=== PATIENT | female | born 1990 | race Caucasian/White ===

== ENCOUNTER 2023-03-13 15:25 | Outpatient (CLI) | payer OTHER, SELFPAY | END 2023-03-13 15:26 | disposition home or self-care (01) | LOC: NFLDREF 15:29 | PROVIDERS: Visit Provider Obstetrics & Gynecology | DX: Z34.90 Encounter for supervision of normal pregnancy, unspecified, unspecified trimester (principal) | CPT/HCPCS: 84702 ==

== ENCOUNTER 2023-03-15 13:12 | Outpatient (CLI) | payer OTHER, SELFPAY | END 2023-03-15 13:13 | disposition home or self-care (01) | LOC: NFLDREF 03-17 10:36 | PROVIDERS: Visit Provider Obstetrics & Gynecology | DX: Z34.90 Encounter for supervision of normal pregnancy, unspecified, unspecified trimester (principal) | CPT/HCPCS: 84702 ==

== ENCOUNTER 2023-03-20 10:03 | Emergency (ER) | payer OTHER, SELFPAY ==
[2023-03-20 10:09] VITALS: BP 147/85; PULSE 97; RESP 18; TEMP 36.8; O2SAT 100; BMI 42.8
--- NOTE | 2023-03-20 12:00 | ED.GENADULT ---
HPI - General Adult General Time Seen by Provider: 12:00 <Kimberley Lee - Last Filed: 03/20/23 13:31> Date Seen: 03/20/23 <Kimberley Lee - Last Filed: 03/20/23 13:31> Chief complaint: Chest Pain <Kimberley Lee - Last Filed: 03/20/23 13:31> Stated complaint: 5 weeks , chest pain <Kimberley Lee - Last Filed: 03/20/23 13:31> Time Seen by Provider: 03/20/23 12:00 <Kimberley Lee - Last Filed: 03/20/23 13:31> History of Present Illness HPI narrative: 33 yo female who is 5 weeks w/ a hx of preeclampsia presents with 1 week of constant chest tightness. She notes that the tightness worsens when she bends forward. She also notes intermittent palpitations. She reports she thought this chest tightness was due to her allergies initially. She denies shortness of breath or worsening. She denies congestion, cough, fever, chills, recent illness or recent sick contacts. Denies abdominal pain. She denies a hx of acid reflux or worsening of the pain after food intake. She took her albuterol inhaler this morning without relief. She also reports that she has had right sided, intermittent sharp back pain for the past for days, which she has had in the past before. Denies radiation of pain into the legs, denies weakness. She notes for the past three weeks she has had occasional altered sensation down her R arm with spasm of the R palm. She denies smoking. She reports no sudden cardiac deaths in the family, but her father did at age 56 from complications from heart failure, he was a smoker. <Kimberley Lee - Last Filed: 03/20/23 13:31> Related Data Home medications: Home Medications Medication Instructions Recorded Confirmed lamotrigine 200 mg tablet 200 mg PO BID 03/21/22 03/13/23 sertraline 100 mg tablet 150 mg PO 03/21/22 03/13/23 liraglutide (weight loss) 3 mg/0.5 mg subcut 11/29/22 03/13/23 mL (18 mg/3 mL) subcut pen injector (Saxenda) hydroxyzine HCl 25 mg tablet 25 mg PO BID 03/13/23 03/13/23 lamotrigine 100 mg tablet 100 mg PO BID 03/13/23 03/13/23 phentermine 37.5 mg capsule 37.5 mg PO QDAY 03/13/23 03/13/23 topiramate 25 mg tablet 25 mg PO DAILY 03/13/23 03/13/23 Previous Rx's Medication Instructions Recorded albuterol sulfate 90 mcg/actuation 2 puff inhalation Q4-6H PRN 03/21/22 aerosol inhaler shortness of breath or wheezing 30 days #8.5 grams <Kimberley Lee - Last Filed: 03/20/23 13:31> Allergies/adverse reactions: Allergies Allergy/AdvReac Type Severity Reaction Status Date / Time No Known Drug Allergies Allergy Verified 03/13/23 14:18 <Kimberley Lee - Last Filed: 03/20/23 13:31> Review of Systems Status of ROS: Reports: 10 or more systems reviewed and unremarkable except as noted in History and below <Kimberley Lee - Last Filed: 03/20/23 13:31> Narrative: Constitutional: No fevers, no weight gain or loss. Eyes: No discharge. No vision changes. HENT: No congestion, no sore throat, no ear pain. Cardiovascular: She reports some palpitations. Respiratory: No shortness of breath, no wheezes, no cough. Gastrointestinal: No abdominal pain, no vomiting, no diarrhea. Genitourinary: No dysuria, no hematuria. Musculoskeletal: Normal range of motion. Skin: No rashes, no pruritis. Neurological: No dizziness, weakness, sensory change, speech change. Endo/Heme/Allergies: No bruising or bleeding. No polydipsia. Pysch: no suicidality, no anxiety, no insomnia. All other systems reviewed and are negative. <Deni Laws MD - Last Filed: 03/20/23 13:42> [facility] Medical History: Medical History (Updated 03/20/23 @ 13:42 by Deni Laws MD) Pre-eclampsia affecting childbirth ?O14.94 - Unspecified pre-eclampsia, complicating childbirth (ICD-10) Polycystic ovary syndrome ?E28.2 - Polycystic ovarian syndrome (ICD-10) Panic attacks (06/16/11) ?F41.0 - Panic disorder [episodic paroxysmal anxiety] (ICD-10) Migraine (11/13/06) ?G43.909 - Migraine, unspecified, not intractable, without status migrainosus (ICD-10) Gestational hypertension ?O13.9 - Gestational [-induced] hypertension without significant proteinuria, unspecified trimester (ICD-10) <Kimberley Lee - Last Filed: 03/20/23 13:31> Surgical History: Surgical History (Updated 03/14/23 @ 11:15 by Janie Chung MD) History of cholecystectomy ?Z90.49 - Acquired absence of other specified parts of digestive tract (ICD-10) Status post repeat low transverse section ?Z98.891 - History of uterine scar from previous surgery (ICD-10) <Kimberley Lee - Last Filed: 03/20/23 13:31> Family History: Family History (Updated 03/14/23 @ 11:17 by Janie Chung MD) Maternal Grandfather Coronary artery disease Depression Father Coronary artery disease Stroke Mother Depression Paternal Grandfather Ulcerative colitis Other Alcohol dependence Diabetes High blood pressure High cholesterol <Kimberley Lee - Last Filed: 03/20/23 13:31> Social History: Social History (Updated 03/13/23 @ 14:24 by Brandee Mack ~ [employer]) Narrative: does not drink alcohol, does not exercise, nonsmoker quit in 2013, 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, 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, sales/customer service What is your current living situation?: I presently have a place to live Problems where you live: no known problems In the past 12 months, utilities in danger of being shut off: no In past 12 months, lack of transportation kept you from medical appts, meetings, work, or getting things needed for daily living: no In the past 12 mos, have been you worried that your food would run out before you had money to buy more?: never true In the past 12 mos, the food you bought just didn't last and you didn't have money to buy more?: never true Smoking Status: Never smoker Do you use any of these nicotine containing products: None How often do you have a drink containing alcohol: never AUDIT-C Alcohol total score: 0 Non-prescribed substance use: denies use How often does anyone, including family, friends and others, physically hurt you: never How often does anyone, including family, friends and others, insult or talk down to you: never How often does anyone, including family, friends and others, threaten you with harm: never How often does anyone, including family, friends and others, scream or curse at you: never <Kimberley Lee Last Filed: 03/20/23 13:31> Exam Narrative: Exam Narrative: General: Well appearing, no acute distress, seated upright in bed Cardiac: RRR no M/R/G Resp: CTAB MSK: R mid, lateral back pain reproducible on palpation No LE edema, warmth or erythema Neuro: Negative 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 Abdomen: Nontender throughout, no rebound or guarding Skin: No rashes or echymoses noted <Kimberley Lee Last Filed: 03/20/23 13:31> Const: Vital Signs, click to edit/add: Vital Signs - 24 hr 03/20/23 10:09 Temperature 98.2 F Pulse Rate [Right Pulse Oximeter] 97 Respiratory Rate 18 Blood Pressure [Ri ght Upper Arm] 147/85 H Pulse Oximetry 100 Oxygen Delivery Me thod Room Air <Kimberley Lee Last Filed: 03/20/23 13:31> Vital Signs, click to edit/add: Vital Signs - 24 hr 03/20/23 10:09 Temperature 98.2 F Pulse Rate [Right Pulse Oximeter] 97 Respiratory Rate 18 Blood Pressure [Ri ght Upper Arm] 147/85 H Pulse Oximetry 100 Oxygen Delivery Me thod Room Air <Deni Laws MD - Last Filed: 03/20/23 13:42> Course Course ED Course: DDx includes but not limited to SC, PE, pneumothorax, GERD, pericarditis, chostochondritis, pleuritis <Kimberley Lee Last Filed: 03/20/23 13:31> Vital Signs Vital signs: Initial Vital Signs Temperature 98.2 F 03/20/23 10:09 Temperature Source Temporal Artery Scan 03/20/23 10:09 Pulse Rate 97 03/20/23 10:09 Respiratory Rate 18 03/20/23 10:09 Blood Pressure 147/85 H 03/20/23 10:09 Blood Pressure Mean 105 03/20/23 10:09 Blood Pressure Position Sitting 03/20/23 10:09 Pulse Oximetry 100 03/20/23 10:09 Oxygen Delivery Method Room Air 03/20/23 10:09 Vital Signs Temperature 98.2 F 03/20/23 10:09 Pulse Rate 97 03/20/23 10:09 Respiratory Rate 18 03/20/23 10:09 Blood Pressure 147/85 H 03/20/23 10:09 Pulse Oximetry 100 03/20/23 10:09 Oxygen Delivery Method Room Air 03/20/23 10:09 Temperature 98.2 F 03/20/23 10:09 Pulse Rate 97 03/20/23 10:09 Respiratory Rate 18 03/20/23 10:09 Blood Pressure 147/85 H 03/20/23 10:09 Pulse Oximetry 100 03/20/23 10:09 Oxygen Delivery Method Room Air 03/20/23 10:09 <Kimberley Lee - Last Filed: 03/20/23 13:31> Initial Vital Signs Temperature 98.2 F 03/20/23 10:09 Temperature Source Temporal Artery Scan 03/20/23 10:09 Pulse Rate 97 03/20/23 10:09 Respiratory Rate 18 03/20/23 10:09 Blood Pressure 147/85 H 03/20/23 10:09 Blood Pressure Mean 105 03/20/23 10:09 Blood Pressure Position Sitting 03/20/23 10:09 Pulse Oximetry 100 03/20/23 10:09 Oxygen Delivery Method Room Air 03/20/23 10:09 Vital Signs Temperature 98.2 F 03/20/23 10:09 Pulse Rate 97 03/20/23 10:09 Respiratory Rate 18 03/20/23 10:09 Blood Pressure 147/85 H 03/20/23 10:09 Pulse Oximetry 100 03/20/23 10:09 Oxygen Delivery Method Room Air 03/20/23 10:09 Temperature 98.2 F 03/20/23 10:09 Pulse Rate 97 03/20/23 10:09 Respiratory Rate 18 03/20/23 10:09 Blood Pressure 147/85 H 03/20/23 10:09 Pulse Oximetry 100 03/20/23 10:09 Oxygen Delivery Method Room Air 03/20/23 10:09 <Deni Laws MD - Last Filed: 03/20/23 13:42> Medical Decision Making MDM Narrative Medical decision making narrative: This patient comes in with chest discomfort that is reproduced when leaning forward. She also reports some pain in the back of her neck radiating down to her right shoulder and sometimes into her right hand. She comes in with concern about a cardiac family history. EKG shows normal sinus rhythm and lab results returned with normal findings. This patient's symptoms are much more likely related to her chest wall or a cervical radiculopathy. Her symptoms are reproducible. I did discuss other lab and imaging options with the patient which were declined in a process of shared decision making. She is okay to be discharged home and encouraged use [id number] medicines as needed and directed. <Deni Laws MD - Last Filed: 03/20/23 13:42> Lab Data Labs: Lab Results 03/20/23 03/20/23 Range/Units 12:43 12:55 WBC 9.78 (4.50-11.00) K/uL RBC 4.24 (4.00-5.20) m/uL Hgb 12.2 (12.0-16.0) gm/dL Hct 38.6 (33.0-51.0) % MCV 91 (80-100) fL MCH 29 (26-34) pg MCHC 32 (32-36) gm/dL RDW Coeff of Kendall 13.4 (11.5-15.5) % Plt Count 357 (140-440) K/uL Neut % (Auto) 65.1 (42.0-72.0) % Lymph % (Auto) 21.6 (20-44) % [place] % (Auto) 6.7 (0.0-11.0) % Eos % (Auto) 6.1 (0.0-7.0) % Baso % (Auto) 0.3 (0.0-3.0) % Neut # (Auto) 6.36 (1.7-7.0) K/uL Lymph # (Auto) 2.11 (0.90-2.90) K/uL [place] # (Auto) 0.70 (0.00-0.90) K/UL Eos # (Auto) 0.60 H (0.00-0.50) K/uL Baso # (Auto) 0.03 (0.00-0.30) K/uL Abs Immat Gran (auto) 0.02 (0.00-0.30) K/uL Imm/Tot Granulo (auto) 0.2 % Sodium 140 (135-149) mmol/L Potassium 3.8 (3.6-5.1) mmol/L Chloride 108 (96-114) mmol/L Carbon Dioxide 23 (20-32) mmol/L Anion Gap 9 (7-15) mEq/L BUN 10 (5-24) mg/dL Creatinine 0.5 (0.5-1.5) mg/dL Estimated Creat Clear 147.01 Estimated GFR 125 ml/min Glucose 97 (60-115) mg/dL Calcium 8.4 (8.4-10.6) mg/dL POC Troponin I 0.00 L (0.01-0.04) ng/ml <Kimberley Jesus - Last Filed: 03/20/23 13:31> Lab Results 03/20/23 03/20/23 Range/Units 12:43 12:55 WBC 9.78 (4.50-11.00) K/uL RBC 4.24 (4.00-5.20) m/uL Hgb 12.2 (12.0-16.0) gm/dL Hct 38.6 (33.0-51.0) % MCV 91 (80-100) fL MCH 29 (26-34) pg MCHC 32 (32-36) gm/dL RDW Coeff of Kendall 13.4 (11.5-15.5) % Plt Count 357 (140-440) K/uL Neut % (Auto) 65.1 (42.0-72.0) % Lymph % (Auto) 21.6 (20-44) % [place] % (Auto) 6.7 (0.0-11.0) % Eos % (Auto) 6.1 (0.0-7.0) % Baso % (Auto) 0.3 (0.0-3.0) % Neut # (Auto) 6.36 (1.7-7.0) K/uL Lymph # (Auto) 2.11 (0.90-2.90) K/uL [place] # (Auto) 0.70 (0.00-0.90) K/UL Eos # (Auto) 0.60 H (0.00-0.50) K/uL Baso # (Auto) 0.03 (0.00-0.30) K/uL Abs Immat Gran (auto) 0.02 (0.00-0.30) K/uL Imm/Tot Granulo (auto) 0.2 % Sodium 140 (135-149) mmol/L Potassium 3.8 (3.6-5.1) mmol/L Chloride 108 (96-114) mmol/L Carbon Dioxide 23 (20-32) mmol/L Anion Gap 9 (7-15) mEq/L BUN 10 (5-24) mg/dL Creatinine 0.5 (0.5-1.5) mg/dL Estimated Creat Clear 147.01 Estimated GFR 125 ml/min Glucose 97 (60-115) mg/dL Calcium 8.4 (8.4-10.6) mg/dL POC Troponin I 0.00 L (0.01-0.04) ng/ml <Deni Laws MD - Last Filed: 03/20/23 13:42> ECG Data Attestation: I personally reviewed and interpreted this ECG as follows: <Deni Laws MD - Last Filed: 03/20/23 13:42> Interpretation: Normal sinus rhythm. Rate is 75 beats per minute. There are no ST or T-wave abnormalities. <Deni Laws MD - Last Filed: 03/20/23 13:42> Discharge Plan Discharge Clinical Impression: Acute chest wall pain <Kimberley Lee - Last Filed: 03/20/23 13:31> Patient Disposition: Home, Self-Care <Kimberley Lee - Last Filed: 03/20/23 13:31> Condition: Stable <Kimberley Perry Last Filed: 03/20/23 13:31> Additional Instructions: Use [id number] medicines as needed and directed. Increase activity as tolerated. Follow up with MD return if worsening. <Kimberley Perry Last Filed: 03/20/23 13:31> Prescriptions: No Action sertraline 100 mg tablet 150 mg PO lamotrigine 200 mg tablet 200 mg PO BID albuterol sulfate 90 mcg/actuation HFA aerosol inhaler 2 puff inhalation Q4-6H PRN (Reason: shortness of breath or wheezing) 30 Days Qty: 8.5 3RF Saxenda 3 mg/0.5 mL (18 mg/3 mL) pen injector subcut phentermine 37.5 mg capsule 37.5 mg PO QDAY Rx Instructions: must administer 30 minutes before or 1-2 hours after breakfast lamotrigine 100 mg tablet 100 mg PO BID hydroxyzine HCl 25 mg tablet 25 mg PO BID topiramate 25 mg tablet 25 mg PO DAILY <Kimberley Lee - Last Filed: 03/20/23 13:31> Follow Up/Referrals: Bette Pereyra MD [Primary Care Provider] - <Kimberley Lee - Last Filed: 03/20/23 13:31> Stand Alone Forms: My[facility] Info Instructions <Kimberley Lee - Last Filed: 03/20/23 13:31>
[2023-03-20 13:05] LABS: Basophils Absolute Auto 0.03 K/uL (0.00-0.30); Basophils Percent Auto 0.3 % (0.0-3.0); Eosinophils Percent Auto 6.1 % (0.0-7.0); Hematocrit 38.6 % (33.0-51.0); Hemoglobin* 12.2 gm/dL (12.0-16.0); Immature Granulocytes Abs Auto 0.02 K/uL (0.00-0.30); Immature Granulocytes Pct Auto 0.2 %; Lymphocytes Absolute Auto 2.11 K/uL (0.90-2.90); Lymphocytes Percent Auto 21.6 % (20-44); Mean Corpuscular HGB Conc 32 gm/dL (32-36); Mean Corpuscular Hemoglobin 29 pg (26-34); Mean Corpuscular Volume 91 fL (80-100); Monocytes Percent Auto 6.7 % (0.0-11.0); Neutrophils Absolute Auto 6.36 K/uL (1.7-7.0); Neutrophils Percent Auto 65.1 % (42.0-72.0); Platelet Count* 357 K/uL (140-440); RDW Coefficient of Variation % 13.4 % (11.5-15.5); Red Blood Count 4.24 m/uL (4.00-5.20); White Blood Count* 9.78 K/uL (4.50-11.00)
[2023-03-20 13:09] LABS: Slide Review Reflex No
[2023-03-20 13:17] LABS: Chloride* 108 mmol/L (96-114); Potassium* 3.8 mmol/L (3.6-5.1); Sodium* 140 mmol/L (135-149)
[2023-03-20 13:20] LABS: Anion Gap 9 mEq/L (7-15); Carbon Dioxide* 23 mmol/L (20-32); Creatinine* 0.5 mg/dL (0.5-1.5); Est. Creatinine Clearance* 147.01; Estimated Glomerular Filt Rate 125 ml/min
[2023-03-20 13:21] LABS: Blood Urea Nitrogen* 10 mg/dL (5-24); Calcium* 8.4 mg/dL (8.4-10.6); Glucose* 97 mg/dL (60-115)
[2023-03-20 13:39] VITALS: BP 143/99; PULSE 76; RESP 16; O2SAT 97
== END 2023-03-20 13:48 | disposition home or self-care (01) ==
PROVIDERS: Emergency Provider Emergency Medicine Emergency Medical Services
DX: R07.89 Other chest pain (principal); Z3A.01 Less than 8 weeks gestation of pregnancy
CPT/HCPCS: 36415; 80048; 84484; 85025; 93005; 99284

== ENCOUNTER 2023-03-30 10:24 | Outpatient (CLI) | payer OTHER, SELFPAY ==
[2023-03-30 13:49] LABS: Chlamydia DNA Amplified* NOT DETECTED (No Detected); GC DNA Amplified* NOT DETECTED (No Detected)
== END 2023-03-30 10:25 | disposition home or self-care (01) ==
PROVIDERS: Visit Provider Physician Assistant
DX: Z34.91 Encounter for supervision of normal pregnancy, unspecified, first trimester (principal)
CPT/HCPCS: 87491; 87591

== ENCOUNTER 2023-03-31 07:11 | Outpatient (CLI) | payer OTHER, SELFPAY ==
--- OUTSIDE RECORDS SUMMARY | 2023-03-31 07:14 | XMS_ITS | Continuity of Care Document ---
Author Name Unknown Organization [facility] Address [address] [address] [place] [address] Phone Care Team Providers Care Schedule Maker Name Role Phone Sharon VITALE, Carlos Unavailable Unavailable Allergies, Adverse Reactions, Alerts Substance Reaction Status Criticality No Known Allergies Active No Inform ation Medications Medication Instructions Dosage Effective Dates (start - stop) Status Comments Uceris 9 mg tablet, extended release take 1 tablet by oral route every day in the morning swallowing whole with water. Do not break, crush, dissolve and/or chew. 9 MG - Active fluoxetine 40 mg capsule take 1 Tablet by ORAL route every day in the morning 40 MG - Active gabapentin 600 mg tablet take 2 tablet by oral route 3 times every day 1200 MG - Active Norlyda 0.35 mg tablet take 1 tablet by oral route every day - Active Lamictal 200 mg tablet take 4 tablet by oral route 2 times every day 800 MG - Active Procedures Procedure Date Colonoscopy Flex; W/remov Les- 19 Colonoscopy Flex; W/bx /mx Level Iv-surg Path Gross/micro 19 Immunocytochemistry, Each Antibody Ugi Endo; W/bx 1/mx Level Iv-surg Path Gross/micro 19 Offic/outpt E&m [facility] Routine Serum Collection C-reactive Prot Hep B Core Antibody Hepatitis B Surface Antibody Ag-immunoassay; Hep B Surface 9 Hepatic Function Panel Vitamin D; [address]; Hg/pltlt Ct Auto/compl 19 Advance Directives Directive Yes / No Effective Date File Name No Information Encounters Encounter Description Practice Location Reason(s) For Visit Diagnoses Date Provider Providers Copied on Encounter [facility], [address] [address], [place], [place], [id number], [place] tel:[phone] [facility] No Information 1 Sharon Gonzalez. [address], [place], [place], [id number] , [place]. tel: [phone] [facility], [address] [address], [place], [place], [id number], [place] tel:[phone] [facility] No Information 9 Sharon Gonzalez. [address], [place], [place], [id number] , [place]. tel: [phone] [facility], [address] [address], [place], [place], [id number], [place] tel:[phone] [facility] No Information 9 David Heredia. [address], [place], [place], [id number] , [place]. tel: [phone] [facility], [address] [address], [place], [place], [id number], [place] tel:[phone] [facility] Ulcerative pancolitisColorecta l polyp detected on colonoscopyPolyp of colonInflammatory polyps of colon without complicationsUlcera tive (chronic) pancolitis without complications 9 David Heredia. [address], [place], [place], [id number] , [place]. tel: [phone] Referring Provider: Referral Self, USE FOR SELF REFERRALS. [facility], [address] [address], [place], [id number], [place] tel:[phone] [facility] Gastric erosion determined by endoscopyOther diseases of stomach and duodenumDuodenitis without bleedingGastric ulcer, unsp as acute or chronic, w/o hemor or perf Dec-0 9 David Heredia. [address], [facility] [address], [place], [place], [id number] , [place]. [phone] Referring Provider: Referral Self, USE FOR SELF REFERRALS. Offic/outpt E&m [place], [address] [address], [place], [id number], [place] tel:[phone] [facility] Symptoms or Concerns (chief complaint) Ulcerative colitis with rectal bleeding, unspecified locationNauseaVagin al discharge David Heredia. [address], [facility] [address], [place], [place], [id number] , [place]. [phone] Referring Provider: Kaylen Romero, [address], [place], [address]. tel:[phone] Family History Family Member Type Diagnosis Age At Onset Father Problem (finding) alcoholism Sister Problem (finding) Alive and well Mother Problem (finding) Anxiety Brother Problem (finding) Alive and well Daughter Problem (finding) Alive and well Mother Problem (finding) Emphasema Father Problem (finding) diverticulitis of colon Mother Problem (finding) IBS Immunizations Vaccine Date Status Comments measles, mumps and rubella v irus vaccine administered Note: [facility] bi-direct ional interface ; Source: Other Registry Fluzone Quad 6mo or older 8490-8417 administered Note: [facility] bi-direct ional interface ; Source: Other Registry influenza, high dose seasona l, preservative-free administered Note: [facility] bi-direct ional interface ; Source: Other Registry tetanus toxoid, reduced diphtheria toxoid, and acellular pertussis vaccine, adsorbed administered Note: [facility] b i-directional interface ; Source: Other Registry Influenza administered Note: [facility] bi-d irectional interface ; Source: Other Registry influenza virus vaccine, unspecified formulation administered Note: [facility] bi-di rectional interface ; Source: Other Registry Pneumovax 23 administered Note: [facility] bi-d irectional interface ; Source: Other Registry Influenza, seasonal, injectable administe red Note: [facility] bi- directional interface ; Source: Other Registry tetanus and diphtheria toxoi ds, adsorbed, preservative free, for adult use (2 Lf of tetanus toxoid and 2 Lf of diphtheria toxoid) administered Note: [facility] bi-direct ional interface ; Source: Other Registry human papilloma virus vaccin e, quadrivalent administered Note: [facility] bi-direct ional interface ; Source: Other Registry human papilloma virus vaccin e, quadrivalent administered Note: [facility] bi-direct ional interface ; Source: Other Registry human papilloma virus vaccin e, quadrivalent administered Note: [facility] bi-direct ional interface ; Source: Other Registry tetanus and diphtheria toxoi ds, adsorbed, preservative free, for adult use (2 Lf of tetanus toxoid and 2 Lf of diphtheria toxoid) administered Note: [facility] bi-direct ional interface ; Source: Other Registry Engerix-B administered Note: [facility] bi-d irectional interface ; Source: Other Registry Engerix-B administered Note: [facility] bi-d irectional interface ; Source: Other Registry measles, mumps and rubella v irus vaccine administered Note: [facility] bi-direct ional interface ; Source: Other Registry Engerix-B administered Note: [facility] bi-d irectional interface ; Source: Other Registry Payers Payer name Insurance type Covered republican ID Authoriza tion(s) No Information Social History Type Description Quantity Date Captured Comments Sex Female Smoking Status No Information Chief Complaint And Reason For Visit No Information Reason For Referral Reason For Referral No Information Plan Of Treatment Date Type Action Status Referral Ordered: EGD Appointment date/timeframe: 01/01/2019 ordered Referral Ordered: Colonoscopy Appointment date/timeframe: 01/02/2019 ordered Referral Ordered: MRI Pelvis WITH Contrast Appointment date/timeframe: 12/26/2018 ordered History Of Present Illness Encounter Date Complaint History Of Prese nt Illness GI Symptoms or Concerns This is a 28-year-old female who is referred here to establish new gastroenterology care for ulcerative colitis. Records from the [facility] where she had previously been seen are not yet available, but have been requested. The patient reports that she was diagnosed 5 to 6 years ago. Initially, she tried Asacol without any benefit. She required steroids and at one point was on a prolonged steroid course for up to 8 months. She ultimately tried Humira, but during , had a flare despite Humira. The Humira was titrated, which worked for a period of time, but then efficacy was lost. She was on Humira for 2 years before transitioning to Remicade. In similar fashion, she responded well to Remicade initially, but required multiple dose and interval adjustments to the point that she was on this every 4 weeks. Her last infusion was in June of this year. She does note that in recent weeks to months her symptoms have recurred consistent with prior flares. She is noting diar Functional Status Date Functional Assessmen t No Information Instructions Date Instruction Additional Infor salina A pelvic MRI is donna mmended to assess for possible fistula, to see if evidence for crohns's Related to Vaginal discharge 1. We will check blo od work, stool panel, and arrange colonoscopy2. We will provide information regarding Entyvio and pursue approval. Call if you have questions regarding entyvio after you have had a chance to read about it3. We will review [place] records Related to Ulcerative colitis with rectal bleeding, unspecified location We will arrange an upper endosco py Related to Nausea IBD Folder Related to Ulcer ative colitis with rectal bleeding, unspecified location IBD and Nutrition Related to Ulc erative colitis with rectal bleeding, unspecified location Entyvio (vedolizumab) Related to Ulcerative colitis with rectal bleeding, unspecified location Please retrieve [place] records (GI and Rheum) Related to Ulcerative colitis with rectal bleeding, unspecified location Assessments Type Assessment Date No Information Patient Care Teams Name Effective Dates (start - stop) Status Members No Information
--- NOTE | 2023-03-31 07:15 | CRLHL7_ITS ---
For Patients: As a result of the Cures Act, medical imaging exams and procedure reports are released immediately into your electronic medical record. You may view this report before your referring provider. If you have questions, please contact your health care provider. HISTORY: Dating and viability. COMPARISON: None available of this gestation. TECHNIQUE: Transvaginal ultrasound examination of the early was performed. FINDINGS: A single intrauterine gestational sac is seen with a pole. The crown-rump length measurement of 0.7 cm gives an estimated gestational age of 6 weeks 4 days with an estimated date of delivery of 11/20/2023.. This correlates well with the LMP of 02/10/2023 which gives a clinical age of 7 weeks 0 days. Regular cardiac activity is seen at 124 BPM. A Caesarean section scar is seen in the anterior lower uterine fundus. There is no sign of free fluid in the pelvis. A corpus luteum cyst of is seen in the right ovary. The ovaries are otherwise normal in appearance. IMPRESSION: Single intrauterine gestation with estimated age of 6 weeks 4 days. Regular cardiac activity is seen. Dictated by Lorenzo Sewell MD @ 04/03/2023 10:34:21 PM (Electronically Signed)
== END 2023-03-31 07:12 | disposition home or self-care (01) ==
PROVIDERS: Visit Provider Physician Assistant
DX: Z34.91 Encounter for supervision of normal pregnancy, unspecified, first trimester (principal); Z3A.01 Less than 8 weeks gestation of pregnancy
CPT/HCPCS: 76817; 80048; 82570; 84156; 84450; 84460; 86592; 86703; 86704; 86706; 86762; 86787; 86803; 86850; 86900; 86901; 87086; 87340

== ENCOUNTER 2023-04-04 14:28 | Outpatient (CLI) | payer OTHER, SELFPAY ==
--- OUTSIDE RECORDS SUMMARY | 2023-04-05 05:27 | XMS_ITS | Continuity of Care Document ---
Author Name Unknown Organization [facility] Address [address] [address] [place] [address] Phone Care Team Providers Care Vacuum Applicator Operator Name Role Phone Sharon VITALE, Carlos Unavailable [...] Level Iv-surg Path Gross/micro 19 Offic/outpt E&m [facility] Routine Serum Collection C-reactive Prot Hep B Core Antibody Hepatitis B Surface Antibody Ag-immunoassay; Hep B Surface 9 Hepatic Function Panel Vitamin D; [address]; Hg/pltlt Ct Auto/compl 19 Advance Directives Directive Yes / No Effective Date File Name No Information Encounters Encounter Description Practice Location Reason(s) For Visit Diagnoses Date Provider Providers Copied on Encounter [facility], [address] [address], [place], [place], [id number], [place] tel:[phone] [facility] No Information [address], [place], [place], [id number] , [place]. tel: [phone] [facility], [address] [address], [place], [place], [address], [place] tel:[phone] [facility] No Information [address], [place], [place], [id number] , [place]. tel: [phone] [facility], [address] [address], [place], [place], [address], [place] tel:[phone] [facility] No Information [address], [place], [place], [id number] , [place]. tel: [phone] [facility], [address] [address], [place], [place], [address], [place] tel:[phone] [facility] Ulcerative pancolitisColorecta l polyp detected on colonoscopyPolyp of colonInflammatory polyps of colon without complicationsUlcera tive (chronic) pancolitis without complications [address], [place], [place], [address] , [place]. tel: [phone] Referring Provider: Referral Self, USE FOR SELF REFERRALS. [facility], [address] [address], [place], [id number], [place] tel:[phone] [facility] Gastric erosion determined by endoscopyOther diseases of stomach and duodenumDuodenitis without bleedingGastric ulcer, unsp as acute or chronic, w/o hemor or perf Dec-0 [address], [facility] [address], [place], [place], [address] , [place]. [phone] Referring Provider: Referral Self, USE FOR SELF REFERRALS. Offic/outpt E&m [facility], [address] [address], [place], [address], [place] tel:[phone] [facility] Symptoms or Concerns (chief complaint) Ulcerative colitis with rectal bleeding, unspecified locationNauseaVagin al discharge David Heredia. [address], [facility] [address], [place], [place], [address] , [place]. [phone] Referring Provider: Kaylen Romero, [address], [place], [address]. tel:[phone] Family History Family Member Type Diagnosis Age [...] Other Registry Fluzone Quad 6mo or older [id number] administered Note: [facility] bi-direct ional interface ; Source: Other Registry influenza, high dose seasona l, preservative-free administered Note: [facility] bi-direct ional interface ; Source: Other Registry tetanus toxoid, reduced diphtheria toxoid, and acellular pertussis vaccine, adsorbed administered Note: [facility] b i-directional interface ; Source: Other Registry [...] care for ulcerative colitis. Records from the [facility] where she had previously been seen are [...] to read about it3. We will review [facility] records Related to Ulcerative colitis with rectal bleeding, unspecified location We will arrange an upper endosco py Related to Nausea IBD Folder Related to Ulcer ative colitis with rectal bleeding, unspecified location IBD and Nutrition Related to Ulc erative colitis with rectal bleeding, unspecified location Entyvio (vedolizumab) Related to Ulcerative colitis with rectal bleeding, unspecified location Please retrieve [facility] records (GI and Rheum) Related to Ulcerative colitis with rectal bleeding, unspecified location Assessments Type Assessment Date No Information Patient Care Teams Name Effective Dates (start - stop) Status Members No Information
== END 2023-04-04 14:29 | disposition home or self-care (01) ==
LOC: NFLDREF 04-05 05:24
PROVIDERS: Visit Provider Obstetrics & Gynecology
DX: O10.919 Unspecified pre-existing hypertension complicating pregnancy, unspecified trimester (principal)
CPT/HCPCS: 82570; 84156

== ENCOUNTER 2023-04-17 14:22 | Outpatient (CLI) | payer OTHER, SELFPAY ==
[2023-04-17 22:46] LABS: SARS PCR* Negative SARS-CoV-2 (Negative)
== END 2023-04-17 14:23 | disposition home or self-care (01) ==
LOC: KYNREF 14:22
PROVIDERS: Visit Provider Nurse Practitioner Family
DX: R05.9 Cough, unspecified (principal)
CPT/HCPCS: 87635

== ENCOUNTER 2023-05-26 13:38 | Outpatient (CLI) | payer BC, OTHER, SELFPAY ==
--- OUTSIDE RECORDS SUMMARY | 2023-05-26 13:43 | XMS_ITS | Clinical Summary ---
Author Name Unknown Organization [facility] Address [address] [place] [address] Care Team Providers Care Pattern Shop Supervisor Name Role Phone Bette Lakhani M.D. Primary Care Pro vider Source Comments Patient records contain information from all sites at [facility]. For routine questions regarding patient records, call [phone] during business hours, M-F 8:00 AM - 5:00 PM Central Time. Record requests for emergency care only can be directed to [phone] at any time.[facility] Allergies No known active allergies Medications Medication Sig Dispensed Refills Start Date End Date Status Aviane 0.1-20 mg-mcg per tablet 0 06/11/2022 Active albuterol 90 mcg/actuation inhaler Inhale 2 puffs every 4 (four) hours as needed. 0 03/21/2022 Active pen needle, diabetic (BD Ultra-Fine Short Pen Needle) 31 gauge x 5/16 needle 1 Injection daily. Use as needed for Saxenda injection. 100 each 3 07/07/2022 Active liraglutide, weight loss, (SAXENDA) 3 mg/0.5 mL (18 mg/3 mL) injection Inject 2.4 mg under the skin daily for 7 days, THEN 3 mg daily. 50 mL 11 09/27/2022 10/04/2023 Active ondansetron ODT (ZOFRAN-ODT) 4 mg disintegrating tabletIndications:Chuck sea And Vomiting Dissolve 1 tablet (4 mg total) in the mouth every 8 (eight) hours as needed for nausea or vomiting. 20 tablet 2 10/13/2022 Active sertraline (ZOLOFT) 100 mg tabletIndications:Bip olar II Disorder (HCC),Obsessive Compulsive Disorder Take 1.5 tablets (150 mg total) by mouth daily. 45 tablet 11 01/16/2023 01/16/2024 Active sulfaSALAzine (AZULFIDINE) 500 mg tabletIndications:Col itis Ulcerative Left Sided (HCC) Take 3 tablets (1,500 mg total) by mouth 2 (two) times a day. 60 tablet 11 03/28/2023 Active lamoTRIgine (LaMICtaL) 100 mg tablet Take 2.5 tablets (250 mg total) by mouth 2 (two) times a day for 7 days, THEN 2 tablets (200 mg total) 2 (two) times a day for 7 days, THEN 1.5 tablets (150 mg total) 2 (two) times a day for 7 days, THEN 1 tablet (100 mg total) 2 (two) times a day for 7 days, THEN 0.5 tablets (50 mg total) 2 (two) times a day for 7 days, THEN 0.5 tablets (50 mg total) daily for 7 days. Then D/C. 109 tablet 0 03/31/2023 Active NIFEdipine (ADALAT CC) 30 mg ER tablet Take 30 mg by mouth daily. 0 03/31/2023 Active Active Problems Problem Noted Date Diagnosed Date Obsessive Compulsive Disorder 12/28/2017 Bipolar II Disorder 10/10/2017 Body Mass Index 45.0 To 49.9 Adult 11/30/2016 Overview: Rule activated problem due to BMI 45-49 posted on 11/30 at 13:54 CDT. Family History Of Ischemic H eart Disease And Other Diseases Of The Circulatory System 09/26/2015 Morbid Obesity 09/25/2014 Overview: Overview: BMI = 47 Colitis Ulcerative Left Sided 01/27/2014 Rhinitis Allergic 09/30/2013 Anxiety 01/13/2011 Polycystic Ovary Syndrome 10/29/2010 Concussion No Loss Of Consciousness Subsequent Pain Neck Pain Low Back Unspecified Pain Shoulder Left Pain Shoulder Right Comments Yes Resolved Problems Problem Noted Date Diagnosed Date Resolved Date Cholecystitis Acute With Cys tic Duct Obstruction 08/27/2021 08/28/2021 Overview: Added automatically from request for surgery [id number] Cholecystitis Acute 08/27/2021 01/22/20 Examination Other N ormal Third Trimester 06/12/2020 01/21/2022 Thiopurine Methyltransferase Normal Activity Extensive Metabolizer 08/31/2017 01/21/2022 Encounters Date Type Department Care Team Description 04/22/2023 7:40 AM NETWORKING TECHNICIAN E-Visit [facility] Express Care at the [facility] on the 4th Floor [address] [place] [address] Niurka Haynes APRN, C.N.P., M.S.N. Express Care Online for Sinus Symptoms (sinusitis) 04/17/2023 8:27 PM NETWORKING TECHNICIAN - 04/17/2023 9:35 PM NETWORKING TECHNICIAN Emergency [facility] [address] [place] [id number] Neeru Tabor P.A.-C., P.A., M.S. Influenza (Primary Dx) Discharge Disposition: Home or Self Care 04/17/2023 Patient Self-Triage [facility] Symptom Director Workforce Management, Provider from Last 3 Months Immunizations Name Administration Dates Next Due 4vHPV (discontinued) 03/04/2011,11/03/2010,08/31 DTaP (Infanrix, [employer]edia) 08/24/1993 DTaP, Unspecified 09/12/1989, 9,1988,1988 HepA Adult 06/28/2022 HepB (discontinued) adolesce nt/high risk 12/18/2000,07/14/2000,05/26/2000 HepB Adult 12/18/2000,07/14/2000,05/26/2000 Influenza (IM) Preservative Free 03/15/2018 Influenza Split 02/29/2016 Influenza, Unspecified 02/26/2014,02/19/2013,01/2012 MMR 02/20/2018,05/26/2000,06/13/1989 PCV20 06/28/2022 PPSV23 12/02/2012 SARS-COV-2 (COVID-19) - PFIZ ER (12 years or older) 04/20/2021,03/30/2021 Td (Adult), adsorbed 10/04/2011,04/29/2002 Td Preservative Free (TENIVA C, DECAVAC) 04/29/2002 Tdap 11/05/2020,08/14/2015 influenza vaccine quad (FLUZONE/FLUARIX) (6 months and older)(PF) 06/28/2022,06/07/2021,05/28/2020 Family History Medical History Relation Name Comments Alcohol abuse Father Sebas Mitchell Jr. Colon polyps Father Sebas Mitchell Jr. Coronary artery disease Father Sebas Mitchell Jr. Drug abuse Father Sebas Mitchell Jr. Hypertension Father Sebas Mitchell Jr. Kidney disease Father Sebas Mitchell Jr. Liver disease Father Sebas Mitchell Jr. Migraines Father Sebas Mitchell Jr. Obesity Father Sebas Mitchell Jr. Stroke Father Sebas Mitchell Jr. Anxiety disorder Maternal Grandfather Henrry Nance Arthritis Maternal Grandfather Henrry Nance Coronary artery disease Maternal Grandfather Henrry Song brigida Depression Maternal Grandfather Henrry Nance Diabetes Maternal Grandfather Henrry Nance Hypertension Maternal Grandfather Henrry Nance Melanoma Maternal Grandfather Henrry Nance Migraines Maternal Grandfather Henrry Nance Anxiety disorder Maternal Grandmother Liannaalireza Nance Depression Maternal Grandmother Liannaalireza Nance Diabetes Maternal Grandmother Liannaalireza Nance Hypertension Maternal Grandmother Liannaalireza Nance Obesity Maternal Grandmother Liannaalireza Nance Stroke Maternal Grandmother Liannaalireza Nance Transient ischemic attack Maternal Grandmother Patemigdio boss Goyo Anxiety disorder Mother Jennifer Nance Arthritis Mother Jennifer Nance Depression Mother Jennifer Nance Hypertension Mother Jennifer Nance Obesity Mother Jennifer Nance Skin cancer Mother Jennifer Nance Lupus Other 3 maternal aunt s, fibromylagia, same aunts may also have RA Obesity Paternal Grandfather Sebas Mitchell Other cancer Paternal Grandfather Sebas Mitchell Ulcerative colitis Paternal Grandfather Sebas Mitchell Relation Name Status Comments Father Sebas Mitchell Jr. Maternal Grandfather Henrry Nance Maternal Grandmother Liannaalireza Nance Mother Jennifer Nance Other Paternal Grandfather Sebas Mitchell Social History Tobacco Use Types Packs/Day Years Used Date Smoking Tobacco: Former Cigarettes 0.3 7 0 10/08/2008 - 10/21/2017 Smokeless Tobacco: Never Tobacco Cessation:Counseling Given: Not Answered Comments:Occasional smokes. Alcohol Use Standard Drinks/Week Comments No 0 (1 standard drink = 0.6 oz pur e alcohol) Humiliation, Afraid, Rape, and Kick questionnair e Answer Date Recorded Within the last year, have y ou been afraid of your partner or ex-partner? No 01/21/2022 Within the last year, have y ou been humiliated or emotionally abused in other ways by your partner or ex-partner? No Within the last year, have y ou been kicked, hit, slapped, or otherwise physically hurt by your partner or ex-partner? No 01/21/2022 Within the last year, have y ou been raped or forced to have any kind of sexual activity by your partner or ex-partner? No 01/21/2022 Social Connection and Isolat ion Panel [NHANES] Answer Date Recorded In a typical week, how many times do you talk on the phone with family, friends, or neighbors? More than three times a week 01/21/2022 How often do you get togethe r with friends or relatives? Three times a week 01/21/2022 How often do you attend chur ch or jehovah's witness services? 1 to 4 times per year 01/21/2022 Do you belong to any clubs o r organizations such as christian groups, unions, fraternal or athletic groups, or school groups? No 01/21/2022 How often do you attend meet ings of the clubs or organizations you belong to? Never 01/21/2022 Are you , , di vorced, , never , or living with a partner? 01/21/2022 AUDIT-C Answer Date Recorded Q1: How often do you have a drink containing alc ohol? Never 01/21/2022 Average Number of Drinks Not on file 022 Frequency of Binge Drinking Not on file 12/31 Overall Financial Resource Strain (CARDIA) Answe r Date Recorded How hard is it for you to pa y for the very basics like food, housing, medical care, and heating? Somewhat hard 01/21/2022 PHQ-2 Answer Date Recorded PHQ-2 Score 6 07/18/2022 [facility] - Occupational Stress Questionnaire Answer Date Recorded Do you feel stress - tense, restless, nervous, or anxious, or unable to sleep at night because your mind is troubled all the time - these days? To some extent 01/21/2022 Exercise Vital Sign Answer Date Recorde d On average, how many days pe r week do you engage in moderate to strenuous exercise (like a brisk walk)? 0 days 01/21/2022 On average, how many minutes do you engage in exercise at this level? 0 min 01/21/2022 Hunger Vital Sign Answer Date Recorded Within the past 12 months, y ou worried that your food would run out before you got the money to buy more. Never true 01/22/20 22 Within the past 12 months, t he food you bought just didn't last and you didn't have money to get more. Never true 01/21/2022 PRAPARE - Transportation Answer Date Re corded In the past 12 months, has l ack of transportation kept you from medical appointments or from getting medications? No 12/31 In the past 12 months, has l ack of transportation kept you from meetings, work, or from getting things needed for daily living? No 01/21/2022 Housing Stability Vital Sign Answer Cruzito e Recorded In the last 12 months, was t here a time when you were not able to pay the mortgage or rent on time? No 01/21/2022 In the last 12 months, how many places have you lived? 1 01/21/2022 In the last 12 months, was t here a time when you did not have a steady place to sleep or slept in a long term (including now)? No 01/21/2022 Depression Answer Date Recor ded PHQ-9 Total Score (max 27) 22 07/18 Nutrition Answer Date Recorded Nutrition: EVOO Fat Source Yes 01/21 On average, how many serving s of fruits and vegetables do you eat per day (serving size is equal to 1 cup or approximately the size of a tennis ball)? 0-1 01/21/2022 Dental Answer Date Recorded Dental: Regular Dentist Yes 09/30/19 Employment Answer Date Recorded Employment status Employed and actively working without restrictions 01/21/2022 Education Answer Date Recorded What is the highest level of school you have completed or the highest degree you have received? GED or equivalent Comments Yes Sex and Gender Information Value Date Recorded Sex Assigned at Female 11/20/2017 9:40 AM CDT Gender Identity Female 11/20/2017 9:40 AM CDT Sexual Orientation Straight 11/20/2017 9: 40 AM CDT Last Filed Vital Signs Vital Sign Reading Time Taken Comments Blood Pressure 133/106 04/17/2023 9:00 PM NETWORKING TECHNICIAN Pulse 79 04/17/2023 9:15 PM NETWORKING TECHNICIAN Temperature 37 ??C (98.6 ??F) 04/17/2023 8:28 PM NETWORKING TECHNICIAN Respiratory Rate 17 04/17/2023 8:28 PM NETWORKING TECHNICIAN Oxygen Saturation 96% 04/17/2023 9:15 PM NETWORKING TECHNICIAN Inhaled Oxygen Concentration - - Weight 126 kg (278 lb 7.1 oz) 04/17/2023 8:30 PM NETWORKING TECHNICIAN Height 167.6 cm (5' 6) 06/28/2022 6:36 PM NETWORKING TECHNICIAN Body Mass Index 44.94 06/28/2022 6:36 PM NETWORKING TECHNICIAN Plan of Treatment Health Maintenance Due Date Last Done Comments HIV Screening 1988 Hepatitis C Screening 1988 Zoster Vaccines (1 of 2) 2007 COVID-19 Vaccine ( season) 2022 04/20/2021, 03/30/2021 Depression Screening (Annual PHQ-2) 05/01/2023 Cervical Cancer Screening 05/28/20252020 (Performed elsewhere), 09/12/2017, 05/05/2014 (Performed elsewhere), Additional history exists Lipid (Cholesterol) Screening 06/28/2027 06/28/2022 DTaP,Tdap,and Td Vaccines (8 - Td or Tdap) 11/05/2030 11/05/2020, 08/14/2015, 10/04/2011, Additional history exists RSV vaccine - (32-36 weeks) or 60+ years (1 - 1-dose 60+ series) 2048 Hepatitis B Vaccines Completed 12/18/2000, 12/18/2000, 07/14/2000, Additional history exists HPV Vaccines Completed 03/04/2011, 0709/2010, 08/31/2010 Colonoscopy Discontinued 01/12/2016 Colorectal Cancer Surveillance Discontinued Pneumococcal vaccine (0-64 years) Aged Out 06/28/2022, 12/02/2012 No longer eligibl e based on patient's age to complete this topic Influenza Vaccine Completed 03/31/2023, , 06/07/2021, Additional history exists CT Colonography Discontinued Cologuard Discontinued Medical Devices Implanted Type Area Putty Tinter Maker Device Identifier Shelf Expiration Date Model / Serial / Lot Clp Valeria Carlton Zamora - [id number] Implanted:Qty: 1 on 08/27/2021 by Gurvinder Goodrich M.D., Ph.D. at [facility] Hardware e.g. pins/screws /rods N/A: Abdomen Key Ring [id number] 02/01/2026 [id number] / / [id number] Conversions - Default Historical Implant Device Implanted:08/29 (Quantity not on file) Urologic Other Arm Description:Device Status Te xt - UrologOth. control implant in the left bicep. Procedures Procedure Name Priority Date/Time Associated Diagnosis Comments DX CHEST AP OR PA AND LATERAL 2 VIEWS RAD - Semiurgent (Fast; most ED patients; some inpatients) 04/17/2023 9:08 PM NETWORKING TECHNICIAN INFLUENZA A, B, RSV, PCR, POCT STAT 04/17/2023 8:45 PM NETWORKING TECHNICIAN from Last 3 Months Results * DX Chest AP or PA and Lateral 2 Views (04/17/2023 9:08 PM NETWORKING TECHNICIAN) Anatomical Region Laterality Modality Chest, Thoracic RST LOS, Tho racic ARZ LOS, Thoracic FLA LOS N/A Digital Radiography 04/17/2023 9:11 PM NETWORKING TECHNICIAN Impressions 04/17/2023 9:12 PM NETWORKING TECHNICIAN No focal pulmonary consolidation. No pleural effusion. No pneumothorax. Normal cardiomediastinal silhouette. Narrative 04/17/2023 9:12 PM NETWORKING TECHNICIAN EXAM: DX CHEST AP OR PA AND LATERAL 2 VIEWS Procedure Note Ubaldo Myers M.D. - 04/17/2023 EXAM: DX CHEST AP OR PA AND LATERAL 2 VIEWS IMPRESSION: No focal pulmonary consolidation. No pleural effusion. No pneumothorax.Normal cardiomediastinal silhouette. Neeru Tabor P.A.-C., P.A., M.S. IMG [facility] IMAGING PROCEDURES * (ABNORMAL) Influenza A/B and RSV, PCR, Point of Care (04/17/2023 8:45 PM NETWORKING TECHNICIAN) Influenza A, POCT Positive(A) Negative 04/17/2023 8:52 PM NETWORKING TECHNICIAN CNFL Influenza B, POCT Negative Negative 04/17/2023 8:52 PM NETWORKING TECHNICIAN CNFL Resp Syncytial Virus, POCT Negative Negative 04/17/2023 8:52 PM NETWORKING TECHNICIAN CNFL Swab (Nasopharynx) 04/17/2023 8:45 PM NETWORKING TECHNICIAN 04/17/2023 8:50 PM NETWORKING TECHNICIAN Neeru Tabor P.A.-C., P.A., M.S. LAB POC T ORDERABLES - DEVICE Performing Organization Address City/State/[facility] Co de Phone Number [facility] [address] [place] [address], [facility] in [address] [address] from Last 3 Months Care Teams Pattern Shop Supervisor Relationship Specialty Start Date End Date Bette Lakhani M.D. NPLacey: [phone] [id number] [place] [address] PCP - General 10/13/16
--- OUTSIDE RECORDS SUMMARY | 2023-05-26 13:44 | XMS_ITS ---
Author Name Unknown Organization [facility] Address [address] [place] [address] Care Team Providers Care Steelworker Name Role Phone Unavailable Unavailable Unavailable Surgery Details Not on file Complications Check Surgery Details section. Procedure Estimated Blood Loss Check Surgery Details section. Procedure Findings Check Surgery Details section. Procedure Specimens Taken Check Surgery Details section.
--- OUTSIDE RECORDS SUMMARY | 2023-05-26 13:44 | XMS_ITS | Encounter Summary ---
Author Name Unknown Organization [facility] Address [address] [place] [address] Care Team Providers Care Central Office Repairer Name Role Phone Bette Lakhani M.D. Primary Care Pro vider Reason for Referral * Outpatient (Routine) - Authorized Specialty Diagnoses / Procedures Referred By Anna olmos Referred To Contact Family Medicine Bette Lakhani M.D. [address] [place] [phone] [facility] Referral ID Status Reason Start Date Expiration Date V isits Requested Visits Authorized [id number] Authorized 09/27/2022 09/26/2025 1 1 Reason for Visit * Reason Comments Medication Visit Medication follow up and weight check * Outpatient (Routine) - Closed Specialty Diagnoses / Procedures Referred By Anna olmos Referred To Contact Family Medicine Bette Lakhani M.D. [address] [place] [phone] [facility] Referral ID Status Reason Start Date Expiration Date Visits Re quested Visits Authorized [id number] Closed 06/28/2022 06/27/2025 1 1 Encounter Details Date Type Department Care Team (Late st Contact Info) Description 09/27/2022 5:30 PM CDT Office Visit Department of Family Medicine, [facility], in [address] [phone] Bette Lakhani M.D. [address] [place] [phone] Morbid Obesity (HCC) (Primary Dx); Bipolar II Disorder (HCC) Discharge Disposition: Home or Self Care Social History Tobacco Use Types Packs/Day Years [...] often do you attend chur ch or anglican services? 1 to 4 times per year 01/21/2022 Do you belong to any clubs o r organizations such as hindu groups, unions, fraternal or athletic groups, or [...] Answer Date Recorded PHQ-2 Score 6 07/18/2022 [facility] [place] of Occupat ional Health - Occupational Stress [...] place to sleep or slept in a correction (including now)? No 01/21/2022 Depression Answer Date [...] Date Recorded Dental: Regular Dentist Yes 09/30/19 21 Employment Answer Date Recorded Employment status Employed and actively working without restrictions 01/21/2022 Education Answer Date Recorded What is the highest level of school you have completed or the highest degree you have received? GED or equivalent Sex and Gender Information Value Date Recorded Sex Assigned at Female 11/20/2017 9:40 AM CDT Gender Identity Female 11/20/2017 9:40 AM CDT Sexual Orientation Straight 11/20/2017 9: 40 AM CDT documented as of this encounter Last Filed Vital Signs Vital Sign Reading Time Taken Comments Blood Pressure 137/85 09/27/2022 5:13 PM CDT Pulse 74 09/27/2022 5:13 PM CDT Temperature 36.7 ??C (98.1 ??F) 09/27/2022 5:13 PM CD T Respiratory Rate - - Oxygen Saturation 98% 09/27/2022 5:13 PM CDT Inhaled Oxygen Concentration - - Weight 127 kg (279 lb 1.6 oz) 09/27/2022 5:13 PM CDT Height - - Body Mass Index 45.05 06/28/2022 6:36 PM TECHNICAL SALES SPECIALIST documented in this encounter Progress Notes * Bette Lakhani M.D. - 09/27/2022 5:30 PM CDT SUBJECTIVE I explained the use of Fluency Align and the patient agreed to proceed with its use. CHIEF COMPLAINT / REASON FOR VISIT Cora Olson is a 32 y.o. female who presents for evaluation of Medication Visit (Medicationfollow up and weight check ). HISTORY OF PRESENT ILLNESS Cora comes in today for followup of her weight loss. She says she has hit a plateau, which is discouraging. She states she is getting more steps in throughout the day. She is no longer drinking sodas and has quit smoking. She is trying to drink more water but is still not at goal. She has been meal- prepping, even more than she had strived for. She is finding it easier to stick with healthy choices through the meal-planning, which her is now doing as well. She has been eating breakfast daily. She is avoiding eating out and processed foods. She looks at the nutrient value of food rather than just the calories. She has lost 10 kg since last visit. She is taking 1.8 mg of Saxenda forabout 1 month. She has been at her current weight since August 20. She has not had any side effects since her first week on Saxenda. She states her mood is much better. REVIEW OF SYSTEMS A brief review of systems was negative except for that mentioned in the history of present illness. Current Outpatient Medications Medication Sig albuterol 90 mcg/actuation inhaler Inhale 2 puffs every 4 (four) hours as needed. Aviane 0.1-20 mg-mcg per tablet lamoTRIgine (LaMICtaL) 100 mg tablet Take 1 tablet (100 mg total) by mouth 2 (two) times a day. Take 1-200 mg tablet with 1-100 mg tablet to equal 300 mg by mouth 2 times a day. lamoTRIgine (LaMICtaL) 200 mg tablet Take 1 tablet (200 mg total) by mouth 2 (two) times a day. Take 1-200 mg tablet with 1-100 mg tablet to equal 300 mg by mouth 2 times a day. liraglutide, weight loss, (SAXENDA) 3 mg/0.5 mL (18 mg/3 mL) injection Inject 2.4 mg under the skindaily for 7 days, THEN 3 mg daily. pen needle, diabetic (BD Ultra-Fine Short Pen Needle) 31 gauge x 5/16 needle 1 Injection daily. Use as needed for Saxenda injection. sertraline (ZOLOFT) 100 mg tablet Take 1.5 tablets (150 mg total) by mouth daily. topiramate (TOPAMAX) 25 mg tablet Take 1 tablet (25 mg total) by mouth at bedtime. No Known Allergies OBJECTIVE PHYSICAL EXAMINATION BP 137/85 (BP Location: Left arm, Patient Position: Sitting, Cuff Size: Large) Pulse 74 Temp 36.7 ??C Wt 127 kg SpO2 98% BMI 45.05 kg/m?? Body mass index is 45.05 kg/m??. General: Alert and oriented. No acute distress. Neck: Supple. No lymphadenopathy. No carotid bruits. Cardiovascular Exam: Regular rate and rhythm. Normal S1 and S2. No murmurs, rubs, or gallops. Lungs: Clear to auscultation bilaterally. Extremities: No pedal edema. ASSESSMENT / PLAN #1 Morbid Obesity (HCC) Patient has had significant weight loss initially starting at 145 kg and now trending down to 127 kg. She has noticed a plateau. Therefore, we will further increase the Saxenda up to 2.4 mg daily andthen 3 mg daily. Follow up again in 3 months. Encouraged her to continue with healthy lifestyle behaviors. #2 Bipolar II Disorder (HCC) Patient's mood is doing much better. Continue current medications. Plan was discussed with patient and is in agreement with plan. All questions were answered, side effects of any/all new medications were discussed. Patient left in no acute distress. Bette Melendez MD Documentation Crystallizer Operator Yadira Tovar contributed to note content for Bette Melendez M.D.. documented in this encounter Plan of Treatment Scheduled Referrals Name Type Priority Associated Diagnoses Orde r Schedule Family Medicine office visit (clinic) Outpatient Referral Routine Expected: 12/28/2022 (Approximate), Expires: 12/29/2023 documented as of this encounter Visit Diagnoses Diagnosis Morbid Obesity (HCC)- Primary Bipolar II Disorder (HCC) documented in this encounter Additional Health Concerns Assessment Noted Time PHQ-9 Depression Total Score: 22 023 8:16 AM CDT documented as of this encounter Care Teams Central Office Repairer Relationship Specialty Start Date End Date Bette Lakhani M.D. [address] [phone] PCP - General 10/13/16 documented as of this encounter
--- OUTSIDE RECORDS SUMMARY | 2023-05-26 13:44 | XMS_ITS | Encounter Summary ---
Author Name Unknown Organization [facility] Address [address] [place] [address] Care Team Providers Care Gas Appliance Servicer Name Role Phone Bette Lakhani M.D. Primary Care Pro vider Reason for Visit * Reason Comments Flashes, Light Encounter Details Date Type Department Care Team (Latest Contact Info) Description 07/19/2022 10:30 AM CDT Comprehensive Visit Department of Ophthalmology in [place], [place] [address] [place] [phone] Nellie Luis M.D., M.S. [address] [place] [phone] Migraine With Aura Not Intractable Without Status Migrainosus (Primary Dx) Social History Tobacco Use Types Packs/Day Years Used Date Smoking Tobacco: Former Cigarettes 0.3 7 0 10/08/2008 - 10/21/2017 Smokeless Tobacco: Never Comments:Occasional smokes. Alcohol Use Standard Drinks/Week Comments [...] often do you attend chur ch or protestant services? 1 to 4 times per year 01/21/2022 Do you belong to any clubs o r organizations such as baptism groups, unions, fraternal or athletic groups, or [...] Answer Date Recorded PHQ-2 Score 6 07/18/2022 [facility] Occupat ional Health - Occupational [...] place to sleep or slept in a care home (including now)? No 01/21/2022 Depression Answer Date [...] AM CDT documented as of this encounter Progress Notes * Nellie Luis M.D., M.S. - 07/19/2022 10:30 AM CDT Cora Olson is a 32YF presenting with a single flash in the right eye that have been constant for the past 4 days and are routinely provoked with blinking. She also reports a right paracentral zig-zag appearance to her vision in the right eye only (consistent with prior migraine aura, but not temporal, enlarging, then dissipating or associated with a migraine headache). She has not had a migraine in the past 4 days. It came on suddenly while watching TV. No pain with eye movements, light sensitivity, eye pain. No ocular hx. Former contact lens wearer (stopped after she had an infection in the left eye). PMHx: ulcerative colitis on stelara, biopolar on topamax, lamictal, sertraline, obesity on phentermine, liraglutide, hyperlipidemia (high Tgs), migraine with visual aura Headache history: History of migraines since 14 years of age. Has had light sensitivity, nausea, and visual auras with her severe migraines. Has severe migraine about once very 5-6 months. Otherwise intermittent headaches. # migraine with visual aura Patient's description is consistent with a visual aura, but has some atypical features (persisting multiple days, not associated with a headache). She describes it as paracentral, and was able to trace it on an Amsler grid. We will get visual field testing to rule out a scotoma as she has a normal fundus exam. It could be an ocular migraine, but the time course would also be atypical for this. I am reassured by the fact that her visual function (visual acuity, color plates) and exam is normal. - 10-2 Hernandez visual field ; patient can cancel the visual field if it dissipates - no return visit unless new visual symptoms arise # ulcerative colitis On stelara (ustekinumab) # refractive error Myopia, astigmatism Wears glasses documented in this encounter Plan of Treatment Scheduled Orders Name Type Priority Associated Diagnoses Orde r Schedule Automated VF - Extended - OU - Both Eyes Ophthalmology Routine Migraine With Aura Not Intractable Without Status Migrainosus Expected: 07/19/2022 (Approximate), Expires: 10/20/2023 documented as of this encounter Visit Diagnoses Diagnosis Migraine With Aura Not Intractable Without Status Migrainosus- Primary documented in this encounter Additional Health Concerns Assessment Noted Time PHQ-9 Depression Total Score: 22 023 8:16 AM CDT documented as of this encounter Care Teams Gas Appliance Servicer Relationship Specialty Start Date End Date Bette Lakhani M.D. [address] [phone] PCP - General 10/13/16 documented as of this encounter
--- OUTSIDE RECORDS SUMMARY | 2023-05-26 13:44 | XMS_ITS | Encounter Summary ---
Author Name Unknown Organization [facility] Address [address] [place] [address] Care Team Providers Care Lan Manager Name Role Phone Bette Lakhani M.D. Primary Care Pro vider Reason for Referral * MRI/CAT/PET Scan (Routine) - Closed Specialty Diagnoses / Procedures Referred By Anna olmos Referred To Contact Radiology Diagnoses Other Visual Disturbances Procedures MR Brain without and with IV Contrast Bette Lakhani M.D. [phone] [place] [phone] [facility] Region Referral ID Status Reason Start Date Expiration Date Visits Re quested Visits Authorized [id number] Closed 07/19/2022 07/19/2023 1 1 Reason for Visit * MRI/CAT/PET Scan (Routine) - Closed Specialty Diagnoses / Procedures Referred By Anna olmos Referred To Contact Radiology Diagnoses Other Visual Disturbances Procedures MR Brain without and with IV Contrast Bette Lakhani M.D. [address] [place] [phone] [facility] Region Referral ID Status Reason Start Date Expiration Date Visits Re quested Visits Authorized [id number] Closed 07/19/2022 07/19/2023 1 1 Encounter Details Date Type Department Care Team (Latest Contact Info) Description 07/28/2022 3:28 PM CDT - 07/28/2022 11:59 PM CDT Hospital Encounter Department of Radiology in [address] [phone] Bette Lakhani M.D. [address] [place] [phone] Other Visual Disturbances Discharge Disposition: Home or Self Care Social [...] often do you attend chur ch or holiness services? 1 to 4 times per year 01/21/2022 Do you belong to any clubs o r organizations such as evangelical groups, unions, fraternal or athletic groups, or [...] Answer Date Recorded PHQ-2 Score 6 07/18/2022 [facility] Questionnaire Answer Date Recorded [...] place to sleep or slept in a senior care (including now)? No 01/21/2022 Depression Answer Date [...] AM CDT documented as of this encounter Medications at Time of Discharge Medication Sig Dispensed Refills Start Date End Date albuterol 90 mcg/actuation inhaler Inhale 2 puffs every 4 (four) hours as needed. 0 03/21/2022 Aviane 0.1-20 mg-mcg per tablet 0 06/11/2022 pen needle, diabetic (BD Ultra-Fine Short Pen Needle) 31 gauge x 5/16 needle 1 Injection daily. Use as needed for Saxenda injection. 100 each 3 07/07/2022 lamoTRIgine (LaMICtaL) 100 mg tablet Take 1 tablet (100 mg total) by mouth 2 (two) times a day. Take 1-200 mg tablet with 1-100 mg tablet to equal 300 mg by mouth 2 times a day. 180 tablet 11 05/03/2022 02/16/2023 lamoTRIgine (LaMICtaL) 200 mg tabletIndications:Bipo lar II Disorder (HCC) Take 1 tablet (200 mg total) by mouth 2 (two) times a day. Take 1-200 mg tablet with 1-100 mg tablet to equal 300 mg by mouth 2 times a day. 60 tablet 11 05/03/2022 02/16/2023 liraglutide, weight loss, (SAXENDA) 3 mg/0.5 mL (18 mg/3 mL) injection Inject 0.6 mg under the skin daily for 14 days, THEN 1.2 mg daily. 15 mL 11 07/06/2022 09/27/2022 phentermine (ADIPEX-P) 37.5 mg tablet Take 1 tablet (37.5 mg total) by mouth every morning before breakfast. 30 tablet 2 06/28/2022 09/27/2022 sertraline (ZOLOFT) 100 mg tabletIndications:Bipo lar II Disorder (HCC),Obsessive Compulsive Disorder Take 1.5 tablets (150 mg total) by mouth daily. 45 tablet 11 12/22/2021 01/16/2023 topiramate (TOPAMAX) 25 mg tabletIndications:Bipo lar II Disorder (HCC),Obsessive Compulsive Disorder Take 1 tablet (25 mg total) by mouth at bedtime. 30 tablet 11 07/18/2022 03/14/2023 ustekinumab (STELARA) 90 mg/mL injectionIndications:C olitis Ulcerative Left Sided (HCC) Inject 1 mL (90 mg total) under the skin every 8 (eight) weeks. Start 8 weeks after IV infusion. 1 mL 11 03/17/2022 09/27/2022 documented as of this encounter Plan of Treatment Not on file documented as of this encounter Procedures Procedure Name Priority Date/Time Associated Diagnosis Comments MR BRAIN WITHOUT AND WITH IV CONTRAST RAD - Routine (most inpatients and all outpatients) 07/28/2022 4:39 PM CDT Other Visual Disturbances documented in this encounter Results * MR Brain without and with IV Contrast (07/28/2022 4:39 PM CDT) Anatomical Region Laterality Modality Head, Brain, Neuroradiology RST LOS, Neuroradiology ARZ LOS, Neuroradiology FLA LOS N/A Magnetic Resonance 07/28/2022 4:53 PM CDT Impressions 07/29/2022 8:36 AM CDT Negative MRI brain. Narrative 07/29/2022 8:36 AM CDT EXAM: MR BRAIN WITHOUT AND WITH IV CONTRAST COMPARISON:None FINDINGS: Evaluation limited to the anterior brain and face due to signal dropout from the presence of the patient's braces. No acute infarct within the visualized brain. Negative for abnormal intracranial mass or fluid collection. Failed fluid suppression on FLAIR anteriorly due to metallic artifact. No abnormal brain signal and morphology seen among the artifact. No abnormal contrast enhancement. Ventricles and sulci are normal in size for patient's age. Very limited visualization of the orbits due to magnetic artifact related to the braces. Procedure Note Marcello Myers M.D. - 07/29/2022 EXAM: MR BRAIN WITHOUT AND WITH IV CONTRAST COMPARISON:None FINDINGS: Evaluation limited to the anterior brain and face due to signaldropout from the presence of the patient's braces. No acute infarct within the visualized brain.Negative for abnormal intracranial mass or fluid collection. Failed fluid suppression on FLAIRanteriorly due to metallic artifact. No abnormal brain signal and morphology seen among the artifact. No abnormal contrast enhancement. Ventricles and sulci are normal in size for patient's age. Very limited visualization of the orbits due to magnetic artifact relatedto the braces. IMPRESSION: Negative MRI brain. Bette Melendez M.D. IMG MRI P ROCEDURES documented in this encounter Visit Diagnoses Diagnosis Other Visual Disturbances documented in this encounter Administered Medications Inactive Administered Medications - up to 3 most recent administrations Medication Order MAR Action Action Date Dose Rate Site gadobutrol injection 13 mL (GADAVIST) 13 mL, intravenous, Once in imaging, contrast, Starting on Katharine 07/28/22 at 1531, For 1 dose, Intrathecal doses greater than 0.25 mL not recommended. Given 07/28/2022 4:31 PM CDT 13 mL documented in this encounter Additional Health Concerns Assessment Noted Time PHQ-9 Depression Total Score: 22 023 8:16 AM CDT documented as of this encounter Care Teams Lan Manager Relationship Specialty Start Date End Date Bette Lakhani M.D. [id number] [phone] PCP - General 10/13/16 documented as of this encounter
--- OUTSIDE RECORDS SUMMARY | 2023-05-26 13:44 | XMS_ITS | Referral Summary ---
Author Name Unknown Organization [facility] Address [address] [place] [address] Care Team Providers Care Commissary Agent Name Role Phone Bette Lakhani M.D. Primary Care Pro vider Source Comments Patient records contain information from all sites at [facility]. For routine questions regarding patient records, call [phone] during business hours, M-F 8:00 AM - 5:00 PM Central Time. Record requests for emergency care only can be directed to [phone] at any time.[facility] Encounters Date Type Department Care Team Description 04/22/2023 7:40 AM MEDICAL SALES SPECIALIST E-Visit [facility] Express [facility] at the [facility] on the 4th Floor [address] [place] [phone] Niurka Haynes APRN, C.N.P., M.S.N. Express Care Online for Sinus Symptoms (sinusitis) 04/17/2023 8:27 PM MEDICAL SALES SPECIALIST - 04/17/2023 9:35 PM MEDICAL SALES SPECIALIST Emergency [facility] [address] [place] [phone] Neeru Tabor P.A.-Mil., P.A., M.S. Influenza (Primary Dx) Discharge Disposition: Home or Self Care 04/17/2023 Patient Self-Triage [facility] Symptom Lead Software Engineer, Provider from Last 3 Months Allergies No known active allergies Medications Medication [...] Overview: Added automatically from request for surgery [id number] Cholecystitis Acute 08/27/2021 01/22/20 Examination Other N ormal Third Trimester 06/12/2020 01/21/2022 Thiopurine Methyltransferase Normal Activity Extensive Metabolizer 08/31/2017 01/21/2022 Immunizations Name Administration Dates Next Due 4vHPV [...] quad (FLUZONE/FLUARIX) (6 months and older)(PF) 06/28/2022,06/07/2021,05/28/2020 Social History Tobacco Use Types Packs/Day Years [...] often do you attend chur ch or buddhist services? 1 to 4 times per year 01/21/2022 Do you belong to any clubs o r organizations such as taoist groups, unions, fraternal or athletic groups, or [...] Answer Date Recorded PHQ-2 Score 6 07/18/2022 [facility] of Occupat ional Health - Occupational Stress [...] place to sleep or slept in a half-way (including now)? No 01/21/2022 Depression Answer Date [...] Comments Blood Pressure 133/106 04/17/2023 9:00 PM MEDICAL SALES SPECIALIST Pulse 79 04/17/2023 9:15 PM MEDICAL SALES SPECIALIST Temperature 37 ??C (98.6 ??F) 04/17/2023 8:28 PM MEDICAL SALES SPECIALIST Respiratory Rate 17 04/17/2023 8:28 PM MEDICAL SALES SPECIALIST Oxygen Saturation 96% 04/17/2023 9:15 PM MEDICAL SALES SPECIALIST Inhaled Oxygen Concentration - - Weight 126 kg (278 lb 7.1 oz) 04/17/2023 8:30 PM MEDICAL SALES SPECIALIST Height 167.6 cm (5' 6) 06/28/2022 6:36 PM MEDICAL SALES SPECIALIST Body Mass Index 44.94 06/28/2022 6:36 PM MEDICAL SALES SPECIALIST Plan of Treatment Not on file Medical Devices Implanted Type Area Doggy Daycare Activities Director Device Identifier Shelf Expiration Date Model / Serial / Lot Clp Hmol Carlton Zamora - [id number] Implanted:Qty: 1 on 08/27/2021 by Gurvinder Goodrich M.D., Ph.D. at [facility] Hardware e.g. pins/screws /rods N/A: Abdomen Hubskip [id number] 02/01/2026 [id number] / / [id number] Conversions - Default Historical Implant Device Implanted:08/29 (Quantity not on file) Urologic Other Arm Description:Device Status Te xt - UrologOth. control implant in the left bicep. Procedures Procedure Name Priority Date/Time Associated Diagnosis Comments DX CHEST AP OR PA AND LATERAL 2 VIEWS RAD - Semiurgent (Fast; most ED patients; some inpatients) 04/17/2023 9:08 PM MEDICAL SALES SPECIALIST INFLUENZA A, B, RSV, PCR, POCT STAT 04/17/2023 8:45 PM MEDICAL SALES SPECIALIST from Last 3 Months Results * DX Chest AP or PA and Lateral 2 Views (04/17/2023 9:08 PM MEDICAL SALES SPECIALIST) Anatomical Region Laterality Modality Chest, Thoracic RST LOS, Tho racic ARZ LOS, Thoracic FLA LOS N/A Digital Radiography 04/17/2023 9:11 PM MEDICAL SALES SPECIALIST Impressions 04/17/2023 9:12 PM MEDICAL SALES SPECIALIST No focal pulmonary consolidation. No pleural effusion. No pneumothorax. Normal cardiomediastinal silhouette. Narrative 04/17/2023 9:12 PM MEDICAL SALES SPECIALIST EXAM: DX CHEST AP OR PA AND LATERAL 2 VIEWS Procedure Note Ubaldo Myers M.D. - 04/17/2023 EXAM: DX CHEST AP OR PA AND LATERAL 2 VIEWS IMPRESSION: No focal pulmonary consolidation. No pleural effusion. No pneumothorax.Normal cardiomediastinal silhouette. Neeru Tabor P.A.-C., P.A., M.S. IMG [facility] PROCEDURES * (ABNORMAL) Influenza A/B and RSV, PCR, Point of Care (04/17/2023 8:45 PM MEDICAL SALES SPECIALIST) Influenza A, POCT Positive(A) Negative 04/17/2023 8:52 PM MEDICAL SALES SPECIALIST CNFL Influenza B, POCT Negative Negative 04/17/2023 8:52 PM MEDICAL SALES SPECIALIST CNFL Resp Syncytial Virus, POCT Negative Negative 04/17/2023 8:52 PM MEDICAL SALES SPECIALIST CNFL Swab (Nasopharynx) 04/17/2023 8:45 PM MEDICAL SALES SPECIALIST 04/17/2023 8:50 PM MEDICAL SALES SPECIALIST Neeru Tabor P.A.-C., P.A., M.S. LAB POC T ORDERABLES - DEVICE [facility] [address] [address], [facility] CNFL [facility] [place] [id number] [place] [phone] from Last 3 Months Care Teams Commissary Agent Relationship Specialty Start Date End Date Bette Lakhani M.D. [address] [phone] PCP - General 10/13/16
--- OUTSIDE RECORDS SUMMARY | 2023-05-26 13:44 | XMS_ITS | Encounter Summary ---
Author Name Unknown Organization [facility] Address [address] [place] [address] Care Team Providers Care Inbound Call Center Agent Name Role Phone Bette Lakhani M.D. Primary Care Pro vider Reason for Visit * Reason Onset Date Comments Rx Denial 01/12/2023 QSYMIA 3.75-30M CAPS Encounter Details Date Type Department Care Team (Latest Contact Info) Description 01/12/2023 Clinical Communication Department of Family Medicine, [facility], in [address] [phone] Bette Lakhani M.D. [address] [place] [phone] Rx Denial (QSYMIA 3.75-23M CAPS) Social History Tobacco Use Types Packs/Day Years [...] often do you attend chur ch or catholic services? 1 to 4 times per year 01/21/2022 Do you belong to any clubs o r organizations such as mormonism groups, unions, fraternal or athletic groups, or [...] Answer Date Recorded PHQ-2 Score 6 07/18/2022 [facility] - Occupational [...] place to sleep or slept in a residential (including now)? No 01/21/2022 Depression Answer Date [...] AM CDT documented as of this encounter Miscellaneous Notes * Telephone Encounter - Nii Can - 01/12/2023 11:14 AM CDT Images from the original note were not included. The patient's health insurer has denied prior authorization for [QSBroad InstituteIA 3.75-23M CAPS]. A screen shot of the denial reason is at the bottom of this communication message. To view the complete denial letter, scroll down to the green Guidance section below and click on the appropriate medication in the Current Prescription Prior Authorizations display. As the prescriber, your options are: Appeal the decision to the insurer directly (see denial letter for how to appeal). Write a new Rx for an alternative medication therapy. Release the Rx to the pharmacy so the patient has the option to pay out of pocket. To Release Rx: Open this encounter, go to Yugma, and click on the medication. If the blue ???Release Rx?? button appears as an option, click to release the prescription. If the blue Release Rx button is not visible, the Rx has already been released to the pharmacy. If you have questions, please reply to Ashley THOMAS. Thank you, The OPPA Team documented in this encounter Plan of Treatment Not on file documented as of this encounter Visit Diagnoses Not on filedocumented in this encounter Additional Health Concerns Assessment Noted Time PHQ-9 Depression Total Score: 22 023 8:16 AM CDT documented as of this encounter Care Teams Inbound Call Center Agent Relationship Specialty Start Date End Date eBtte Lakhani M.D. [id number] [phone] PCP - General 10/13/16 documented as of this encounter
--- OUTSIDE RECORDS SUMMARY | 2023-05-26 13:44 | XMS_ITS | Encounter Summary ---
Author Name Unknown Organization [facility] Address [address] [place] [address] Care Team Providers Care Tying In Machine Operator Name Role Phone Bette Lakhani M.D. Primary Care Pro vider Encounter Details Date Type Department Care Team ([facility] st Contact Info) Description 04/22/2023 7:40 AM DELI COOK E-Visit [facility] Express Care at the [facility] on the 4th Floor [address] [place] [phone] Niurka Haynes APRN, C.N.P., M.S.N. [address] [place] [phone] Express Care Online for Sinus Symptoms (sinusitis) Social History Tobacco Use Types Packs/Day Years [...] often do you attend chur ch or hindu services? 1 to 4 times per year 01/21/2022 Do you belong to any clubs o r organizations such as presybeterian groups, unions, fraternal or athletic groups, or [...] Answer Date Recorded PHQ-2 Score 6 07/18/2022 [facility] - Occupational Stress Questionnaire Answer Date [...] AM CDT documented as of this encounter Plan of Treatment Not on file documented as of this encounter Visit Diagnoses Diagnosis Sinusitis Acute- Primary documented in this encounter Additional Health Concerns Assessment Noted Time PHQ-9 Depression Total Score: 22 023 8:16 AM CDT documented as of this encounter Care Teams Tying In Machine Operator Relationship Specialty Start Date End Date Bette Lakhani M.D. [address] [phone] PCP - General 10/13/16 documented as of this encounter
--- OUTSIDE RECORDS SUMMARY | 2023-05-26 13:44 | XMS_ITS | Encounter Summary ---
Author Name Unknown Organization [facility] Address [address] [place] [address] Care Team Providers Care Expediter Service Order Name Role Phone Bette Lakhani M.D. Primary Care Pro vider Reason for Visit * Reason Comments Shortness of Breath Encounter Details Date Type Department Care Team ([facility] st Contact Info) Description 04/17/2023 8:27 PM BOOT LACE CUTTER MACHINE - 04/17/2023 9:35 PM BOOT LACE CUTTER MACHINE Emergency [facility] [address] [place] [phone] Neeru Tabor P.A.-C., P.A., M.S. [address] [place] [phone] Influenza (Primary Dx) Discharge Disposition: Home or Self Care Social [...] often do you attend chur ch or druze services? 1 to 4 times per year 01/21/2022 Do you belong to any clubs o r organizations such as yarsani groups, unions, fraternal or athletic groups, or [...] PHQ-2 Score 6 07/18/2022 [facility]at ional [facility] - Occupational Stress [...] place to sleep or slept in a fci (including now)? No 01/21/2022 Depression Answer Date [...] Comments Blood Pressure 133/106 04/17/2023 9:00 PM BOOT LACE CUTTER MACHINE Pulse 79 04/17/2023 9:15 PM BOOT LACE CUTTER MACHINE Temperature 37 ??C (98.6 ??F) 04/17/2023 8:28 PM BOOT LACE CUTTER MACHINE Respiratory Rate 17 04/17/2023 8:28 PM BOOT LACE CUTTER MACHINE Oxygen Saturation 96% 04/17/2023 9:15 PM BOOT LACE CUTTER MACHINE Inhaled Oxygen Concentration - - Weight 126 kg (278 lb 7.1 oz) 04/17/2023 8:30 PM BOOT LACE CUTTER MACHINE Height - - Body Mass Index 44.94 06/28/2022 6:36 PM BOOT LACE CUTTER MACHINE documented in this encounter Discharge Instructions * Discharge Instructions* Neeru Tabor P.A.-C., PNatan., M.S. - 04/17/2023 9:21 PM BOOT LACE CUTTER MACHINE Take Tylenol for pain and fever relief, as needed. You may alternate these medications if one alonedoes not provide enough relief in pain. You may use your albuterol inhaler, as needed. Stay well hydrated by drinking plenty of fluids. Follow up with your primary care provider for reassessment. Return to the ER if your symptoms worsen. The following are ofgo-grj-qovbfyl medications that are safe to use in for common problems: Allergy: Alavert, Claritin, Benadryl, Zyrtec Constipation: Citrucel, Ex-lax, Senokot, Colace, Fibercon, Metamucil, Milk of Magnesia, Miralax Cough: Robitussin cough syrup, Delsym, Coricidan Diarrhea: Imodium, avoid dairy and caffeine Fever: Tylenol Gas Pain/Bloating: Gas X chewable tablets, Maalox, Riopan, Mylanta Hemorrhoids: Anusol-HC, Tucks suppositories, Preparation H, Tucks pads Heartburn: Gaviscon, Maalox, Rolaids, TUMS, Mylanta, Pepcid AC, Zantac Nausea and Vomiting: Dramamine, Hilary tablets, Vitamin B6, Unisom Pain: Tylenol Rash: Caladryl lotion, Cortaid 1%, Gold Lafleur anti-itch cream Sinus Congestion: Clor-Trimetron, Coricidan HBP, Sudafed (safe after 12 weeks) Sore Throat: Cepacol lozenges, Sucrets lozenges, Chloraseptic lozenges or spray, [place] lozenges, Robitussin lozenges Vaginal Yeast Infections: Femstat, Gyne-lotrimin, Lotrimin ultra, Monostat LACE CUTTER MACHINE * Attachments The following attachments cannot be sent through Care Everywhere. * Influenza Adult Hpcu-nv-Fggx (Mongolian) documented in this encounter Medications at Time of Discharge Medication Sig Dispensed Refills Start Date End Date albuterol 90 mcg/actuation inhaler Inhale 2 puffs every 4 (four) hours as needed. 0 03/21/2022 Aviane 0.1-20 mg-mcg per tablet 0 06/11/2022 lamoTRIgine (LaMICtaL) 100 mg tablet Take 2.5 [...] days. Then D/C. 109 tablet 0 03/31/2023 liraglutide, weight loss, (SAXENDA) 3 mg/0.5 mL (18 mg/3 mL) injection Inject 2.4 mg under the skin daily for 7 days, THEN 3 mg daily. 50 mL 11 09/27/2022 10/04/2023 NIFEdipine (ADALAT CC) 30 mg ER tablet Take 30 mg by mouth daily. 0 03/31/2023 ondansetron ODT (ZOFRAN-ODT) 4 mg disintegrating tabletIndications:Nausea And Vomiting Dissolve 1 tablet (4 mg total) in the mouth every 8 (eight) hours as needed for nausea or vomiting. 20 tablet 2 10/13/2022 pen needle, diabetic (BD Ultra-Fine Short Pen Needle) 31 gauge x 5/16 needle 1 Injection daily. Use as needed for Saxenda injection. 100 each 3 07/07/2022 sertraline (ZOLOFT) 100 mg tabletIndications:Bipola r II Disorder (HCC),Obsessive Compulsive Disorder Take 1.5 tablets (150 mg total) by mouth daily. 45 tablet 11 01/16/2023 01/16/2024 sulfaSALAzine (AZULFIDINE) 500 mg tabletIndications:Coliti s Ulcerative Left Sided (HCC) Take 3 tablets (1,500 mg total) by mouth 2 (two) times a day. 60 tablet 11 03/28/2023 documented as of this encounter ED Notes * Nereu Tabor P.A.-C., Lyly, M.S. - 04/17/2023 8:27 PM CST CHIEF COMPLAINT/REASON FOR VISIT Shortness of Breath PHYSICAL EXAMINATION Nursing notes reviewed. Initial Vitals Temperature 04/17/232027 37 ??C Pulse Rate 04/17/232027 88 Heart Rate -- Resp Rate 04/17/232027 17 Blood Pressure 04/17/232027 152/90 SpO2 04/17/232027 99 % Pain Score 04/17/232029 3 Vitals: 04/17/23202704/17/23202904/17/23 2100 04/17/232114 BP: 152/90 (!) 133/106 BP Location: Left arm Patient Position: Sitting Pulse: 88 84 79 Resp: 17 Temp: 37 ??C SpO2: 99% 97% 96% Weight: 126 kg General: Awake, alert, oriented x3. Well-developed, hydrated and nourished. Nontoxic. No apparent distress. Head: Normocephalic, atraumatic. Eyes: Normal sclerae and conjunctivae, PERRLA, extraocular movements intact ENT: Oropharynx is clear. Tongue is midline and normal in appearance without lesions. No buccal lesions noted. No posterior pharyngeal erythema or exudate. No tonsillar enlargement. Nose is symmetric. Nares patent. Nasal septum is midline without hematoma. Moist mucus membranes. EACs clear. TMs arenormal in appearance with normal landmarks and cone of light. Hearing is grossly normal. Neck: Supple, full range of motion, no masses, trachea midline, no lymphadenopathy, no meningeal signs, no Cspine tenderness. Heart: Regular rate and rhythm. S1 and S2 normal. No murmurs, gallops, or rubs. Chest/Lungs: Normal respiratory effort. No labored breathing. No stridor, retractions, or respiratory distress. Lungs clear to auscultation bilaterally. No wheezing, rales, or rhonchi. Abd: Soft, symmetric, nontender, nondistended, normal bowel sounds. No masses or organomegaly. No rebound or guarding. Back: Normal to inspection. No deformity or external signs of trauma. Ext: Warm, well-perfused. No cyanosis, clubbing, or edema. No bruising, swelling or deformity. Motor function is normal with full strength bilaterally to upper and lower extremities. Normal range of motion without bony tenderness. Gait is smooth and steady. Skin: Warm, dry, normal color for ethnicity. No rashes or diaphoresis. Nailbeds pink with no cyanosis or clubbing. Neuro: Awake, alert, GCS 15, speech clear, cranial nerves II-XII grossly intact, normal bulk, tone and strength in all extremities, normal sensation x4 without focal deficits. Memory is normal and though process is intact. No gait abnormalities appreciated. Vascular: Peripheral pulses symmetric, normal cap refill. Psych: Pleasant and appropriate. ED Course as of 04/17/232121Apr 17, 20232034 Met with patient to perform history and physical exam, outline emergency department work up and initial treatment, as well as explain expected time frame. 2099 The patient is going to radiology. 2106 The patient has returned from radiology. 2118 Influenza A is positive. CXR is negative. 2120 The patient was reassessed and updated on results and plan. Will prepare for discharge. Final Diagnoses: as of 04/17/232121 Influenza MEDICAL DECISION MAKING: In summary, this is a pleasant 33 y.o. female with the following comorbidities affecting her care: morbid obesity, PCOS, OCD, bipolar disorder, anxiety. The patient is and states she is approximately 9 weeks gestation. She is here for evaluation of a dry cough since Monday (3 days). The patient states she has taken home COVID-19 tests that have been negative and was also evaluated in clinic this afternoon and had another negative COVID-19 test. The patient expresses frustration that they only tested her for COVID-19 as she is concerned she has pneumonia. She reports experiencing chills and sweats but has not had a measured fever (Tmax at home was 99). She has tried using an albuterol inhaler, which she states she has at home for seasonal allergies. No other treatments tried for symptom relief. She denies any headache, neck pain/stiffness, earache, runny nose, sore throat, chest pain, sputum, wheezing, abdominal pain, nausea, vomiting, diarrhea, urinary symptoms, change in taste/smell, rash or skin changes, change in bladder habits or other concerning symptoms. She has been ea ting and drinking normally. No recent illness, ill contacts, recent travel or known/suspected COVID-19 exposure. On ER arrival, the patient is well appearing, nontoxic with elevated blood pressure and otherwise normal vitals. Exam is unrevealing. Pulmonary exam is normal. Respiration rate and oxygen sats are normal. Lung sounds are clear. Differential diagnoses: Viral upper respiratory infection, post-viral cough, pneumonia, pulmonary edema, bronchitis, COPD, post-nasal drip, gastroesophageal reflux disease, Tuberculosis, asthma, sinusitis, among others. ED course/interventions: Met with patient upon ER arrival. Considered analgesics, however the patient denies pain. Considered neb treatment, however lung sounds are clear without wheezing. Nasal swabs and CXR were ordered per patient request. Nasal swabs are negative. CXR shows no pneumonia or other acute disease process. Impression/plan: Based on history, exam and diagnostics, symptoms are most consistent with viral URI. Admission/obs considered but not felt warranted at this time. Using shared decision making, the patient is felt appropriate for discharge home and she will be discharged home with OTC symptomatic relievers, use home albuterol inhaler as needed, maintain adequate hydration. The evaluation, plan and return precautions were reviewed with patient and she was understanding and in agreement with plan. Patient questions were answered. Close follow up with PCP advised. -- History was obtained from: the patient and EMR review. -- Nursing documentation and prior inpatient and outpatient records were reviewed in the electronicmedical record to facilitate decision making regarding patient care. -- I personally reviewed by visualization, independent interpretation, and discussed with the patient the results of labs and imaging studies as noted above. -- Consultation: None -- Prescription management: No new prescriptions or changes to existing home medications. Social Determinants of Health Transportation Needs: No Transportation Needs (01/21/2022) PRAPARE - Transportation Lack of Transportation (Medical): No Lack of Transportation (Non-Medical): No Housing Stability: Low Risk (01/21/2022) Housing Stability Vital Sign Unable to Pay for Housing in the Last Year: No Number of Places Lived in the Last Year: 1 Unstable Housing in the Last Year: No Food Insecurity: No Food Insecurity (01/21/2022) Hunger Vital Sign Worried About Running Out of Food in the Last Year: Never true Ran Out of Food in the Last Year: Never true Utilities: Not on file Intimate Partner Violence: Not At Risk (01/21/2022) Humiliation, Afraid, Rape, and Kick questionnaire Fear of Current or Ex-Partner: No Emotionally Abused: No Physically Abused: No Sexually Abused: No Depression: High Risk (07/18/2022) Depression Last PHQ-9 Score:: 22 Physical Activity: Inactive (01/21/2022) Exercise Vital Sign Days of Exercise per Week: 0 days Minutes of Exercise per Session: 0 min Dental: Low Risk (09/29/2020) Dental Dental: Regular Dentist: Yes Recent Concern: Dental - Medium Risk (07/03/2020) Dental Dental: Regular Dentist: No Nutrition: Unknown (01/21/2022) Nutrition Nutrition: EVOO Fat Source: Yes Nutrition: Servings of Fruits/Vegetables per Day: 0-1 Recent Concern: Nutrition - High Risk (01/21/2022) Nutrition Nutrition: EVOO Fat Source: Yes Nutrition: Servings of Fruits/Vegetables per Day: 0-1 Employment: Low Risk (01/21/2022) Employment Employment Status: Employed and actively working without restrictions PROBLEMS ADDRESSED THIS VISIT: 1. Influenza Neeru Tabor P.A.-C., P.A., M.S. 04/17/232122 LACE CUTTER MACHINE documented in this encounter Plan of Treatment Not on file documented as of this encounter Procedures Procedure Name Priority Date/Time Associated Diagnosis Comments DX CHEST AP OR PA AND LATERAL 2 VIEWS RAD - Semiurgent (Fast; most ED patients; some inpatients) 04/17/2023 9:08 PM BOOT LACE CUTTER MACHINE INFLUENZA A, B, RSV, PCR, POCT STAT 04/17/2023 8:45 PM BOOT LACE CUTTER MACHINE documented in this encounter Results * DX Chest AP or PA and Lateral 2 Views (04/17/2023 9:08 PM BOOT LACE CUTTER MACHINE) Anatomical Region Laterality Modality Chest, Thoracic RST LOS, Tho racic ARZ LOS, Thoracic FLA LOS N/A Digital Radiography 04/17/2023 9:11 PM BOOT LACE CUTTER MACHINE Impressions 04/17/2023 9:12 PM BOOT LACE CUTTER MACHINE No focal pulmonary consolidation. No pleural effusion. No pneumothorax. Normal cardiomediastinal silhouette. Narrative 04/17/2023 9:12 PM BOOT LACE CUTTER MACHINE EXAM: DX CHEST AP OR PA AND LATERAL 2 VIEWS Procedure Note Ubaldo Myesr M.D. - 04/17/2023 EXAM: DX CHEST AP OR PA AND LATERAL 2 VIEWS IMPRESSION: No focal pulmonary consolidation. No pleural effusion. No pneumothorax.Normal cardiomediastinal silhouette. Neeru Tabor P.A.-C., P.A., M.S. IMG [facility] GNOST[facility] IMAGING PROCEDURES * (ABNORMAL) Influenza A/B and RSV, PCR, Point of Care (04/17/2023 8:45 PM BOOT LACE CUTTER MACHINE) Influenza A, POCT Positive(A) Negative 04/17/2023 8:52 PM BOOT LACE CUTTER MACHINE CNFL Influenza B, POCT Negative Negative 04/17/2023 8:52 PM BOOT LACE CUTTER MACHINE CNFL Resp Syncytial Virus, POCT Negative Negative 04/17/2023 8:52 PM BOOT LACE CUTTER MACHINE CNFL Swab (Nasopharynx) 04/17/2023 8:45 PM BOOT LACE CUTTER MACHINE 04/17/2023 8:50 PM BOOT LACE CUTTER MACHINE Neeru Tabor P.A.-C., P.A., M.S. LAB POC T ORDERABLES - DEVICE [facility]- [address] [address], [facility] CNFL [facility] in [address] [place] [address] documented in this encounter Visit Diagnoses Diagnosis Influenza- Primary documented in this encounter Additional Health Concerns Infection Onset Date Last Indicated Resolved Time Influenza 04/17/2023 04/17/2023 04/17/2023 9:35 PM BOOT LACE CUTTER MACHINE Assessment Noted Time PHQ-9 Depression Total Score: 22 023 8:16 AM CDT documented as of this encounter Care Teams Expediter Service Order Relationship Specialty Start Date End Date Bette Lakhani M.D. NPLacey: [phone] [address] [phone] PCP - General 10/13/16 documented as of this encounter
--- OUTSIDE RECORDS SUMMARY | 2023-05-26 13:44 | XMS_ITS | Encounter Summary ---
Author Name Unknown Organization [facility] Address [address] [place] [address] Care Team Providers Care Senior Interior Designer Name Role Phone Bette Lakhani M.D. Primary Care Pro vider Reason for Visit * Reason Onset Date Comments Rx Denial 01/24/2023 PHENTERMINE HCL ORAL TABLET 37.5 MG Encounter Details Date Type Department Care Team (Latest Contact Info) Description 01/24/2023 Clinical Communication Department of Family Medicine, [facility], in [address] [phone] Bette Lakhani M.D. [address] [place] [phone] Rx Denial (PHENTERMINE HCL ORAL TABLET 37.5 MG) Social History Tobacco Use Types Packs/Day Years [...] often do you attend chur ch or quaker services? 1 to 4 times per year 01/21/2022 Do you belong to any clubs o r organizations such as scientology groups, unions, fraternal or athletic groups, or [...] Answer Date Recorded PHQ-2 Score 6 07/18/2022 [facility] Occupat ional Health - Occupational Stress [...] * Telephone Encounter - Nii Can - 01/24/2023 8:53 AM CDT Images from the original note were not included. The patient's health insurer has denied prior authorization for [PHENTERMINE HCL ORAL TABLET 37.5 MG]. A screen shot of the denial reason [...] Release Rx: Open this encounter, go to [employer] Touch[employer], and click on the medication. If the [...] documented as of this encounter Care Teams Senior Interior Designer Relationship Specialty Start Date End Date Bette Lakhani M.D. [phone] [phone] PCP - General 10/13/16 documented as of this encounter
--- OUTSIDE RECORDS SUMMARY | 2023-05-26 13:44 | XMS_ITS | Encounter Summary ---
Author Name Unknown Organization [facility] Address [address] [place] [address] Care Team Providers Care Network/Telecom Engineer Name Role Phone Bette Lakhani M.D. Primary Care Pro vider Reason for Visit * Reason Comments Dizziness Dizzy, anxious Encounter Details Date Type Department Care Team (Late st Contact Info) Description 12/22/2022 10:22 PM CDT - 12/22/2022 11:17 PM CDT Emergency [facility] [address] [place] [phone] Austin Corcoran, PKarlaA.-C., P.A. [address] [place] [phone] Headache Unspecified (Primary Dx); Anxiety Discharge Disposition: Home or Self Care Social [...] Answer Date Recorded PHQ-2 Score 6 07/18/2022 [facility] - Occupational [...] place to sleep or slept in a [facility] (including now)? No 01/21/2022 Depression Answer Date [...] Sign Reading Time Taken Comments Blood Pressure 163/124 12/22/2022 10:24 PM CDT Pulse - - Temperature 36.8 ??C (98.2 ??F) 12/22/2022 10:24 PM C DT Respiratory Rate 20 12/22/2022 10:24 PM CDT Oxygen Saturation 96% 12/22/2022 10:24 PM CDT Inhaled Oxygen Concentration - - Weight - - Height - - Body Mass Index - - documented in this encounter Discharge Instructions * Discharge Instructions* Austin Corcoran P.A.-C., P.A. - 12/22/2022 11:12 PM CDT Come back if needed. * Attachments The following attachments cannot be sent through Care Everywhere. * Managing Anxiety Adult (Belarusian) documented in this encounter Medications at Time of Discharge Medication Sig Dispensed Refills Start Date End Date albuterol 90 mcg/actuation inhaler Inhale 2 puffs every 4 (four) hours as needed. 0 03/21/2022 Aviane 0.1-20 mg-mcg per tablet 0 06/11/2022 liraglutide, weight loss, (SAXENDA) 3 mg/0.5 mL (18 mg/3 mL) injection Inject 2.4 mg under the skin daily for 7 days, THEN 3 mg daily. 50 mL 11 09/27/2022 10/04/2023 ondansetron ODT (ZOFRAN-ODT) 4 mg disintegrating tabletIndications:Nausea And Vomiting Dissolve 1 tablet (4 mg total) in the mouth every 8 (eight) hours as needed for nausea or vomiting. 20 tablet 2 10/13/2022 pen needle, diabetic (BD Ultra-Fine Short Pen Needle) 31 gauge x 5/16 needle 1 Injection daily. Use as needed for Saxenda injection. 100 each 3 07/07/2022 hydrOXYzine (ATARAX) 25 mg tabletIndications:Obsess naman Compulsive Disorder Take 1 tablet (25 mg total) by mouth 2 (two) times a day as needed for anxiety. 60 tablet 11 10/14/2022 03/14/2023 lamoTRIgine (LaMICtaL) 100 mg tablet Take 1 tablet (100 mg total) by mouth 2 (two) times a day. Take 1-200 mg tablet with 1-100 mg tablet to equal 300 mg by mouth 2 times a day. 180 tablet 11 05/03/2022 02/16/2023 lamoTRIgine (LaMICtaL) 200 mg tabletIndications:Bipola r II Disorder (HCC) Take 1 tablet (200 mg total) by mouth 2 (two) times a day. Take 1-200 mg tablet with 1-100 mg tablet to equal 300 mg by mouth 2 times a day. 60 tablet 11 05/03/2022 02/16/2023 sertraline (ZOLOFT) 100 mg tabletIndications:Bipola r II Disorder (HCC),Obsessive Compulsive Disorder Take 1.5 tablets (150 mg total) by mouth daily. 45 tablet 11 12/22/2021 01/16/2023 topiramate (TOPAMAX) 25 mg tabletIndications:Bipola r II Disorder (HCC),Obsessive Compulsive Disorder Take 1 tablet (25 mg total) by mouth at bedtime. 30 tablet 11 07/18/2022 03/14/2023 documented as of this encounter ED Notes * Austin Corcoran P.A.-C., P.A. - 12/22/2022 10:32 PM CDT SUBJECTIVE CHIEF COMPLAINT/REASON FOR VISIT Dizziness (Dizzy, anxious) HISTORY OF PRESENT ILLNESS Cora Olson is a 32-year-old female that presents with anxiety and headache. She states that she developed a headache this evening in his started feeling anxious and has noticed double vision, numbness and tingling and has been crying. She does have a history of anxiety and migraines. She would a similar episode a few days ago. She denies any other complaints. History provided by: Patient japanese interpreter needed/used: no REVIEW OF SYSTEMS Constitutional: Negative for activity change, appetite change, chills, diaphoresis, fatigue and fever. HENT: Negative for congestion, ear pain, rhinorrhea and sore throat. Eyes: Positive for visual disturbance. Negative for photophobia. Respiratory: Negative for cough, chest tightness, shortness of breath and wheezing. Cardiovascular: Negative for chest pain and palpitations. Gastrointestinal: Positive for nausea. Negative for abdominal pain, diarrhea and vomiting. Musculoskeletal: Negative for back pain and neck pain. Skin: Negative for rash. Neurological: Positive for dizziness, numbness and headaches. Negative for syncope, facial asymmetry, speech difficulty, weakness and light-headedness. Psychiatric/Behavioral: The patient is nervous/anxious. OBJECTIVE Initial Vitals Temperature 12/22/222223 36.8 ??C Pulse -- Heart Rate 12/22/222223 98 Resp Rate 12/22/222223 20 Blood Pressure 12/22/222223 (!) 163/124 SpO2 12/22/222223 96 % Pain Score 12/22/222224 0 - No pain PHYSICAL EXAMINATION Constitutional: Nursing note and vitals reviewed. Vital signs are normal. She is active. She does not appear ill. No distress. HENT: Head: Normocephalic and atraumatic. Eyes: Conjunctivae and lids are normal. Neck: Phonation normal. Cardiovascular: Normal rate. Pulmonary/Chest: Effort normal. No tachypnea. No respiratory distress. Musculoskeletal: Cervical back: No pain with movement. Neurological: Alert and oriented to person, place, and time. Normal speech. Skin: Skin is warm, dry and normal color. No rash noted. Psychiatric: Her mood appears anxious. Tearful. ASSESSMENT/PLAN Assessment and Plan Cora Olson is a 32-year-old female that presents with anxiety and headache. She developed a headache and then started feeling very anxious with double vision and numbness/tingling throughouther body. On my exam she is crying and hyperventilating. She does not have any neurologic deficits.She is hypertensive but otherwise vital signs are fairly normal. We gave her a dose of Toradol and droperidol for the headache and anxiety. After about 30 minutes she felt improved. She does not havethe symptoms that she had before. I feel comfortable with her returning home at this point. She will come back if needed.. DIFFERENTIAL DIAGNOSES Panic attack, migraine, subarachnoid hemorrhage, head injury, medication adverse effect. PROBLEMS ADDRESSED THIS VISIT Headache and anxiety. I reviewed the following external records: primary care records. Final Diagnoses: as of 12/22/222311 Headache Unspecified Anxiety The following tests were considered but ultimately not performed: Head CT was considered for the headache but she does not have any neurologic deficits and does have a history of migraines and anxiety.. Escalation of care, including admission/observation, considered: None. Austin Corcoran P.A.-C., P.A. 12/22/22 2312 documented in this encounter Plan of Treatment Not on file documented as of this encounter Visit Diagnoses Diagnosis Headache Unspecified- Primary Anxiety documented in this encounter Administered Medications Inactive Administered Medications - up to 3 most recent administrations Medication Order MAR Action Action Date Dose Rate Site droPERidoL injection 1.25 mg (INAPSINE) 1.25 mg, intravenous, Once, On Katharine 12/22/22 at 2233, For 1 dose Given 12/22/2022 10:40 PM CDT 1.25 mg ketorolac injection 15 mg (TORADOL) 15 mg, intravenous, Once, On Katharine 12/22/22 at 2233, For 1 dose, Adult IV push rate: Over 15 seconds. Peds IV push rate: Over 1 minute. Doses > 15 mg IV/IM are discouraged due to lack of additional analgesic benefit. Given 12/22/2022 10:41 PM CDT 15 mg sodium chloride 0.9 % injection 10 mL 10 mL, intravenous, As needed, line care, Starting on Katharine 12/22/22 at 2231, Peripheral Intravenous Catheter and Rapid Infusion Catheter, prior to blood sampling, post blood transfusion or post blood sampling sodium chloride 0.9 % injection 3 mL 3 mL, intravenous, As needed, line care, Starting on Katharine 12/22/22 at 2231, Prior to and following infusion and between multiple consecutive infusions: sodium chloride 0.9 % injection sodium chloride 0.9 % injection 3 mL 3 mL, intravenous, Every 12 hours scheduled, First dose on Mon12/23/22 at 0900, Peripheral Intravenous Catheter and Rapid Infusion Catheter, when no infusion to maintain patency documented in this encounter Active and Recently Administered Medications Times are shown in CDT. Scheduled Medication Order 12/20/2022 12/21/2022 12/22/2022 droPERidoL injection 1.25 mg (INAPSINE) (COMPLETED) 1.25 mg, intravenous, Once, On Aktharine 12/22/22 at 2233, For 1 dose 2240 (Given - Provid er: Pramod Beth R.N.) ketorolac injection 15 mg (TORADOL) (COMPLETED) 15 mg, intravenous, Once, On Katharine 12/22/22 at 2233, For 1 dose, Adult IV push rate: Over 15 seconds. Peds IV push rate: Over 1 minute. Doses > 15 mg IV/IM are discouraged due to lack of additional analgesic benefit. 2241 (Given - Provid er: Pramod Beth R.N.) sodium chloride 0.9 % injection 3 mL 3 mL, intravenous, Every 12 hours scheduled, First dose on Mon12/23/22 at 0900, Peripheral Intravenous Catheter and Rapid Infusion Catheter, when no infusion to maintain patency PRN Medication Order 12/20/2022 12/21/2022 12/22/2022 sodium chloride 0.9 % injection 10 mL 10 mL, intravenous, As needed, line care, Starting on Katharine 12/22/22 at 2231, Peripheral Intravenous Catheter and Rapid Infusion Catheter, prior to blood sampling, post blood transfusion or post blood sampling sodium chloride 0.9 % injection 3 mL 3 mL, intravenous, As needed, line care, Starting on Katharine 12/22/22 at 2231, Prior to and following infusion and between multiple consecutive infusions: sodium chloride 0.9 % injection documented in this encounter Additional Health Concerns Assessment Noted Time PHQ-9 Depression Total Score: 22 023 8:16 AM CDT documented as of this encounter Care Teams Network/Telecom Engineer Relationship Specialty Start Date End Date Bette Lakhani M.D. NPLacey: [phone] [id number] [phone] PCP - General 10/13/16 documented as of this encounter
--- OUTSIDE RECORDS SUMMARY | 2023-05-26 13:44 | XMS_ITS | Encounter Summary ---
Author Name Unknown Organization [facility] Address [address] [place] [address] Care Team Providers Care Bar Welder Name Role Phone Bette Lakhani M.D. Primary Care Pro vider Encounter Details Date Type Department Care Team ([facility] st Contact Info) Description 04/17/2023 Patient Self-Triage [facility] Symptom Special Education Superintendent, Provider Social History Tobacco Use Types Packs/Day Years [...] often do you attend chur ch or worship services? 1 to 4 times per year 01/21/2022 Do you belong to any clubs o r organizations such as tenriism groups, unions, fraternal or athletic groups, or [...] place to sleep or slept in a retirement (including now)? No 01/21/2022 Depression Answer Date [...] documented as of this encounter Care Teams Bar Welder Relationship Specialty Start Date End Date Bette Lakhani M.D. [address] [phone] PCP - General 10/13/16 documented as of this encounter
--- OUTSIDE RECORDS SUMMARY | 2023-05-26 13:44 | XMS_ITS | Encounter Summary ---
Author Name Unknown Organization [facility] Address [address] [place] [address] Care Team Providers Care Screwdown Operator Name Role Phone Bette Lakhani M.D. Primary Care Pro vider Encounter Details Date Type Department Care Team ([facility] st Contact Info) Description 01/19/2023 Clinical Communication Pharmacy Prior [facility] [phone] Vel Ray Social History Tobacco Use Types Packs/Day Years [...] often do you attend chur ch or jewish services? 1 to 4 times per year 01/21/2022 Do you belong to any clubs o r organizations such as islam groups, unions, fraternal or athletic groups, or [...] Answer Date Recorded PHQ-2 Score 6 07/18/2022 [facility] - [...] Recor ded PHQ-9 Total Score (max 27) 07/18 Nutrition Answer Date Recorded Nutrition: EVOO [...] documented as of this encounter Care Teams Screwdown Operator Relationship Specialty Start Date End Date Bette Lakhani M.D. [address] [phone] PCP - General 10/13/16 documented as of this encounter
--- OUTSIDE RECORDS SUMMARY | 2023-05-26 13:44 | XMS_ITS | Encounter Summary ---
Author Name Unknown Organization [facility] Address [address] [place] [address] Care Team Providers Care Maintenance Specialist Name Role Phone Bette Lakhani M.D. Primary Care Pro vider Reason for Referral * MRI/CAT/PET Scan (Routine) - Closed Specialty Diagnoses / Procedures Referred By Anna olmos Referred To Contact Radiology Diagnoses Other Visual Disturbances Procedures MR Brain without and with IV Contrast Bette Lakhani M.D. [address] [place] [phone] [facility] Region Referral ID Status Reason Start Date Expiration Date Visits Re quested Visits Authorized [id number] Closed 07/19/2022 07/19/2023 1 1 Reason for Visit * Reason Comments Follow-up Discuss occular appt and symptoms * Outpatient (Routine) - Closed Specialty Diagnoses / Procedures Referred By Anna olmos Referred To Contact Family Medicine Bette Lakhani M.D. [address] [place] [phone] [facility] Region Referral ID Status Reason Start Date Expiration Date Visits Re quested Visits Authorized [id number] Closed 07/19/2022 07/18/2025 1 1 Encounter Details Date Type Department Care Team (Late st Contact Info) Description 07/19/2022 4:00 PM CDT Office Visit Department of Family Medicine, [facility], in [address] [phone] Bette Lakhani M.D. [address] [place] [phone] Other Visual Disturbances (Primary Dx); Paresthesia Discharge Disposition: Home or Self Care Social [...] often do you attend chur ch or mosque services? 1 to 4 times per year 01/21/2022 Do you belong to any clubs o r organizations such as anglican groups, unions, fraternal or athletic groups, or [...] Answer Date Recorded PHQ-2 Score 6 07/18/2022 [facility] - Occupational Stress Questionnaire Answer Date [...] place to sleep or slept in a [facility] (including now)? No 01/21/2022 Depression Answer Date [...] Sign Reading Time Taken Comments Blood Pressure 134/90 07/19/2022 3:47 PM CDT Pulse 90 07/19/2022 3:47 PM CDT Temperature - - Respiratory Rate - - Oxygen Saturation 98% 07/19/2022 3:47 PM CDT Inhaled Oxygen Concentration - - Weight 137 kg (302 lb 0.5 oz) 07/19/2022 3:47 PM CDT Height - - Body Mass Index 48.75 06/28/2022 6:36 PM STUNTMAN documented in this encounter Progress Notes * Bette Lakhani M.D. - 07/19/2022 4:00 PM CDT SUBJECTIVE CHIEF COMPLAINT / REASON FOR VISIT Cora Olson is a 32 y.o. female who presents for evaluation of Follow-up (Discuss occular appt and symptoms). HISTORY OF PRESENT ILLNESS Cora states that 3 days ago she noticed a weird flashing light in the right eye every time she blinked. She then developed a constant blurry/squiggly line disturbance in the same spot in her rightvisual field as the flashing light. This has progressed to being a constant flashing light. Yesterday she also had 2 episodes of right facial numbness lasting less than 1 hour. She also has had an occasional dull headache and some nausea. She is had hot flashes but no dizziness, vertigo, hearing change, or tinnitus. She has had visual auras with bad migraines in the past but she always got a bad headache with them. She was seen in Ophthalmology earlier today and they could not find any abnormalities with the eye itself. The symptoms started a couple weeks after initiating phentermine and patient is worried the 2 are connected. She has lost 18 lb already. REVIEW OF SYSTEMS A brief review of [...] mL) injection Inject 0.6 mg under the skindaily for 14 days, THEN 1.2 mg daily. pen needle, diabetic (BD Ultra-Fine Short Pen Needle) 31 gauge x 5/16 needle 1 Injection daily. Use as needed for Saxenda injection. phentermine (ADIPEX-P) 37.5 mg tablet Take 1 tablet (37.5 mg total) by mouth every morning before breakfast. sertraline (ZOLOFT) 100 mg tablet Take 1.5 tablets (150 mg total) by mouth daily. topiramate (TOPAMAX) 25 mg tablet Take 1 tablet (25 mg total) by mouth at bedtime. ustekinumab (STELARA) 90 mg/mL injection Inject 1 mL (90 mg total) under the skin every 8 (eight) weeks. Start 8 weeks after IV infusion. No Known Allergies OBJECTIVE PHYSICAL EXAMINATION BP 134/90 (BP Location: Left arm, Patient Position: Sitting, Cuff Size: Large) Pulse 90 Wt (!) 137 kg LMP 06/19/2022 (Exact Date) SpO2 98% BMI 48.75 kg/m?? Body mass index is 48.75 kg/m??. General: Alert and oriented. No acute distress. HEENT: Pupils are equal round and reactive to light extraocular movements are intact TMs are clear bilaterally with good light reflex. Oral mucosa is moist without oropharyngeal erythema. Neck: Supple. No lymphadenopathy. No carotid bruits. Cardiovascular Exam: Regular rate and rhythm. Normal S1 and S2. No murmurs, rubs, or gallops. Lungs: Clear to auscultation bilaterally. Extremities: No pedal edema. Neurologic: Cranial nerves 2-12 intact. She has symmetric and coordinated finger tapping and upper and lower extremity strength. Negative Romberg and pronator drift tests. ASSESSMENT / PLAN #1 Other Visual Disturbances #2 Paresthesia Patient has already seen Ophthalmology and had a primary eye disorder ruled out. Discussed that this still could be related to a migraine but due to the duration of symptoms, we will move forward with an MRI of her brain to rule out anything more sinister. Advised patient to keep us updated on any worsening symptoms. She will hold off on restarting phentermine for now. Plan was discussed with patient and is in agreement with plan. All questions were answered, side effects of any/all new medications were discussed. Patient left in no acute distress. Bette Melendez M.D. documented in this encounter Plan of Treatment Not on file documented as of this encounter Results * MR Brain without [...] this encounter Visit Diagnoses Diagnosis Other Visual Disturbances- Primary Paresthesia Other Visual Disturbances documented in this encounter Additional Health Concerns Assessment Noted Time PHQ-9 Depression Total Score: 22 20/2 023 8:16 AM CDT documented as of this encounter Care Teams Maintenance Specialist Relationship Specialty Start Date End Date Bette Lakhani M.D. [phone] [phone] PCP - General 10/13/16 documented as of this encounter
--- OUTSIDE RECORDS SUMMARY | 2023-05-26 13:44 | XMS_ITS | Encounter Summary ---
Author Name Unknown Organization [facility] Address [address] [place] [id number] Care Team Providers Care Crop Nutrition Scientist Name Role Phone Bette Lakhani M.D. Primary Care Pro vider Reason for Visit * Reason Onset Date Comments Rx Denial 01/12/2023 QSYMIA 7.5-46MG Encounter Details Date Type Department Care Team (Latest Contact Info) Description 01/12/2023 Clinical Communication Department of Family Medicine, [facility], in [address] [phone] Bette Lakhani M.D. [address] [place] [phone] Rx Denial ( QSYMIA 7.5-46MG) Social History Tobacco Use Types Packs/Day Years [...] often do you attend chur ch or alevism services? 1 to 4 times per year 01/21/2022 Do you belong to any clubs o r organizations such as mu-ism groups, unions, fraternal or athletic groups, or [...] Answer Date Recorded PHQ-2 Score 6 07/18/2022 [facility] ional [facility] - Occupational [...] place to sleep or slept in a nursing home (including now)? No 01/21/2022 Depression Answer [...] Telephone Encounter - Nii Can - 01/12/2023 11:06 AM CDT Images from the original note were not included. The patient's health insurer has denied prior authorization for QSYMIA 7.5-46MG CAPS A screen shot of the denial reason [...] Release Rx: Open this encounter, go to [facility] [employer], and click on the medication. If the [...] documented as of this encounter Care Teams Crop Nutrition Scientist Relationship Specialty Start Date End Date Bette Lakhani M.D. [address] [phone] PCP - General 10/13/16 documented as of this encounter
--- OUTSIDE RECORDS SUMMARY | 2023-05-26 13:45 | XMS_ITS | Encounter Summary ---
Author Name Unknown Organization [facility] Address [address] [place] [address] Care Team Providers Care Shingle Bolt Cutter Name Role Phone Bette Lakhani M.D. Primary Care Pro vider Encounter Details Date Type Department Care Team (Late st Contact Info) Description 07/01/2022 Orders Only Pharmacy Prior Auth [facility] [phone] Pernell Byrne Social History Tobacco Use Types Packs/Day Years Used Date Smoking Tobacco: Some Days Cigarettes 0.3 7 Started: 10/08/2008; Last attempted to quit: 10/21/2017 Smokeless Tobacco: Never Comments:Occasional smokes. Alcohol [...] often do you attend chur ch or church services? 1 to 4 times per year 01/21/2022 Do you belong to any clubs o r organizations such as confucianism groups, unions, fraternal or athletic groups, or [...] PHQ-2 Answer Date Recorded PHQ-2 Score 6 06/28/2022 [facility]at ional Health - Occupational [...] Recor ded PHQ-9 Total Score (max 27) 06/28 Nutrition Answer Date Recorded Nutrition: EVOO Fat [...] Assessment Noted Time PHQ-9 Depression Total Score: 023 3:08 PM WELT TREATER documented as of this encounter Care Teams Shingle Bolt Cutter Relationship Specialty Start Date End Date Bette Lakhani M.D. [address] [phone] PCP - General 10/13/16 documented as of this encounter
--- OUTSIDE RECORDS SUMMARY | 2023-05-26 13:45 | XMS_ITS | Encounter Summary ---
Author Name Unknown Organization [facility] Address [address] [place] [address] Care Team Providers Care Cullet Trucker Name Role Phone Bette Lakhani M.D. Primary Care Pro vider Reason for Visit * Reason Onset Date Comments Rx Denial 07/05/2022 PHENTERMINE 37.5 MG TAB RX PA APPROVAL 07/05/2022 SAXENDA SUBCUTAN EOUS SOLUTION PEN-INJECTOR 18MG/3ML Encounter Details Date Type Department Care Team (Latest Contact Info) Description 07/05/2022 Clinical Communication Pharmacy Prior Auth RUBIN [phone] Nii Can Rx Denial (PHENTERMINE 37.5MG TAB); RX PA APPROVAL (SAXENDA SUBCUTANEOUS SOLUTION PEN-INJECTOR 18MG/3ML) Social History Tobacco Use Types Packs/Day Years [...] often do you attend chur ch or baptist services? 1 to 4 times per year 01/21/2022 Do you belong to any clubs o r organizations such as rastafari groups, unions, fraternal or athletic groups, or [...] Answer Date Recorded PHQ-2 Score 6 07/18/2022 [facility] - Occupational Stress Questionnaire Answer Date [...] encounter Miscellaneous Notes * Telephone Encounter - Jeffrey Vega L - 07/21/2022 3:10 PM CDT Pharmaceutical prior authorization has been approved for SAXENDA SUBCUTANEOUS SOLUTION PEN-TUNIMIBD03SP/3ML. A copy of the initial PA submission and of the approval letter can be found in Chart Review under the Media tab. If you have any follow-up questions regarding this communication, please contact us via [employer] communication at [facility]. Best regards, The OPPA TeamPharmaceutical prior authorization has been approved for SAXENDA SUBCUTANEOUS SOLUTIONPEN-INJECTOR 18MG/3ML. A copy of the initial PA submission and of the approval letter can be found in Chart Review under the Media tab. If you have any follow-up questions regarding this communication, please contact us via [employer] communication at [facility]. Best regards, The OPPA Team * Telephone Encounter - Nii Can - 07/05/2022 2:19 PM CST Images from the original note were not included. The patient's health insurer has denied prior authorization for PHENTERMINE 37.5MG TAB. A quick view of the denial reason is in this communication message. To view the denial letter: 1. Go to Snapshot 2. Go to the purple Medications box 3. Click on the blue Prior Authorizations link 4. Under Denied, click on the blue medication link to open and view the attachment. As the prescriber, your options are: Appeal the decision to the insurer directly (see denial letter for how to appeal). Write a new Rx for an alternative medication therapy. Release the Rx to the pharmacy so the patient can pay out of pocket if they desire. To Release Rx: Open this encounter, go to Meds & Orders, click on the medication, and click theblue ???Release Rx?? button. PLEASE NOTE: If the ???Release Rx?? button is not visible, the Rx has already been released to thepharmacy. If you have questions, please reply via QuickNote to P [facility] [employer]. Thank you, The OPPA Team TY PHYSICIAN documented in this encounter Plan of Treatment Not on file documented as of this encounter Visit Diagnoses Not on filedocumented in this encounter Additional Health Concerns Assessment Noted Time PHQ-9 Depression Total Score: 21 06/28/ 023 3:08 PM SAFETY PHYSICIAN documented as of this encounter Care Teams Cullet Trucker Relationship Specialty Start Date End Date Lozoya Bette Melendez M.D. [address] [phone] PCP - General 10/13/16 documented as of this encounter
--- OUTSIDE RECORDS SUMMARY | 2023-05-26 13:45 | XMS_ITS | Encounter Summary ---
Author Name Unknown Organization [facility] Address [address] [place] [address] Care Team Providers Care Mirror Polisher Name Role Phone Bette Lakhani M.D. Primary Care Pro vider Encounter Details Date Type Department Care Team (Latest Contact Info) Description 07/18/2022 Clinical Communication Department of Ophthalmology in [place], [place] [address] [place] [phone] Provider, Unknown Social History Tobacco Use Types Packs/Day Years [...] often do you attend chur ch or zoroastrianism services? 1 to 4 times per year 01/21/2022 Do you belong to any clubs o r organizations such as baptist groups, unions, fraternal or athletic groups, or [...] Answer Date Recorded PHQ-2 Score 6 07/18/2022 [facility] - [...] documented as of this encounter Care Teams Mirror Polisher Relationship Specialty Start Date End Date Bette Lakhani M.D. [address] [phone] PCP - General 10/13/16 documented as of this encounter
--- OUTSIDE RECORDS SUMMARY | 2023-05-26 13:45 | XMS_ITS | Encounter Summary ---
Author Name Unknown Organization [facility] Address [address] [place] [address] Care Team Providers Care Theatrical Dresser Name Role Phone Bette Lakhani M.D. Primary Care Pro vider Encounter Details Date Type Department Care Team ([facility] st Contact Info) Description 07/18/2022 Orders Only [facility] [place] [address] [facility], [address] [phone] Mohini Herron Social History Tobacco Use Types Packs/Day Years [...] often do you attend chur ch or spiritism services? 1 to 4 times per year 01/21/2022 Do you belong to any clubs o r organizations such as buddhism groups, unions, fraternal or athletic groups, or [...] to sleep or slept in a senior living (including now)? No 01/21/2022 Depression Answer Date [...] Noted Time PHQ-9 Depression Total Score: 023 8:16 AM CDT documented as of this encounter Care Teams Theatrical Dresser Relationship Specialty Start Date End Date Bette Lakhani M.D. [address] [phone] PCP - General 10/13/16 documented as of this encounter
--- OUTSIDE RECORDS SUMMARY | 2023-05-26 13:45 | XMS_ITS | Encounter Summary ---
Author Name Unknown Organization [facility] Address [address] [place] [address] Care Team Providers Care Airplane Pilot Name Role Phone Bette Lakhani M.D. Primary Care Pro vider Encounter Details Date Type Department Care Team (Late st Contact Info) Description 07/12/2022 Clinical Communication Pharmacy Prior Auth [phone] Tiffani Taylor Social History Tobacco Use Types Packs/Day Years [...] often do you attend chur ch or rastafarian services? 1 to 4 times per year 01/21/2022 Do you belong to any clubs o r organizations such as samaritan groups, unions, fraternal or athletic groups, or [...] Answer Date Recorded PHQ-2 Score 6 07/18/2022 [facility]ational Stress Questionnaire Answer Date [...] Noted Time PHQ-9 Depression Total Score: 21 023 3:08 PM STEAMSHIP AGENT documented as of this encounter Care Teams Airplane Pilot Relationship Specialty Start Date End Date Bette Lakhani M.D. [address] [phone] PCP - General 10/13/16 documented as of this encounter
--- OUTSIDE RECORDS SUMMARY | 2023-05-26 13:45 | XMS_ITS | Encounter Summary ---
Author Name Unknown Organization [facility] Address [address] [place] [address] Care Team Providers Care Material Lister Name Role Phone Bette Lakhani M.D. Primary Care Pro vider Reason for Referral * Outpatient (Routine) - Closed Specialty Diagnoses / Procedures Referred By Anna olmos Referred To Contact Family Medicine Bette Lakhani M.D. [address] [place] [phone] [facility] Region Referral ID Status Reason Start Date Expiration Date Visits Re quested Visits Authorized [id number] Closed 06/28/2022 06/27/2025 1 1 [address] BRAKEMAN Reason for Visit * Reason Comments Obesity Before she starts we ight loss journey, she would like a clean bill of health, including labs. Encounter Details Date Type Department Care Team (Latest Contact Info) Description 06/28/2022 6:30 PM TRAIN BRAKEMAN Comprehensive Visit Department of Family Medicine, [facility], in [address] [phone] Bette Lakhani M.D. [address] [place] [phone] Morbid Severe Obesity Due To Excess Calories (HCC) (Primary Dx); Family History Cardiovascular Disease; Colitis Ulcerative Left Sided (HCC); Bipolar II Disorder (HCC); Screening Examination Diabetes Mellitus; Screening Lipid; Need Vaccine Immunization Hepatitis A Discharge Disposition: Home or Self Care Social History Tobacco Use Types Packs/Day Years Used Date Smoking Tobacco: Some Days Cigarettes 0.3 7 Started: 10/08/2008; Last attempted to quit: 10/21/2017 Smokeless Tobacco: Never Tobacco Cessation:Ready to Q uit: Not Asked; Counseling Given: Not Answered Comments:Occasional smokes. Alcohol Use [...] 01/21/2022 How often do you attend chur or rastafarian services? 1 to 4 times per year 01/21/2022 Do you belong to any clubs o r organizations such as episcopalian groups, unions, fraternal or athletic groups, or [...] Answer Date Recorded PHQ-2 Score 6 06/28/2022 [facility] - Occupational Stress Questionnaire Answer Date [...] Recor ded PHQ-9 Total Score (max 27) 21 06/28 Nutrition Answer Date Recorded Nutrition: EVOO [...] Sign Reading Time Taken Comments Blood Pressure 158/99 06/28/2022 6:36 PM TRAIN BRAKEMAN Pulse 76 06/28/2022 6:36 PM TRAIN BRAKEMAN Temperature 36 ??C (96.8 ??F) 06/28/2022 6:36 PM TRAIN BRAKEMAN Respiratory Rate 12 06/28/2022 6:36 PM TRAIN BRAKEMAN Oxygen Saturation 97% 06/28/2022 6:36 PM TRAIN BRAKEMAN Inhaled Oxygen Concentration - - Weight 145 kg (319 lb 10.7 oz) 06/28/2022 6:36 P M TRAIN BRAKEMAN Height 167.6 cm (5' 6) 06/28/2022 6:36 PM TRAIN BRAKEMAN Body Mass Index 51.6 06/28/2022 6:36 PM TRAIN BRAKEMAN documented in this encounter Progress Notes * Bette Lakhani M.D. - 06/28/2022 6:30 PM CST SUBJECTIVE CHIEF COMPLAINT / REASON FOR VISIT Cora Olson is a 32 y.o. female who presents for evaluation of Obesity (Before she starts weight loss journey, she would like a clean bill of health, including labs.). HISTORY OF PRESENT ILLNESS Cora presents today stating that she would like to initiate lifestyle changes and discuss weightmanagement options. She reports a significant family history of heart disease and stroke and would like to try prevent these disorders. She would also like to be able to play with her children. She reports barriers of feeling overwhelmed when thinking about lifestyle changes and not knowing exactlyhow to start, what exercises to do, and what are healthy foods to eat. She reports that there is a lot of room for improvement in her diet and she does not currently have a consistent exercise routine. She smokes occasionally. She would be open to medications but is not yet ready to consider weightloss surgery. REVIEW OF SYSTEMS A brief review of [...] mg by mouth 2 times a day. sertraline (ZOLOFT) 100 mg tablet Take 1.5 tablets (150 mg total) by mouth daily. ustekinumab (STELARA) 90 mg/mL injection Inject 1 mL (90 mg total) under the skin every 8 (eight) weeks. Start 8 weeks after IV infusion. phentermine (ADIPEX-P) 37.5 mg tablet Take 1 tablet (37.5 mg total) by mouth every morning before breakfast. No Known Allergies OBJECTIVE PHYSICAL EXAMINATION BP (!) 158/99 Pulse 76 Temp 36 ??C Resp 12 Ht 167.6 cm Wt (!) 145 kg LMP 06/19/2022 (Exact Date) SpO2 97% BMI 51.60 kg/m?? Body mass index is 51.6 kg/m??. General: Alert and oriented. No acute distress. No further exam completed. DIAGNOSTICS Results for orders placed or performed in visit on 06/28/22 Comprehensive Metabolic Panel Result Value Ref Range Potassium, P 4.0 3.6 - 5.2 mmol/L Sodium, P 139 135 - 145 mmol/L Chloride, P 102 98 - 107 mmol/L Bicarbonate, P 27 22 - 29 mmol/L Anion Gap, P 10 7 - 15 BUN (Blood Urea Nitrogen), P 22 (H) 6 - 21 mg/dL Creatinine 0.79 0.59 - 1.04 mg/dL Estimated GFR (eGFR) >90 >=60 mL/min/BSA Calcium, Total, P 9.1 8.6 - 10.0 mg/dL Glucose, P 101 70 - 140 mg/dL Protein, Total, P 7.9 6.3 - 7.9 g/dL Albumin, P 4.0 3.5 - 5.0 g/dL Aspartate Aminotransferase (AST), P 18 8 - 43 U/L Alkaline Phosphatase, P 119 (H) 35 - 104 U/L Alanine Aminotransferase (ALT), P 18 7 - 45 U/L Bilirubin, Total, P <0.2 <=1.2 mg/dL Lipid Panel Result Value Ref Range Triglycerides 310 (H) mg/dL Cholesterol, Total 183 mg/dL Cholesterol, LDL, Calculated 87 mg/dL Cholesterol, HDL 45 (L) >=50 mg/dL Cholesterol, Non-HDL, Calculated 138 mg/dL Fasting (8 HR or more) Yes Hemoglobin A1c Result Value Ref Range Hemoglobin A1c, B 5.4 4.2 - 5.6 % CRP (C-Reactive Protein) Result Value Ref Range C-Reactive Protein (CRP), P 15.9 (H) <=8.0 mg/L CBC without Differential Result Value Ref Range Hemoglobin 13.4 11.6 - 15.0 g/dL Hematocrit 41.8 35.5 - 44.9 % Erythrocytes 4.76 3.92 - 5.13 x10(12)/L MCV 87.8 78.2 - 97.9 fL RBC Distrib Width 13.1 12.2 - 16.1 % Platelet Count 332 157 - 371 x10(9)/L Leukocytes 11.1 (H) 3.4 - 9.6 x10(9)/L Bilirubin, Direct Result Value Ref Range Bilirubin, Direct, P <0.2 0.0 - 0.3 mg/dL ASSESSMENT / PLAN #1 Morbid Severe Obesity Due To Excess Calories (HCC) #2 Family History Cardiovascular Disease Commended patient on identifying areas of improvement to help prevent vascular disease in the future. We reviewed healthy diet and she was given handouts on the plate method and the Mediterranean diet. She was given information on how to start an exercise routine. We discussed barriers and questions were answered. We offered referral to dietitian if she was interested. We also discussed weight loss medications including phentermine, Qsymia, and GLP 1 inhibitors. As it does not appear insurance will cover any of these medicines, a prescription for phentermine was given. We discussed potential side effects. We outlined achievable goals until our next visit including planning lunch 2 days per week, exercising for 20 minutes 3 days per week, and eliminating tobacco and soda. We will see her back in 3 months. Baseline labs obtained to compare to in future. #3 Colitis Ulcerative Left Sided (HCC) Currently in remission. Upcoming visit with GI. Labs obtained. #4 Bipolar II Disorder (HCC) Upcoming visit with psychiatry. Stable. #5 Screening Examination Diabetes Mellitus Blood sugar and A1c are normal. #6 Screening Lipid Mild abnormalities which will likely improve with lifestyle changes. Plan was discussed with patient and is in agreement with plan. All questions were answered, side effects of any/all new medications were discussed. Patient left in no acute distress. Bette Melendez MD N BRAKEMAN documented in this encounter Plan of Treatment Scheduled Referrals Name Type Priority Associated Diagnoses Orde r Schedule Family Medicine office visit (clinic) Outpatient Referral Routine Expected: 09/25/2022 (Approximate), Expires: 09/26/2023 documented as of this encounter Procedures Procedure Name Priority Date/Time Associated Diagnosis Comments LIPID PANEL, S Routine 06/28/2022 8:09 PM TRAIN BRAKEMAN Screening Lipid C-REACTIVE PROTEIN (CRP), S/P Routine 06/28/2022 8:09 PM TRAIN BRAKEMAN Colitis Ulcerative Left Sided (HCC) BILIRUBIN DIRECT, S/P Routine 06/28/2022 8:09 PM TRAIN BRAKEMAN COMPREHENSIVE METABOLIC PANEL, S/P Routine 06/28/2022 8:09 PM TRAIN BRAKEMAN Colitis Ulcerative Left Sided (HCC) Morbid Severe Obesity Due To Excess Calories (HCC) CBC WITHOUT DIFFERENTIAL, B Routine 06/28/2022 8:08 PM TRAIN BRAKEMAN Colitis Ulcerative Left Sided (HCC) HEMOGLOBIN A1C, B Routine 06/28/2022 8:0 8 PM TRAIN BRAKEMAN Screening Examination Diabetes Mellitus documented in this encounter Results * Bilirubin, Direct (06/28/2022 8:09 PM TRAIN BRAKEMAN) Bilirubin, Direct, P <0.2 0.0 - 0.3 mg/dL 06/28/2022 8:39 PM TRAIN BRAKEMAN CNFL Blood 06/28/2022 8:09 PM TRAIN BRAKEMAN 06/28/2022 8:10 PM TRAIN BRAKEMAN Bette Melendez M.D. LAB BLOOD ADD-ON Performing Organization Address City/[facility]/ZIP Co de Phone Number [facility] [address] [place] [address], [facility] [place] [address] * (ABNORMAL) CRP (C-Reactive Protein) (06/28/2022 8:09 PM TRAIN BRAKEMAN) [facility] C-Reactive Protein (CRP), P 15.9(H) <=8.0 mg/L 06/28/2022 8:39 PM TRAIN BRAKEMAN CN[facility] Blood (Blood, Venous) 06/28/2022 8:09 PM TRAIN BRAKEMAN 06/28/2022 8:10 PM TRAIN BRAKEMAN Julio César Song M.D. LAB BLOOD ADD-ON [facility] [address] [place] [phone], [facility] [address] * (ABNORMAL) Comprehensive Metabolic Panel (06/28/2022 8:09 PM TRAIN BRAKEMAN) Pathologist [facility] Potassium, P 4.0 3.6 - 5.2 mmol/L 06/28/2022 8:39 PM TRAIN BRAKEMAN CNFL Sodium, P 139 135 - 145 mmol/L 06/28/2022 8:39 PM TRAIN BRAKEMAN CN[facility] Chloride, P 102 98 - 107 mmol/L 06/28/2022 8:39 PM TRAIN BRAKEMAN CNFL Bicarbonate, P 27 22 - 29 mmol/L 06/28/2022 8:39 PM TRAIN BRAKEMAN CNFL Anion Gap, P 10 7 - 15 06/28/2022 8:39 PM TRAIN BRAKEMAN CNFL BUN (Blood Urea Nitrogen), P 22(H) 6 - 21 mg/dL 06/28/2022 8:39 PM TRAIN BRAKEMAN CNFL Creatinine 0.79 0.59 - 1.04 mg/dL 06/28/2022 8:39 PM TRAIN BRAKEMAN CNFL Estimated GFR (eGFR) >90 >=60 mL/min/BS A 06/28/2022 8:39 PM TRAIN BRAKEMAN CNFL Comment: Estimated GFR calculated using the 2020 CKD_EPI creatinine equation. Calcium, Total, P 9.1 8.6 - 10.0 mg/dL 06/28/2022 8:39 PM TRAIN BRAKEMAN CNFL Glucose, P 101 70 - 140 mg/dL 06/28/2022 8:39 PM TRAIN BRAKEMAN CNFL Protein, Total, P 7.9 6.3 - 7.9 g/dL 06/28/2022 8:39 PM TRAIN BRAKEMAN CNFL Albumin, P 4.0 3.5 - 5.0 g/dL 06/28/2022 8:39 PM TRAIN BRAKEMAN CNFL Aspartate Aminotransferase (AST), P 18 8 - 43 U/L 06/28/2022 8:39 PM TRAIN BRAKEMAN CNFL Alkaline Phosphatase, P 119(H) 35 - 104 U/L 06/28/2022 8:39 PM TRAIN BRAKEMAN CNFL Alanine Aminotransferase (ALT), P 18 7 - 45 U/L 06/28/2022 8:39 PM TRAIN BRAKEMAN CNFL Bilirubin, Total, P <0.2 <=1.2 mg/dL 06/28/2022 8:39 PM TRAIN BRAKEMAN CNFL Blood (Blood, Venous) 06/28/2022 8:09 PM TRAIN BRAKEMAN 06/28/2022 8:10 PM TRAIN BRAKEMAN Bette Melendez M.D. LAB BLOOD ADD-ON Performing Organization Address City/State/[facility] Co de Phone Number [facility]- [address] [address], [facility] CNFL [facility] in [address] [place] [address] * (ABNORMAL) Lipid Panel (06/28/2022 8:09 PM TRAIN BRAKEMAN) Triglycerides 310(H) mg/dL 06/28/2022 8:39 PM TRAIN BRAKEMAN CNFL Comment: ----REFERENCE VALUE---- Normal: <150 mg/dL Borderline High: 150-199 mg/dL High: 200-499 mg/dL Very High: > or =500 mg/dL Cholesterol, Total 183 mg/dL 2022 8:39 PM TRAIN BRAKEMAN CNFL Comment: ----REFERENCE VALUE---- Desirable: < 200 mg/dL Borderline High: 200 - 239 mg/dL High: > or = 240 mg/dL Cholesterol, LDL, Calculated 87 mg/dL 06/28/2022 8:39 PM TRAIN BRAKEMAN CNFL Comment: ----REFERENCE VALUE---- Desirable: <100 mg/dL Above Desirable: 100-129 mg/dL Borderline High: 130-159 mg/dL High: 160-189 mg/dL Very High: >=190 mg/dL ----ADDITIONAL INFORMATION---- LDL cholesterol calculated using the Iqbal/NIH equation. Cholesterol, HDL 45(L) >=50 mg/dL 06/28/19 8:39 PM TRAIN BRAKEMAN CNFL Cholesterol, Non-HDL, Calculated 138 mg/dL 06/28/2022 8:39 PM TRAIN BRAKEMAN CNFL Comment: ----REFERENCE VALUE---- Desirable: <130 mg/dL Above Desirable: 130-159 mg/dL Borderline High: 160-189 mg/dL High: 190-219 mg/dL Very High: > or =220 mg/dL Fasting (8 HR or more) Yes 06/28/2022 8:10 PM TRAIN BRAKEMAN CNFL Blood (Blood, Venous) 06/28/2022 8:09 PM TRAIN BRAKEMAN 06/28/2022 8:10 PM TRAIN BRAKEMAN Bette Melendez M.D. LAB BLOOD ADD-ON [facility] [address] [place] [phone], [facility] CNFL [facility] in [address] [address] * (ABNORMAL) CBC without Differential (06/28/2022 8:08 PM TRAIN BRAKEMAN) Hemoglobin 13.4 11.6 - 15.0 g/dL 06/28/2022 8:28 PM TRAIN BRAKEMAN CNFL Hematocrit 41.8 35.5 - 44.9 % 06/28/2022 8:28 PM TRAIN BRAKEMAN CNFL Erythrocytes 4.76 3.92 - 5.13 x10(12)/L 06/28/2022 8:28 PM TRAIN BRAKEMAN CNFL MCV 87.8 78.2 - 97.9 fL 06/28/2022 8:28 PM TRAIN BRAKEMAN CNFL RBC Distrib Width 13.1 12.2 - 16.1 % 06/28/2022 8:28 PM TRAIN BRAKEMAN CNFL Platelet Count 332 157 - 371 x10(9)/L 06/28/2022 8:28 PM TRAIN BRAKEMAN CNFL Leukocytes 11.1(H) 3.4 - 9.6 x10(9)/L 06/28/2022 8:28 PM TRAIN BRAKEMAN CNFL Blood (Blood, Venous) 06/28/2022 8:08 PM TRAIN BRAKEMAN 06/28/2022 8:10 PM TRAIN BRAKEMAN Julio César Song M.D. LAB BLOOD ADD-ON [facility] [address] [place] [phone], [facility] in [address] [address] * Hemoglobin A1c (06/28/2022 8:08 PM TRAIN BRAKEMAN) Hemoglobin A1c, B 5.4 4.2 - 5.6 % 06/28/2022 8:29 PM TRAIN BRAKEMAN CNFL Blood (Blood, Venous) 06/28/2022 8:08 PM TRAIN BRAKEMAN 06/28/2022 8:10 PM TRAIN BRAKEMAN Bette Melendez M.D. LAB BLOOD ADD-ON [facility] [address] [place] [phone], [facility] CNFL [facility] in [address] [address] documented in this encounter Visit Diagnoses Diagnosis Morbid Severe Obesity Due To Excess Calories (HCC)- Primary Family History Cardiovascular Disease Colitis Ulcerative Left Sided (HCC) Bipolar II Disorder (HCC) Screening Examination Diabetes Mellitus Screening Lipid Need Vaccine Immunization Hepatitis A documented in this encounter Additional Health Concerns Assessment Noted Time PHQ-9 Depression Total Score: 21 023 3:08 PM TRAIN BRAKEMAN documented as of this encounter Care Teams Material Lister Relationship Specialty Start Date End Date Bette Lakhani M.D. [id number] [place] [phone] PCP - General 10/13/16 documented as of this encounter
[2023-05-26 18:04] LABS: Bacterial Vaginosis* NEGATIVE (No Detected); Candida glab/krus NOT DETECTED (No Detected); Candida species NOT DETECTED (No Detected); Trichomonas vaginalis NOT DETECTED (No Detected)
== END 2023-05-26 13:39 | disposition home or self-care (01) ==
PROVIDERS: Visit Provider Obstetrics & Gynecology
DX: N89.8 Other specified noninflammatory disorders of vagina (principal)
CPT/HCPCS: 81513; 87086; 87481; 87661

== ENCOUNTER 2023-07-12 16:36 | Outpatient (CLI) | payer BC, OTHER, SELFPAY ==
[2023-07-12 16:50] VITALS: PULSE 75; O2SAT 97
[2023-07-12 16:55] VITALS: PULSE 73; RESP 16; TEMP 36.6; O2SAT 98
[2023-07-12 17:00] VITALS: BP 145/68; PULSE 77
[2023-07-12 17:13] VITALS: BP 131/77; PULSE 69
[2023-07-12 17:39] LABS: Appearance Urine Clear (Clear); Bilirubin Urine Negative (Negative); Blood Urine 1+ (Negative); Color Urine Yellow (Yellow); Glucose Urine Negative (Negative); Ketones Urine Negative (Negative); Leukocyte Esterase Urine Negative (Negative); Nitrite Urine Negative (Negative); Protein Urine 1+ (Negative); Urobilinogen Urine 0.2 (0.2-1.0); pH Urine 5.5 (5.0-8.5)
[2023-07-12 17:49] LABS: RBC Urine 0-2 (0-2); Squamous Epithelial Cell Urine Few (None-Few); WBC Urine 0-2 (0-5)
[2023-07-12 18:10] LABS: Clue Cells No Clue Cells Seen (None Seen); Trichomonas No Trichomonas Seen (None Seen); Yeast No Yeast Seen (None Seen)
[2023-07-12 18:50] LABS: Amnisure Rom* Negative
[2023-07-12 18:55] VITALS: BP 139/88; PULSE 65
--- NOTE | 2023-07-12 19:01 | P.OBLDTN_ITS ---
OB - Triage/Final Diagnosis Visit Information Narrative: The patient is a 33 year old 3 para 2 at 24.5 weeks gestation by LMP, who presents with pink discharge starting pricing consultant around 0200 and continuing though the day. Discharge is light pink and mucus like, not watery she notes when wiping in the bathroom. She has a history of lichen planus and had completed a round of hydrocortisone suppositories for treatment recently. Denies feeling her usual symptoms when she has a flair up. She denies leaking of fluid, but does report having more pelvic pressure today. Has not had intercourse recently. On exam vagina appears normal, slightly dry with normal looking discharge noted on speculum exam. No obvious signs of flair up of Lichen planus seen. no lesions, redness or fissures seen. Amnisure was collected and SVE for closed thick and high cervix. Wet prep collected previously negative, UA appears clear of infection. Reason for evaluation: other Evaluation Cervical dilation (cm): 0 Cervical effacement (%): 0 Laboratory results: Laboratory Tests 07/12/23 07/12/23 07/12/23 Range/Units 18:19 17:32 17:26 Urine Color Yellow (Yellow) Urine Appearance Clear (Clear) Urine pH 5.5 (5.0-8.5) Ur Specific Aurora 1.020 (1.000-1.030) Urine Protein 1+ A (Negative) Urine Glucose (UA) Negative (Negative) Urine Ketones Negative (Negative) Urine Blood 1+ A (Negative) Urine Nitrite Negative (Negative) Urine Bilirubin Negative (Negative) Urine Urobilinogen 0.2 (0.2-1.0) Ur Leukocyte Esterase Negative (Negative) Urine RBC 0-2 (0-2) Urine WBC 0-2 (0-5) Ur Squamous Epith Cells Few (None-Few) Urine Bacteria None (None) Membrane Rupture Negative Vaginal Trichomonas No Trichomonas Seen (None Seen) Vaginal Yeast No Yeast Seen (None Seen) Vaginal Clue Cells No Clue Cells Seen (None Seen) Vital signs: Vital Signs - 24 hr 07/12/23 16:50 07/12/23 16:55 07/12/23 17:00 Pulse Rate 77 Blood Pressure 145/68 H Pulse Oximetry 97 98 07/12/23 17:13 07/12/23 18:55 Pulse Rate 69 65 Blood Pressure 131/77 139/88 Pulse Oximetry Fetus (Single) Heart Rate Baseline: 155 Final Diagnosis (1) Vaginal bleeding during , antepartum: Status: Acute Problem details: Unclear source of bleeding. (2) Lichen planus: Status: Acute Problem details: Recommend using topical medication for lichen planus. Follow up in clinic at next visit.
[2023-07-12 19:35] LABS: Chlamydia DNA Amplified* NOT DETECTED (No Detected); GC DNA Amplified* NOT DETECTED (No Detected)
== END 2023-07-12 19:15 | disposition home or self-care (01) ==
LOC: OB OUT 16:36 → OB 16:37
PROVIDERS: Advanced Practice Midwife; Visit Provider Obstetrics & Gynecology
DX: O46.90 Antepartum hemorrhage, unspecified, unspecified trimester (principal); L43.9 Lichen planus, unspecified; Z3A.24 24 weeks gestation of pregnancy
CPT/HCPCS: 81001; 81003; 84112; 87210; 87491; 87591; G0463

== ENCOUNTER 2023-08-17 20:04 | Outpatient (CLI) | payer BC, OTHER, SELFPAY ==
[2023-08-17] VITALS (11 sets, daily range): BP systolic 126; BP diastolic 70; PULSE 69–88; RESP 16; TEMP 36.8; O2SAT 99–100
--- OUTSIDE RECORDS SUMMARY | 2023-08-17 20:09 | XMS_ITS | Encounter Summary ---
Author Name Unknown Organization [facility] Address [address] [place] [id number] Care Team Providers Care Supervisor Pumping Station Name Role Phone No Ref-Primary, Physician Primary Care Provider Encounter Details Date Type Department Care Team (Latest Contact Info) Description 07/11/2023 Travel Social History Tobacco Use Types Packs/Day Years Used Date Smoking Tobacco: Never Smokeless Tobacco: Never Alcohol Use Standard Drinks/Week Comments No 0 (1 standard drink = 0.6 oz pur e alcohol) Adolescent Education Answer Date Record ed Getting School Help Needed Not on file 05/29 Estimated Date of Delivery Comme nts Yes 11/20/2023 Based on Ultraso und Sex and Gender Information Value Date Recorded Sex Assigned at Female 06/03/2023 6:47 PM SOLUTIONS OPERATOR Gender Identity Female 06/03/2023 6:47 PM SOLUTIONS OPERATOR Sexual Orientation Straight 06/03/2023 6: 47 PM SOLUTIONS OPERATOR documented as of this encounter Plan of Treatment Not on file documented as of this encounter Visit Diagnoses Not on filedocumented in this encounter Care Teams Supervisor Pumping Station Relationship Specialty Start Date End Date No Ref-Primary, Physician PCP - General 06/07/23 documented as of this encounter
--- OUTSIDE RECORDS SUMMARY | 2023-08-17 20:09 | XMS_ITS | Encounter Summary ---
Author Name Unknown Organization [facility] Address [address] [place] [id number] Care Team Providers Care Esthetician Permanent Makeup Artist Name Role Phone No Ref-Primary, Physician Primary Care Provider Reason for Referral * Diagnostic Imaging Ultrasound (Routine) - Pending Review Specialty Diagnoses / Procedures Referred By Contac t Referred To Contact Radiology. Diagnoses related condition, antepartum Procedures [facility] US Comprehensive Single Chanel Tate MD [facility] [address] [place] [address] Referral ID Status Reason Start Date Expiration Date V isits Requested Visits Authorized [id number] Pending Review 05/29/2023 05/28/2024 1 1 RT HOUSEKEEPER Reason for Visit * Diagnostic Imaging Ultrasound (Routine) - Pending Review Specialty Diagnoses / Procedures Referred By Contac t Referred To Contact Radiology. Diagnoses related condition, antepartum Procedures [facility] US Comprehensive Single Chanel Tate MD [facility] [address] [place] [address] Referral ID Status Reason Start Date Expiration Date V isits Requested Visits Authorized [id number] Pending Review 05/29/2023 05/28/2024 1 1 Encounter Details Date Type Department Care Team (Latest Contact Info) Description 06/19/2023 11:00 AM RESORT HOUSEKEEPER - 06/19/2023 11:59 PM RESORT HOUSEKEEPER Hospital Encounter [facility] [place] [address] [place] [phone] Ingrid Washington MD [address] [place], [place] [id number] related condition, antepartum Discharge Disposition: Home or Self Care Social [...] Sex Assigned at Female 06/03/2023 6:47 PM RESORT HOUSEKEEPER Gender Identity Female 06/03/2023 6:47 PM RESORT HOUSEKEEPER Sexual Orientation Straight 06/03/2023 6: 47 PM RESORT HOUSEKEEPER documented as of this encounter Medications at Time of Discharge Medication Sig Dispensed Refills Start Date End Date adalimumab (HUMIRA) 40 MG/0.8ML syr kit Inject 40 mg Subcutaneous every 14 days amoxicillin (AMOXIL) 500 MG capsuleIndications:Im pacted teeth with abnormal position Take 1 capsule (500 mg) by mouth 3 times daily 30 capsule 0 10/21/2014 Fexofenadine HCl (RAMON PO) Take 180 mg by mouth daily FLUoxetine HCl (PROZAC PO) Take 40 mg by mouth daily methylPREDNISolone (MEDROL DOSEPAK) 4 MG tabletIndications:Imp acted teeth with abnormal position Follow package instructions 21 tablet 0 10/21/2014 norethindrone-ethinyl estradiol (MICROGESTIN 05/20) 1-20 MG-MCG per tablet Take 1 tablet by mouth daily oxyCODONE-acetaminoph en (PERCOCET) 5-325 MG per tabletIndications:Imp acted teeth with abnormal position Take 1-2 tablets by mouth every 4 hours as needed for moderate to severe pain 30 tablet 0 10/21/2014 documented as of this encounter Plan of Treatment Not on file documented as of this encounter Procedures Procedure Name Priority Date/Time Associated Diagnosis Comments [facility] S[facility] Routine 06/19/2023 11:57 AM RESORT HOUSEKEEPER related condition, antepartum documented in this encounter Results * [facility] Single (06/19/2023 11:57 AM RESORT HOUSEKEEPER) Anatomical Region Laterality Modality Ultrasound 06/19/2023 11:0 3 AM RESORT HOUSEKEEPER Impressions 06/19/2023 1:54 PM RESORT HOUSEKEEPER IMPRESSION ----- 1. Lanza intrauterine at 18w 3d gestational age here for evaluation of anatomy. 2. No anomalies commonly detected by ultrasound or soft markers of aneuploidy were identified in the detailed anatomic survey within the limits of ultrasound, however some views were suboptimal, as described above. 3. Growth parameters and estimated weight were consistent with established dates. 4. The amniotic fluid volume appeared normal. 5. On transabdominal imaging the cervix appears long and closed. Narrative 06/19/2023 1:54 PM RESORT HOUSEKEEPER ?Comprehensive ----- Pat. Name: CORA STEINER ? Study Date: ??06/19/2023 11:03am Pat. NO: ??[id number] ?Referring ??: CHANEL TATE Site: ??[facility] ? Solution Design And Analysis Manager: Essence Gallegos RDMS : ??[id number] ?Age: ?? 33 ----- INDICATION ----- Chronic hypertension - on medication. Advanced maternal age. Ulcerative colitis. History of gestational hypertension & preeclampsia. BMI 45.9. Low risk NIPT. METHOD ----- Transabdominal ultrasound examination. View: Suboptimal view: limited by maternal body habitus. Suboptimal view: limited by position. ----- Lanza . Number of fetuses: 1 DATING ----- ? Date ?Details ?Gest. age ?ARTUR LMP ?02/10/2023 ? 18 w + 3 d ? 11/17/2023 Prior assessment ? 03/31/2023 ? GA: 6 w + 4 d ?18 w + 0 d ? 11/20/2023 U/S ? 06/19/2023 ? based upon AC, BPD, Femur, HC ?17 w + 6 d ? 11/21/2023 Assigned dating ?Dating performed on 06/19/2023, based on the LMP ?18 w + 3 d ? 11/17/2023 GENERAL EVALUATION ----- Cardiac activity present. FHR 150 bpm. movements present. Presentation Variable. Placenta Posterior, No Previa, > 2 cm from internal os. Umbilical cord 3 vessel cord. Amniotic fluid Amount of AF: normal. MVP 4.3 cm. BIOMETRY ----- Main Biometry: BPD ?37.6 ?mm ? 17w 3d ?Hadlock OFD ?53.2 ?mm ? 17w 6d ?Nicolaides HC ?146.1 ?mm ?17w 5d ?Hadlock Cerebellum tr ?16.9 ? mm ?16w 6d ?Nicolaides AC ?121.4 ?mm ?17w 6d ?27% ?Hadlock Femur ?27.7 ? mm ?18w 3d ?Hadlock Humerus ?27.2 ?mm ? 18w 5d ?Sneha Weight Calculation: EFW ? 223 ? g ? 25% ?Hadlock EFW (lb,oz) ? 0 lb 8 ?oz EFW by ?Hadlock ([id number]) Head / Face / Neck Biometry: Show Operations Supervisor ? 7.2 ? mm CM ?4.4 ? mm Nuchal fold ? 4.3 ? mm ANATOMY ----- The following structures appear normal: Head / Neck ? Cranium. Head size. Head shape. Lateral ventricles. Choroid plexus. Midline falx. Cerebellum. Cisterna magna. Parenchyma. Thalami. ? Vermis. ? Neck. Nuchal fold. Face ? Lips. Nose. Orbits. Lens. Heart / Thorax ?Situs. Aortic arch view. Bicaval view. Superior vena cava. Inferior vena cava. Cardiac position. Cardiac size. Cardiac rhythm. ? Right lung. Left lung. Diaphragm. Abdomen ? Abdominal wall. Cord insertion. Stomach. Kidneys. Bladder. Liver. Bowel. Genitals. Spine ?Cervical spine. Thoracic spine. Lumbar spine. Extremities / Skeleton ?Right arm. Right hand. Left arm. Left hand. Right leg. Right foot. Left leg. Left foot. The following structures could not be adequately visualized: Head / Neck ? Cavum septi pellucidi. Heart / Thorax ?4-chamber view. RVOT view. LVOT view. 3-vessel view. 2-eyuhzo-dnzyjuy view. Spine ?Sacral spine. The following structures could not be visualized: Face ? Profile. Maxilla. Mandible. Heart / Thorax ?Ductal arch view. Gender: male. MATERNAL STRUCTURES ----- Cervix ?Visualized ? Appearance: Appears Closed ? Approach - Transabdominal: Cervical length 35.2 mm Right Ovary ?Not visualized Left Ovary ?Not visualized RECOMMENDATION ----- Thank-you for referring your patient for ultrasound assessment. I discussed the findings on today's ultrasound with the patient. I reviewed the limitations of ultrasound both in detecting aneuploidy and structural abnormalities. Ultrasound, when views completed, can routinely detect 80-90% of structural abnormalities. She had low risk cell free DNA for genetic screening this . Follow-up is scheduled here in three weeks to reassess anatomy that was suboptimally seen today. Following this recommend monthly growth ultrasounds starting at 28 weeks and weekly testing starting at 32 weeks related to chronic hypertension on medications. Delivery timing will depend on blood pressure control closer to delivery. Return to primary provider for continued care. If you have questions regarding today's evaluation or if we can be of further service, please contact the [facility]. anomalies may be present but not detected For the complete details of today's MFM consultation, please see separate documentation in epic. Procedure Note Ingrid Washington MD - 06/19/2023 Comprehensive ----- Pat. Name: CORA STEINER Study Date: 06/19/2023 11:03am Pat. NO: [id number] Referring MD: CHANEL TATE Site: [facility] Solution Design And Analysis Manager: Essence Gallegos RDMS : 1990 Age: 33 ----- INDICATION ----- Chronic hypertension - on medication. Advanced maternal age. Ulcerative colitis. History of gestational hypertension & preeclampsia. BMI 45.9. Low risk NIPT. METHOD ----- Transabdominal ultrasound examination. View: Suboptimal view: limited bymaternal body habitus. Suboptimal view: limited by position. ----- Lanza . Number of fetuses: 1 DATING ----- DateDetailsGest. age ARTUR LMP w + 3 d 11/17/2023 Prior assessment 03/31/2023 GA: 6 w +4 d18 w + 0 d 11/20/2023 U/S 06/19/2023ased upon AC, BPD, Femur, HC17 w + 6 d 11/21/2023 Assigned dating Dating performed on 06/19/2023, based onthe LMP 18 w +3 d 11/17/2023 GENERAL EVALUATION ----- Cardiac activity present. FHR 150 bpm. movements present. Presentation Variable. Placenta Posterior, No Previa, > 2 cm from internal os. Umbilical cord 3 vessel cord. Amniotic fluid Amount of AF: normal. MVP 4.3 cm. BIOMETRY ----- Main Biometry: BPD 37.6 mm17w 3d Hadlock OFD 53.2 mm17w 6d Nicolaides HC 146.1 mm17w 5d Hadlock Cerebellum tr 16.9 mm16w 6d Nicolaides AC 121.4 mm17w 6d 27% Hadlock Femur 27.7 mm18w 3d Hadlock Humerus 27.2 mm18w 5d Sneha Weight Calculation: EFW 223 g25% Hadlock EFW (lb,oz) 0 lb 8 oz EFW by Hadlock ([id number]) Head / Face / Neck Biometry: Show Operations Supervisor 7.2 mm CM 4.4 mm Nuchal fold 4.3 mm ANATOMY ----- The following structures appear normal: Head / Neck Cranium. Head size. Head shape.Lateral ventricles. Choroid plexus. Midline falx. Cerebellum. Cisternamagna. Parenchyma. Thalami. Vermis. Neck. Nuchal fold. Face Lips. Nose. Orbits. Lens. Heart / Thorax Situs. Aortic arch view. Bicaval view.Superior vena cava. Inferior vena cava. Cardiac position. Cardiac size.Cardiac rhythm. Right lung. Left lung.Diaphragm. Abdomen Abdominal wall. Cord insertion.Stomach. Kidneys. Bladder. Liver. Bowel. Genitals. Spine Cervical spine. Thoracic spine.Lumbar spine. Extremities / Skeleton Right arm. Right hand. Left arm. Lefthand. Right leg. Right foot. Left leg. Left foot. The following structures could not be adequately visualized: Head / Neck Cavum septi pellucidi. Heart / Thorax 4-chamber view. RVOT view. LVOT view.3-vessel view. 4-ylfpuy-gcwyiip view. Spine Sacral spine. The following structures could not be visualized: Face Profile. Maxilla. Mandible. Heart / Thorax Ductal arch view. Gender: male. MATERNAL STRUCTURES ----- Cervix Visualized Appearance: Appears Closed Approach - Transabdominal:Cervical length 35.2 mm Right Ovary Not visualized Left Ovary Not visualized RECOMMENDATION ----- Thank-you for referring your patient for ultrasound assessment. I discussed the findings on today's ultrasound with the patient. Ireviewed the limitations of ultrasound both in detecting aneuploidy andstructural abnormalities. Ultrasound, when views completed, can routinely detect 80-90% of structuralabnormalities. She had low risk cell free DNA for genetic screeningthis . Follow-up is scheduled here in three weeks to reassess anatomy that wassuboptimally seen today. Following this recommend monthly growthultrasounds starting at 28 weeks and weekly testing starting at 32 weeks related to chronichypertension on medications. Delivery timing will depend on blood pressurecontrol closer to delivery. Return to primary provider for continued care. If you have questions regarding today's evaluation or if we can be offurther service, please contact the [facility]. anomalies may be present but not detected For the complete details of today's MFM consultation, please see separatedocumentation in epic. IMPRESSION ----- 1. Lanza intrauterine at 18w 3d gestational age here forevaluation of anatomy. 2. No anomalies commonly detected by ultrasound or soft markers ofaneuploidy were identified in the detailed anatomic survey withinthe limits of ultrasound, however some views were suboptimal, as described above. 3. Growth parameters and estimated weight were consistent withestablished dates. 4. The amniotic fluid volume appeared normal. 5. On transabdominal imaging the cervix appears long and closed. Chanel Tate MD [facility] US ORDERAB LES documented in this encounter Visit Diagnoses Diagnosis related condition, antepartum documented in this encounter Care Teams Esthetician Permanent Makeup Artist Relationship Specialty Start Date End Date No Ref-Primary, Physician PCP - General 06/07/23 documented as of this encounter
--- OUTSIDE RECORDS SUMMARY | 2023-08-17 20:09 | XMS_ITS | Encounter Summary ---
Author Name Unknown Organization [place] Address [address] [place] [id number] Care Team Providers Care Tube Coremaker Name Role Phone No Ref-Primary, Physician Primary Care Provider Reason for Referral * Diagnostic Imaging Ultrasound (Routine) - Pending Review Specialty Diagnoses / Procedures Referred By Contac t Referred To Contact Radiology. Diagnoses Encounter for follow-up ultrasound of anatomy Procedures [facility] US Comprehensive Single F/U Ingrid Washington MD [address] [place] [id number] Referral ID Status Reason Start Date Expiration Date V isits Requested Visits Authorized [id number] Pending Review 06/19/2023 06/18/2024 1 1 AL KEEPER Reason for Visit * Reason Comments Ultrasound L2-CHTN, AMA, Ulcera tive Colitis, BMI >40 Consult [facility] consult-CHTN, AM A, Ulcerative Colitis, BMI >40 * Consultation (Routine: Next available opening) - Pending Review Specialty Diagnoses / Procedures Referred By Contac t Referred To Contact Diagnoses related condition, antepartum Chanel Tate MD [facility] [address] [place] [address] Referral ID Status Reason Start Date Expiration Date V isits Requested Visits Authorized [id number] Pending Review 06/07/2023 06/06/2024 1 1 Encounter Details Date Type Department Care Team (Late st Contact Info) Description 06/19/2023 11:45 AM ANIMAL KEEPER Office Visit [facility] [place] [address] [place] [address] Ingrid Washington MD [address] [place] [address] [address] [place] [address] Encounter for follow-up ultrasound of anatomy (Primary Dx); related condition, antepartum; Chronic hypertension affecting ; Ulcerative colitis with complication, unspecified location (H) Social History Tobacco Use Types Packs/Day Years [...] Sex Assigned at Female 06/03/2023 6:47 PM ANIMAL KEEPER Gender Identity Female 06/03/2023 6:47 PM ANIMAL KEEPER Sexual Orientation Straight 06/03/2023 6: 47 PM ANIMAL KEEPER documented as of this encounter Last Filed Vital Signs Vital Sign Reading Time Taken Comments Blood Pressure 139/83 06/19/2023 12:21 PM ANIMAL KEEPER Pulse 85 06/19/2023 12:21 PM ANIMAL KEEPER Temperature - - Respiratory Rate - - Oxygen Saturation 98% 06/19/2023 12:21 PM ANIMAL KEEPER Inhaled Oxygen Concentration - - Weight - - Height - - Body Mass Index - - documented in this encounter Progress Notes * Ingrid Washington MD - 06/19/2023 11:45 AM CST Please see Imaging tab under Chart Review for details of today's visit. Ingrid Washington AL KEEPER * Ingrid Washington MD - 06/19/2023 11:45 AM CST Images from the original note were not included. Maternal- Medicine Consultation Cora Steiner : 1990 REFERRAL: Cora Steiner is a [address] by Dr[address] Tate for MFM consultation. HPI: Cora Steiner is a 33 year old at 18w3d by LMP consistent with 6w4d US here for MFM consultation regarding chronic hypertension and ulcerative colitis. Regarding her chronic hypertension (cHTN), she was formally diagnosed in this . Her prior pregnancies were complicated by preeclampsia diagnosis but she reports blood pressures always resolved following delivery. She was noted to have elevated blood pressures in this and was started on nifedipine 30mg QD on 03/31 and increased to nifedipine 30mg BID on 04/28. Her blood pressureshave been at goal on this dose. She has a blood pressure cuff at home. She has not yet started aspirin. She had baseline labs done in this which showed (Hct 43.2, Plt 345, Cr 0.6, ALT 16, AST 21, 24 hour urine protein 275mg). Regarding her ulcerative colitis, she reports that she has had some flare in this with increased urgency and some bleeding. She was started on sulfasalazine in this (same as prior). She follows closely with her public policy coordinator Dr. Julio César Song. She plans to deliver via repeat delivery. Obstetrics History: OB History Para Term AB Living 3 2 2 0 0 2 SAB IAB Ectopic Multiple Live Births 0 0 0 0 2 # Outcome Date GA Lbr Akbar/2nd Weight Sex Delivery Anes PTL Lv 3 Current 2 Term 01/07/21 37w0d 2.892 kg (6 lb 6 oz) M CS-LVertical GUERLINE Complications: Preeclampsia/Hypertension 1 Term 09/25/15 39w0d 3.629 kg (8 lb) F CS-LVertical GUERLINE Complications: Preeclampsia/Hypertension Gynecologic History: - Denies prior cervical surgery or procedures Past Medical History: Past Medical History: Diagnosis Date Anxiety Ulcerative colitis (H) Past Surgical History: Past Surgical History: Procedure Laterality Date EXTRACTION(S) DENTAL N/A 10/21/2014 Procedure: EXTRACTION(S) DENTAL; Surgeon: Lianna Dimas DDS; Location: OR Current Medications: Prior to Admission medications Medication Sig Last Dose Taking? Auth Provider Blow Molding Machine Tender End Date adalimumab (HUMIRA) 40 MG/0.8ML syr kit Inject 40 mg Subcutaneous every 14 days Reported, Patient Yes amoxicillin (AMOXIL) 500 MG capsule Take 1 capsule (500 mg) by mouth 3 times daily [place], Lianna A, DDS Fexofenadine HCl (RAMON PO) Take 180 mg by mouth daily Reported, Patient FLUoxetine HCl (PROZAC PO) Take 40 mg by mouth daily Reported, Patient Yes methylPREDNISolone (MEDROL DOSEPAK) 4 MG tablet Follow package instructions Lianna Dimas DDS norethindrone-ethinyl estradiol (MICROGESTIN 05/20) 1-20 MG-MCG per tablet Take 1 tablet by mouth daily Reported, Patient Yes oxyCODONE-acetaminophen (PERCOCET) 5-325 MG per tablet Take 1-2 tablets by mouth every 4 hours as needed for moderate to severe pain Lianna Dimas DDS Allergies: Patient has no known allergies. Social History: Denies use of alcohol, drugs or smoking. Family History: Denies history of genetic disorders, structural differences PHYSICAL EXAM: Deferred ASSESSMENT/PLAN: Cora Steiner is a 33 year old at 18w3d by LMP consistent with 6w4d US here for MFM consultation regarding chronic hypertension and ulcerative colitis. #Chronic Hypertension The concern with chronic hypertension is that such patients are more likely to develop preeclampsiaduring the , with a risk of 20-50%. Women with chronic hypertension are at increased risk for early-onset preeclampsia. Low dose aspirin has been used to lower this risk. Without baseline laboratory assessment, it may be difficult to distinguish an exacerbation of hypertension from preeclampsia, especially in the third trimester. It is recommended that women be initiated on medications to keep blood pressures < 140/90 mmHg both pre and throughout gestation. We generally recommend home blood pressure monitoring to assist with medication titration as well as to monitor herfor the development of preeclampsia. In the event of new elevations in blood pressures after 20 weeks gestation, we would recommend thorough evaluation for preeclampsia prior to medication dose escalation. Recommendations: Continue nifedipine 30mg XL BID (titrate as needed to achieve blood pressure goal BP <140/90) Initiate low dose aspirin for preeclampsia prevention, ideally started between 12-16 weeks Baseline studies: Electrocardiogram, if abnormal this should be followed up with an echocardiogram Baseline serum labs: Hct 43.2, Plt 345, Cr 0.6, ALT 16, AST 21 Baseline urine labs: 24 hour urine protein 275mg Close monitoring evidence of superimposed preeclampsia Serial blood pressure monitoring Her blood pressure cuff should be titrated in the office Repeat labs as clinically indicated, with a low threshold to rule-out superimposed preeclampsia, especially if it is thought that medication may need to be increased Ultrasounds for growth monthly starting at 28 weeks gestation. surveillance with weekly BPP (or NST and MVP) starting at 32 weeks Delivery at 37-39+6 weeks (unless poorly controlled or otherwise indicated sooner) Early visit (within the first week) for blood pressure assessment , medication should be adjusted to maintain the systolic blood pressure below 140 mm Hg and the diastolic blood pressure below 90 mm Hg #Ulcerative Colitis: The course of ulcerative colitis (UC) during is related to the disease status at the timeof conception. We discussed that with ulcerative colitis we recommend close monitoring of growth to assess for growth restriction. Sulfasalazine, a combination of salicylate and a sulfa antibiotic, is used most commonly during to treat inflammatory bowel disease. Although bothsulfasalazine and its metabolite, sulfapyridine, cross the placenta, teratogenic effects have not been demonstrated. Recommendations: Close follow-up with gastroenterology Continuation of current medications to control symptoms of UC disease with titration of medicationsper gastroenterology Growth and testing as above. Thank you for allowing us to participate in the care of your patient. Please do not hesitate to contact us if you have further questions regarding the management of your patient. I have seen and evaluated the patient. I spent a total of 60 minutes on the date of this encounter including preparing to see the patient (reviewing medical records/tests), counseling and discussing the plan of care, documenting the visit in the electronic medical record, and communicating with other health patient centered care specialist and/or care coordination. Ingrid Washington MD Maternal Medicine 06/19/2023 2:13 PM AL KEEPER documented in this encounter Nursing Notes * Rebeca Gillis RN - 06/19/2023 11:45 AM CST Patient presents to [facility] for L2 at 18w0d due to CHTN, AMA, Ulcerative Colitis, BMI >40. Positive movement. Denies LOF, vaginal bleeding or cramping/contractions. SBAR given to [facility] , see their note in Epic. AL KEEPER documented in this encounter Plan of Treatment Not on file documented as of this encounter Results * M US Comprehensive Single F/U (07/11/2023 8:50 AM CDT) Anatomical Region Laterality Modality Ultrasound 07/11/2023 7:58 AM CDT Impressions 07/11/2023 9:01 AM CDT IMPRESSION ----- 1. Lanza intrauterine at 21w 4d gestational age here for completion of anatomy. 2. The remaining anatomic survey was completed, no anomalies commonly detected by ultrasound were identified within the limits of ultrasound. 3. Growth parameters and estimated weight were consistent with established dates. EFW 26%. 4. The amniotic fluid volume appeared normal. 5. Posterior placenta, no evidence of previa. Narrative 07/11/2023 9:01 AM CDT ?Comp Follow Up ----- Pat. Name: CORA STEINER ? Study Date: ??07/11/2023 7:58am Pat. NO: ??[id number] ?Referring ??MD: CHANEL TATE Site: ??[place] ? Lead Driver: Jhoana Bradley RDMS : ??1990 ?Age: ?? 33 ----- INDICATION ----- Chronic hypertension - on medication. Advanced maternal age. Ulcerative colitis. History of gestational hypertension & preeclampsia. BMI 45.9. Low risk NIPT. Suboptimal anatomy on previous u/s. METHOD ----- Transabdominal ultrasound examination. View: Suboptimal view: limited by maternal body habitus ----- Lanza . Number of fetuses: 1 DATING ----- ? Date ?Details ?Gest. age ?ARTUR LMP ?02/10/2023 ? 21 w + 4 d ? 11/17/2023 Prior assessment ? 03/31/2023 ? GA: 6 w + 4 d ?21 w + 1 d ? 11/20/2023 U/S ? 07/11/2023 ? based upon AC, BPD, Femur, HC ?20 w + 6 d ? 11/22/2023 Assigned dating ?Dating performed on 07/11/2023, based on the LMP ?21 w + 4 d ? 11/17/2023 GENERAL EVALUATION ----- Cardiac activity present. FHR 155 bpm. movements present. Presentation Variable. Placenta No Previa, > 2 cm from internal os, Posterior/fundal. Umbilical cord 3 vessel cord. Amniotic fluid Amount of AF: normal. MVP 5.2 cm. BIOMETRY ----- Main Biometry: BPD ?46.8 ?mm ? 20w 1d ?Hadrenny OFD ?68.6 ?mm ? 21w 3d ?Nicolaides HC ?185.1 ?mm ?20w 6d ?Hadlock Cerebellum tr ?20.9 ? mm ?19w 6d ?Nicolaides AC ?168.1 ?mm ?21w 6d ?51% ?Hadlock Femur ?33.9 ? mm ?20w 5d ?Hadlock Humerus ?34.7 ?mm ? 21w 6d ?Sneha Weight Calculation: EFW ? 406 ? g ? 26% ?Hadlock EFW (lb,oz) ? 0 lb 14 ? oz EFW by ?Hadlock (NBY-OS-TB-FL) Head / Face / Neck Biometry: Laboratory Chief ? 5.9 ? mm CM ?5.6 ? mm Nasal bone ? 7.0 ? mm ANATOMY ----- The following structures appear normal: Head / Neck ? Cranium. Head size. Head shape. Lateral ventricles. Midline falx. Cavum septi pellucidi. Cerebellum. Cisterna magna. Thalami. Face ? Lips. Profile. Nose. Maxilla. Mandible. Heart / Thorax ?4-chamber view. RVOT view. LVOT view. Ductal arch view. 3-vessel view. 0-klhxqa-gupeudg view. ? Diaphragm. Abdomen ? Cord insertion. Stomach. Kidneys. Bladder. Spine ?Cervical spine. Thoracic spine. Lumbar spine. Sacral spine. Gender: male. MATERNAL STRUCTURES ----- Cervix ?Visualized ? Appearance: Appears Closed ? Approach - Transabdominal: Cervical length 43.7 mm Right Ovary ?Visualized Left Ovary ?Visualized RECOMMENDATION ----- Thank-you for referring your patient for ultrasound assessment. I discussed the findings on today's ultrasound with the patient. I reviewed the limitations of ultrasound. She is doing well and is normotensive on nifedipine 30 mg twice daily. Further ultrasound studies are anticipated in [place] and should include: 1. Growth every 4 weeks starting at 28 weeks 2. Weekly BPP at 32 weeks Return to primary provider for continued care. If you have questions regarding today's evaluation or if we can be of further service, please contact the [facility] Center. anomalies may be present but not detected Procedure Note Codie Leroy MD - 07/11/2023 Comp Follow Up ----- Pat. Name: CORA STEINER Study Date: 07/11/2023 7:58am Pat. NO: [id number] Referring MD: CHANEL TATE Site: [facility] Lead Driver: Jhoana Bradley RDMS : 1990 Age: 33 ----- INDICATION ----- Chronic hypertension - on medication. Advanced maternal age. Ulcerative colitis. History of gestational hypertension & preeclampsia. BMI 45.9. Low risk NIPT. Suboptimal anatomy on previous u/s. METHOD ----- Transabdominal ultrasound examination. View: Suboptimal view: limited bymaternal body habitus ----- Lanza . Number of fetuses: 1 DATING ----- DateDetailsGest. age ARTUR LMP w + 4 d 11/17/2023 Prior assessment 03/31/2023 GA: 6 w +4 d21 w + 1 d 11/20/2023 U/S 07/11/2023ased upon AC, BPD, Femur, HC20 w + 6 d 11/22/2023 Assigned dating Dating performed on 07/11/2023, based onthe LMP 21 w +4 d 11/17/2023 GENERAL EVALUATION ----- Cardiac activity present. FHR 155 bpm. movements present. Presentation Variable. Placenta No Previa, > 2 cm from internal os, Posterior/fundal. Umbilical cord 3 vessel cord. Amniotic fluid Amount of AF: normal. MVP 5.2 cm. BIOMETRY ----- Main Biometry: BPD 46.8 mm20w 1d Hadlock OFD 68.6 mm21w 3d Nicolaides HC 185.1 mm20w 6d Hadlock Cerebellum tr 20.9 mm19w 6d Nicolaides AC 168.1 mm21w 6d 51% Hadlock Femur 33.9 mm20w 5d Hadlock Humerus 34.7 mm21w 6d Sneha Weight Calculation: EFW 406 g26% Hadlock EFW (lb,oz) 0 lb 14 oz EFW by Hadlock ([id number]-GK-FL) Head / Face / Neck Biometry: Laboratory Chief 5.9 mm CM 5.6 mm Nasal bone 7.0 mm ANATOMY ----- The following structures appear normal: Head / Neck Cranium. Head size. Head shape.Lateral ventricles. Midline falx. Cavum septi pellucidi. Cerebellum.Cisterna magna. Thalami. Face Lips. Profile. Nose. Maxilla.Mandible. Heart / Thorax 4-chamber view. RVOT view. LVOT view.Ductal arch view. 3-vessel view. 4-hgpjlr-dsxfxcl view. Diaphragm. Abdomen Cord insertion. Stomach. Kidneys.Bladder. Spine Cervical spine. Thoracic spine.Lumbar spine. Sacral spine. Gender: male. MATERNAL STRUCTURES ----- Cervix Visualized Appearance: Appears Closed Approach - Transabdominal:Cervical length 43.7 mm Right Ovary Visualized Left Ovary Visualized RECOMMENDATION ----- Thank-you for referring your patient for ultrasound assessment. I discussed the findings on today's ultrasound with the patient. Ireviewed the limitations of ultrasound. She is doing well and is normotensive on nifedipine 30 mg twice daily. Further ultrasound studies are anticipated in [place] and shouldinclude: 1. Growth every 4 weeks starting at 28 weeks 2. Weekly BPP at 32 weeks Return to primary provider for continued care. If you have questions regarding today's evaluation or if we can be offurther service, please contact the Maternal[facility] Medicine Center. anomalies may be present but not detected IMPRESSION ----- 1. Lanza intrauterine at 21w 4d gestational age here forcompletion of anatomy. 2. The remaining anatomic survey was completed, no anomaliescommonly detected by ultrasound were identified within the limits ofprenatal ultrasound. 3. Growth parameters and estimated weight were consistent withestablished dates. EFW 26%. 4. The amniotic fluid volume appeared normal. 5. Posterior placenta, no evidence of previa. Ingrid Washington MD [facility] documented in this encounter Visit Diagnoses Diagnosis Encounter for follow-up ultrasound of anatomy- Primary related condition, antepartum Chronic hypertension affecting Ulcerative colitis with complication, unspecified location (H) Encounter for follow-up ultrasound of anatomy documented in this encounter Care Teams Tube Coremaker Relationship Specialty Start Date End Date No Ref-Primary, Physician PCP - General 06/07/23 documented as of this encounter
--- OUTSIDE RECORDS SUMMARY | 2023-08-17 20:09 | XMS_ITS | Encounter Summary ---
Author Name Unknown Organization [place] Address [address] [place] [address] Care Team Providers Care Base Filler Name Role Phone No Ref-Primary, Physician Primary Care Provider Reason for Referral * Consultation (Routine: Next available opening) - Pending Review Specialty Diagnoses / Procedures Referred By Anna t Referred To Contact Diagnoses related condition, antepartum Chanel Tate MD [facility]NOTE 3] [address] [place] [address] Referral ID Status Reason Start Date Expiration Date V isits Requested Visits Authorized [id number] Pending Review 06/07/2023 06/06/2024 1 1 Question Answer OB Visit? No Post Visit No Cervical Dilator Placement No Cerclage Removal No MFM Consult Yes NICU Consult No Funeral Director'S Assistant No Psychological Consult No Genetic Consult No CTG/NST No BHC No Nephrology Consult No GI Consult No ROOM EXECUTIVE DIRECTOR Encounter Details Date Type Department Care Team (Late st Contact Info) Description 06/07/2023 Transcribe Orders [facility] [place] [address] [place] [address] Chanel Tate MD [facility]NOTE 3] [address] [place] [address] related condition, antepartum (Primary Dx) Social History Tobacco Use Types [...] Sex Assigned at Female 06/03/2023 6:47 PM SHOWROOM EXECUTIVE DIRECTOR Gender Identity Female 06/03/2023 6:47 PM SHOWROOM EXECUTIVE DIRECTOR Sexual Orientation Straight 06/03/2023 6: 47 PM SHOWROOM EXECUTIVE DIRECTOR documented as of this encounter Plan of Treatment Scheduled Referrals Name Type Priority Associated Diagnoses Orde r Schedule MFM Office Visit Referral Routine: Next available opening Related Condition, Antepartum Expected: 06/07/2023 (Approximate), Expires: 06/07/2024 documented as of this encounter Visit Diagnoses Diagnosis related condition, antepartum- Primary documented in this encounter Care Teams Base Filler Relationship Specialty Start Date End Date No Ref-Primary, Physician PCP - General 06/07/23 documented as of this encounter
--- OUTSIDE RECORDS SUMMARY | 2023-08-17 20:09 | XMS_ITS | Encounter Summary ---
Author Name Unknown Organization [facility] Address [address] [place] [id number] Care Team Providers Care Hide Tanner Name Role Phone No Ref-Primary, Physician Primary Care Provider Reason for Referral * Diagnostic Imaging Ultrasound (Routine) - Pending Review Specialty Diagnoses / Procedures Referred By Contac t Referred To Contact Radiology. Diagnoses Encounter for follow-up ultrasound of anatomy Procedures [facility] US Comprehensive Single F/U Ingrid Washington MD [address] [place] [place] [id number] Referral ID Status Reason Start Date Expiration Date V isits Requested Visits Authorized [id number] Pending Review 06/19/2023 06/18/2024 1 1 Reason for Visit * Diagnostic Imaging Ultrasound (Routine) - Pending Review Specialty Diagnoses / Procedures Referred By Contac t Referred To Contact Radiology. Diagnoses Encounter for follow-up ultrasound of anatomy Procedures [facility] US Comprehensive Single F/U Ingrid Washington MD [address] [facility] [address] [facility] [address] [place] [address] Referral ID Status Reason Start Date Expiration Date V isits Requested Visits Authorized Pending Review 06/19/2023 06/18/2024 1 1 Encounter Details Date Type Department Care Team (Latest Contact Info) Description 07/11/2023 8:00 AM CDT - 07/11/2023 11:59 PM CDT Hospital Encounter [facility] [place] [address] [facility] [address] [place] [address] Ingrid Washington MD [address] [place] [address] Codie Leroy MD [address] [place] [address] Encounter for follow-up ultrasound of anatomy Discharge Disposition: Home or Self Care Social [...] Sex Assigned at Female 06/03/2023 6:47 PM PATTERN CHART WRITER Gender Identity Female 06/03/2023 6:47 PM PATTERN CHART WRITER Sexual Orientation Straight 06/03/2023 6: 47 PM PATTERN CHART WRITER documented as of this encounter Medications at [...] Procedure Name Priority Date/Time Associated Diagnosis Comments MFM US COMPREHENSIVE SINGLE F/U Routine 07/11/2023 8:50 AM CDT Encounter for follow-up ultrasound of anatomy documented in this encounter Results * [facility] US Comprehensive Single F/U (07/11/2023 8:50 AM [...] CDT ?Comp Follow Up ----- Pat. Name: JULI STEINERA ? Study Date: ??07/11/2023 7:58am Pat. NO: ??[id number] ?Referring ??MD: MARII SHARMA Site: ??[facility] ? Tradeshow Worker: Jhoana Bradley [facility] : ??1990 ?Age: ?? 33 ----- INDICATION [...] BPD ?46.8 ?mm ? 20w 1d ?Hadrenny OFJared ?68.6 ?mm ? 21w 3d ?Nicolaides HC ?185.1 ?mm ?20w 6d ?Hadlock Cerebellum tr ?20.9 ? mm ?19w 6d ?Nicolaides AC ?168.1 ?mm ?21w 6d ?51% ?Hadlock Femur ?33.9 ? mm ?20w 5d ?Hadlock Humerus ?34.7 ?mm ? 21w 6d ?Sneha Weight Calculation: EFW ? 406 ? g ? 26% ?Hadlock EFW (lb,oz) ? 0 lb 14 ? oz EFW by ?Hadlock ([id number]-FL) Head / Face / Neck Biometry: Die Keeper ? 5.9 ? mm CM ?5.6 ? mm Nasal bone ? 7.0 ? mm ANATOMY ----- The following structures appear normal: Head / Neck ? Cranium. Head size. Head shape. Lateral ventricles. Midline falx. Cavum septi pellucidi. Cerebellum. Cisterna magna. Thalami. Face ? Lips. Profile. Nose. Maxilla. Mandible. Heart / Thorax ?4-chamber view. RVOT view. LVOT view. Ductal arch view. 3-vessel view. 2-lpzlfo-wkoklep view. ? Diaphragm. Abdomen ? Cord insertion. [...] daily. Further ultrasound studies are anticipated in [place] and should include: 1. Growth every 4 [...] STEINER Study Date: 07/11/2023 7:58am Pat. NO: [id number] Referring MD: MARII SHARMA Site: [facility] Tradeshow Worker: Jhoana BradleyALEK : 1990 Age: 33 ----- INDICATION ----- [...] 0 lb 14 oz EFW by Hadlock ([id number]) Head / Face / Neck Biometry: Die Keeper 5.9 mm CM 5.6 mm Nasal bone 7.0 mm ANATOMY ----- The following structures appear normal: Head / Neck Cranium. Head size. Head shape.Lateral ventricles. Midline falx. Cavum septi pellucidi. Cerebellum.Cisterna magna. Thalami. Face Lips. Profile. Nose. Maxilla.Mandible. Heart / Thorax 4-chamber view. RVOT view. LVOT view.Ductal arch view. 3-vessel view. 6-yftpjz-tdkifhe view. Diaphragm. Abdomen Cord insertion. Stomach. Kidneys.Bladder. [...] daily. Further ultrasound studies are anticipated in [place] and shouldinclude: 1. Growth every 4 weeks starting at 28 weeks 2. Weekly BPP at 32 weeks Return to primary provider for continued care. If you have questions regarding today's evaluation or [facility], please contact the [facility]. [...] no evidence of previa. Ingrid Washington [facility] documented in this encounter Visit Diagnoses Diagnosis Encounter for follow-up ultrasound of anatomy documented in this encounter Care Teams Hide Tanner Relationship Specialty Start Date End Date No Ref-Primary, Physician PCP - General 06/07/23 documented as of this encounter
--- OUTSIDE RECORDS SUMMARY | 2023-08-17 20:09 | XMS_ITS | Referral Summary ---
Author Name Unknown [facility] Address [address] [place] [address] Care Team Providers Care Rerolling Machine Operator Name Role Phone No Ref-Primary, Physician Primary Care Provider Encounters Date Type Department Care Team Description 07/11/2023 Travel 07/11/2023 8:30 AM CDT Office Visit [facility] Medicine [facility] [address] [place] [address] Ingrid Washington MD Jones, Cresta Wedel, MD Maternal hypertension syndrome, second trimester (Primary Dx) 07/11/2023 8:00 AM CDT - 07/11/2023 11:59 PM CDT Hospital Encounter [facility] Medicine [facility] [address] [place] [address] Ingrid Washington MD Jones, Cresta Wedel, MD Encounter for follow-up ultrasound of anatomy Discharge Disposition: Home or Self Care 07/04/2023 Travel 06/19/2023 Travel 06/19/2023 11:45 AM GENERAL LEDGER ACCOUNTANT Office Visit [facility] Medicine [facility] [address] [place] [address] Ingrid Washington MD Encounter for follow-up ultrasound of anatomy (Primary Dx); related condition, antepartum; Chronic hypertension affecting ; Ulcerative colitis with complication, unspecified location (H) 06/19/2023 11:00 AM GENERAL LEDGER ACCOUNTANT - 06/19/2023 11:59 PM GENERAL LEDGER ACCOUNTANT Hospital Encounter [facility] Maternal Medicine [facility] [address] [place] [address] Ingrid Washington MD related condition, antepartum Discharge Disposition: Home or Self Care 06/07/[address] [facility] Maternal Medicine [facility] [address] [place] [address] Chanel Tate MD related condition, antepartum (Primary Dx) 06/07/[address] [facility] Maternal Medicine [facility] [address] [place] [address] Heidi Ramey RN Ultrasound (L2-CHTN, AMA, BMI>40, Ulcerative Colitis) 05/29/2023 Medical Correspondence [facility] [address] [place] [address] Scan, Non-Provider 05/29/[address] [facility] Maternal Medicine [facility] [address] [place] [address] Chanel Tate MD related condition, antepartum (Primary Dx) 05/26/2023 Medical Correspondence [facility] [address] [place] [address] Scan, Non-Provider from Last 3 Months Allergies No known active allergies Medications Medication Sig Dispensed Refills Start Date End Date Status FLUoxetine HCl (PROZAC PO) Take 40 mg by mouth daily Active norethindrone-ethi nyl estradiol (MICROGESTIN 05/20) 1-20 MG-MCG per tablet Take 1 tablet by mouth daily Active adalimumab (HUMIRA) 40 MG/0.8ML syr kit Inject 40 mg Subcutaneous every 14 days Active Fexofenadine HCl (RAMON PO) Take 180 mg by mouth daily Active oxyCODONE-acetamin ophen (PERCOCET) 5-325 MG per tabletIndications: Impacted teeth with abnormal position Take 1-2 tablets by mouth every 4 hours as needed for moderate to severe pain 30 tablet 0 10/21/2014 Active amoxicillin (AMOXIL) 500 MG capsuleIndications :Impacted teeth with abnormal position Take 1 capsule (500 mg) by mouth 3 times daily 30 capsule 0 10/21/2014 Active methylPREDNISolone (MEDROL DOSEPAK) 4 MG tabletIndications: Impacted teeth with abnormal position Follow package instructions 21 tablet 0 10/21/2014 Active Immunizations Name Administration Dates Next Due DTAP (<7y) 08/24/1993 HepB 12/18/2000,07/14/2000,05/26/2000 Historical DTP/aP 09/12/1989,1988,07/12/18 89,1988 MMR 05/26/2000,06/13/1989 TD,PF 7+ (Tenivac) 04/29/2002 Social History Tobacco Use Types Packs/Day Years [...] Sex Assigned at Female 06/03/2023 6:47 PM GENERAL LEDGER ACCOUNTANT Gender Identity Female 06/03/2023 6:47 PM GENERAL LEDGER ACCOUNTANT Sexual Orientation Straight 06/03/2023 6: 47 PM GENERAL LEDGER ACCOUNTANT Last Filed Vital Signs Vital Sign Reading Time Taken Comments Blood Pressure 139/83 06/19/2023 12:21 PM GENERAL LEDGER ACCOUNTANT Pulse 85 06/19/2023 12:21 PM GENERAL LEDGER ACCOUNTANT Temperature 36.4 ??C (97.5 ??F) 10/21/2014 11:40 AM C DT Respiratory Rate 14 10/21/2014 11:40 AM CDT Oxygen Saturation 98% 06/19/2023 12:21 PM GENERAL LEDGER ACCOUNTANT Inhaled Oxygen Concentration - - Weight 128 kg (282 lb 1.6 oz) 10/21/2014 6:07 AM CDT Height 167.6 cm (5' 5.98) 10/21/2014 6:07 AM CD T Body Mass Index 45.55 10/21/2014 6:07 AM CDT Plan of Treatment Not on file Procedures Procedure Name Priority Date/Time Associated Diagnosis Comments MFM US COMPREHENSIVE SINGLE F/U Routine 07/11/2023 8:50 AM CDT Encounter for follow-up ultrasound of anatomy [facility] US COMPREHENSIVE SINGLE Routine 06/19/2023 11:57 AM GENERAL LEDGER ACCOUNTANT related condition, antepartum GLUCOSE BY METER Routine 10/21/2014 6:20 AM CDT HCL PAP SMEAR Routine 09/23/1998 1:18 PM CDT Gynecologic Examination from Last 3 Months or Most Recently Relevant to Health Maintenance Results * [facility] US Comprehensive Single F/U (07/11/2023 8:50 AM [...] ? Study Date: ??07/11/2023 7:58am Pat. NO: ??[id number] ?Referring ??MD: CHANEL TATE Site: ??[facility] ? Malted Milk Mixer: Jhoana Gurrolatristen [facility] : ??1990 ?Age: ?? 33 ----- INDICATION [...] Biometry: BPD ?46.8 ?mm ? 20w 1d ?Rupal SANZ ?68.6 ?mm ? 21w 3d ?Nicolaides HC ?185.1 ?mm ?20w 6d ?Hadlock Cerebellum tr ?20.9 ? mm ?19w 6d ?Nicolaides AC ?168.1 ?mm ?21w 6d ?51% ?Hadlock Femur ?33.9 ? mm ?20w 5d ?Hadlock Humerus ?34.7 ?mm ? 21w 6d ?Sneha Weight Calculation: EFW ? 406 ? g ? 26% ?Hadlock EFW (lb,oz) ? 0 lb 14 ? oz EFW by ?Hadlock ([id number]) Head / Face / Neck Biometry: Lead Consultant ? 5.9 ? mm CM ?5.6 ? mm Nasal bone ? 7.0 ? mm ANATOMY ----- The following structures appear normal: Head / Neck ? Cranium. Head size. Head shape. Lateral ventricles. Midline falx. Cavum septi pellucidi. Cerebellum. Cisterna magna. Thalami. Face ? Lips. Profile. Nose. Maxilla. Mandible. Heart / Thorax ?4-chamber view. RVOT view. LVOT view. Ductal arch view. 3-vessel view. 1-fhnqac-qyikstc view. ? Diaphragm. Abdomen ? Cord insertion. [...] daily. Further ultrasound studies are anticipated in [place] and should include: 1. Growth every 4 [...] STEINER Study Date: 07/11/2023 7:58am Pat. NO: [id number] Referring MD: CHANEL TATE Site: [facility] Malted Milk Mixer: Jhoana Bradley RDMS : 1990 Age: 33 [...] 0 lb 14 oz EFW by Hadlock ([id number]-YR-MG-FL) Head / Face / Neck Biometry: Lead Consultant 5.9 mm CM 5.6 mm Nasal bone 7.0 mm ANATOMY ----- The following structures appear normal: Head / Neck Cranium. Head size. Head shape.Lateral ventricles. Midline falx. Cavum septi pellucidi. Cerebellum.Cisterna magna. Thalami. Face Lips. Profile. Nose. Maxilla.Mandible. Heart / Thorax 4-chamber view. RVOT view. LVOT view.Ductal arch view. 3-vessel view. 5-rnpfyx-ztofiwl view. Diaphragm. Abdomen Cord insertion. Stomach. Kidneys.Bladder. [...] daily. Further ultrasound studies are anticipated in [place] and shouldinclude: 1. Growth every 4 weeks [...] no evidence of previa. Ingrid Washington MD [facility] US ORDERABLE S * [facility] US Comprehensive Single (06/19/2023 11:57 AM GENERAL LEDGER ACCOUNTANT) Anatomical Region Laterality Modality Ultrasound 06/19/2023 11:0 3 AM GENERAL LEDGER ACCOUNTANT Impressions 06/19/2023 1:54 PM GENERAL LEDGER ACCOUNTANT IMPRESSION ----- 1. Lanza intrauterine at 18w [...] long and closed. Narrative 06/19/2023 1:54 PM GENERAL LEDGER ACCOUNTANT ?Comprehensive ----- Pat. Name: KARENA STEINERRINA ? Study Date: ??06/19/2023 11:03am Pat. NO: ??[id number] ?Referring ??: CHANEL TATE Site: ??[facility] ? Malted Milk Mixer: Essence Gallegos RDMS : ??1990 ?Age: ?? [...] Biometry: BPD ?37.6 ?mm ? 17w 3d ?Hadrenny OFD ?53.2 ?mm ? 17w 6d ?Nicolaides HC ?146.1 ?mm ?17w 5d ?Hadlock Cerebellum tr ?16.9 ? mm ?16w 6d ?Nicolaides AC ?121.4 ?mm ?17w 6d ?27% ?Hadlock Femur ?27.7 ? mm ?18w 3d ?Hadlock Humerus ?27.2 ?mm ? 18w 5d ?Sneha Weight Calculation: EFW ? 223 ? g ? 25% ?Hadlock EFW (lb,oz) ? 0 lb 8 ?oz EFW by ?Hadlock ([id number]-FL) Head / Face / Neck Biometry: Lead Consultant ? 7.2 ? mm CM ?4.4 ? [...] view. RVOT view. LVOT view. 3-vessel view. 7-aiicgo-mikzlpj view. Spine ?Sacral spine. The following structures [...] STEINER Study Date: 06/19/2023 11:03am Pat. NO: [id number] Referring MD: CHANEL TATE Site: [facility] Malted Milk Mixer: Essence Gallegos RDMS : 1990 Age: 33 [...] 0 lb 8 oz EFW by Hadlock (YRV-GH-FU-FL) Head / Face / Neck Biometry: Lead Consultant 7.2 mm CM 4.4 mm Nuchal fold [...] 4-chamber view. RVOT view. LVOT view.3-vessel view. 5-qzpbgf-ztzctnh view. Spine Sacral spine. The following structures [...] appears long and closed. Chanel Tate MD [facility] US ORDERAB LES * (ABNORMAL) Glucose by meter (10/21/2014 6:20 AM CDT) Glucose 103(H) 70 - 99 mg/dL POINT OF CARE TEST, GLUCOSE 10/21/2014 6:20 AM CDT 10/21/2014 6:25 AM CDT Lianna Dimas DDS LAB - [facility] POCT POINT OF CARE TEST, GLUCOSE * PAP SMEAR (09/23/1998 1:18 PM CDT) Unlabelled DNR [facility] Biopsy Sent DNR [facility] Source VAG,CERV,E NDOCERV [facility] LMP POST [facility] PARA 3 [facility] 2 [facility] Clinical History DNR [facility] Therapy DNR [facility] Last Pap Diagnosis WITHIN NORMAL LIMITS [facility] PAP Date [id number] [facility] Specimen # DNR [facility] Tissue DNR [facility] Tissue Date DNR [facility] Statement of Adequacy [facility] Comment: SATISFACTORY FOR INTERPRETATION POST MENOPAUSAL PATIENT. ??NO ENDOCERVICAL CELLS SEEN. General Categorization DNR [facility] Descriptive Diagnosis [facility] Comment: WITHIN NORMAL LIMITS ATROPHIC CELL PATTERN Recommendations DNR [facility] DNR 114,,,,,, [facility] DNR DNR [facility] DNR DNR [facility] DNR DNR [facility] . [facility] Comment: ?PAP SMEARS ARE SUBJECT TO BOTH FALSE NEGATIVE AND FALSE ? POSITIVE RESULTS EVIDENCED BY DATA PUBLISHED IN THE ? MEDICAL LITERATURE. ??YOUR PATIENT'S RESULT SHOULD BE ? INTERPRETED IN THIS CONTEXT, TOGETHER WITH THE PATIENT'S ? HISTORY AND CLINICAL FINDINGS. TESTING LOCATION ? THIS TEST [facility]FORMED [facility] ? [address] [facility]. [id number] ? PHONE NUMBERS FOR CYTOLOGY INQUIRES, INCLUDING SLIDE REQUESTS ? EXT. [id number] ?? EXT. [phone] 09/21/1998 Kimberley Fu MD LABORATORY Performing Organization Address City/State/ZIP Co pa Phone Number [facility] from Last 3 Months or Most Recently Relevant to Health Maintenance Care Teams Rerolling Machine Operator Relationship Specialty Start Date End Date No Ref-Primary, Physician PCP - General 06/07/23
--- OUTSIDE RECORDS SUMMARY | 2023-08-17 20:09 | XMS_ITS | Encounter Summary ---
Author Name Unknown Organization [facility] Address [address] [place] [address]. [place] [address] Care Team Providers Care Wellness Coach Name Role Phone No Ref-Primary, Physician Primary Care Provider Reason for Visit * Reason Comments Ultrasound L2-CHTN, AMA, BMI>40 , Ulcerative Colitis Encounter Details Date Type Department Care Team (Late st Contact Info) Description 06/07/2023 PRE VISIT [facility] [place] [address] [facility] [address] [place] [address] Heidi Ramey RN Ultrasound (L2-CHTN, AMA, BMI>40, Ulcerative Colitis) Social History Tobacco Use Types Packs/Day Years [...] Sex Assigned at Female 06/03/2023 6:47 PM BEFORE AND AFTER SCHOOL DAYCARE WORKER Gender Identity Female 06/03/2023 6:47 PM BEFORE AND AFTER SCHOOL DAYCARE WORKER Sexual Orientation Straight 06/03/2023 6: 47 PM BEFORE AND AFTER SCHOOL DAYCARE WORKER documented as of this encounter Plan of Treatment Not on file documented as of this encounter Visit Diagnoses Not on filedocumented in this encounter Care Teams Wellness Coach Relationship Specialty Start Date End Date No Ref-Primary, Physician PCP - General 06/07/23 documented as of this encounter
--- OUTSIDE RECORDS SUMMARY | 2023-08-17 20:09 | XMS_ITS | Clinical Summary ---
Author Name Unknown Organization [facility] Address [address] [place] [address] Care Team Providers Care Nurse Epidemiologist Name Role Phone No Ref-Primary, Physician Primary Care Provider Allergies No known active allergies Medications Medication [...] package instructions 21 tablet 0 10/21/2014 Active Encounters Date Type Department Care Team Description 07/11/2023 8:30 AM CDT Office Visit [facility] M[facility] [place] [address] [place] [address] Ingrid [place] MD Jones, Cresta Wedel, MD Maternal hypertension syndrome, second trimester (Primary Dx) 07/11/2023 8:00 AM CDT - 07/11/2023 11:59 PM CDT Hospital Encounter [facility] Maternal Medicine [place] [address] [place] [phone] Ingrid [place] MD Jones, Cresta Wedel, MD Encounter for follow-up ultrasound of anatomy Discharge Disposition: Home or Self Care 07/11/2023 Travel 07/04/2023 Travel 06/19/2023 11:45 AM VALIDATION CONSULTANT Office [facility] [place] [address] [facility] [address] [place] [phone] Ingrid Washington MD Encounter for follow-up ultrasound of anatomy (Primary Dx); related condition, antepartum; Chronic hypertension affecting ; Ulcerative colitis with complication, unspecified location (H) 06/19/2023 11:00 AM VALIDATION CONSULTANT - 06/19/2023 11:59 PM VALIDATION CONSULTANT Hospital Encounter [facility] Medicine [place] [address] [place] [phone] Ingrid Washington MD related condition, antepartum Discharge Disposition: Home or Self Care 06/19/2023 Travel 06/07/[address] [facility] [place] [address] [address] [place] [phone] Chanel Tate MD related condition, antepartum (Primary Dx) 06/07/[address] [facility] [place] [address] [facility] [address] [place] [phone] Heidi Ramey RN Ultrasound (L2-CHTN, AMA, BMI>40, Ulcerative Colitis) 05/29/2023 Medical Correspondence [facility] [address] [facility] [address] Scan, Non-Provider 05/29/[address] [facility] Medicine [place] [address] [facility] [address] [place] [phone] Chanel Tate MD related condition, antepartum (Primary Dx) 05/26/[address] [facility] Info Mgmt [facility] [address] [facility] [place] [address] Scan, Non-Provider from Last 3 Months Immunizations Name Administration Dates Next Due DTAP [...] Sex Assigned at Female 06/03/2023 6:47 PM VALIDATION CONSULTANT Gender Identity Female 06/03/2023 6:47 PM VALIDATION CONSULTANT Sexual Orientation Straight 06/03/2023 6: 47 PM VALIDATION CONSULTANT Last Filed Vital Signs Vital Sign Reading Time Taken Comments Blood Pressure 139/83 06/19/2023 12:21 PM VALIDATION CONSULTANT Pulse 85 06/19/2023 12:21 PM VALIDATION CONSULTANT Temperature 36.4 ??C (97.5 ??F) 10/21/2014 11:40 AM C DT Respiratory Rate 14 10/21/2014 11:40 AM CDT Oxygen Saturation 98% 06/19/2023 12:21 PM VALIDATION CONSULTANT Inhaled Oxygen Concentration - - Weight 128 kg (282 lb 1.6 oz) 10/21/2014 6:07 AM CDT Height 167.6 cm (5' 5.98) 10/21/2014 6:07 AM CD T Body Mass Index 45.55 10/21/2014 6:07 AM CDT Plan of Treatment Health Maintenance Due Date Last Done Comments ADVANCE CARE PLANNING 1990 ANNUAL REVIEW OF HM ORDERS 1988 YEARLY PREVENTIVE VISIT 1990 HIV SCREENING 2003 HEPATITIS C SCREENING 2006 PAP 05/05/2017 05/05/2014 GLUCOSE 10/21/2017 10/21/2014 COVID-19 Vaccine (3 - Pfizer risk series) 05/18/2021 04/20/2021, 03/30/2021 MATERNAL SCREENING DISCUSSION 04/24/2023 PHQ-2 (once per calendar year) 2023 OBGCT (OB) 07/31/2023 DTAP/TDAP/TD IMMUNIZATION (8 - Td or Tdap) 11/05/2030 11/05/2020, 08/14/2015, 10/04/2011, Additional history exists HEPATITIS B IMMUNIZATION Completed 001, 12/18/2000, 12/18/2000, Additional history exists HPV IMMUNIZATION Completed 03/04/2011, 07/2010, 11/03/2010, Additional history exists Pneumococcal Vaccine: Pediatrics (0 to 5 Years) and At-Risk Patients (6 to 64 Years) Completed 06/28/2022, 12/02/2012 INFLUENZA VACCINE Completed 03/31/2023, , 06/07/2021, Additional history exists IPV IMMUNIZATION Aged Out No longer e ligible based on patient's age to complete this topic MENINGITIS IMMUNIZATION Aged Out No l onger eligible based on patient's age to complete this topic RSV MONOCLONAL ANTIBODY Aged Out No l onger eligible based on patient's age to complete this topic RSV VACCINE ( & 60+) (No Doses Required) Completed Procedures Procedure Name Priority Date/Time Associated Diagnosis Comments [facility] US COMPREHENSIVE SINGLE F/U Routine 07/11/2023 8:50 AM CDT Encounter for follow-up ultrasound of anatomy [facility] US COMPREHENSIVE SINGLE Routine 06/19/2023 11:57 AM VALIDATION CONSULTANT related condition, antepartum GLUCOSE BY METER Routine 10/21/2014 6:20 AM CDT HCL PAP SMEAR Routine 09/23/1998 1:18 PM CDT Gynecologic Examination from Last 3 Months or Most Recently Relevant to Health Maintenance Results * [facility] US Comprehensive Single F/U (07/11/2023 8:50 [...] ? Study Date: ??07/11/2023 7:58am Pat. NO: ??[id number] ?Referring ??: CHANEL TATE Site: ??[facility] ? Quality Checker: Jhoana Bradley RDMS : ??1990 ?Age: ?? [...] Biometry: BPD ?46.8 ?mm ? 20w 1d ?Hadlock OFD ?68.6 ?mm ? 21w 3d ?Nicolaides HC ?185.1 ?mm ?20w 6d ?Hadlock Cerebellum tr ?20.9 ? mm ?19w 6d ?Nicolaides AC ?168.1 ?mm ?21w 6d ?51% ?Hadlock Femur ?33.9 ? mm ?20w 5d ?Hadlock Humerus ?34.7 ?mm ? 21w 6d ?Sneha Weight Calculation: EFW ? 406 ? g ? 26% ?Hadlock EFW (lb,oz) ? 0 lb 14 ? oz EFW by ?Hadlock ([id number]) Head / Face / Neck Biometry: Numerical Control Programmer ? 5.9 ? mm CM ?5.6 ? mm Nasal bone ? 7.0 ? mm ANATOMY ----- The following structures appear normal: Head / Neck ? Cranium. Head size. Head shape. Lateral ventricles. Midline falx. Cavum septi pellucidi. Cerebellum. Cisterna magna. Thalami. Face ? Lips. Profile. Nose. Maxilla. Mandible. Heart / Thorax ?4-chamber view. RVOT view. LVOT view. Ductal arch view. 3-vessel view. 8-sectdn-tmeqbgc view. ? Diaphragm. Abdomen ? Cord insertion. [...] daily. Further ultrasound studies are anticipated in [place] and should include: 1. Growth every 4 [...] STEINER Study Date: 07/11/2023 7:58am Pat. NO: [id number] Referring MD: CHANEL TATE Site: [facility] Quality Checker: Jhoana Bradley RDMS : 1990 Age: 33 [...] (lb,oz) 0 lb 14 oz EFW by Rupal ([id number]) Head / Face / Neck Biometry: Numerical Control Programmer 5.9 mm CM 5.6 mm Nasal bone 7.0 mm ANATOMY ----- The following structures appear normal: Head / Neck Cranium. Head size. Head shape.Lateral ventricles. Midline falx. Cavum septi pellucidi. Cerebellum.Cisterna magna. Thalami. Face Lips. Profile. Nose. Maxilla.Mandible. Heart / Thorax 4-chamber view. RVOT view. LVOT view.Ductal arch view. 3-vessel view. 0-xctkzb-czbeadj view. Diaphragm. Abdomen Cord insertion. Stomach. Kidneys.Bladder. [...] daily. Further ultrasound studies are anticipated in [place] and shouldinclude: 1. Growth every 4 weeks [...] Posterior placenta, no evidence of previa. Ingrid RUFFIN [facility] US ORDERABLE S * [facility] US Comprehensive Single (06/19/2023 11:57 AM VALIDATION CONSULTANT) Anatomical Region Laterality Modality Ultrasound 06/19/2023 11:0 3 AM VALIDATION CONSULTANT Impressions 06/19/2023 1:54 PM VALIDATION CONSULTANT IMPRESSION ----- 1. Lanza intrauterine at 18w [...] long and closed. Narrative 06/19/2023 1:54 PM VALIDATION CONSULTANT ?Comprehensive ----- Pat. Name: CORA STEINER ? Study Date: ??06/19/2023 11:03am Pat. NO: ??[id number] ?Referring ??MD: CHANEL TATE Site: ??[facility] ? Quality Checker: Essence Gallegos RDMS : ??1990 ?Age: ?? [...] DATING ----- ? Date ?Details ?Gest. age ?ARUTR LMP ?02/10/2023 ? 18 w + 3 [...] ? 0 lb 8 ?oz EFW [facility] ?[facility] ([id number]) Head / Face / Neck Biometry: Numerical Control Programmer ? 7.2 ? mm CM ?4.4 ? [...] view. RVOT view. LVOT view. 3-vessel view. 4-pwuinj-owgthoz view. Spine ?Sacral spine. The following structures [...] STEINER Study Date: 06/19/2023 11:03am Pat. NO: [id number] Referring MD: CHANEL TATE Site: [facility] Quality Checker: Essence Gallegos RDMS : 1990 Age: 33 [...] 0 lb 8 oz EFW by Hadlock ([id number]) Head / Face / Neck Biometry: Numerical Control Programmer 7.2 mm CM 4.4 mm Nuchal fold [...] 4-chamber view. RVOT view. LVOT view.3-vessel view. 0-jasjjg-sirhqvw view. Spine Sacral spine. The following structures [...] appears long and closed. Chanel Tate MD G [facility] US ORDERAB LES * (ABNORMAL) Glucose by meter (10/21/2014 6:20 AM CDT) Glucose 103(H) 70 - 99 mg/dL POINT OF CARE TEST, GLUCOSE 10/21/2014 6:20 AM CDT 10/21/2014 6:25 AM CDT Lianna GUTIERREZ POCT Performing Organization Address City/[facility] Co de Phone Number POINT OF CARE TEST, GLUCOSE * PAP SMEAR (09/23/1998 1:18 PM CDT) Unlabelled DNR [facility] Biopsy Sent DNR [facility] Source VAG,CERV,E NDOCERV [facility] LMP POST [facility] PARA 3 [facility] 2 [facility] Clinical History DNR [facility] Therapy DNR [facility] Last Pap Diagnosis WITHIN NORMAL LIMITS [facility] PAP Date [id number] [facility] Specimen # DNR [facility] Tissue DNR [facility] Tissue Date DNR [facility] Statement of Adequacy [facility] Comment: SATISFACTORY FOR INTERPRETATION POST MENOPAUSAL PATIENT. ??NO ENDOCERVICAL CELLS SEEN. General Categorization DNR [facility] Descriptive Diagnosis [facility] Comment: WITHIN NORMAL LIMITS ATROPHIC CELL PATTERN Recommendations DNR [facility] DNR 114,,,,,, [facility] DNR DNR [facility] DNR DNR [facility] DNR DNR [facility] . [facility] Comment: ?PAP SMEARS ARE SUBJECT TO BOTH FALSE NEGATIVE AND FALSE ? POSITIVE RESULTS EVIDENCED BY DATA PUBLISHED IN THE ? MEDICAL LITERATURE. ??YOUR PATIENT'S RESULT SHOULD BE ? INTERPRETED IN THIS CONTEXT, TOGETHER WITH THE PATIENT'S ? HISTORY AND CLINICAL FINDINGS. TESTING LOCATION ? THIS TEST WAS PERFORMED AT [facility] ? [address]. [address] ? PHONE NUMBERS FOR CYTOLOGY INQUIRES, INCLUDING SLIDE REQUESTS ? EXT. [id number] ?? EXT. [id number] 09/21/1998 Kimberley Fu MD LABORATORY Performing Organization Address City/[facility]/ZIP Co de Phone Number [facility] from Last 3 Months or Most Recently Relevant to Health Maintenance Care Teams Nurse Epidemiologist Relationship Specialty Start Date End Date No Ref-Primary, Physician PCP - General 06/07/23
--- OUTSIDE RECORDS SUMMARY | 2023-08-17 20:09 | XMS_ITS | Encounter Summary ---
Author Name Unknown Organization [facility] Address [address] [place] [address] Care Team Providers Care Technology Development Intern Name Role Phone Unavailable Primary Care Provider Unavailabl e Reason for Referral * Diagnostic Imaging Ultrasound (Routine) - Pending Review Specialty Diagnoses / Procedures Referred By Contac t Referred To Contact Radiology. Diagnoses related condition, antepartum Procedures [facility] US Comprehensive Single Chanel Tate MD [facility] [address] [place] [address] Referral ID Status Reason Start Date Expiration Date V isits Requested Visits Authorized [id number] Pending Review 05/29/2023 05/28/2024 1 1 RANCE OPERATIONS REP * Consultation (Routine: Next available opening) - Pending Review Specialty Diagnoses / Procedures Referred By Contac t Referred To Contact Diagnoses related condition, antepartum Chanel Tate MD [facility] [address] [place] [address] [facility] [address] [place] [address] Referral ID Status Reason Start Date Expiration Date V isits Requested Visits Authorized [id number] Pending Review 05/29/2023 05/28/2024 1 1 Question Answer Preferred Location: [facility] [place] [facility] 11/20/2023 Ultrasound Comprehensive US (>than 18 weeks GA) US PROC NONE MFM Issue OTHER (enter details in Comments) - [place] meds & AMA [facility] Consultation (unrelated to Ultrasound findings): No Inflammatory Bowel Disease Clinic: Joint MFM and GI Consultation: No Chronic Kidney Disease: Joint MFM and Nephrology Consultation No Genetic Counseling Consultation: No fax [facility] Chanel Tate [phone] Comments There is no height or weight on file to calculate BMI. >> Patient may proceed with recommendations for further testing as directed by the Maternal Medicine Specialist >> >> If requesting Echo: MFM will determine appropriate location for exam due to indication. Please be aware that coverage of these services is subject to the terms and limitations of your health insurance plan. Call member services at your health plan with any benefit or coverage questions. RANCE OPERATIONS REP Encounter Details Date Type Department Care Team (Late st Contact Info) Description 05/29/[address] [facility] Maternal Medicine Center [place] [address] [place] [address] Chanel Tate MD [facility] [address] [place] [address] related condition, antepartum (Primary Dx) Social History Tobacco Use Types Packs/Day Years Used Date Smoking Tobacco: Never Smokeless Tobacco: Never Alcohol Use Standard Drinks/Week Comments No 0 (1 standard drink = 0.6 oz pur e alcohol) Adolescent Education Answer Date Record ed Getting School Help Needed Not on file 05/29 Sex and Gender Information Value Date Recorded Sex Assigned at Female 06/03/2023 6:47 PM INSURANCE OPERATIONS REP Gender Identity Female 06/03/2023 6:47 PM INSURANCE OPERATIONS REP Sexual Orientation Straight 06/03/2023 6: 47 PM INSURANCE OPERATIONS REP documented as of this encounter Plan of Treatment Scheduled Referrals Name Type Priority Associated Diagnoses Orde r Schedule [facility] Med Ctr Referral - Referral Routine: Next available opening Related Condition, Antepartum Expected: 05/29/2023 (Approximate), Expires: 11/25/2023 documented as of this encounter Results * [facility] US Comprehensive Single (06/19/2023 11:57 AM INSURANCE OPERATIONS REP) Anatomical Region Laterality Modality Ultrasound 06/19/2023 11:0 3 AM INSURANCE OPERATIONS REP Impressions 06/19/2023 1:54 PM INSURANCE OPERATIONS REP IMPRESSION ----- 1. Lanza intrauterine at 18w [...] long and closed. Narrative 06/19/2023 1:54 PM INSURANCE OPERATIONS REP ?Comprehensive ----- Pat. Name: CORA STEINER ? Study Date: ??06/19/2023 11:03am Pat. NO: ??[id number] ?Referring ??: CHANEL TATE Site: ??[facility] ? Medicare Compliance Auditor: Essence Gallegos RDMS : ??1990 ?Age: ?? [...] 0 lb 8 ?oz EFW by ?Hadlock ([id number]) Head / Face / Neck Biometry: Corporate Events Director ? 7.2 ? mm CM ?4.4 ? [...] view. RVOT view. LVOT view. 3-vessel view. 4-ocxmwr-dflstkg view. Spine ?Sacral spine. The following structures [...] STEINER Study Date: 06/19/2023 11:03am Pat. NO: [id number] Referring MD: CHANEL TATE Site: [facility] Medicare Compliance Auditor: Essence Gallegos RDMS : 1990 Age: 33 [...] 0 lb 8 oz EFW by Hadlock ([id number]) Head / Face / Neck Biometry: Corporate Events Director 7.2 mm CM 4.4 mm Nuchal fold [...] 4-chamber view. RVOT view. LVOT view.3-vessel view. 0-ujfvhd-iamusir view. Spine Sacral spine. The following structures [...] long and closed. Chanel Tate MD [facility] US ORDERAB LES documented in this encounter Visit Diagnoses Diagnosis related condition, antepartum- Primary related condition, antepartum documented in this encounter
--- OUTSIDE RECORDS SUMMARY | 2023-08-17 20:09 | XMS_ITS | Encounter Summary ---
Author Name Unknown Organization [place] Address [address] [place] [address]. [place] [address] Care Team Providers Care Crystal Report Developer Name Role Phone No Ref-Primary, Physician Primary Care Provider Reason for Visit * Reason Comments Ultrasound RL2-subopt Encounter Details Date Type Department Care Team (Late st Contact Info) Description 07/11/2023 8:30 AM CDT Office Visit [facility] Maternal Medicine Center [place] [address] [place] [address] Ingrid [place] MD [address] [place] [address] Codie Leroy MD [address] [place] [address] Maternal hypertension syndrome, second trimester (Primary Dx) Social History Tobacco Use Types [...] Sex Assigned at Female 06/03/2023 6:47 PM TRIM MACHINE ADJUSTER Gender Identity Female 06/03/2023 6:47 PM TRIM MACHINE ADJUSTER Sexual Orientation Straight 06/03/2023 6: 47 PM TRIM MACHINE ADJUSTER documented as of this encounter Progress Notes * Codie Leroy MD - 07/11/2023 8:30 AM CDT Please see full imaging report from ViewPoint program under imaging tab. Codie Leroy MD Maternal Medicine documented in this encounter Nursing Notes * Rebeca Gillis, RN - 07/11/2023 8:30 AM CDT Patient reports + movement, no pain, no contractions, leaking of fluid, or bleeding. Patient denies headache, visual changes, nausea/vomiting, epigastric pain related to preeclampsia. SBAR given to [facility] V[facility], see their note in Epic. documented in this encounter Plan of Treatment Not on file documented as of this encounter Visit Diagnoses Diagnosis Maternal hypertension syndrome, second trimester- Primary documented in this encounter Care Teams Crystal Report Developer Relationship Specialty Start Date End Date No Ref-Primary, Physician PCP - General 06/07/23 documented as of this encounter
--- OUTSIDE RECORDS SUMMARY | 2023-08-17 20:09 | XMS_ITS | Encounter Summary ---
Author Name Unknown Organization [facility] Address [address] [place] [address] Care Team Providers Care Eligibility Consultant Name Role Phone No Ref-Primary, Physician Primary Care Provider Encounter Details Date Type Department Care Team (Latest Contact Info) Description 07/04/2023 Travel Social History Tobacco Use Types Packs/Day [...] Sex Assigned at Female 06/03/2023 6:47 PM SIPHONER Gender Identity Female 06/03/2023 6:47 PM SIPHONER Sexual Orientation Straight 06/03/2023 6: 47 PM SIPHONER documented as of this encounter Plan of Treatment Not on file documented as of this encounter Visit Diagnoses Not on filedocumented in this encounter Care Teams Eligibility Consultant Relationship Specialty Start Date End Date No Ref-Primary, Physician PCP - General 06/07/23 documented as of this encounter
--- OUTSIDE RECORDS SUMMARY | 2023-08-17 20:09 | XMS_ITS | Encounter Summary ---
Author Name Unknown Organization [facility] Address [address] [place] [address]. [place] [address] Care Team Providers Care Jackerman Name Role Phone Unavailable Primary Care Provider [facility] Encounter Details Date Type Department Care Team ([facility] Contact Info) Description 05/29/2023 Medical Correspondence [facility] Info [facility] [address] [place] [phone] Scan, Non-Provider Social History Tobacco Use Types Packs/Day Years Used Date Smoking Tobacco: Never Smokeless Tobacco: Never Alcohol Use Standard Drinks/Week Comments No 0 (1 standard drink = 0.6 oz pur e alcohol) Adolescent Education Answer Date Record ed Getting School Help Needed Not on file 05/29 Sex and Gender Information Value Date Recorded Sex Assigned at Female 06/03/2023 6:47 PM SUPERVISOR ORDER TAKERS Gender Identity Female 06/03/2023 6:47 PM SUPERVISOR ORDER TAKERS Sexual Orientation Straight 06/03/2023 6: 47 PM SUPERVISOR ORDER TAKERS documented as of this encounter Plan of Treatment Not on file documented as of this encounter Visit Diagnoses Not on filedocumented in this encounter
--- OUTSIDE RECORDS SUMMARY | 2023-08-17 20:09 | XMS_ITS | Encounter Summary ---
Author Name Unknown Organization [facility] Address [address] [place] [address] Care Team Providers Care Music Theory Teacher Name Role Phone No Ref-Primary, Physician Primary Care Provider Encounter Details Date Type Department Care Team (Latest Contact Info) Description 06/19/2023 Travel Social History Tobacco Use Types Packs/Day [...] Sex Assigned at Female 06/03/2023 6:47 PM CHEF DE CUISINE Gender Identity Female 06/03/2023 6:47 PM CHEF DE CUISINE Sexual Orientation Straight 06/03/2023 6: 47 PM CHEF DE CUISINE documented as of this encounter Plan of Treatment Not on file documented as of this encounter Visit Diagnoses Not on filedocumented in this encounter Care Teams Music Theory Teacher Relationship Specialty Start Date End Date No Ref-Primary, Physician PCP - General 06/07/23 documented as of this encounter
--- OUTSIDE RECORDS SUMMARY | 2023-08-17 20:10 | XMS_ITS | Continuity of Care Document ---
Author Name Unknown Organization [facility] Address [address] [address] [place] [address] Phone Care Team Providers Care Smt Technician Name Role Phone Sharon VITALE, Carlos Unavailable [...] Level Iv-surg Path Gross/micro 19 Offic/outpt E&m [facility] Routine Serum Collection C-reactive Prot Hep B Core Antibody Hepatitis B Surface Antibody Ag-immunoassay; Hep B Surface 9 Hepatic Function Panel Vitamin D; [address]; Hg/pltlt Ct Auto/compl 19 Advance Directives Directive Yes / No Effective Date File Name No Information Encounters Encounter Description Practice Location Reason(s) For Visit Diagnoses Date Provider Providers Copied on Encounter [facility], [address] [address], [place], [place], [id number], [place] tel:[phone] [facility] No Information 1 Sharon Gonzalez. [address] [facility], [place], [place], [id number] , [place]. tel: [phone] [facility], [address] [address], [place], [place], [address], [place] tel:[phone] [facility] No Information 9 Sharon Gonzalez. [address] [facility], [place], [place], [address] , [place]. tel: [phone] [facility], [address] [address], [place], [address], [place] tel:[phone] [facility] No Information 9 David Heredia. [address] [facility], [place], [place], [id number] , [place]. tel: [phone] [facility], [address] [address], [place], [place], [address], [place] tel:[phone] [facility] Ulcerative pancolitisColorecta l polyp detected on colonoscopyPolyp of colonInflammatory polyps of colon without complicationsUlcera tive (chronic) pancolitis without complications 9 David Heredia. [address] [facility], [place], [place], [address] , [place]. tel: [phone] Referring Provider: Referral Self, USE FOR SELF REFERRALS. [facility], [address] [address], [place], [id number], [place] tel:[phone] [facility] Gastric erosion determined by endoscopyOther diseases of stomach and duodenumDuodenitis without bleedingGastric ulcer, unsp as acute or chronic, w/o hemor or perf Dec-0 9 David Heredia. [address] [facility], [facility] [address], [place], [place], [id number] , [place]. [phone] Referring Provider: Referral Self, USE FOR SELF REFERRALS. Offic/outpt E&m [facility], [address] [address], [place], [id number], [place] tel:[phone] [facility] GI Symptoms or Concerns (chief complaint) Ulcerative colitis with rectal bleeding, unspecified locationNauseaVagin al discharge David Heredia. [address] [facility], [facility] [address], [place], [place], [id number] , [place]. [phone] Referring Provider: Kaylen Romero, [address], [place], [address]. tel:[phone] Family History Family Member Type Diagnosis Age [...] Other Registry Fluzone Quad 6mo or older [id number] administered Note: [employer] bi-direct ional interface ; Source: Other Registry influenza, high dose seasona l, preservative-free administered Note: [facility]IC bi-direct ional interface ; Source: Other Registry tetanus toxoid, reduced diphtheria toxoid, and acellular pertussis vaccine, adsorbed administered Note: FLIC b i-directional interface ; Source: Other Registry [...] Registry Payers Payer name Insurance type Covered constitution party ID Authoriza tion(s) No Information Social History [...] care for ulcerative colitis. Records from the [facility] where she had previously been seen are [...] to read about it3. We will review [facility] records Related to Ulcerative colitis with rectal bleeding, unspecified location We will arrange an upper endosco py Related to Nausea IBD Folder Related to Ulcer ative colitis with rectal bleeding, unspecified location IBD and Nutrition Related to Ulc erative colitis with rectal bleeding, unspecified location Entyvio (vedolizumab) Related to Ulcerative colitis with rectal bleeding, unspecified location Please retrieve [facility] records (GI and Rheum) Related to Ulcerative colitis with rectal bleeding, unspecified location Assessments Type Assessment Date No Information Patient Care Teams Name Effective Dates (start - stop) Status Members No Information
--- OUTSIDE RECORDS SUMMARY | 2023-08-17 20:10 | XMS_ITS | Clinical Summary ---
Author Name Unknown Organization [facility] Address [address] [place] [address] Care Team Providers Care Aerospace Medicine Physician Name Role Phone Tessa Snell M.D. Primary Care Pro vider Source Comments Patient records contain information from all sites at [facility]. For routine questions regarding patient records, call [phone] during business hours, M-F 8:00 AM - 5:00 PM Central Time. Record requests for emergency care only can be directed to [phone] at any time.[facility] Allergies No known active allergies Medications Medication Sig Dispensed Refills Start Date End Date Status Aviane 0.1-20 mg-mcg per tablet 06/11/2022 Active albuterol 90 mcg/actuation inhaler Inhale 2 puffs every 4 (four) hours as needed. 03/21/2022 Active pen needle, diabetic (BD Ultra-Fine [...] for 7 days. Then D/C. 109 tablet 03/31/2023 Active NIFEdipine (ADALAT CC) 30 mg ER tablet Take 30 mg by mouth daily. 03/31/2023 Active predniSONE (DELTASONE) 10 mg tablet Take 4 tabs PO daily for 7 days, then 2 tabs PO daily for 7 days, then 1 tab PO daily for 7 days, then 1/2 tab daily for 8 days. 53 tablet 1 06/29/2023 Active Active Problems Problem Noted Date Diagnosed [...] Overview: Added automatically from request for surgery [id number] Cholecystitis Acute 08/27/2021 01/22/20 Examination Other N [...] Influenza, Unspecified 02/26/2014,02/19/2013,01/2012 MMR 02/20/2018,05/26/2000,06/13/1989 PCV20 06/28/2022 PPSV23(Discontinued) 12/02/2012 SARS-COV-2 (COVID-19) - PFIZ ER (Discontinued)(12 years or older) 04/20/2021,03/30/2021 Td (Adult), adsorbed 10/04/2011,04/29/2002 Td Preservative Free (TENIVA C, DECAVAC) 04/29/2002 Tdap 11/05/2020,08/14/2015 influenza vaccine quad (FLUZONE/FLUARIX) (6 months and older)(PF) 06/28/2022,06/07/2021,05/28/2020 Family History Medical History Relation Name Comments Alcohol abuse Father Sebas Mitchell Jr. Colon polyps Father Sebas Mitchell Jr. Coronary artery disease Father Sebas Mitchell Jr. Drug abuse Father Sebas Stephen Jr. Hypertension Father Sebas Mitchell Jr. Kidney disease Father Sebas Mitchell Jr. Liver disease Father Sebas Mitchell Jr. Migraines Father Sebas Mitchell Jr. Obesity Father Sebas Mitchell Jr. Stroke Father Sebas Mitchell Jr. Anxiety disorder Maternal Grandfather Henrry Nance Arthritis Maternal Grandfather Henrry Nance Coronary artery disease Maternal Grandfather Henrry allred Depression Maternal Grandfather Henrry Nance Diabetes Maternal Grandfather Henrry Nance Hypertension Maternal Grandfather Henrry Nance Melanoma Maternal Grandfather Henrry Nance Migraines Maternal Grandfather Henrry Nance Anxiety disorder Maternal Grandmother Liannaalireza Nance Depression Maternal Grandmother Liannaalireza Nance Diabetes Maternal Grandmother Liannaalireza Nance Hypertension Maternal Grandmother Lianna Nance Obesity Maternal Grandmother Lianna Nance Stroke Maternal Grandmother Lianna Nance Transient ischemic attack Maternal Grandmother kEta Nance Anxiety disorder Mother Jennifer Nance Arthritis Mother [...] Jr. Maternal Grandfather Henrry Nance Maternal Grandmother Lianna Nance Mother Jennifer Nance Other Paternal Grandfather Sebas Mitchell Social History Tobacco Use Types Packs/Day Years Used Date Smoking Tobacco: Former Cigarettes 0.3 9 0 10/08/2008 - 10/21/2017 Smokeless Tobacco: Never [...] often do you attend chur ch or mormonism services? 1 to 4 times per year 01/21/2022 Do you belong to any clubs o r organizations such as confucianist groups, unions, fraternal or athletic groups, or [...] Answer Date Recorded PHQ-2 Score 6 07/18/2022 [facility] - Occupational Stress [...] Comments Blood Pressure 133/106 04/17/2023 9:00 PM DIDACTIC INSTRUCTOR Pulse 79 04/17/2023 9:15 PM DIDACTIC INSTRUCTOR Temperature 37 ??C (98.6 ??F) 04/17/2023 8:28 PM DIDACTIC INSTRUCTOR Respiratory Rate 17 04/17/2023 8:28 PM DIDACTIC INSTRUCTOR Oxygen Saturation 96% 04/17/2023 9:15 PM DIDACTIC INSTRUCTOR Inhaled Oxygen Concentration - - Weight 126 kg (278 lb 7.1 oz) 04/17/2023 8:30 PM DIDACTIC INSTRUCTOR Height 167.6 cm (5' 6) 06/28/2022 6:36 PM DIDACTIC INSTRUCTOR Body Mass Index 44.94 06/28/2022 6:36 PM DIDACTIC INSTRUCTOR Plan of Treatment Upcoming Encounters Date Type Department Care Team (Late st Contact Info) Description 08/18/2023 4:50 PM CDT Appointment Department of Laboratory Medicine in [address] [phone] Julio César Song M.D. [address] [place] [phone] Health Maintenance Due Date Last Done Comments HIV Screening 1990 Hepatitis C Screening 1990 Zoster Vaccines (1 of 2) 2007 COVID-19 Vaccine (3 - Pfizer risk series) 05/18/2021 04/20/2021, 03/30/2021 Hepatitis A Vaccines (2 of 2 - Risk 2-dose series) 12/26/2022 06/28/2022 Depression Screening (Annual PHQ-2) 05/01/2023 Cervical Cancer Screening 05/28/20252020 (Performed elsewhere), 09/12/2017, 05/05/2014, Additional history exists Lipid (Cholesterol) Screening 06/28/2027 06/28/2022 DTaP,Tdap,and Td Vaccines (8 - Td or Tdap) 11/05/2030 11/05/2020, 08/14/2015, 10/04/2011, Additional history exists RSV vaccine - (32-3 6 weeks) or 60+ years (1 - 1-dose 60+ series) 2048 Hepatitis B Vaccines Completed 12/18/2000, 12/18/2000, 07/14/2000, Additional history exists HPV Vaccines Completed 03/04/2011, 09/2010, 08/31/2010 Colonoscopy Discontinued 01/12/2016 Colorectal Cancer Surveillance Discontinued Pneumococcal vaccine (0-64 years) Completed 023, 12/02/2012 Influenza Vaccine Completed 03/31/2023, , 06/07/2021, Additional history exists CT Colonography Discontinued Cologuard Discontinued Medical Devices Implanted Type Area Scraper Loader Operator Device Identifier Shelf Expiration Date Model / Serial / Lot Clp Apr End Intnl Endo 5x11 - [id number] Implanted:Qty: 1 on 08/27/2021 by Gurvinder Goodrich M.D., Ph.D. at [facility] Hardware e.g. pins/screws /rods N/A: Abdomen Medtronic [id number] / / Clp Hmol Plmr - [id number] Implanted:Qty: 1 on 08/27/2021 by Gurvinder Goodrich M.D., Ph.D. at [facility] Hardware e.g. pins/screws /rods N/A: Abdomen [employer] [id number] 01/24/2026 [id number] / / [id number] [facility] [id number] Implanted:Qty: 1 on 08/27/2021 by Gurvinder Goodrich M.D., Ph.D. at [facility] Hardware e.g. pins/screws /rods N/A: Abdomen [employer] [id number] 02/01/2026 [id number] / / [id number] Conversions - Default Historical Implant Device Implanted:08/29 (Quantity not on file) Urologic Other Arm Description:Device Status Te xt - UrologOth. control implant in the left bicep. Procedures Procedure Name Priority Date/Time Associated Diagnosis Comments LIPID PANEL, S Routine 06/28/2022 8:09 PM DIDACTIC INSTRUCTOR Screening Lipid PATHOLOGY VENEER GLUE JOINTER FEEDBACK CYTOLOGY Routine 09/12/2017 12:00 AM CDT Pap Smear Examination COLONOSCOPY Routine 01/12/2016 1:27 PM CDT from Last 3 Months or Most Recently Relevant to Health Maintenance Results * (ABNORMAL) Lipid Panel (06/28/2022 8:09 PM DIDACTIC INSTRUCTOR) Triglycerides 310(H) mg/dL 06/28/2022 8:39 PM DIDACTIC INSTRUCTOR CNFL Comment: ----REFERENCE VALUE---- Normal: <150 mg/dL Borderline High: 150-199 mg/dL High: 200-499 mg/dL Very High: > or =500 mg/dL Cholesterol, Total 183 mg/dL 2022 8:39 PM DIDACTIC INSTRUCTOR CNFL Comment: ----REFERENCE VALUE---- Desirable: < 200 mg/dL Borderline High: 200 - 239 mg/dL High: > or = 240 mg/dL Cholesterol, LDL, Calculated 87 mg/dL 06/28/2022 8:39 PM DIDACTIC INSTRUCTOR CNFL Comment: ----REFERENCE VALUE---- Desirable: <100 mg/dL Above Desirable: 100-129 mg/dL Borderline High: 130-159 mg/dL High: 160-189 mg/dL Very High: >=190 mg/dL ----ADDITIONAL INFORMATION---- LDL cholesterol calculated using the Iqbal/NIH equation. Cholesterol, HDL 45(L) >=50 mg/dL 06/28/19 8:39 PM DIDACTIC INSTRUCTOR CNFL Cholesterol, Non-HDL, Calculated 138 mg/dL 06/28/2022 8:39 PM DIDACTIC INSTRUCTOR CNFL Comment: ----REFERENCE VALUE---- Desirable: <130 mg/dL Above Desirable: 130-159 mg/dL Borderline High: 160-189 mg/dL High: 190-219 mg/dL Very High: > or =220 mg/dL Fasting (8 HR or more) Yes 06/28/2022 8:10 PM DIDACTIC INSTRUCTOR CNFL Blood (Blood, Venous) 06/28/2022 8:09 PM DIDACTIC INSTRUCTOR 06/28/2022 8:10 PM DIDACTIC INSTRUCTOR Tessa Melendez M.D. LAB BLOOD ADD-ON [facility] [address] [place] [address], [facility] in [address] [address] * Pathology VENEER GLUE JOINTER FEEDBACK Cytology (09/12/2017 12:00 AM CDT) PATHOLOGY VENEER GLUE JOINTER FEEDBACK CYTOLOGY Patient Name: CORA STEINER MR#: [id number] Submitting Physician: TESSA SNELL MD ??[id number] Specimen #[id number] Performing Lab: ??[facility] ? [address] [place] [address] CLINICAL HISTORY: Last menstrual period: Status: Does patient have Menstrual Period?: Yes Pap Type: Routine Pap Clinical History/Status (Select all that apply): Irregular Periods Ancillary Testing: Perform reflex HPV Testing Source: ThinPrep cervical/endocervi stephanie specimen [ThinPrep vial] Diagnosis Specimen Adequacy: Satisfactory for interpretation : endocervical or transformation zone component present. General Categorization: Negative for intraepithelial lesion or malignancy. Descriptive Interpretation: Increased microbial ilene. The PAP smear is not a diagnostic procedure and should not be used as the sole means to detect cervical cancer. ??It is only a screening procedure to aid in the detection of cervical cancer and its precursors. ??Both false-negative and false-positive results have been experienced. [facility] Thin Prep Vial (Cervix/Endocervi x) 09/12/2017 09/12/2017 Tessa Melendez M.D. LAB PAP C OPATH ORDERABLES Performing Organization Address [facility] Co de Phone Number [address] * Colonoscopy (01/12/2016 1:27 PM CDT) 01/12/2016 1:27 PM CDT Alana Rojo P.A.-C., M.S. GI PROC EDURE ORDERABLES [facility] [address] [place] [address] from Last 3 Months or Most Recently Relevant to Health Maintenance Care Teams Aerospace Medicine Physician Relationship Specialty Start Date End Date Tessa Snell M.D. [address] [place] [phone] PCP - General 10/13/16
--- OUTSIDE RECORDS SUMMARY | 2023-08-17 20:10 | XMS_ITS | Encounter Summary ---
Author Name Unknown Organization [facility] Address [address] [place] [address]. [place] [address] Care Team Providers Care Merchandise Stocker Name Role Phone Unavailable [facility] En[facility] Details Date Type Department Care Team ([facility] Contact Info) Description 05/26/2023 Medical Correspondence [facility] [address] [place] [phone] Scan, Non-Provider Social History Tobacco Use Types Packs/Day Years Used Date Smoking Tobacco: Never Smokeless Tobacco: Never Alcohol Use Standard Drinks/Week Comments No 0 (1 standard drink = 0.6 oz pur e alcohol) Adolescent Education Answer Date Record ed Getting School Help Needed Not on file 05/29 Sex and Gender Information Value Date Recorded Sex Assigned at Female 06/03/2023 6:47 PM FIRST ASSIST Gender Identity Female 06/03/2023 6:47 PM FIRST ASSIST Sexual Orientation Straight 06/03/2023 6: 47 PM FIRST ASSIST documented as of this encounter Plan of Treatment Not on file documented as of this encounter Visit Diagnoses Not on filedocumented in this encounter
--- OUTSIDE RECORDS SUMMARY | 2023-08-17 20:10 | XMS_ITS ---
Author Name Unknown Organization [facility] Address [address] [place] [address] Care Team Providers Care Office Manager Executive Assistant Name Role Phone Unavailable Unavailable Unavailable Surgery Details Not on file Complications Check Surgery Details section. Procedure Estimated Blood Loss Check Surgery Details section. Procedure Findings Check Surgery Details section. Procedure Specimens Taken Check Surgery Details section.
--- OUTSIDE RECORDS SUMMARY | 2023-08-17 20:10 | XMS_ITS | Referral Summary ---
Author Name Unknown Organization [facility] Address [address] [place] [address] Care Team Providers Care Armament Aircraft Mechanic Name Role Phone Bette Snell M.D. Primary Care Pro vider Source Comments Patient records contain information from all sites at [facility]. For routine questions regarding patient records, call [phone] during business hours, M-F 8:00 AM - 5:00 PM Central Time. Record requests for emergency care only can be directed to [phone] at any time.[facility] Allergies No known active allergies Medications Medication [...] Overview: Added automatically from request for surgery [id number] Cholecystitis Acute 08/27/2021 01/22/20 Examination Other N [...] often do you attend chur ch or methodist services? 1 to 4 times per year [...] place to sleep or slept in a chcf (including now)? No 01/21/2022 Depression Answer Date [...] Comments Blood Pressure 133/106 04/17/2023 9:00 PM DELIVERY RECRUITER Pulse 79 04/17/2023 9:15 PM DELIVERY RECRUITER Temperature 37 ??C (98.6 ??F) 04/17/2023 8:28 PM DELIVERY RECRUITER Respiratory Rate 17 04/17/2023 8:28 PM DELIVERY RECRUITER Oxygen Saturation 96% 04/17/2023 9:15 PM DELIVERY RECRUITER Inhaled Oxygen Concentration - - Weight 126 kg (278 lb 7.1 oz) 04/17/2023 8:30 PM DELIVERY RECRUITER Height 167.6 cm (5' 6) 06/28/2022 6:36 PM DELIVERY RECRUITER Body Mass Index 44.94 06/28/2022 6:36 PM DELIVERY RECRUITER Plan of Treatment Upcoming Encounters Date Type Department Care Team (Late st Contact Info) Description 08/18/2023 4:50 PM CDT Appointment Department of Laboratory Medicine in [address] [phone] Julio César Song M.D. [address] [place] [phone] Medical Devices Implanted Type Area Application Specialist Device Identifier Shelf Expiration Date Model / Serial / Lot Clp Apr End Intnl Endo 5x11 - [id number] Implanted:Qty: 1 on 08/27/2021 by Gurvinder Goodrich M.D., Ph.D. at [facility] Hardware e.g. pins/screws /rods N/A: Abdomen Medtronic [id number] / / Clp Hmol Plmr Lg - [id number] Implanted:Qty: 1 on 08/27/2021 by Gurvinder Goodrich M.D., Ph.D. at [facility] Hardware e.g. pins/screws /rods N/A: Abdomen Tele[employer] [id number] 01/24/2026 [id number] / / [id number] Clp Hmol Carlton Zamora - [id number] Implanted:Qty: 1 on 08/27/2021 by Gurvinder Goodrich M.D., Ph.D. at [facility] Hardware e.g. pins/screws /rods N/A: Abdomen MightyQuiz [id number] 02/01/2026 [id number] / / [id number] Conversions - Default Historical Implant Device Implanted:08/29 (Quantity not on file) Urologic Other Arm Description:Device Status Te xt - UrologOth. control implant in the left bicep. Procedures Procedure Name Priority Date/Time Associated Diagnosis Comments LIPID PANEL, S Routine 06/28/2022 8:09 PM DELIVERY RECRUITER Screening Lipid PATHOLOGY STEAM LOCOMOTIVE FIRER/FIREMAN CYTOLOGY Routine 09/12/2017 12:00 AM CDT Pap Smear Examination COLONOSCOPY Routine 01/12/2016 1:27 PM CDT from Last 3 Months or Most Recently Relevant to Health Maintenance Results * (ABNORMAL) Lipid Panel (06/28/2022 8:09 PM DELIVERY RECRUITER) Triglycerides 310(H) mg/dL 06/28/2022 8:39 PM DELIVERY RECRUITER CNFL Comment: ----REFERENCE VALUE---- Normal: <150 mg/dL Borderline High: 150-199 mg/dL High: 200-499 mg/dL Very High: > or =500 mg/dL Cholesterol, Total 183 mg/dL 2022 8:39 PM DELIVERY RECRUITER CNFL Comment: ----REFERENCE VALUE---- Desirable: < 200 mg/dL Borderline High: 200 - 239 mg/dL High: > or = 240 mg/dL Cholesterol, LDL, Calculated 87 mg/dL 06/28/2022 8:39 PM DELIVERY RECRUITER CNFL Comment: ----REFERENCE VALUE---- Desirable: <100 mg/dL Above Desirable: 100-129 mg/dL Borderline High: 130-159 mg/dL High: 160-189 mg/dL Very High: >=190 mg/dL ----ADDITIONAL INFORMATION---- LDL cholesterol calculated using the Iqbal/NIH equation. Cholesterol, HDL 45(L) >=50 mg/dL 06/28/19 8:39 PM DELIVERY RECRUITER CNFL Cholesterol, Non-HDL, Calculated 138 mg/dL 06/28/2022 8:39 PM DELIVERY RECRUITER CNFL Comment: ----REFERENCE VALUE---- Desirable: <130 mg/dL Above Desirable: 130-159 mg/dL Borderline High: 160-189 mg/dL High: 190-219 mg/dL Very High: > or =220 mg/dL Fasting (8 HR or more) Yes 06/28/2022 8:10 PM DELIVERY RECRUITER CNFL Blood (Blood, Venous) 06/28/2022 8:09 PM DELIVERY RECRUITER 06/28/2022 8:10 PM DELIVERY RECRUITER Bette Melendez M.D. LAB BLOOD ADD-ON Performing Organization Address City/State/[facility] Co de Phone Number [facility] [address] [place] [address], [facility] CNFL [facility] [place] [address] * Pathology STEAM LOCOMOTIVE FIRER/FIREMAN Cytology (09/12/2017 12:00 AM CDT) PATHOLOGY STEAM LOCOMOTIVE FIRER/FIREMAN CYTOLOGY Patient Name: CORA STEINER MR#: [id number] Submitting Physician: BETTE SNELL MD ??[id number] Specimen #[id number] Performing Lab: ??[facility] ? [address] [place] [address] CLINICAL HISTORY: Last menstrual period: Status: Does [...] false-negative and false-positive results have been experienced. JIGAR VARGHESE Thin Prep Vial (Cervix/Endocervi x) 09/12/2017 09/12/2017 Bette Melendez M.D. LAB PAP C OPATH ORDERABLES JIGAR VARGHESE [address] [place], [place] [address] * Colonoscopy (01/12/2016 1:27 PM CDT) 01/12/2016 1:27 PM CDT Alana Rojo P.A.-C., MKarlaS. GI PROC EDURE ORDERABLES [facility] [address] [place] [address] from Last 3 Months or Most Recently Relevant to Health Maintenance Care Teams Armament Aircraft Mechanic Relationship Specialty Start Date End Date Bette Snell M.D. [address] [phone] [facility] - General 10/13/16
--- NOTE | 2023-08-17 20:40 | US_ITS ---
Patient: PRICILA STEINER Facility:?[facility] Patient ID:?[id number] Site Patient ID:?[id number]. Site :?1990 Study:?US-OB Pelvis BPP-08/17/2023 9:39:23 PM Ordering Physician:?CAMERON GOODWIN Final Report: INDICATION: Vaginal bleeding. TECHNIQUE: Ultrasound OB pelvis transabdominal. Real-time briones-scale imaging of the fetus was performed without stress testing. COMPARISON: None. FINDINGS: Single living intrauterine gestation. The placenta lies posterior. Fetus heart activity: Regular cardiac rate at 171 beats per minute. Fetus has a cephalic orientation. Amniotic fluid volume appears normal. breathing movements, motion, and tone were all observed. IMPRESSION: Single viable intrauterine with a biophysical profile 12/06. Dictated by Mark Santiago MD @ 08/17/2023 10:36:56 PM Signed by:?Mark Santiago MD @08/17/2023 10:36:56 PM (Electronic Signature)
--- NOTE | 2023-08-17 21:19 | PM.OBLDTN ---
OB - Triage/Final Diagnosis Visit Information Time Seen by Provider: 21:19 Date Seen: 08/17/23 Date of evaluation: 08/17/23 Narrative: Cora is a 33 year old 3 para 2 at 26 weeks and 6 days gestation by last menstrual period with a due date of 11/17/2023, who presents with vaginal bleeding x1 hour. She states she had some cramping will like low abdominal menstrual cramps and then went to the bathroom and noticed some blood in the toilet and on the tissue paper. It was red in color. She then felt like she had have a bowel movement 15 minutes later and had red blood on the toilet tissue again and came in to the hospital. She noticed some mucus that was tinged with blood that was approximately the size of a golf ball in the toilet. She has not had any bleeding since arriving in the hospital. She has not had to wear pad. She has noticed movement since starting to bleed and that she states the baby has been very active since being here. I verbalized my concern for possible all placental abruption and asked for an ultrasound for biophysical profile and assessment for possible abruption. Plan to give the patient betamethasone today and repeat betamethasone tomorrow. Pelvic rest for at least the next 2 weeks. Return to the center or to the clinic if she has additional bleeding. Reason for evaluation: other Comments/Additional reasons for admission: Sterile vaginal exam showed blood tinged mucus no active bleeding. Somewhat maroon in color. Cervix visually appeared closed. On nonstress test the baseline was 140s with positive accelerations to as high as the 180s. No decelerations. No contractions. Reactive tracing, reassuring for gestation. Evaluation Vital signs: Vital Signs - 24 hr 08/17/23 20:13 08/17/23 20:18 08/17/23 20:23 Temperature Pulse Rate Respiratory Rate Blood Pressure Pulse Oximetry 100 100 100 08/17/23 20:28 08/17/23 20:29 08/17/23 20:29 Temperature Pulse Rate 73 Respiratory Rate Blood Pressure 126/70 Pulse Oximetry 100 08/17/23 20:29 08/17/23 20:29 08/17/23 20:33 Temperature 98.2 F Pulse Rate Respiratory Rate 16 Blood Pressure Pulse Oximetry 100 08/17/23 20:38 08/17/23 20:43 08/17/23 20:48 Temperature Pulse Rate Respiratory Rate Blood Pressure Pulse Oximetry 99 100 99 08/17/23 20:53 08/17/23 20:58 Temperature Pulse Rate Respiratory Rate Blood Pressure Pulse Oximetry 100 100 Fetus ( B) Heart Rate Baseline: 145 Skilled Nursing Variability: Moderate (11-25) Monitor Accelerations: Absent Monitor Decelerations: None Total Time Spent Total Time Spent: 60 minutes
[2023-08-17] MEDS: BETAMETHASONE SOD PHOS/ACETATE 6 MG/ML ML 12 MG IM (21:41)
--- NOTE | 2023-08-17 22:16 | PC.OBNST ---
NST Note NST Note Start: 08/17/23 20:17 Freq: ONCE Status: Active Protocol: Document 08/17/23 22:11 EDUARDO (Rec: 08/17/23 22:16 EDUARDO [id number]) NST Note 3 Para (# of births) 2 EDC 11/17/23 Gestational Age In Weeks & Days 26 Weeks & 6 Days High Risk Factors Advanced Maternal Age Patient Presented with Complaint(s) of Vaginal bleeding,Decreased movement Other Complaints Pt arrives to unit ambulatory, alone. Complaints of heavy vaginal bleeding at home around the size of a golf ball . Pt states bleeding started around 1900 and that she was crampy and nauseous at the time and that she felt like she had to have a BM. Afterwards when wiping noted there was blood. Pt had to go to the bathroom again later and wanted to be sure the blood was coming from her vagina so she wiped before she went to the bathroom and noted more bright red blood with some mucous. Pt had started feeling menstrual like cramps in her lower abdomen at this time as well. Pt reported on the phone that she was feeling baby move earlier in the day but hadn't felt him move in a while. BPP was complete and was 8/8. Provider reviewed strip and since BPP was 8/8 and fetus is very active, ok to forgo the rest of the NST. Reactive Yes Appropriate for Gestational Age Yes BECKY Her RN Date 08/17/23 Reactive Yes Appropriate for Gestational Age Yes BECKY Draper OBSINGHN Date 08/17/23 OB NST charge Yes Complete NST Note via Write Note Yes The provider's electronic signature indicates the NST is reactive/appropriate for gestational age. *Note to provider: If an addendum is required, open the patient's chart and click on the note under the Nurse/Allied Health tab.
== END 2023-08-17 21:50 | disposition home or self-care (01) ==
LOC: OB OUT 20:07 → OB 20:11
PROVIDERS: Visit Provider Orthopaedic Surgery
DX: O20.9 Hemorrhage in early pregnancy, unspecified (principal)
CPT/HCPCS: 59025; 76819; G0463; J0702

== ENCOUNTER 2023-08-18 21:27 | Outpatient (CLI) | payer BC, OTHER, SELFPAY ==
--- OUTSIDE RECORDS SUMMARY | 2023-08-18 21:29 | XMS_ITS | Encounter Summary ---
Author Name Unknown Organization [place] Address [address] [place] [address] Care Team Providers Care Merchandise Associate Name Role Phone No Ref-Primary, Physician Primary Care Provider Reason for Referral * Diagnostic Imaging Ultrasound (Routine) - Pending Review Specialty Diagnoses / Procedures Referred By Contac t Referred To Contact Radiology. Diagnoses Encounter for follow-up ultrasound of anatomy Procedures [facility] US Comprehensive Single F/U Ingrid Washington MD [address] [place] [id number] Referral ID Status Reason Start Date Expiration Date V isits Requested Visits Authorized [id number] Pending Review 06/19/2023 06/18/2024 1 1 Reason for Visit * Diagnostic Imaging Ultrasound (Routine) - Pending Review Specialty Diagnoses / Procedures Referred By Contac t Referred To Contact Radiology. Diagnoses Encounter for follow-up ultrasound of anatomy Procedures [facility] US Comprehensive Single F/U Ingrid Washington MD [address] [address] [facility] [address] [place] [address] Referral ID Status Reason Start Date Expiration Date V isits Requested Visits Authorized Pending Review 06/19/2023 06/18/2024 1 1 Encounter Details Date Type Department Care Team (Latest Contact Info) Description 07/11/2023 8:00 AM CDT - 07/11/2023 11:59 PM CDT Hospital Encounter [facility] [place] [address] [place] [address] Ingrid Washington MD [address] [place] [address] Codie Leroy MD [address] [place] [address] Encounter for follow-up ultrasound of [...] Sex Assigned at Female 06/03/2023 6:47 PM AIR VALVE MECHANIC Gender Identity Female 06/03/2023 6:47 PM AIR VALVE MECHANIC Sexual Orientation Straight 06/03/2023 6: 47 PM AIR VALVE MECHANIC documented as of this encounter Medications at [...] anatomy documented in this encounter Results * [facility] US Comprehensive Single F/U (07/11/2023 8:50 [...] ? Study Date: ??07/11/2023 7:58am Pat. NO: ??[id number] ?Referring ??MD: MARII SHARMA Site: ??[place] ? Deputy Fire Chief: Jhoana Bradley [facility] : ??1990 ?Age: ?? 33 ----- [...] lb 14 ? oz EFW by ?Hadlock ([id number]) Head / Face / Neck Biometry: Tab Machine Operator ? 5.9 ? mm CM ?5.6 ? mm Nasal bone ? 7.0 ? mm ANATOMY ----- The following structures appear normal: Head / Neck ? Cranium. Head size. Head shape. Lateral ventricles. Midline falx. Cavum septi pellucidi. Cerebellum. Cisterna magna. Thalami. Face ? Lips. Profile. Nose. Maxilla. Mandible. Heart / Thorax ?4-chamber view. RVOT view. LVOT view. Ductal arch view. 3-vessel view. 1-lkyads-pmuivpx view. ? Diaphragm. Abdomen ? Cord insertion. [...] daily. Further ultrasound studies are anticipated in [place] and should include: 1. Growth every 4 [...] STEINER Study Date: 07/11/2023 7:58am Pat. NO: [id number] Referring MD: MARII SHARMA Site: [facility] Deputy Fire Chief: Jhoana BradleyALEK : 1990 Age: 33 ----- [...] 0 lb 14 oz EFW by Hadlock ([id number]) Head / Face / Neck Biometry: Tab Machine Operator 5.9 mm CM 5.6 mm Nasal bone 7.0 mm ANATOMY ----- The following structures appear normal: Head / Neck Cranium. Head size. Head shape.Lateral ventricles. Midline falx. Cavum septi pellucidi. Cerebellum.Cisterna magna. Thalami. Face Lips. Profile. Nose. Maxilla.Mandible. Heart / Thorax 4-chamber view. RVOT view. LVOT view.Ductal arch view. 3-vessel view. 2-qoxhbp-yneorrn view. Diaphragm. Abdomen Cord insertion. Stomach. Kidneys.Bladder. [...] daily. Further ultrasound studies are anticipated in [place] and shouldinclude: 1. Growth every 4 weeks starting at 28 weeks 2. Weekly BPP at 32 weeks Return to primary provider for continued care. If you have questions regarding today's evaluation or [facility], please contact the [facility]. [...] no evidence of previa. Ingrid Washington MD [facility] US ORDERABLE S documented in this encounter Visit Diagnoses Diagnosis Encounter for follow-up ultrasound of anatomy documented in this encounter Care Teams Merchandise Associate Relationship Specialty Start Date End Date No Ref-Primary, Physician PCP - General 06/07/23 documented as of this encounter
--- OUTSIDE RECORDS SUMMARY | 2023-08-18 21:29 | XMS_ITS | Clinical Summary ---
Author Name Unknown Organization [place] Address [address] [place] [address] Care Team Providers Care Airfield Services Officer Name Role Phone No Ref-Primary, Physician Primary [...] Description 07/11/2023 8:30 AM CDT Office Visit [facility] [place] [address] [facility] [place] [address] Ingrid Washington MD Jones, Cresta Wedel, MD Maternal hypertension syndrome, second trimester (Primary Dx) 07/11/2023 8:00 AM CDT - 07/11/2023 11:59 PM CDT Hospital Encounter [facility] [place] [address] [place] [phone] Ingrid Washington MD Jones, Cresta Wedel, MD Encounter for follow-up ultrasound of anatomy Discharge Disposition: Home or Self Care 07/11/2023 Travel 07/04/2023 Travel 06/19/2023 11:45 AM MOBILE PARAMEDICAL EXAMINER Office Visit [facility] [place] [address] [place] [phone] Ingrid Washington MD Encounter for follow-up ultrasound of anatomy (Primary Dx); related condition, antepartum; Chronic hypertension affecting ; Ulcerative colitis with complication, unspecified location (H) 06/19/2023 11:00 AM MOBILE PARAMEDICAL EXAMINER - 06/19/2023 11:59 PM MOBILE PARAMEDICAL EXAMINER Hospital Encounter [facility] [place] [address] [place] [phone] Ingrid Washington MD related condition, antepartum Discharge Disposition: Home or Self Care 06/19/2023 Travel 06/07/2023 Transcribe Orders [facility] [place] [address] [facility] [address] [facility] [address] [place] [phone] Chanel Tate MD related condition, antepartum (Primary Dx) 06/07/2023 PRE VISIT [facility] [place] [address] [facility] [address] [place] [phone] Heidi Ramey RN Ultrasound (L2-CHTN, AMA, BMI>40, Ulcerative Colitis) 05/29/2023 Medical Correspondence [facility] [address] [facility] [place] [phone] Scan, Non-Provider 05/29/2023 Transcribe Orders [facility] [place] [address] [facility] [address] [place] [phone] Chanel Tate MD related condition, antepartum (Primary Dx) 05/26/2023 Medical Correspondence [facility] Info Mgmt [facility] [address] [facility] [place] [address] Scan, Non-Provider from Last 3 Months [...] Sex Assigned at Female 06/03/2023 6:47 PM MOBILE PARAMEDICAL EXAMINER Gender Identity Female 06/03/2023 6:47 PM MOBILE PARAMEDICAL EXAMINER Sexual Orientation Straight 06/03/2023 6: 47 PM MOBILE PARAMEDICAL EXAMINER Last Filed Vital Signs Vital Sign Reading Time Taken Comments Blood Pressure 139/83 06/19/2023 12:21 PM MOBILE PARAMEDICAL EXAMINER Pulse 85 06/19/2023 12:21 PM MOBILE PARAMEDICAL EXAMINER Temperature 36.4 ??C (97.5 ??F) 10/21/2014 11:40 AM C DT Respiratory Rate 14 10/21/2014 11:40 AM CDT Oxygen Saturation 98% 06/19/2023 12:21 PM MOBILE PARAMEDICAL EXAMINER Inhaled Oxygen Concentration - - Weight 128 [...] Procedure Name Priority Date/Time Associated Diagnosis Comments [facility] US COMPREHENSIVE SINGLE F/U Routine 07/11/2023 8:50 AM CDT Encounter for follow-up ultrasound of anatomy [facility] US COMPREHENSIVE SINGLE Routine 06/19/2023 11:57 AM MOBILE PARAMEDICAL EXAMINER related condition, antepartum GLUCOSE BY METER Routine 10/21/2014 6:20 AM CDT HCL PAP SMEAR Routine 09/23/1998 1:18 PM CDT Gynecologic Examination from Last 3 Months or Most Recently Relevant to Health Maintenance Results * [facility] US Comprehensive Single F/U (07/11/2023 8:50 [...] ? Study Date: ??07/11/2023 7:58am Pat. NO: ??[id number] ?Referring ??: CHANEL TATE Site: ??[place] ? Hydraulic Rockbreaker Operator: Jhoana Bradley RDMS : ??1990 ?Age: ?? [...] lb 14 ? oz EFW by ?Hadlock ([id number]) Head / Face / Neck Biometry: Boarder Machine ? 5.9 ? mm CM ?5.6 ? mm Nasal bone ? 7.0 ? mm ANATOMY ----- The following structures appear normal: Head / Neck ? Cranium. Head size. Head shape. Lateral ventricles. Midline falx. Cavum septi pellucidi. Cerebellum. Cisterna magna. Thalami. Face ? Lips. Profile. Nose. Maxilla. Mandible. Heart / Thorax ?4-chamber view. RVOT view. LVOT view. Ductal arch view. 3-vessel view. 4-ltiumv-abonwgg view. ? Diaphragm. Abdomen ? Cord insertion. [...] daily. Further ultrasound studies are anticipated in [place] and should include: 1. Growth every 4 [...] STEINER Study Date: 07/11/2023 7:58am Pat. NO: [id number] Referring MD: CHANEL TATE Site: [facility] Hydraulic Rockbreaker Operator: Jhoana Bradley RDMS : 1990 Age: 33 [...] 0 lb 14 oz EFW by Rupal ([id number]) Head / Face / Neck Biometry: Boarder Machine 5.9 mm CM 5.6 mm Nasal bone 7.0 mm ANATOMY ----- The following structures appear normal: Head / Neck Cranium. Head size. Head shape.Lateral ventricles. Midline falx. Cavum septi pellucidi. Cerebellum.Cisterna magna. Thalami. Face Lips. Profile. Nose. Maxilla.Mandible. Heart / Thorax 4-chamber view. RVOT view. LVOT view.Ductal arch view. 3-vessel view. 4-hvgkaq-aahhcpy view. Diaphragm. Abdomen Cord insertion. Stomach. Kidneys.Bladder. [...] daily. Further ultrasound studies are anticipated in [place] and shouldinclude: 1. Growth every 4 weeks [...] placenta, no evidence of previa. Ingrid RUFFIN [facility] US ORDERABLE S * [facility] US Comprehensive Single (06/19/2023 11:57 AM MOBILE PARAMEDICAL EXAMINER) Anatomical Region Laterality Modality Ultrasound 06/19/2023 11:0 3 AM MOBILE PARAMEDICAL EXAMINER Impressions 06/19/2023 1:54 PM MOBILE PARAMEDICAL EXAMINER IMPRESSION ----- 1. Lanza intrauterine at 18w [...] long and closed. Narrative 06/19/2023 1:54 PM MOBILE PARAMEDICAL EXAMINER ?Comprehensive ----- Pat. Name: CORA STEINER ? Study Date: ??06/19/2023 11:03am Pat. NO: ??[id number] ?Referring ??MD: CHANEL TATE Site: ??[facility] ? Hydraulic Rockbreaker Operator: Essence Gallegos RDMS : ??1990 ?Age: ?? [...] ? 0 lb 8 ?oz EFW [facility] ([id number]) Head / Face / Neck Biometry: Boarder Machine ? 7.2 ? mm CM ?4.4 ? [...] view. RVOT view. LVOT view. 3-vessel view. 6-uwhbxs-rtipwqr view. Spine ?Sacral spine. The following structures [...] STEINER Study Date: 06/19/2023 11:03am Pat. NO: [id number] Referring MD: CHANEL TATE Site: [facility] Hydraulic Rockbreaker Operator: Essence Gallegos RDMS : 1990 Age: 33 [...] 0 lb 8 oz EFW by Hadlock ([id number]) Head / Face / Neck Biometry: Boarder Machine 7.2 mm CM 4.4 mm Nuchal fold [...] 4-chamber view. RVOT view. LVOT view.3-vessel view. 6-hdnntn-wwwlrkk view. Spine Sacral spine. The following structures [...] long and closed. Chanel Tate MD G [facility] US ORDERAB LES * (ABNORMAL) Glucose by meter (10/21/2014 6:20 AM CDT) Glucose 103(H) 70 - 99 mg/dL POINT OF CARE TEST, GLUCOSE 10/21/2014 6:20 AM CDT 10/21/2014 6:25 AM CDT Lianna GUTIERREZ POCT Performing Organization Address City/[facility] Co de Phone Number POINT OF CARE TEST, GLUCOSE * PAP SMEAR (09/23/1998 1:18 PM CDT) Unlabelled DNR [facility] Biopsy Sent DNR [facility] Source VAG,CERV,E NDOCERV [facility] LMP POST [facility] PARA 3 [facility] 2 [facility] Clinical History DNR [facility] Therapy DNR [facility] Last Pap Diagnosis WITHIN NORMAL LIMITS [facility] PAP Date [id number] [facility] Specimen # DNR [facility] Tissue DNR [facility] Tissue Date DNR [facility] Statement of Adequacy [facility] Comment: SATISFACTORY FOR INTERPRETATION POST MENOPAUSAL PATIENT. ??NO ENDOCERVICAL CELLS SEEN. General Categorization DNR [facility] Descriptive Diagnosis [facility] Comment: WITHIN NORMAL LIMITS ATROPHIC CELL PATTERN Recommendations DNR [facility] DNR 114,,,,,, [facility] DNR DNR [facility] DNR DNR [facility] DNR DNR [facility] . [facility] Comment: ?PAP SMEARS ARE SUBJECT TO BOTH FALSE NEGATIVE AND FALSE ? POSITIVE RESULTS EVIDENCED BY DATA PUBLISHED IN THE ? MEDICAL LITERATURE. ??YOUR PATIENT'S RESULT SHOULD BE ? INTERPRETED IN THIS CONTEXT, TOGETHER WITH THE PATIENT'S ? HISTORY AND CLINICAL FINDINGS. TESTING LOCATION ? THIS TEST WAS PERFORMED AT [facility] ? [address] [facility]. [id number] ? PHONE NUMBERS FOR CYTOLOGY INQUIRES, INCLUDING SLIDE REQUESTS ? EXT. [id number] ?? EXT. [id number] 09/21/1998 Kimberley Fu MD LABORATORY Performing Organization Address City/[facility]/ZIP Co de Phone Number [facility] from Last 3 Months or Most Recently Relevant to Health Maintenance Care Teams Airfield Services Officer Relationship Specialty Start Date End Date No Ref-Primary, Physician PCP - General 06/07/23
--- OUTSIDE RECORDS SUMMARY | 2023-08-18 21:29 | XMS_ITS | Encounter Summary ---
Author Name Unknown Organization [place] Address [address] [place] [address] Care Team Providers Care Regulatory Submissions Specialist Name Role Phone No Ref-Primary, Physician Primary [...] Sex Assigned at Female 06/03/2023 6:47 PM CONFERENCE INTERPRETER Gender Identity Female 06/03/2023 6:47 PM CONFERENCE INTERPRETER Sexual Orientation Straight 06/03/2023 6: 47 PM CONFERENCE INTERPRETER documented as of this encounter Plan of Treatment Not on file documented as of this encounter Visit Diagnoses Not on filedocumented in this encounter Care Teams Regulatory Submissions Specialist Relationship Specialty Start Date End Date No Ref-Primary, Physician PCP - General 06/07/23 documented as of this encounter
--- OUTSIDE RECORDS SUMMARY | 2023-08-18 21:29 | XMS_ITS | Encounter Summary ---
Author Name Unknown Organization [place] Address [address] [place] [address] Care Team Providers Care Laboratory Technician Name Role Phone No Ref-Primary, Physician Primary [...] Sex Assigned at Female 06/03/2023 6:47 PM SOLIDWORKS DRAFTER Gender Identity Female 06/03/2023 6:47 PM SOLIDWORKS DRAFTER Sexual Orientation Straight 06/03/2023 6: 47 PM SOLIDWORKS DRAFTER documented as of this encounter Plan of Treatment Not on file documented as of this encounter Visit Diagnoses Not on filedocumented in this encounter Care Teams Laboratory Technician Relationship Specialty Start Date End Date No Ref-Primary, Physician PCP - General 06/07/23 documented as of this encounter
--- OUTSIDE RECORDS SUMMARY | 2023-08-18 21:29 | XMS_ITS | Encounter Summary ---
Author Name Unknown Organization [place] Address [address] [place] [address]. [place] [address] Care Team Providers Care Drum Drier Name Role Phone No Ref-Primary, Physician Primary Care Provider Reason for Visit * Reason Comments Ultrasound RL2-subopt Encounter Details Date Type Department Care Team (Late st Contact Info) Description 07/11/2023 8:30 AM CDT Office Visit [facility] [place] [address] [place] [address] Ingrid Washington MD [address] [place] [address] Codie Leroy MD [address] [place] [address] Maternal hypertension syndrome, second trimester [...] Sex Assigned at Female 06/03/2023 6:47 PM GAME WARDEN Gender Identity Female 06/03/2023 6:47 PM GAME WARDEN Sexual Orientation Straight 06/03/2023 6: 47 PM GAME WARDEN documented as of this encounter Progress Notes [...] Primary documented in this encounter Care Teams Drum Drier Relationship Specialty Start Date End Date No Ref-Primary, Physician PCP - General 06/07/23 documented as of this encounter
--- OUTSIDE RECORDS SUMMARY | 2023-08-18 21:29 | XMS_ITS | Referral Summary ---
Author Name Unknown [facility] Address [address] [place] [address] Care Team Providers Care Sand Cutter Name Role Phone No Ref-Primary, Physician Primary Care Provider Encounters Date Type Department Care Team Description 07/11/2023 Travel 07/11/2023 8:30 AM CDT Office Visit [facility] [address] [place] [address] Ingrid Washington MD Jones, Cresta Wedel, MD Maternal hypertension syndrome, second trimester (Primary Dx) 07/11/2023 8:00 AM CDT - 07/11/2023 11:59 PM CDT Hospital Encounter [facility] [address] [place] [address] Ingrid Washington MD Jones, Cresta Wedel, MD Encounter for follow-up ultrasound of anatomy Discharge Disposition: Home or Self Care 07/04/2023 Travel 06/19/2023 Travel 06/19/2023 11:45 AM SAILING OFFICER Office Visit [facility] [address] [place] [address] Ingrid Washington MD Encounter for follow-up ultrasound of anatomy (Primary Dx); related condition, antepartum; Chronic hypertension affecting ; Ulcerative colitis with complication, unspecified location (H) 06/19/2023 11:00 AM SAILING OFFICER - 06/19/2023 11:59 PM SAILING OFFICER Hospital Encounter [facility] Maternal Medicine [facility] [address] [place] [address] Ingrid Washington MD related condition, antepartum Discharge Disposition: Home or Self Care 06/07/2023 Transcribe Orders [facility] Maternal Medicine [facility] [address] [place] [address] Chanel Tate MD related condition, antepartum (Primary Dx) 06/07/2023 PRE VISIT [facility] Maternal Medicine [facility] [address] [place] [address] Heidi Ramey RN Ultrasound (L2-CHTN, AMA, BMI>40, Ulcerative Colitis) 05/29/2023 Medical Correspondence [facility] [address] [place] [address] Scan, Non-Provider 05/29/2023 Transcribe Orders [facility] Maternal Medicine [facility] [address] [place] [address] Chanel Tate MD related condition, antepartum (Primary Dx) 05/26/2023 Medical Correspondence [facility] [address] [place] [address] Scan, Non-Provider from Last 3 Months [...] Sex Assigned at Female 06/03/2023 6:47 PM SAILING OFFICER Gender Identity Female 06/03/2023 6:47 PM SAILING OFFICER Sexual Orientation Straight 06/03/2023 6: 47 PM SAILING OFFICER Last Filed Vital Signs Vital Sign Reading Time Taken Comments Blood Pressure 139/83 06/19/2023 12:21 PM SAILING OFFICER Pulse 85 06/19/2023 12:21 PM SAILING OFFICER Temperature 36.4 ??C (97.5 ??F) 10/21/2014 11:40 AM C DT Respiratory Rate 14 10/21/2014 11:40 AM CDT Oxygen Saturation 98% 06/19/2023 12:21 PM SAILING OFFICER Inhaled Oxygen Concentration - - Weight 128 [...] CDT Encounter for follow-up ultrasound of anatomy [facility] US COMPREHENSIVE SINGLE Routine 06/19/2023 11:57 AM SAILING OFFICER related condition, antepartum GLUCOSE BY METER Routine 10/21/2014 6:20 AM CDT HCL PAP SMEAR Routine 09/23/1998 1:18 PM CDT Gynecologic Examination from Last 3 Months or Most Recently Relevant to Health Maintenance Results * [facility] US Comprehensive Single F/U (07/11/2023 8:50 [...] ? Study Date: ??07/11/2023 7:58am Pat. NO: ??[id number] ?Referring ??MD: CHANEL TATE Site: ??[facility] ? Dementia Program Director[facility] : ??1990 ?Age: ?? 33 [...] lb 14 ? oz EFW by ?Hadlock ([id number]) Head / Face / Neck Biometry: Member Service Representative ? 5.9 ? mm CM ?5.6 ? mm Nasal bone ? 7.0 ? mm ANATOMY ----- The following structures appear normal: Head / Neck ? Cranium. Head size. Head shape. Lateral ventricles. Midline falx. Cavum septi pellucidi. Cerebellum. Cisterna magna. Thalami. Face ? Lips. Profile. Nose. Maxilla. Mandible. Heart / Thorax ?4-chamber view. RVOT view. LVOT view. Ductal arch view. 3-vessel view. 3-wvaepr-xfcdxru view. ? Diaphragm. Abdomen ? Cord insertion. [...] daily. Further ultrasound studies are anticipated in [place] and should include: 1. Growth every 4 [...] STEINER Study Date: 07/11/2023 7:58am Pat. NO: [id number] Referring MD: CHANEL TATE Site: [facility] Dementia Program Director: Jhoana Bradley RDMS : 1990 Age: 33 [...] 0 lb 14 oz EFW by Hadlock ([id number]) Head / Face / Neck Biometry: Member Service Representative 5.9 mm CM 5.6 mm Nasal bone 7.0 mm ANATOMY ----- The following structures appear normal: Head / Neck Cranium. Head size. Head shape.Lateral ventricles. Midline falx. Cavum septi pellucidi. Cerebellum.Cisterna magna. Thalami. Face Lips. Profile. Nose. Maxilla.Mandible. Heart / Thorax 4-chamber view. RVOT view. LVOT view.Ductal arch view. 3-vessel view. 9-aheycr-pfbikpv view. Diaphragm. Abdomen Cord insertion. Stomach. Kidneys.Bladder. [...] daily. Further ultrasound studies are anticipated in [place] and shouldinclude: 1. Growth every 4 weeks [...] evidence of previa. Ingrid Washington MD [facility] US ORDERABLE S * [facility] US Comprehensive Single (06/19/2023 11:57 AM SAILING OFFICER) Anatomical Region Laterality Modality Ultrasound 06/19/2023 11:0 3 AM SAILING OFFICER Impressions 06/19/2023 1:54 PM SAILING OFFICER IMPRESSION ----- 1. Lanza intrauterine at 18w [...] long and closed. Narrative 06/19/2023 1:54 PM SAILING OFFICER ?Comprehensive ----- Pat. Name: KARENA STEINERRINA ? Study Date: ??06/19/2023 11:03am Pat. NO: ??[id number] ?Referring ??: CHANEL TATE Site: ??[facility] ? Dementia Program Director: Essence Gallegos RDMS : ??1990 ?Age: ?? [...] 0 lb 8 ?oz EFW by ?Hadlock ([id number]) Head / Face / Neck Biometry: Member Service Representative ? 7.2 ? mm CM ?4.4 ? [...] view. RVOT view. LVOT view. 3-vessel view. 2-xhplti-nptxkyy view. Spine ?Sacral spine. The following structures [...] STEINER Study Date: 06/19/2023 11:03am Pat. NO: [id number] Referring MD: CHANEL TATE Site: [facility] Dementia Program Director: Essence Gallegos RDMS : 1990 Age: 33 [...] 0 lb 8 oz EFW by Hadlock ([id number]) Head / Face / Neck Biometry: Member Service Representative 7.2 mm CM 4.4 mm Nuchal fold [...] 4-chamber view. RVOT view. LVOT view.3-vessel view. 4-uoetdd-kufeygf view. Spine Sacral spine. The following structures [...] SMEAR (09/23/1998 1:18 PM CDT) Unlabelled DNR [facility] Biopsy Sent DNR [facility] Source VAG,CERV,E NDOCERV [facility] LMP POST [facility] PARA 3 [facility] 2 [facility] Clinical History DNR [facility] Therapy DNR [facility] Last Pap Diagnosis WITHIN NORMAL LIMITS [facility] PAP Date [id number] [facility] Specimen # DNR [facility] Tissue DNR [facility] Tissue Date DNR [facility] Statement of Adequacy [facility] Comment: SATISFACTORY FOR INTERPRETATION POST MENOPAUSAL PATIENT. ??NO ENDOCERVICAL CELLS SEEN. General Categorization DNR [facility] Descriptive Diagnosis [facility] Comment: WITHIN NORMAL LIMITS ATROPHIC CELL PATTERN Recommendations DNR [facility] DNR 114,,,,,, [facility] DNR DNR [facility] DNR DNR [facility] DNR DNR [facility] . [facility] Comment: ?PAP SMEARS ARE SUBJECT TO BOTH FALSE NEGATIVE AND FALSE ? POSITIVE RESULTS EVIDENCED BY DATA PUBLISHED IN THE ? MEDICAL LITERATURE. ??YOUR PATIENT'S RESULT SHOULD BE ? INTERPRETED IN THIS CONTEXT, TOGETHER WITH THE PATIENT'S ? HISTORY AND CLINICAL FINDINGS. TESTING LOCATION ? [facility] ? [address] [facility]. [address] ? PHONE NUMBERS FOR CYTOLOGY INQUIRES, INCLUDING SLIDE REQUESTS ? EXT. [id number] ?? EXT. [id number] 09/21/1998 Kimberley Fu MD LABORATORY Performing Organization Address City/State/ZIP Co ri Phone Number [facility] from Last 3 Months or Most Recently Relevant to Health Maintenance Care Teams Sand Cutter Relationship Specialty Start Date End Date No Ref-Primary, Physician PCP - General 06/07/23
--- OUTSIDE RECORDS SUMMARY | 2023-08-18 21:30 | XMS_ITS | Continuity of Care Document ---
Author Name Unknown Organization [facility] Address [address] [address] [place] [address] Phone Care Team Providers Care Shift Supervisor Melting Name Role Phone Sharon VITALE, Carlos Unavailable [...] Level Iv-surg Path Gross/micro 19 Offic/outpt E&m [facility] Routine Serum Collection C-reactive Prot Hep B Core Antibody Hepatitis B Surface Antibody Ag-immunoassay; Hep B Surface 9 Hepatic Function Panel Vitamin D; [address]; Hg/pltlt Ct Auto/compl 19 Advance Directives Directive Yes / No Effective Date File Name No Information Encounters Encounter Description Practice Location Reason(s) For Visit Diagnoses Date Provider Providers Copied on Encounter [facility], [address] [address], [place], [place], [id number], [place] tel:[phone] [facility] No Information 1 Sharon Gonzalez. [address] [facility] [place], [place], [place], [id number] , [place]. tel: [phone] [facility], [address] [address], [place], [place], [id number], [place] tel:[phone] [facility] No Information 9 Sharon Gonzalez. [address] [facility] [place], [place], [place], [id number] , [place]. tel: [phone] [facility], [address] [address], [place], [place], [id number], [place] tel:[phone] [facility] No Information 9 David Heredia. [address] [facility] [place], [place], [place], [id number] , [place]. tel: [phone] [facility], [address] [address], [place], [place], [id number], [place] tel:[phone] [facility] Ulcerative pancolitisColorecta l polyp detected on colonoscopyPolyp of colonInflammatory polyps of colon without complicationsUlcera tive (chronic) pancolitis without complications 9 David Heredia. [address] [facility] [place], [place], [place], [id number] , [place]. tel: [phone] Referring Provider: Referral Self, USE FOR SELF REFERRALS. [facility], [address] [address], [place], [id number], [place] tel:[phone] [facility] Gastric erosion determined by endoscopyOther diseases of stomach and duodenumDuodenitis without bleedingGastric ulcer, unsp as acute or chronic, w/o hemor or perf Dec-0 9 David Heredia. [address] [facility] [place] [facility] [address], [place], [place], [address] , [place]. [phone] Referring Provider: Referral Self, USE FOR SELF REFERRALS. Offic/outpt E&m [facility], [address] [address], [place], [id number], [place] tel:[phone] [facility] GI Symptoms or Concerns (chief complaint) Ulcerative colitis with rectal bleeding, unspecified locationNauseaVagin al discharge David Heredia. [address] [facility] [place], [facility] [address], [place], [place], [id number] , [place]. [phone] Referring Provider: Kaylen Romero, [address], [place], [address]. tel:[phone] Family History Family Member Type Diagnosis Age [...] Other Registry Fluzone Quad 6mo or older 5753-6450 administered Note: SelStorIC bi-direct ional interface ; Source: Other Registry influenza, high dose seasona l, preservative-free administered Note: MIIC bi-direct ional interface ; Source: Other Registry tetanus toxoid, reduced diphtheria toxoid, and acellular pertussis vaccine, adsorbed administered Note: AKIC b i-directional interface ; Source: Other Registry [...] Registry Payers Payer name Insurance type Covered libertarian ID Authoriza tion(s) No Information Social History [...] care for ulcerative colitis. Records from the [facility] where she had previously been seen are [...] to read about it3. We will review [facility] records Related to Ulcerative colitis with rectal bleeding, unspecified location We will arrange an upper endosco py Related to Nausea IBD Folder Related to Ulcer ative colitis with rectal bleeding, unspecified location IBD and Nutrition Related to Ulc erative colitis with rectal bleeding, unspecified location Entyvio (vedolizumab) Related to Ulcerative colitis with rectal bleeding, unspecified location Please retrieve [facility] records (GI and Rheum) Related to Ulcerative colitis with rectal bleeding, unspecified location Assessments Type Assessment Date No Information Patient Care Teams Name Effective Dates (start - stop) Status Members No Information
--- OUTSIDE RECORDS SUMMARY | 2023-08-18 21:30 | XMS_ITS | Encounter Summary ---
Author Name Unknown Organization [facility] Address [address] [place] [address]. [place] [address] Care Team Providers Care Stonemason Helper Name Role Phone No Ref-Primary, Physician Primary Care Provider Reason for Visit * Reason Comments Ultrasound L2-CHTN, AMA, BMI>40 , Ulcerative Colitis Encounter Details Date Type Department Care Team (Late st Contact Info) Description 06/07/2023 PRE VISIT [facility] M[facility] Medicine [facility] [place] [address] [place] [address] Heidi Ramey RN Ultrasound (L2-CHTN, [...] Sex Assigned at Female 06/03/2023 6:47 PM CASEWORKER PROTECTIVE SERVICES Gender Identity Female 06/03/2023 6:47 PM CASEWORKER PROTECTIVE SERVICES Sexual Orientation Straight 06/03/2023 6: 47 PM CASEWORKER PROTECTIVE SERVICES documented as of this encounter Plan of Treatment Not on file documented as of this encounter Visit Diagnoses Not on filedocumented in this encounter Care Teams Stonemason Helper Relationship Specialty Start Date End Date No Ref-Primary, Physician PCP - General 06/07/23 documented as of this encounter
--- OUTSIDE RECORDS SUMMARY | 2023-08-18 21:30 | XMS_ITS | Encounter Summary ---
Author Name Unknown Organization [facility] Address [address] [place] [address] Care Team Providers Care Hemmer Automatic Name Role Phone No Ref-Primary, Physician Primary Care Provider Reason for Referral * Diagnostic Imaging Ultrasound (Routine) - Pending Review Specialty Diagnoses / Procedures Referred By Contac t Referred To Contact Radiology. Diagnoses related condition, antepartum Procedures [facility] US Comprehensive Single Chanel Tate MD [facility] [address] [place] [address] Referral ID Status Reason Start Date Expiration Date V isits Requested Visits Authorized [id number] Pending Review 05/29/2023 05/28/2024 1 1 DEPARTMENT WORKER Reason for Visit * Diagnostic Imaging Ultrasound (Routine) - Pending Review Specialty Diagnoses / Procedures Referred By Contac t Referred To Contact Radiology. Diagnoses related condition, antepartum Procedures [facility] US Comprehensive Single Chanel Tate MD [facility] [address] [place] [address] Referral ID Status Reason Start Date Expiration Date V isits Requested Visits Authorized [id number] Pending Review 05/29/2023 05/28/2024 1 1 Encounter Details Date Type Department Care Team (Latest Contact Info) Description 06/19/2023 11:00 AM DRUG DEPARTMENT WORKER - 06/19/2023 11:59 PM DRUG DEPARTMENT WORKER Hospital Encounter [facility] M[facility] Medicine [facility] [place] [address] [place] [phone] Ingrid Washington MD [address] [place], [place] [id number] related condition, antepartum Discharge Disposition: Home or [...] Sex Assigned at Female 06/03/2023 6:47 PM DRUG DEPARTMENT WORKER Gender Identity Female 06/03/2023 6:47 PM DRUG DEPARTMENT WORKER Sexual Orientation Straight 06/03/2023 6: 47 PM DRUG DEPARTMENT WORKER documented as of this encounter Medications at [...] Procedure Name Priority Date/Time Associated Diagnosis Comments [facility] SINGLE Routine 06/19/2023 11:57 AM DRUG DEPARTMENT WORKER related condition, antepartum documented in this encounter Results * [facility] Single (06/19/2023 11:57 AM DRUG DEPARTMENT WORKER) Anatomical Region Laterality Modality Ultrasound 06/19/2023 11:0 3 AM DRUG DEPARTMENT WORKER Impressions 06/19/2023 1:54 PM DRUG DEPARTMENT WORKER IMPRESSION ----- 1. Lanza intrauterine at 18w [...] long and closed. Narrative 06/19/2023 1:54 PM DRUG DEPARTMENT WORKER ?Comprehensive ----- Pat. Name: CORA STEINER ? Study Date: ??06/19/2023 11:03am Pat. NO: ??[id number] ?Referring ??: CHANEL TATE Site: ??[facility] ? Criminal Justice Lawyer: Essence Gallegos RDMS : ??1990 ?Age: ?? [...] 0 lb 8 ?oz EFW by ?Hadlock ([id number]) Head / Face / Neck Biometry: Foreclosure Home Inspector ? 7.2 ? mm CM ?4.4 ? [...] view. RVOT view. LVOT view. 3-vessel view. 0-sbhujf-kwtgdyz view. Spine ?Sacral spine. The following structures [...] STEINER Study Date: 06/19/2023 11:03am Pat. NO: [id number] Referring MD: CHANEL TATE Site: [facility] Criminal Justice Lawyer: Essence Gallegos RDMS : 1990 Age: 33 [...] 0 lb 8 oz EFW by Hadlock ([id number]-FL) Head / Face / Neck Biometry: Foreclosure Home Inspector 7.2 mm CM 4.4 mm Nuchal fold [...] 4-chamber view. RVOT view. LVOT view.3-vessel view. 8-enwjjm-ryrrxhd view. Spine Sacral spine. The following structures [...] long and closed. Chanel Tate MD IMG [facility] US ORDERAB LES documented in this encounter Visit Diagnoses Diagnosis related condition, antepartum documented in this encounter Care Teams Hemmer Automatic Relationship Specialty Start Date End Date No Ref-Primary, Physician PCP - General 06/07/23 documented as of this encounter
--- OUTSIDE RECORDS SUMMARY | 2023-08-18 21:30 | XMS_ITS | Encounter Summary ---
Author Name Unknown Organization [facility] Address [address] [place] [address] Care Team Providers Care Automotive Service Director Name Role Phone No Ref-Primary, Physician Primary Care Provider Reason for Referral * Diagnostic Imaging Ultrasound (Routine) - Pending Review Specialty Diagnoses / Procedures Referred By Contac t Referred To Contact Radiology. Diagnoses Encounter for follow-up ultrasound of anatomy Procedures [facility] US Comprehensive Single F/U Ingrid Washington MD [address] [place] [address] Referral ID Status Reason Start Date Expiration Date V isits Requested Visits Authorized [id number] Pending Review 06/19/2023 06/18/2024 1 1 SH MIXER Reason for Visit * Reason Comments Ultrasound L2-CHTN, AMA, Ulcera tive Colitis, BMI >40 Consult [facility] consult-CHTN, AM A, Ulcerative Colitis, BMI >40 * Consultation (Routine: Next available opening) - Pending Review Specialty Diagnoses / Procedures Referred By Contac t Referred To Contact Diagnoses related condition, antepartum Chanel Tate MD [facility] [address] [place] [address] Referral ID Status Reason Start Date Expiration Date V isits Requested Visits Authorized [id number] Pending Review 06/07/2023 06/06/2024 1 1 Encounter Details Date Type Department Care Team ([facility] st Contact Info) Description 06/19/2023 11:45 AM FINISH MIXER Office Visit [facility] M[facility] Medicine [facility] [place] [address] [place] [address] Ingrid Washington MD [address] [place] [address] [address] [place] [address] Encounter for follow-up ultrasound of [...] Sex Assigned at Female 06/03/2023 6:47 PM FINISH MIXER Gender Identity Female 06/03/2023 6:47 PM FINISH MIXER Sexual Orientation Straight 06/03/2023 6: 47 PM FINISH MIXER documented as of this encounter Last Filed Vital Signs Vital Sign Reading Time Taken Comments Blood Pressure 139/83 06/19/2023 12:21 PM FINISH MIXER Pulse 85 06/19/2023 12:21 PM FINISH MIXER Temperature - - Respiratory Rate - - Oxygen Saturation 98% 06/19/2023 12:21 PM FINISH MIXER Inhaled Oxygen Concentration - - Weight - - Height - - Body Mass Index - - documented in this encounter Progress Notes * Ingrid Washington MD - 06/19/2023 11:45 AM CST Please see Imaging tab under Chart Review for details of today's visit. Ingrid Washington SH MIXER * Ingrid Washington MD - 06/19/2023 11:45 [...] as prior). She follows closely with her frame repairer Dr. Julio César Song. She plans to [...] Medication Sig Last Dose Taking? Auth Provider Lamination Machine Operator End Date adalimumab (HUMIRA) 40 MG/0.8ML syr kit Inject 40 mg Subcutaneous every 14 days Reported, Patient Yes amoxicillin (AMOXIL) 500 MG capsule Take 1 capsule (500 mg) by mouth 3 times daily Roslyn, Lianna A, DDS Fexofenadine HCl (RAMON PO) [...] medical record, and communicating with other health care trainer and/or care coordination. Ingrid Washington MD Maternal Medicine 06/19/2023 2:13 PM SH MIXER documented in this encounter Nursing Notes * Rebeca Gillis RN - 06/19/2023 11:45 AM CST Patient presents to [facility] for L2 at 18w0d due to CHTN, AMA, Ulcerative Colitis, BMI >40. Positive movement. Denies LOF, vaginal bleeding or cramping/contractions. SBAR given to [facility] , see their note in Epic. SH MIXER documented in this encounter Plan of Treatment [...] ? Study Date: ??07/11/2023 7:58am Pat. NO: ??[id number] ?Referring ??MD: CHANEL TATE Site: ??[facility] ? Cost Engineer: Jhoana Bradley RDMS : ??1990 ?Age: ?? [...] lb 14 ? oz EFW by ?Hadlock ([id number]-OS-FL) Head / Face / Neck Biometry: Battery Starter ? 5.9 ? mm CM ?5.6 ? mm Nasal bone ? 7.0 ? mm ANATOMY ----- The following structures appear normal: Head / Neck ? Cranium. Head size. Head shape. Lateral ventricles. Midline falx. Cavum septi pellucidi. Cerebellum. Cisterna magna. Thalami. Face ? Lips. Profile. Nose. Maxilla. Mandible. Heart / Thorax ?4-chamber view. RVOT view. LVOT view. Ductal arch view. 3-vessel view. 6-jccdiz-tdwwgrn view. ? Diaphragm. Abdomen ? Cord insertion. [...] daily. Further ultrasound studies are anticipated in [place] and should include: 1. Growth every 4 [...] STEINER Study Date: 07/11/2023 7:58am Pat. NO: [id number] Referring MD: CHANEL TATE Site: [facility] Cost Engineer: Jhoana Bradley RDMS : 1990 Age: 33 [...] 0 lb 14 oz EFW by Hadlock ([id number]-FL) Head / Face / Neck Biometry: Battery Starter 5.9 mm CM 5.6 mm Nasal bone 7.0 mm ANATOMY ----- The following structures appear normal: Head / Neck Cranium. Head size. Head shape.Lateral ventricles. Midline falx. Cavum septi pellucidi. Cerebellum.Cisterna magna. Thalami. Face Lips. Profile. Nose. Maxilla.Mandible. Heart / Thorax 4-chamber view. RVOT view. LVOT view.Ductal arch view. 3-vessel view. 3-vuolqr-lcgmnam view. Diaphragm. Abdomen Cord insertion. Stomach. Kidneys.Bladder. [...] daily. Further ultrasound studies are anticipated in [place] and shouldinclude: 1. Growth every 4 weeks [...] no evidence of previa. Ingrid Washington MD [facility] S documented in this encounter Visit Diagnoses Diagnosis Encounter for follow-up ultrasound of anatomy- Primary related condition, antepartum Chronic hypertension affecting Ulcerative colitis with complication, unspecified location (H) Encounter for follow-up ultrasound of anatomy documented in this encounter Care Teams Automotive Service Director Relationship Specialty Start Date End Date No Ref-Primary, Physician PCP - General 06/07/23 documented as of this encounter
--- OUTSIDE RECORDS SUMMARY | 2023-08-18 21:30 | XMS_ITS | Encounter Summary ---
Author Name Unknown Organization [facility] Address [address] [place] [address]. [place] [address] Care Team Providers Care Compensation And Benefits Analyst Name Role Phone Unavailable [facility] Encounter Details Date Type Department Care Team ([facility] Contact Info) Description 05/29/2023 Medical Correspondence [facility] Info [facility] [address] [place] [phone] Scan, Non-Provider Social History Tobacco Use Types Packs/Day Years Used Date Smoking Tobacco: Never Smokeless Tobacco: Never Alcohol Use Standard Drinks/Week Comments No 0 (1 standard drink = 0.6 oz pur e alcohol) Adolescent Education Answer Date Record ed Getting School Help Needed Not on file 05/29 Sex and Gender Information Value Date Recorded Sex Assigned at Female 06/03/2023 6:47 PM CORROSION TECHNICIAN Gender Identity Female 06/03/2023 6:47 PM CORROSION TECHNICIAN Sexual Orientation Straight 06/03/2023 6: 47 PM CORROSION TECHNICIAN documented as of this encounter Plan of Treatment Not on file documented as of this encounter Visit Diagnoses Not on filedocumented in this encounter
--- OUTSIDE RECORDS SUMMARY | 2023-08-18 21:30 | XMS_ITS | Clinical Summary ---
Author Name Unknown Organization [facility] Address [address] [place] [address] Care Team Providers Care Hl7 Developer Name Role Phone Tessa Snell M.D. Primary Care Pro vider Source Comments Patient records contain information from all sites at [facility]. For routine questions regarding patient records, call [phone] during business hours, M-F 8:00 AM - 5:00 PM Central Time. Record requests for emergency care only can be directed to [phone] at any time.[facility] Allergies No known active allergies Medications Medication [...] Overview: Added automatically from request for surgery [id number] Cholecystitis Acute 08/27/2021 01/22/20 Examination Other N [...] Lianna Nance Transient ischemic attack Maternal Grandmother Ekta Nance Anxiety disorder Mother Jennifer Nance Arthritis [...] any clubs o r organizations such as sabianist groups, unions, fraternal or athletic groups, or [...] Answer Date Recorded PHQ-2 Score 6 07/18/2022 [facility] - Occupational [...] place to sleep or slept in a assisted (including now)? No 01/21/2022 Depression Answer Date [...] Comments Blood Pressure 133/106 04/17/2023 9:00 PM METAL MOCKUP MAKER Pulse 79 04/17/2023 9:15 PM METAL MOCKUP MAKER Temperature 37 ??C (98.6 ??F) 04/17/2023 8:28 PM METAL MOCKUP MAKER Respiratory Rate 17 04/17/2023 8:28 PM METAL MOCKUP MAKER Oxygen Saturation 96% 04/17/2023 9:15 PM METAL MOCKUP MAKER Inhaled Oxygen Concentration - - Weight 126 kg (278 lb 7.1 oz) 04/17/2023 8:30 PM METAL MOCKUP MAKER Height 167.6 cm (5' 6) 06/28/2022 6:36 PM METAL MOCKUP MAKER Body Mass Index 44.94 06/28/2022 6:36 PM METAL MOCKUP MAKER Plan of Treatment Health Maintenance Due Date [...] Additional history exists HPV Vaccines Completed 03/04/2011, 07/2010, 11/03/2010, Additional history exists Colonoscopy Discontinued 01/12/2016 Colorectal Cancer Surveillance Discontinued Pneumococcal vaccine (0-64 years) Completed 023, 12/02/2012 Influenza Vaccine Completed 03/31/2023, , 06/07/2021, Additional history exists CT Colonography Discontinued Cologuard Discontinued Medical Devices Implanted Type Area Cofferdam Construction Supervisor Device Identifier Shelf Expiration Date Model / Serial / Lot Clp Apr End Intnl Endo 5x11 - [id number] Implanted:Qty: 1 on 08/27/2021 by Gurvinder Goodrich M.D., Ph.D. at [facility] Hardware e.g. pins/screws /rods N/A: Abdomen Medtronic [id number] / / [facility] - [id number] Implanted:Qty: 1 on 08/27/2021 by Gurvinder Goodrich M.D., Ph.D. at [facility] Hardware e.g. pins/screws /rods N/A: Abdomen [employer] [id number] 01/24/2026 [id number] / / [id number] Clp [facility] - [id number] Implanted:Qty: 1 on 08/27/2021 by Gurvinder Goodrich M.D., Ph.D. at [facility] Hardware e.g. pins/screws /rods N/A: Abdomen [employer]flex [employer] [id number] 02/01/2026 [id number] / / [id number] Conversions - Default Historical Implant Device Implanted:08/29 (Quantity not on file) Urologic Other Arm Description:Device Status Te xt - UrologOth. control implant in the left bicep. Procedures Procedure Name Priority Date/Time Associated Diagnosis Comments LIPID PANEL, S Routine 06/28/2022 8:09 PM METAL MOCKUP MAKER Screening Lipid PATHOLOGY CADWORX PIPING DESIGNER CYTOLOGY Routine 09/12/2017 12:00 AM CDT Pap Smear Examination COLONOSCOPY Routine 01/12/2016 1:27 PM CDT from Last 3 Months or Most Recently Relevant to Health Maintenance Results * (ABNORMAL) Lipid Panel (06/28/2022 8:09 PM METAL MOCKUP MAKER) Triglycerides 310(H) mg/dL 06/28/2022 8:39 PM METAL MOCKUP MAKER CNFL Comment: ----REFERENCE VALUE---- Normal: <150 mg/dL Borderline High: 150-199 mg/dL High: 200-499 mg/dL Very High: > or =500 mg/dL Cholesterol, Total 183 mg/dL 2022 8:39 PM METAL MOCKUP MAKER CNFL Comment: ----REFERENCE VALUE---- Desirable: < 200 mg/dL Borderline High: 200 - 239 mg/dL High: > or = 240 mg/dL Cholesterol, LDL, Calculated 87 mg/dL 06/28/2022 8:39 PM METAL MOCKUP MAKER CNFL Comment: ----REFERENCE VALUE---- Desirable: <100 mg/dL Above Desirable: 100-129 mg/dL Borderline High: 130-159 mg/dL High: 160-189 mg/dL Very High: >=190 mg/dL ----ADDITIONAL INFORMATION---- LDL cholesterol calculated using the Iqbal/NIH equation. Cholesterol, HDL 45(L) >=50 mg/dL 06/28/19 8:39 PM METAL MOCKUP MAKER CNFL Cholesterol, Non-HDL, Calculated 138 mg/dL 06/28/2022 8:39 PM METAL MOCKUP MAKER CNFL Comment: ----REFERENCE VALUE---- Desirable: <130 mg/dL Above Desirable: 130-159 mg/dL Borderline High: 160-189 mg/dL High: 190-219 mg/dL Very High: > or =220 mg/dL Fasting (8 HR or more) Yes 06/28/2022 8:10 PM METAL MOCKUP MAKER CNFL Blood (Blood, Venous) 06/28/2022 8:09 PM METAL MOCKUP MAKER 06/28/2022 8:10 PM METAL MOCKUP MAKER Tessa Melendez M.D. LAB BLOOD ADD-ON Performing Organization Address [facility]/State/[facility] Co de Phone Number [facility] [address] [place] [address], [facility] CNFL [place] [address] * Pathology CADWORX PIPING DESIGNER Cytology (09/12/2017 12:00 AM CDT) PATHOLOGY CADWORX PIPING DESIGNER CYTOLOGY Patient Name: CORA STEINER MR#: [id number] Submitting Physician: TESSA SNELL MD ??[id number] Specimen #[id number] Performing Lab: ??[facility] [place] ? [address] [place] [address] CLINICAL HISTORY: Last menstrual period: Status: Does [...] and false-positive results have been experienced. JIGAR GALVANU HALIMA Thin Prep Vial (Cervix/Endocervi x) 09/12/2017 09/12/2017 Tessa Melendez M.D. LAB PAP C OPATH ORDERABLES Performing Organization Address City/[facility]/ZIP Co de Phone Number JIGAR VARGHESE [address] [place] [address] * Colonoscopy (01/12/2016 1:27 PM CDT) 01/12/2016 1:27 PM CDT Alana Rojo P.A.-C., M.S. GI PROC MARLENA ORDERABLES [facility] [address] [place] [address] from Last 3 Months or Most Recently Relevant to Health Maintenance Care Teams Hl7 Developer Relationship Specialty Start Date End Date Tessa Snell M.D. [address] [place] [address] PCP - General 10/13/16
--- OUTSIDE RECORDS SUMMARY | 2023-08-18 21:30 | XMS_ITS | Referral Summary ---
Author Name Unknown Organization [facility] Address [address] [place] [address] Care Team Providers Care Upholstery Department Supervisor Name Role Phone Bette Snell M.D. Primary Care Pro vider Source Comments Patient records contain information from all sites at [facility]. For routine questions regarding patient records, call [phone] during business hours, M-F 8:00 AM - 5:00 PM Central Time. Record requests for emergency care only can be directed to [phone] at any time.[facility] Allergies No known active allergies Medications [...] Overview: Added automatically from request for surgery [id number] Cholecystitis Acute 08/27/2021 01/22/20 Examination Other N [...] often do you attend chur ch or zoroastrian services? 1 to 4 times per year 01/21/2022 Do you belong to any clubs o r organizations such as jainism groups, unions, fraternal or athletic groups, or [...] Answer Date Recorded PHQ-2 Score 6 07/18/2022 [facility] - [...] place to sleep or slept in a snf (including now)? No 01/21/2022 Depression Answer Date [...] Comments Blood Pressure 133/106 04/17/2023 9:00 PM STRICKLER ATTENDANT Pulse 79 04/17/2023 9:15 PM STRICKLER ATTENDANT Temperature 37 ??C (98.6 ??F) 04/17/2023 8:28 PM STRICKLER ATTENDANT Respiratory Rate 17 04/17/2023 8:28 PM STRICKLER ATTENDANT Oxygen Saturation 96% 04/17/2023 9:15 PM STRICKLER ATTENDANT Inhaled Oxygen Concentration - - Weight 126 kg (278 lb 7.1 oz) 04/17/2023 8:30 PM STRICKLER ATTENDANT Height 167.6 cm (5' 6) 06/28/2022 6:36 PM STRICKLER ATTENDANT Body Mass Index 44.94 06/28/2022 6:36 PM STRICKLER ATTENDANT Plan of Treatment Not on file Medical Devices Implanted Type Area Manager Study Device Identifier Shelf Expiration Date Model / Serial / Lot Clp Apr End Intnl Endo 5x11 - [id number] Implanted:Qty: 1 on 08/27/2021 by Gurvinder Goodrich M.D., Ph.D. at [facility] Hardware e.g. pins/screws /rods N/A: Abdomen Medtronic [id number] / / Maame Vincent Lg - [id number] Implanted:Qty: 1 on 08/27/2021 by Gurvinder Goodrich M.D., Ph.D. at [facility] Hardware e.g. pins/screws /rods N/A: Abdomen Teleflex LLC [id number] 01/24/2026 [id number] / / [id number] Maame Vincent Md - [id number] Implanted:Qty: 1 on 08/27/2021 by Gurvinder Goodrich M.D., Ph.D. at [facility] Hardware e.g. pins/screws /rods N/A: Abdomen Teleflex [employer] [id number] 02/01/2026 [id number] / / [id number] Conversions - Default Historical Implant Device Implanted:08/29 (Quantity not on file) Urologic Other Arm Description:Device Status Te xt - UrologOth. control implant in the left bicep. Procedures Procedure Name Priority Date/Time Associated Diagnosis Comments LIPID PANEL, S Routine 06/28/2022 8:09 PM STRICKLER ATTENDANT Screening Lipid PATHOLOGY POLICY CHANGE CLERK CYTOLOGY Routine 09/12/2017 12:00 AM CDT Pap Smear Examination COLONOSCOPY Routine 01/12/2016 1:27 PM CDT from Last 3 Months or Most Recently Relevant to Health Maintenance Results * (ABNORMAL) Lipid Panel (06/28/2022 8:09 PM STRICKLER ATTENDANT) Triglycerides 310(H) mg/dL 06/28/2022 8:39 PM STRICKLER ATTENDANT CNFL Comment: ----REFERENCE VALUE---- Normal: <150 mg/dL Borderline High: 150-199 mg/dL High: 200-499 mg/dL Very High: > or =500 mg/dL Cholesterol, Total 183 mg/dL 2022 8:39 PM STRICKLER ATTENDANT CNFL Comment: ----REFERENCE VALUE---- Desirable: < 200 mg/dL Borderline High: 200 - 239 mg/dL High: > or = 240 mg/dL Cholesterol, LDL, Calculated 87 mg/dL 06/28/2022 8:39 PM STRICKLER ATTENDANT CNFL Comment: ----REFERENCE VALUE---- Desirable: <100 mg/dL Above Desirable: 100-129 mg/dL Borderline High: 130-159 mg/dL High: 160-189 mg/dL Very High: >=190 mg/dL ----ADDITIONAL INFORMATION---- LDL cholesterol calculated using the Iqbal/NIH equation. Cholesterol, HDL 45(L) >=50 mg/dL 06/28/19 8:39 PM STRICKLER ATTENDANT CNFL Cholesterol, Non-HDL, Calculated 138 mg/dL 06/28/2022 8:39 PM STRICKLER ATTENDANT CNFL Comment: ----REFERENCE VALUE---- Desirable: <130 mg/dL Above Desirable: 130-159 mg/dL Borderline High: 160-189 mg/dL High: 190-219 mg/dL Very High: > or =220 mg/dL Fasting (8 HR or more) Yes 06/28/2022 8:10 PM STRICKLER ATTENDANT CNFL Blood (Blood, Venous) 06/28/2022 8:09 PM STRICKLER ATTENDANT 06/28/2022 8:10 PM STRICKLER ATTENDANT Bette Melendez M.D. LAB BLOOD ADD-ON Performing Organization Address City/[facility]/ZIP Co de Phone Number [facility] [address] [place] [address], [facility] CNFL [facility] in [address] [address] * Pathology POLICY CHANGE CLERK Cytology (09/12/2017 12:00 AM CDT) PATHOLOGY POLICY CHANGE CLERK CYTOLOGY Patient Name: CORA STEINER MR#: [id number] Submitting Physician: BETTE SNELL MD ??[id number] Specimen #[id number] Performing Lab: ??[facility] ? [address] [place] [address] CLINICAL HISTORY: Last menstrual period: Status: Does [...] false-negative and false-positive results have been experienced. [facility] Thin Prep Vial (Cervix/Endocervi x) 09/12/2017 09/12/2017 Bette Melendez M.D. LAB PAP C OPATH ORDERABLES Performing Organization Address City/[facility]/ZIP Co de Phone Number [facility] [address] [facility] [place] [address], [facility] * Colonoscopy (01/12/2016 1:27 PM CDT) 01/12/2016 1:27 PM CDT Alana Rojo P.A.-C., MKarlaS. GI PROC EDURE ORDERABLES [facility] [address] [id number], [facility] from Last 3 Months or Most Recently Relevant to Health Maintenance Care Teams Upholstery Department Supervisor Relationship Specialty Start Date End Date Bette Snell M.D. [address] [phone] PCP - General 10/13/16
--- OUTSIDE RECORDS SUMMARY | 2023-08-18 21:30 | XMS_ITS | Encounter Summary ---
Author Name Unknown Organization [facility] Address [address] [place] [address] Care Team Providers Care Footwear Machinery Instructor Name Role Phone Unavailable Primary Care Provider Unavailabl e Reason for Referral * Diagnostic Imaging Ultrasound (Routine) - Pending Review Specialty Diagnoses / Procedures Referred By Contac t Referred To Contact Radiology. Diagnoses related condition, antepartum Procedures MFM US Comprehensive Single Chanel Tate MD [facility] [address] [place] [address] Referral ID Status Reason Start Date Expiration Date V isits Requested Visits Authorized [id number] Pending Review 05/29/2023 05/28/2024 1 1 K TECHNICIAN * Consultation (Routine: Next available opening) - Pending Review Specialty Diagnoses / Procedures Referred By Contac t Referred To Contact Diagnoses related condition, antepartum Chanel Tate MD [facility] [address] [place] [address] [facility] [address] [place] [address] Referral ID Status Reason Start Date Expiration Date V isits Requested Visits Authorized [id number] Pending Review 05/29/2023 05/28/2024 1 1 Question Answer Preferred Location: [facility] [place] [facility] 11/20/2023 Ultrasound Comprehensive US (>than 18 weeks GA) US PROC NONE MFM Issue OTHER (enter details in Comments) - [place] meds & AMA HARPREET VITALE Consultation (unrelated to Ultrasound findings): No Inflammatory Bowel Disease Clinic: Joint MFM and GI Consultation: No Chronic Kidney Disease: Joint MFM and Nephrology Consultation No Genetic Counseling Consultation: No fax [facility] Chanel Tate [phone] Comments There is no height or weight [...] plan with any benefit or coverage questions. K TECHNICIAN Encounter Details Date Type Department Care Team (Late st Contact Info) Description 05/29/2023 Transcribe Orders [facility] [place] [address] [facility] [address] [place] [address] Chanel Tate MD [facility] [address] [place] [address] related condition, antepartum (Primary Dx) Social History [...] Sex Assigned at Female 06/03/2023 6:47 PM TRUCK TECHNICIAN Gender Identity Female 06/03/2023 6:47 PM TRUCK TECHNICIAN Sexual Orientation Straight 06/03/2023 6: 47 PM TRUCK TECHNICIAN documented as of this encounter Plan of Treatment Scheduled Referrals Name Type Priority Associated Diagnoses Orde r Schedule Mat Med Ctr Referral - Referral Routine: Next available opening Related Condition, Antepartum Expected: 05/29/2023 (Approximate), Expires: 11/25/2023 documented as of this encounter Results * MFM US Comprehensive Single (06/19/2023 11:57 AM TRUCK TECHNICIAN) Anatomical Region Laterality Modality Ultrasound 06/19/2023 11:0 3 AM TRUCK TECHNICIAN Impressions 06/19/2023 1:54 PM TRUCK TECHNICIAN IMPRESSION ----- 1. Lanza intrauterine at 18w [...] long and closed. Narrative 06/19/2023 1:54 PM TRUCK TECHNICIAN ?Comprehensive ----- Pat. Name: CORA STEINER ? Study Date: ??06/19/2023 11:03am Pat. NO: ??[id number] ?Referring ??: CHANEL TATE Site: ??[facility] ? Water Valve Mechanic: Essence Gallegos RDMS : ??1990 ?Age: ?? [...] 0 lb 8 ?oz EFW by ?Hadlock ([id number]) Head / Face / Neck Biometry: Roustabout Crew Leader ? 7.2 ? mm CM ?4.4 ? [...] view. RVOT view. LVOT view. 3-vessel view. 4-lkhgpr-exhumfz view. Spine ?Sacral spine. The following structures [...] STEINER Study Date: 06/19/2023 11:03am Pat. NO: [id number] Referring MD: CHANEL TATE Site: [facility] Water Valve Mechanic: Essence Gallegos RDMS : 1990 Age: 33 [...] 0 lb 8 oz EFW by Hadlock ([id number]) Head / Face / Neck Biometry: Roustabout Crew Leader 7.2 mm CM 4.4 mm Nuchal fold [...] 4-chamber view. RVOT view. LVOT view.3-vessel view. 7-skcubn-kiwzxue view. Spine Sacral spine. The following structures [...]
--- OUTSIDE RECORDS SUMMARY | 2023-08-18 21:30 | XMS_ITS ---
Author Name Unknown Organization [facility] Address [address] [place] [address] Care Team Providers Care Manager Costing Name Role Phone Unavailable Unavailable Unavailable Surgery Details Not on file Complications Check Surgery Details section. Procedure Estimated Blood Loss Check Surgery Details section. Procedure Findings Check Surgery Details section. Procedure Specimens Taken Check Surgery Details section.
--- OUTSIDE RECORDS SUMMARY | 2023-08-18 21:30 | XMS_ITS | Encounter Summary ---
Author Name Unknown Organization [facility] Address [address] [place] [address] Care Team Providers Care Senior Communications Engineer Name Role Phone No Ref-Primary, Physician Primary Care Provider Reason for Referral * Consultation (Routine: Next available opening) - Pending Review Specialty Diagnoses / Procedures Referred By Anna t Referred To Contact Diagnoses related condition, antepartum Chanel Tate MD [facility] [address] [place] [address] Referral ID Status Reason Start Date Expiration Date V isits Requested Visits Authorized [id number] Pending Review 06/07/2023 06/06/2024 1 1 Question Answer OB Visit? No Post Visit No Cervical Dilator Placement No Cerclage Removal No MFM Consult Yes NICU Consult No Facing Baster Jumpbasting No Psychological Consult No Genetic Consult No CTG/NST No BHC No Nephrology Consult No GI Consult No NO FLOOR PERSON Encounter Details Date Type Department Care Team (Late st Contact Info) Description 06/07/2023 Transcribe Orders [facility] [place] [address] [facility] [address] [place] [address] Chanel Tate MD [facility] [address] [place] [address] related condition, antepartum (Primary Dx) [...] Sex Assigned at Female 06/03/2023 6:47 PM CASINO FLOOR PERSON Gender Identity Female 06/03/2023 6:47 PM CASINO FLOOR PERSON Sexual Orientation Straight 06/03/2023 6: 47 PM CASINO FLOOR PERSON documented as of this encounter Plan of Treatment Scheduled Referrals Name Type Priority Associated Diagnoses Orde r Schedule MFM Office Visit Referral Routine: Next available opening Related Condition, Antepartum Expected: 06/07/2023 (Approximate), Expires: 06/07/2024 documented as of this encounter Visit Diagnoses Diagnosis related condition, antepartum- Primary documented in this encounter Care Teams Senior Communications Engineer Relationship Specialty Start Date End Date No Ref-Primary, Physician PCP - General 06/07/23 documented as of this encounter
--- OUTSIDE RECORDS SUMMARY | 2023-08-18 21:30 | XMS_ITS | Encounter Summary ---
Author Name Unknown Organization [facility] Address [address] [place] [address]. [place] [address] Care Team Providers Care Manager Generation Name Role Phone Unavailable Primary Care Provider [facility] Encounter Details Date Type Department Care Team ([facility] Contact Info) Description 05/26/2023 Medical Correspondence [facility] [address] [place] [phone] Scan, Non-Provider Social History Tobacco Use Types Packs/Day Years Used Date Smoking Tobacco: Never Smokeless Tobacco: Never Alcohol Use Standard Drinks/Week Comments No 0 (1 standard drink = 0.6 oz pur e alcohol) Adolescent Education Answer Date Record ed Getting School Help Needed Not on file 05/29 Sex and Gender Information Value Date Recorded Sex Assigned at Female 06/03/2023 6:47 PM MATERIAL HANDLING CREW SUPERVISOR Gender Identity Female 06/03/2023 6:47 PM MATERIAL HANDLING CREW SUPERVISOR Sexual Orientation Straight 06/03/2023 6: 47 PM MATERIAL HANDLING CREW SUPERVISOR documented as of this encounter Plan of Treatment Not on file documented as of this encounter Visit Diagnoses Not on filedocumented in this encounter
[2023-08-18 21:34] VITALS: BP 132/61; PULSE 70; RESP 16; TEMP 36.7
[2023-08-18] MEDS: BETAMETHASONE SOD PHOS/ACETATE 6 MG/ML ML 12 MG IM (21:35)
== END 2023-08-18 21:45 | disposition home or self-care (01) ==
LOC: OB CLI 21:27 → OB 21:28
PROVIDERS: Visit Provider Obstetrics & Gynecology
DX: O20.9 Hemorrhage in early pregnancy, unspecified (principal)
CPT/HCPCS: G0463; J0702

== ENCOUNTER 2023-08-24 12:26 | Outpatient (CLI) | payer BC, OTHER, SELFPAY ==
--- OUTSIDE RECORDS SUMMARY | 2023-08-24 12:30 | XMS_ITS | Clinical Summary ---
Author Name Unknown Organization [place] Address [address] [place] [address] Care Team Providers Care Living Advisor Name Role Phone No Ref-Primary, Physician Primary [...] Description 07/11/2023 8:30 AM CDT Office Visit [facility] [place] [address] [place] [address] Ingrid Washington MD Jones, Cresta Wedel, MD Maternal hypertension syndrome, second trimester (Primary Dx) 07/11/2023 8:00 AM CDT - 07/11/2023 11:59 PM CDT Hospital Encounter [facility] [place] [address] [place] [phone] Ingrid Washington MD Jones, Cresta Wedel, MD Encounter for follow-up ultrasound of anatomy Discharge Disposition: Home or Self Care 07/11/2023 Travel 07/04/2023 Travel 06/19/2023 11:45 AM ELECTRONICS TECH Office Visit [facility] [place] [address] [facility] [address] [place] [phone] Ingrid Washington MD Encounter for follow-up ultrasound of anatomy (Primary Dx); related condition, antepartum; Chronic hypertension affecting ; Ulcerative colitis with complication, unspecified location (H) 06/19/2023 11:00 AM ELECTRONICS TECH - 06/19/2023 11:59 PM ELECTRONICS TECH Hospital Encounter [facility] Medicine [place] [address] [place] [phone] Ingrid Washington MD related condition, antepartum Discharge Disposition: Home or Self Care 06/19/2023 Travel 06/07/2023 Transcribe Orders [facility] [place] [address] [facility] [address] [place] [phone] Chanel Tate MD related condition, antepartum (Primary Dx) 06/07/2023 PRE VISIT [facility] [place] [address] [facility] [address] [place] [phone] Heidi Ramey RN Ultrasound (L2-CHTN, AMA, BMI>40, Ulcerative Colitis) 05/29/[address] [facility] [address] [facility] [phone] Scan, Non-Provider 05/29/2023 Transcribe Orders [facility] Medicine [place] [address] [facility] [address] [place] [phone] Chanel Tate MD related condition, antepartum (Primary Dx) 05/26/2023 Medical Correspondence [facility] Info Mgmt [facility] [address] [facility] [place] [address] Scan, Non-Provider from Last 3 Months [...] Sex Assigned at Female 06/03/2023 6:47 PM ELECTRONICS TECH Gender Identity Female 06/03/2023 6:47 PM ELECTRONICS TECH Sexual Orientation Straight 06/03/2023 6: 47 PM ELECTRONICS TECH Last Filed Vital Signs Vital Sign Reading Time Taken Comments Blood Pressure 139/83 06/19/2023 12:21 PM ELECTRONICS TECH Pulse 85 06/19/2023 12:21 PM ELECTRONICS TECH Temperature 36.4 ??C (97.5 ??F) 10/21/2014 11:40 AM C DT Respiratory Rate 14 10/21/2014 11:40 AM CDT Oxygen Saturation 98% 06/19/2023 12:21 PM ELECTRONICS TECH Inhaled Oxygen Concentration - - Weight 128 [...] Procedure Name Priority Date/Time Associated Diagnosis Comments [facility] US COMPREHENSIVE SINGLE F/U Routine 07/11/2023 8:50 AM CDT Encounter for follow-up ultrasound of anatomy [facility] US COMPREHENSIVE SINGLE Routine 06/19/2023 11:57 AM ELECTRONICS TECH related condition, antepartum GLUCOSE BY METER Routine 10/21/2014 6:20 AM CDT HCL PAP SMEAR Routine 09/23/1998 1:18 PM CDT Gynecologic Examination from Last 3 Months or Most Recently Relevant to Health Maintenance Results * [facility] US Comprehensive Single F/U (07/11/2023 8:50 [...] ? Study Date: ??07/11/2023 7:58am Pat. NO: ??[id number] ?Referring ??: CHANEL TATE Site: [facility] ? Registered Travel Nurse: Jhoana Bradley RDMS : ??1990 ?Age: ?? [...] lb 14 ? oz EFW by ?Hadlock ([id number]-OB-OH-FL) Head / Face / Neck Biometry: Parking Patroller ? 5.9 ? mm CM ?5.6 ? mm Nasal bone ? 7.0 ? mm ANATOMY ----- The following structures appear normal: Head / Neck ? Cranium. Head size. Head shape. Lateral ventricles. Midline falx. Cavum septi pellucidi. Cerebellum. Cisterna magna. Thalami. Face ? Lips. Profile. Nose. Maxilla. Mandible. Heart / Thorax ?4-chamber view. RVOT view. LVOT view. Ductal arch view. 3-vessel view. 8-cffrkq-hjslhdw view. ? Diaphragm. Abdomen ? Cord insertion. [...] daily. Further ultrasound studies are anticipated in [place] and should include: 1. Growth every 4 [...] STEINER Study Date: 07/11/2023 7:58am Pat. NO: [id number] Referring MD: CHANEL TATE Site: [facility] Registered Travel Nurse: Jhoana Bradley RDMS : 1990 Age: 33 [...] 0 lb 14 oz EFW by Rupal ([id number]-FL) Head / Face / Neck Biometry: Parking Patroller 5.9 mm CM 5.6 mm Nasal bone 7.0 mm ANATOMY ----- The following structures appear normal: Head / Neck Cranium. Head size. Head shape.Lateral ventricles. Midline falx. Cavum septi pellucidi. Cerebellum.Cisterna magna. Thalami. Face Lips. Profile. Nose. Maxilla.Mandible. Heart / Thorax 4-chamber view. RVOT view. LVOT view.Ductal arch view. 3-vessel view. 8-czaeee-srmdzav view. Diaphragm. Abdomen Cord insertion. Stomach. Kidneys.Bladder. [...] daily. Further ultrasound studies are anticipated in [place] and shouldinclude: 1. Growth every 4 weeks [...] placenta, no evidence of previa. Ingrid RUFFIN [facility] US ORDERABLE S * [facility] US Comprehensive Single (06/19/2023 11:57 AM ELECTRONICS TECH) Anatomical Region Laterality Modality Ultrasound 06/19/2023 11:0 3 AM ELECTRONICS TECH Impressions 06/19/2023 1:54 PM ELECTRONICS TECH IMPRESSION ----- 1. Lanza intrauterine at 18w [...] long and closed. Narrative 06/19/2023 1:54 PM ELECTRONICS TECH ?Comprehensive ----- Pat. Name: CORA STEINER ? Study Date: ??06/19/2023 11:03am Pat. NO: ??[id number] ?Referring ??MD: CHANEL TATE Site: ??[facility] ? Registered Travel Nurse: Essence Gallegos RDMS : ??1990 ?Age: ?? [...] ? 0 lb 8 ?oz EFW by ?[facility] (BIZ-EY-FD-FL) Head / Face / Neck Biometry: Parking Patroller ? 7.2 ? mm CM ?4.4 ? [...] view. RVOT view. LVOT view. 3-vessel view. 8-plwrdu-nmsqgha view. Spine ?Sacral spine. The following structures [...] STEINER Study Date: 06/19/2023 11:03am Pat. NO: [id number] Referring MD: CHANEL TATE Site: [facility] Registered Travel Nurse: Essence Gallegos RDMS : 1990 Age: 33 [...] 0 lb 8 oz EFW by Hadlock ([id number]-YH-NO-FL) Head / Face / Neck Biometry: Parking Patroller 7.2 mm CM 4.4 mm Nuchal fold [...] 4-chamber view. RVOT view. LVOT view.3-vessel view. 1-zhzisb-sdlsudj view. Spine Sacral spine. The following structures [...] long and closed. Chanel Tate MD G [facility] US ORDERAB LES * (ABNORMAL) Glucose by meter (10/21/2014 6:20 AM CDT) Glucose 103(H) 70 - 99 mg/dL POINT OF CARE TEST, GLUCOSE 10/21/2014 6:20 AM CDT 10/21/2014 6:25 AM CDT Lianna GUTIERREZ POCT Performing Organization Address City/[facility]/ZIP Co de Phone Number POINT OF CARE TEST, GLUCOSE * PAP SMEAR (09/23/1998 1:18 PM CDT) Unlabelled DNR [facility] Biopsy Sent DNR [facility] Source VAG,CERV,E NDOCERV [facility] LMP POST [facility] PARA 3 [facility] 2 [facility] Clinical History DNR [facility] Therapy DNR [facility] Last Pap Diagnosis WITHIN NORMAL LIMITS [facility] PAP Date [id number] [facility] Specimen # DNR [facility] Tissue DNR [facility] Tissue Date DNR [facility] Statement of Adequacy [facility] Comment: SATISFACTORY FOR INTERPRETATION POST MENOPAUSAL PATIENT. ??NO ENDOCERVICAL CELLS SEEN. General Categorization DNR [facility] Descriptive Diagnosis [facility] Comment: WITHIN NORMAL LIMITS ATROPHIC CELL PATTERN Recommendations DNR [facility] DNR 114,,,,,, [facility] DNR DNR [facility] DNR DNR [facility] DNR DNR [facility] . [facility] Comment: ?PAP SMEARS ARE SUBJECT TO BOTH FALSE NEGATIVE AND FALSE ? POSITIVE RESULTS EVIDENCED BY DATA PUBLISHED IN THE ? MEDICAL LITERATURE. ??YOUR PATIENT'S RESULT SHOULD BE ? INTERPRETED IN THIS CONTEXT, TOGETHER WITH THE PATIENT'S ? HISTORY AND CLINICAL FINDINGS. TESTING LOCATION ? THIS TEST WAS PERFORMED AT [facility] ? [address] [facility]. [address] ? PHONE NUMBERS FOR CYTOLOGY INQUIRES, INCLUDING SLIDE REQUESTS ? EXT. [id number] ?? EXT. [id number] 09/21/1998 Kimberley Fu MD LABORATORY Performing Organization Address City/[facility]/ZIP Co de Phone Number [facility] from Last 3 Months or Most Recently Relevant to Health Maintenance Care Teams Living Advisor Relationship Specialty Start Date End Date No Ref-Primary, Physician PCP - General 06/07/23
--- OUTSIDE RECORDS SUMMARY | 2023-08-24 12:31 | XMS_ITS | Encounter Summary ---
Author Name Unknown Organization [place] Address [address] [place] [address] Care Team Providers Care School Physical Therapist Name Role Phone No Ref-Primary, Physician Primary [...] Sex Assigned at Female 06/03/2023 6:47 PM LABORATORY MANAGER Gender Identity Female 06/03/2023 6:47 PM LABORATORY MANAGER Sexual Orientation Straight 06/03/2023 6: 47 PM LABORATORY MANAGER documented as of this encounter Plan of Treatment Not on file documented as of this encounter Visit Diagnoses Not on filedocumented in this encounter Care Teams School Physical Therapist Relationship Specialty Start Date End Date No Ref-Primary, Physician PCP - General 06/07/23 documented as of this encounter
--- OUTSIDE RECORDS SUMMARY | 2023-08-24 12:31 | XMS_ITS | Encounter Summary ---
Author Name Unknown Organization [place] Address [address] [place] [address] Care Team Providers Care Commercial Engineer Name Role Phone No Ref-Primary, Physician Primary Care Provider Reason for Referral * Diagnostic Imaging Ultrasound (Routine) - Pending Review Specialty Diagnoses / Procedures Referred By Contac t Referred To Contact Radiology. Diagnoses Encounter for follow-up ultrasound of anatomy Procedures [facility] US Comprehensive Single F/U Ingrid Washington MD [address] [place] [address] Referral ID Status Reason Start Date Expiration Date V isits Requested Visits Authorized [id number] Pending Review 06/19/2023 06/18/2024 1 1 ET TEACHER Reason for Visit * Reason Comments Ultrasound L2-CHTN, AMA, Ulcera tive Colitis, BMI >40 Consult [facility] consult-CHTN, AM A, Ulcerative Colitis, BMI >40 * Consultation (Routine: Next available opening) - Pending Review Specialty Diagnoses / Procedures Referred By Contac t Referred To Contact Diagnoses related condition, antepartum Chanel Tate MD [facility] [address] [place] [address] Referral ID Status Reason Start Date Expiration Date V isits Requested Visits Authorized [id number] Pending Review 06/07/2023 06/06/2024 1 1 Encounter Details Date Type Department Care Team (Late st Contact Info) Description 06/19/2023 11:45 AM BALLET TEACHER Office Visit [facility] [place] [address] [place] [address] Ingrid Washington MD [address] [place] [address] [address] [place] [address] Encounter for follow-up ultrasound of [...] Sex Assigned at Female 06/03/2023 6:47 PM BALLET TEACHER Gender Identity Female 06/03/2023 6:47 PM BALLET TEACHER Sexual Orientation Straight 06/03/2023 6: 47 PM BALLET TEACHER documented as of this encounter Last Filed Vital Signs Vital Sign Reading Time Taken Comments Blood Pressure 139/83 06/19/2023 12:21 PM BALLET TEACHER Pulse 85 06/19/2023 12:21 PM BALLET TEACHER Temperature - - Respiratory Rate - - Oxygen Saturation 98% 06/19/2023 12:21 PM BALLET TEACHER Inhaled Oxygen Concentration - - Weight - - Height - - Body Mass Index - - documented in this encounter Progress Notes * Ingrid Washington MD - 06/19/2023 11:45 AM CST Please see Imaging tab under Chart Review for details of today's visit. Ingrid Washington ET TEACHER * Ingrid Washington MD - 06/19/2023 11:45 [...] as prior). She follows closely with her highway traffic control technician Dr. Julio César Song. She plans to [...] Medication Sig Last Dose Taking? Auth Provider Candy Wrapping Machine Operator End Date adalimumab (HUMIRA) 40 MG/0.8ML syr kit Inject 40 mg Subcutaneous every 14 days Reported, Patient Yes amoxicillin (AMOXIL) 500 MG capsule Take 1 capsule (500 mg) by mouth 3 times daily Moca, Lianna A, DDS Fexofenadine HCl (RAMON PO) [...] medical record, and communicating with other health post anesthesia care unit nurse and/or care coordination. Ingrid Washington MD Maternal Medicine 06/19/2023 2:13 PM ET TEACHER documented in this encounter Nursing Notes * Rebeca Gillis RN - 06/19/2023 11:45 AM CST Patient presents to [facility] for L2 at 18w0d due to CHTN, AMA, Ulcerative Colitis, BMI >40. Positive movement. Denies LOF, vaginal bleeding or cramping/contractions. SBAR given to [facility] , see their note in Epic. ET TEACHER documented in this encounter Plan of Treatment [...] ? Study Date: ??07/11/2023 7:58am Pat. NO: ??[id number] ?Referring ??MD: CHANEL TATE Site: ??[facility] ? Gallery Or Museum Curator: Jhoana Bradley RDMS : ??1990 ?Age: ?? [...] lb 14 ? oz EFW by ?Hadlock (RON-QZ-LB-FL) Head / Face / Neck Biometry: Enterprise Services Manager ? 5.9 ? mm CM ?5.6 ? mm Nasal bone ? 7.0 ? mm ANATOMY ----- The following structures appear normal: Head / Neck ? Cranium. Head size. Head shape. Lateral ventricles. Midline falx. Cavum septi pellucidi. Cerebellum. Cisterna magna. Thalami. Face ? Lips. Profile. Nose. Maxilla. Mandible. Heart / Thorax ?4-chamber view. RVOT view. LVOT view. Ductal arch view. 3-vessel view. 4-ldcftn-wzbghwp view. ? Diaphragm. Abdomen ? Cord insertion. [...] daily. Further ultrasound studies are anticipated in [place] and should include: 1. Growth every 4 [...] STEINER Study Date: 07/11/2023 7:58am Pat. NO: [id number] Referring MD: CHANEL TATE Site: [facility] Gallery Or Museum Curator: Jhoana Bradley RDMS : 1990 Age: 33 [...] 0 lb 14 oz EFW by Hadlock (ADE-GL-[id number]-FL) Head / Face / Neck Biometry: Enterprise Services Manager 5.9 mm CM 5.6 mm Nasal bone 7.0 mm ANATOMY ----- The following structures appear normal: Head / Neck Cranium. Head size. Head shape.Lateral ventricles. Midline falx. Cavum septi pellucidi. Cerebellum.Cisterna magna. Thalami. Face Lips. Profile. Nose. Maxilla.Mandible. Heart / Thorax 4-chamber view. RVOT view. LVOT view.Ductal arch view. 3-vessel view. 6-jzkuzy-hoxxeyz view. Diaphragm. Abdomen Cord insertion. Stomach. Kidneys.Bladder. [...] daily. Further ultrasound studies are anticipated in [place] and shouldinclude: 1. Growth every 4 weeks [...] no evidence of previa. Ingrid [facility] MD [facility] documented in this encounter Visit Diagnoses Diagnosis Encounter for follow-up ultrasound of anatomy- Primary related condition, antepartum Chronic hypertension affecting Ulcerative colitis with complication, unspecified location (H) Encounter for follow-up ultrasound of anatomy documented in this encounter Care Teams Commercial Engineer Relationship Specialty Start Date End Date No Ref-Primary, Physician PCP - General 06/07/23 documented as of this encounter
--- OUTSIDE RECORDS SUMMARY | 2023-08-24 12:31 | XMS_ITS | Encounter Summary ---
Author Name Unknown Organization [place] Address [address] [place] [address]. [place] [address] Care Team Providers Care Cuff Matcher Name Role Phone No Ref-Primary, Physician Primary Care Provider Reason for Visit * Reason Comments Ultrasound L2-CHTN, AMA, BMI>40 , Ulcerative Colitis Encounter Details Date Type Department Care Team (Late st Contact Info) Description 06/07/2023 PRE VISIT [facility] M[facility] Medicine [facility] [place] [address] [facility] [address] [place] [address] Heidi Ramey RN Ultrasound (L2-CHTN, [...] Sex Assigned at Female 06/03/2023 6:47 PM MAIL PROCESSING CLERK Gender Identity Female 06/03/2023 6:47 PM MAIL PROCESSING CLERK Sexual Orientation Straight 06/03/2023 6: 47 PM MAIL PROCESSING CLERK documented as of this encounter Plan of Treatment Not on file documented as of this encounter Visit Diagnoses Not on filedocumented in this encounter Care Teams Cuff Matcher Relationship Specialty Start Date End Date No Ref-Primary, Physician PCP - General 06/07/23 documented as of this encounter
--- OUTSIDE RECORDS SUMMARY | 2023-08-24 12:31 | XMS_ITS | Encounter Summary ---
Author Name Unknown Organization [place] Address [address] [place] [address]. [place] [address] Care Team Providers Care Mold Engraver Name Role Phone Unavailable [facility] Encounter Details Date Type Department Care Team ([facility] Contact Info) Description 05/29/[address] [facility] Info [place] [address] [place] [phone] Scan, Non-Provider Social History Tobacco Use Types Packs/Day Years Used Date Smoking Tobacco: Never Smokeless Tobacco: Never Alcohol Use Standard Drinks/Week Comments No 0 (1 standard drink = 0.6 oz pur e alcohol) Adolescent Education Answer Date Record ed Getting School Help Needed Not on file 05/29 Sex and Gender Information Value Date Recorded Sex Assigned at Female 06/03/2023 6:47 PM TRAINMAN Gender Identity Female 06/03/2023 6:47 PM TRAINMAN Sexual Orientation Straight 06/03/2023 6: 47 PM TRAINMAN documented as of this encounter Plan of Treatment Not on file documented as of this encounter Visit Diagnoses Not on filedocumented in this encounter
--- OUTSIDE RECORDS SUMMARY | 2023-08-24 12:31 | XMS_ITS | Encounter Summary ---
Author Name Unknown Organization [place] Address [address] [place] [address] Care Team Providers Care Pole Sander Operator Name Role Phone Unavailable Primary Care Provider Unavailabl e Reason for Referral * Diagnostic Imaging Ultrasound (Routine) - Pending Review Specialty Diagnoses / Procedures Referred By Contac t Referred To Contact Radiology. Diagnoses related condition, antepartum Procedures [facility] US Comprehensive Single Chanel Tate MD [facility] [address] [place] [address] Referral ID Status Reason Start Date Expiration Date V isits Requested Visits Authorized [id number] Pending Review 05/29/2023 05/28/2024 1 1 TION AND MEASUREMENT TECHNICIAN * Consultation (Routine: Next available opening) - Pending Review Specialty Diagnoses / Procedures Referred By Contac t Referred To Contact Diagnoses related condition, antepartum Chanel Tate MD [facility] [address] [place] [address] [facility]aternal [facility] [address] [place] [address] Referral ID Status Reason Start Date Expiration Date V isits Requested Visits Authorized [id number] Pending Review 05/29/2023 05/28/2024 1 1 Question Answer Preferred Location: [facility] [place] 11/20/2023 Ultrasound Comprehensive US (>than 18 weeks [place]) US PROC NONE MFM Issue OTHER (enter details in Comments) - [place] meds & AMA [facility]PRE[facility] Consultation (unrelated to Ultrasound findings): No Inflammatory Bowel Disease Clinic: Joint MFM and GI Consultation: No Chronic Kidney Disease: Joint MFM and Nephrology Consultation No Genetic Counseling Consultation: No fax [facility] Chanel Tate [phone] Comments There is no height or weight [...] plan with any benefit or coverage questions. TION AND MEASUREMENT TECHNICIAN Encounter Details Date Type Department Care Team (Late st Contact Info) Description 05/29/2023 Transcribe Orders [facility] M[facility] [place] [address] [facility] [address] [place] [address] Chanel Tate MD [facility] [address] [place] [address] related condition, antepartum (Primary Dx) Social History [...] Sex Assigned at Female 06/03/2023 6:47 PM LOCATION AND MEASUREMENT TECHNICIAN Gender Identity Female 06/03/2023 6:47 PM LOCATION AND MEASUREMENT TECHNICIAN Sexual Orientation Straight 06/03/2023 6: 47 PM LOCATION AND MEASUREMENT TECHNICIAN documented as of this encounter Plan of Treatment Scheduled Referrals Name Type Priority Associated Diagnoses Orde r Schedule Mat Med Ctr Referral - Referral Routine: Next available opening Related Condition, Antepartum Expected: 05/29/2023 (Approximate), Expires: 11/25/2023 documented as of this encounter Results * [facility] US Comprehensive Single (06/19/2023 11:57 AM LOCATION AND MEASUREMENT TECHNICIAN) Anatomical Region Laterality Modality Ultrasound 06/19/2023 11:0 3 AM LOCATION AND MEASUREMENT TECHNICIAN Impressions 06/19/2023 1:54 PM LOCATION AND MEASUREMENT TECHNICIAN IMPRESSION ----- 1. Lanza intrauterine at [...] long and closed. Narrative 06/19/2023 1:54 PM LOCATION AND MEASUREMENT TECHNICIAN ?Comprehensive ----- Pat. Name: CORA STEINER ? Study Date: ??06/19/2023 11:03am Pat. NO: ??[id number] ?Referring ??: CHANEL TATE Site: ??[facility] ? Boomswing Operator: Essence Gallegos RDMS : ??1990 ?Age: [...] 0 lb 8 ?oz EFW by ?Hadlock ([id number]-FL) Head / Face / Neck Biometry: Labor Relations Director ? 7.2 ? mm CM ?4.4 [...] view. RVOT view. LVOT view. 3-vessel view. 3-gfbnxj-nguusfi view. Spine ?Sacral spine. The following structures [...] STEINER Study Date: 06/19/2023 11:03am Pat. NO: [id number] Referring MD: CHANEL TATE Site: [facility] Boomswing Operator: Essence Gallegos RDMS : 1990 Age: [...] 0 lb 8 oz EFW by Hadlock ([id number]-WH-MF-FL) Head / Face / Neck Biometry: Labor Relations Director 7.2 mm CM 4.4 mm Nuchal [...] 4-chamber view. RVOT view. LVOT view.3-vessel view. 7-jhkekd-lmytkja view. Spine Sacral spine. The following structures [...]
--- OUTSIDE RECORDS SUMMARY | 2023-08-24 12:31 | XMS_ITS | Encounter Summary ---
Author Name Unknown Organization [place] Address [address] [place] [address] Care Team Providers Care Sales Representative [employer] Name Role Phone No Ref-Primary, Physician Primary [...] Sex Assigned at Female 06/03/2023 6:47 PM VARNISH BLENDER Gender Identity Female 06/03/2023 6:47 PM VARNISH BLENDER Sexual Orientation Straight 06/03/2023 6: 47 PM VARNISH BLENDER documented as of this encounter Plan of Treatment Not on file documented as of this encounter Visit Diagnoses Not on filedocumented in this encounter Care Teams Sales Representative [employer] Relationship Specialty Start Date End Date No Ref-Primary, Physician PCP - General 06/07/23 documented as of this encounter
--- OUTSIDE RECORDS SUMMARY | 2023-08-24 12:31 | XMS_ITS | Encounter Summary ---
Author Name Unknown Organization [facility] Address [address] [place] [address] Care Team Providers Care House Supervisor Name Role Phone No Ref-Primary, Physician Primary Care Provider Reason for Referral * Diagnostic Imaging Ultrasound (Routine) - Pending Review Specialty Diagnoses / Procedures Referred By Contac t Referred To Contact Radiology. Diagnoses Encounter for follow-up ultrasound of anatomy Procedures [facility] US Comprehensive Single F/U Ingrid Washington MD [address] [place] [address] Referral ID Status Reason Start Date Expiration Date V isits Requested Visits Authorized [id number] Pending Review 06/19/2023 06/18/2024 1 1 Reason for Visit * Diagnostic Imaging Ultrasound (Routine) - Pending Review Specialty Diagnoses / Procedures Referred By Contac t Referred To Contact Radiology. Diagnoses Encounter for follow-up ultrasound of anatomy Procedures [facility] US Comprehensive Single F/U Ingrid Washington MD [address] [facility] [facility] [address] [place] [address] Referral ID Status Reason Start Date Expiration Date V isits Requested Visits Authorized Pending Review 06/19/2023 06/18/2024 1 1 Encounter Details Date Type Department Care Team (Latest Contact Info) Description 07/11/2023 8:00 AM CDT - 07/11/2023 11:59 PM CDT Hospital Encounter [facility] [place] [address] [facility] [facility] [address] [place] [address] Ingrid Washington MD [address] [place] [address] Codie Leroy MD [address] [place] [address] Encounter for follow-up ultrasound of [...] Sex Assigned at Female 06/03/2023 6:47 PM BRIDGE WORKER Gender Identity Female 06/03/2023 6:47 PM BRIDGE WORKER Sexual Orientation Straight 06/03/2023 6: 47 PM BRIDGE WORKER documented as of this encounter Medications [...] anatomy documented in this encounter Results * [facility] US Comprehensive Single F/U (07/11/2023 8:50 [...] ? Study Date: ??07/11/2023 7:58am Pat. NO: ??[id number] ?Referring ??MD: MARII SHARMA Site: ??[facility] ? Manufacturing Lab Technician: Jhoana Bradley [facility] : ??1990 ?Age: ?? 33 [...] lb 14 ? oz EFW by ?Hadlock ([id number]-[id number]-FL) Head / Face / Neck Biometry: Grinder Needle Tip ? 5.9 ? mm CM ?5.6 ? mm Nasal bone ? 7.0 ? mm ANATOMY ----- The following structures appear normal: Head / Neck ? Cranium. Head size. Head shape. Lateral ventricles. Midline falx. Cavum septi pellucidi. Cerebellum. Cisterna magna. Thalami. Face ? Lips. Profile. Nose. Maxilla. Mandible. Heart / Thorax ?4-chamber view. RVOT view. LVOT view. Ductal arch view. 3-vessel view. 3-fhjlfd-zfsldky view. ? Diaphragm. Abdomen ? Cord insertion. [...] daily. Further ultrasound studies are anticipated in [place] and should include: 1. Growth every 4 [...] STEINER Study Date: 07/11/2023 7:58am Pat. NO: [id number] Referring MD: MARII SHARMA Site: [facility] Manufacturing Lab Technician: Jhoana BradleyALEK : 1990 Age: 33 ----- [...] 0 lb 14 oz EFW by Hadlock ([id number]-FL) Head / Face / Neck Biometry: Grinder Needle Tip 5.9 mm CM 5.6 mm Nasal bone 7.0 mm ANATOMY ----- The following structures appear normal: Head / Neck Cranium. Head size. Head shape.Lateral ventricles. Midline falx. Cavum septi pellucidi. Cerebellum.Cisterna magna. Thalami. Face Lips. Profile. Nose. Maxilla.Mandible. Heart / Thorax 4-chamber view. RVOT view. LVOT view.Ductal arch view. 3-vessel view. 7-uizees-cjgbhjz view. Diaphragm. Abdomen Cord insertion. Stomach. Kidneys.Bladder. [...] daily. Further ultrasound studies are anticipated in [place] and shouldinclude: 1. Growth every 4 weeks starting at 28 weeks 2. Weekly BPP at 32 weeks Return to primary provider for continued care. If you have questions regarding today's evaluation or if we can be offmedical center hospital service, please contact the Maternal[facility] Medicine Center. [...] no evidence of previa. Ingrid Washington MD [facility] documented in this encounter Visit Diagnoses Diagnosis Encounter for follow-up ultrasound of anatomy documented in this encounter Care Teams House Supervisor Relationship Specialty Start Date End Date No Ref-Primary, Physician PCP - General 06/07/23 documented as of this encounter
--- OUTSIDE RECORDS SUMMARY | 2023-08-24 12:31 | XMS_ITS | Encounter Summary ---
Author Name Unknown Organization [facility] Address [address] [place] [address]. [place] [address] Care Team Providers Care Funeral Service Apprentice Name Role Phone Unavailable Primary Care Provider [facility] Encounter Details Date Type Department Care Team ([facility] Contact Info) Description 05/26/2023 Medical Correspondence [facility] [address] [place] [address] Scan, Non-Provider Social History Tobacco Use Types Packs/Day Years Used Date Smoking Tobacco: Never Smokeless Tobacco: Never Alcohol Use Standard Drinks/Week Comments No 0 (1 standard drink = 0.6 oz pur e alcohol) Adolescent Education Answer Date Record ed Getting School Help Needed Not on file 05/29 Sex and Gender Information Value Date Recorded Sex Assigned at Female 06/03/2023 6:47 PM CUSTOMER SUPPORT PROFESSIONAL Gender Identity Female 06/03/2023 6:47 PM CUSTOMER SUPPORT PROFESSIONAL Sexual Orientation Straight 06/03/2023 6: 47 PM CUSTOMER SUPPORT PROFESSIONAL documented as of this encounter Plan of Treatment Not on file documented as of this encounter Visit Diagnoses Not on filedocumented in this encounter
--- OUTSIDE RECORDS SUMMARY | 2023-08-24 12:31 | XMS_ITS | Encounter Summary ---
Author Name Unknown Organization [facility] Address [address] [place] [address] Care Team Providers Care Office Cashier Name Role Phone No Ref-Primary, Physician Primary Care Provider Reason for Referral * Diagnostic Imaging Ultrasound (Routine) - Pending Review Specialty Diagnoses / Procedures Referred By Contac t Referred To Contact Radiology. Diagnoses related condition, antepartum Procedures [facility] US Comprehensive Single Chanel Tate MD [facility] [address] [place] [address] Referral ID Status Reason Start Date Expiration Date V isits Requested Visits Authorized [id number] Pending Review 05/29/2023 05/28/2024 1 1 ESSOR OF THEATRE Reason for Visit * Diagnostic Imaging Ultrasound (Routine) - Pending Review Specialty Diagnoses / Procedures Referred By Contac t Referred To Contact Radiology. Diagnoses related condition, antepartum Procedures [facility] US Comprehensive Single Chanel Tate MD [facility] [address] [place] [address] Referral ID Status Reason Start Date Expiration Date V isits Requested Visits Authorized [id number] Pending Review 05/29/2023 05/28/2024 1 1 Encounter Details Date Type Department Care Team (Latest Contact Info) Description 06/19/2023 11:00 AM PROFESSOR OF THEATRE - 06/19/2023 11:59 PM PROFESSOR OF THEATRE Hospital Encounter [facility] [place] [address] [facility] [address] [place] [phone] Ingrid Washington MD [address] [place], [place] [address] related condition, antepartum Discharge Disposition: Home or [...] Sex Assigned at Female 06/03/2023 6:47 PM PROFESSOR OF THEATRE Gender Identity Female 06/03/2023 6:47 PM PROFESSOR OF THEATRE Sexual Orientation Straight 06/03/2023 6: 47 PM PROFESSOR OF THEATRE documented as of this encounter Medications at [...] Procedure Name Priority Date/Time Associated Diagnosis Comments [facility] SINGLE Routine 06/19/2023 11:57 AM PROFESSOR OF THEATRE related condition, antepartum documented in this encounter Results * [facility] Single (06/19/2023 11:57 AM PROFESSOR OF THEATRE) Anatomical Region Laterality Modality Ultrasound 06/19/2023 11:0 3 AM PROFESSOR OF THEATRE Impressions 06/19/2023 1:54 PM PROFESSOR OF THEATRE IMPRESSION ----- 1. Lanza intrauterine at 18w [...] long and closed. Narrative 06/19/2023 1:54 PM PROFESSOR OF THEATRE ?Comprehensive ----- Pat. Name: CORA STEINER ? Study Date: ??06/19/2023 11:03am Pat. NO: ??[id number] ?Referring ??: CHANEL TATE Site: ??[facility] ? Cumulative Effects Analyst: Essence Gallegos RDMS : ??1990 ?Age: ?? [...] 0 lb 8 ?oz EFW by ?Hadlock ([id number]-FL) Head / Face / Neck Biometry: Continuous Pickling Line Pickler ? 7.2 ? mm CM ?4.4 ? [...] view. RVOT view. LVOT view. 3-vessel view. 3-oyfbpu-bgrcmiy view. Spine ?Sacral spine. The following structures [...] STEINER Study Date: 06/19/2023 11:03am Pat. NO: [id number] Referring MD: CHANEL TATE Site: [facility] Cumulative Effects Analyst: Essence Gallegos RDMS : 1990 Age: 33 [...] 0 lb 8 oz EFW by Hadlock (VQI-EQ-[id number]-FL) Head / Face / Neck Biometry: Continuous Pickling Line Pickler 7.2 mm CM 4.4 mm Nuchal fold [...] 4-chamber view. RVOT view. LVOT view.3-vessel view. 7-pvdfbk-cesagqi view. Spine Sacral spine. The following structures [...] long and closed. Chanel Tate MD [facility] US ORDERAB LES documented in this encounter Visit Diagnoses Diagnosis related condition, antepartum documented in this encounter Care Teams Office Cashier Relationship Specialty Start Date End Date No Ref-Primary, Physician PCP - General 06/07/23 documented as of this encounter
--- OUTSIDE RECORDS SUMMARY | 2023-08-24 12:31 | XMS_ITS | Encounter Summary ---
Author Name Unknown Organization [facility] Address [address] [place] [address] Care Team Providers Care Kindergarten Paraprofessional Name Role Phone No Ref-Primary, Physician Primary [...] Sex Assigned at Female 06/03/2023 6:47 PM ELEVATOR INSTALLER Gender Identity Female 06/03/2023 6:47 PM ELEVATOR INSTALLER Sexual Orientation Straight 06/03/2023 6: 47 PM ELEVATOR INSTALLER documented as of this encounter Plan of Treatment Not on file documented as of this encounter Visit Diagnoses Not on filedocumented in this encounter Care Teams Kindergarten Paraprofessional Relationship Specialty Start Date End Date No Ref-Primary, Physician PCP - General 06/07/23 documented as of this encounter
--- OUTSIDE RECORDS SUMMARY | 2023-08-24 12:31 | XMS_ITS | Encounter Summary ---
Author Name Unknown Organization [facility] Address [address] [place] [address] Care Team Providers Care Manager Latin Name Role Phone No Ref-Primary, Physician Primary Care Provider Reason for Referral * Consultation (Routine: Next available opening) - Pending Review Specialty Diagnoses / Procedures Referred By Anna t Referred To Contact Diagnoses related condition, antepartum Chanel Tate MD [facility] [address] [place] [address] Referral ID Status Reason Start Date Expiration Date V isits Requested Visits Authorized [id number] Pending Review 06/07/2023 06/06/2024 1 1 Question Answer OB Visit? No Post Visit No Cervical Dilator Placement No Cerclage Removal No MFM Consult Yes NICU Consult No Adjunct Professor Of [place] History No Psychological Consult No Genetic Consult No CTG/NST No BHC No Nephrology Consult No GI Consult No COOLER Encounter Details Date Type Department Care Team (Late st Contact Info) Description 06/07/2023 Transcribe Orders [facility] M[facility] Medicine [facility] [place] [address] [place] [address] Chanel Tate MD [facility] [address] [place] [address] related condition, antepartum (Primary Dx) [...] Sex Assigned at Female 06/03/2023 6:47 PM MEAT COOLER Gender Identity Female 06/03/2023 6:47 PM MEAT COOLER Sexual Orientation Straight 06/03/2023 6: 47 PM MEAT COOLER documented as of this encounter Plan of Treatment Scheduled Referrals Name Type Priority Associated Diagnoses Orde r Schedule MFM Office Visit Referral Routine: Next available opening Related Condition, Antepartum Expected: 06/07/2023 (Approximate), Expires: 06/07/2024 documented as of this encounter Visit Diagnoses Diagnosis related condition, antepartum- Primary documented in this encounter Care Teams Manager Latin Relationship Specialty Start Date End Date No Ref-Primary, Physician PCP - General 06/07/23 documented as of this encounter
--- OUTSIDE RECORDS SUMMARY | 2023-08-24 12:31 | XMS_ITS | Referral Summary ---
Author Name Unknown [facility] Address [address] [place] [address] Care Team Providers Care Supervisor Brake Repair Name Role Phone No Ref-Primary, Physician Primary Care Provider Encounters Date Type Department Care Team Description 07/11/2023 Travel 07/11/2023 8:30 AM CDT Office Visit [facility] [address] [place] [address] Ingrid Washington MD Jones, Cresta Wedel, MD Maternal hypertension syndrome, second trimester (Primary Dx) 07/11/2023 8:00 AM CDT - 07/11/2023 11:59 PM CDT Hospital Encounter [facility] [address] [place] [address] Ingrid Washington MD Jones, Cresta Wedel, MD Encounter for follow-up ultrasound of anatomy Discharge Disposition: Home or Self Care 07/04/2023 Travel 06/19/2023 Travel 06/19/2023 11:45 AM MILL ROLL REWINDER Office Visit [facility] [address] [place] [address] Ingrid Washington MD Encounter for follow-up ultrasound of anatomy (Primary Dx); related condition, antepartum; Chronic hypertension affecting ; Ulcerative colitis with complication, unspecified location (H) 06/19/2023 11:00 AM MILL ROLL REWINDER - 06/19/2023 11:59 PM MILL ROLL REWINDER Hospital Encounter [facility] Maternal Medicine [facility] [address] [place] [address] Ingrid Washington MD related condition, antepartum Discharge Disposition: Home or Self Care 06/07/2023 Transcribe Orders [facility] Maternal Medicine [facility] [address] [place] [address] Chanel Tate MD related condition, antepartum (Primary Dx) 06/07/2023 PRE VISIT [facility] Maternal Medicine [facility] [address] [facility] [place] [address] Heidi Ramey RN Ultrasound (L2-CHTN, AMA, BMI>40, Ulcerative Colitis) 05/29/2023 Medical Correspondence [facility] [address] [facility] [place] [address] Scan, Non-Provider 05/29/2023 Transcribe Orders [facility] Maternal Medicine [facility] [address] [place] [address] Chanel Tate MD related condition, antepartum (Primary Dx) 05/26/2023 Medical Correspondence [facility] [address] [facility] [place] [address] Scan, Non-Provider from Last 3 Months [...] Sex Assigned at Female 06/03/2023 6:47 PM MILL ROLL REWINDER Gender Identity Female 06/03/2023 6:47 PM MILL ROLL REWINDER Sexual Orientation Straight 06/03/2023 6: 47 PM MILL ROLL REWINDER Last Filed Vital Signs Vital Sign Reading Time Taken Comments Blood Pressure 139/83 06/19/2023 12:21 PM MILL ROLL REWINDER Pulse 85 06/19/2023 12:21 PM MILL ROLL REWINDER Temperature 36.4 ??C (97.5 ??F) 10/21/2014 11:40 AM C DT Respiratory Rate 14 10/21/2014 11:40 AM CDT Oxygen Saturation 98% 06/19/2023 12:21 PM MILL ROLL REWINDER Inhaled Oxygen Concentration - - Weight 128 [...] CDT Encounter for follow-up ultrasound of anatomy [facility] US COMPREHENSIVE SINGLE Routine 06/19/2023 11:57 AM MILL ROLL REWINDER related condition, antepartum GLUCOSE BY METER Routine 10/21/2014 6:20 AM CDT HCL PAP SMEAR Routine 09/23/1998 1:18 PM CDT Gynecologic Examination from Last 3 Months or Most Recently Relevant to Health Maintenance Results * [facility] US Comprehensive Single F/U (07/11/2023 8:50 [...] ? Study Date: ??07/11/2023 7:58am Pat. NO: ??[id number] ?Referring ??MD: CHANEL TATE Site: ??[facility] ? Private Duty Nurse: Jhoana Gurrolatristen [facility] : ??1990 ?Age: ?? 33 [...] lb 14 ? oz EFW by ?Hadlock ([id number]) Head / Face / Neck Biometry: Record Changer Assembler ? 5.9 ? mm CM ?5.6 ? mm Nasal bone ? 7.0 ? mm ANATOMY ----- The following structures appear normal: Head / Neck ? Cranium. Head size. Head shape. Lateral ventricles. Midline falx. Cavum septi pellucidi. Cerebellum. Cisterna magna. Thalami. Face ? Lips. Profile. Nose. Maxilla. Mandible. Heart / Thorax ?4-chamber view. RVOT view. LVOT view. Ductal arch view. 3-vessel view. 2-ftaifn-xvvdrml view. ? Diaphragm. Abdomen ? Cord insertion. [...] daily. Further ultrasound studies are anticipated in [place] and should include: 1. Growth every 4 [...] STEINER Study Date: 07/11/2023 7:58am Pat. NO: [id number] Referring MD: CHANEL TATE Site: [facility] Private Duty Nurse: Jhoaan Bradley RDMS : 1990 Age: 33 ----- [...] 0 lb 14 oz EFW by Hadlock ([id number]-FL) Head / Face / Neck Biometry: Record Changer Assembler 5.9 mm CM 5.6 mm Nasal bone 7.0 mm ANATOMY ----- The following structures appear normal: Head / Neck Cranium. Head size. Head shape.Lateral ventricles. Midline falx. Cavum septi pellucidi. Cerebellum.Cisterna magna. Thalami. Face Lips. Profile. Nose. Maxilla.Mandible. Heart / Thorax 4-chamber view. RVOT view. LVOT view.Ductal arch view. 3-vessel view. 6-oufrzp-zyjkzhw view. Diaphragm. Abdomen Cord insertion. Stomach. Kidneys.Bladder. [...] daily. Further ultrasound studies are anticipated in [place] and shouldinclude: 1. Growth every 4 weeks [...] no evidence of previa. Ingrid Washington MD [facility] US ORDERABLE S * [facility] US Comprehensive Single (06/19/2023 11:57 AM MILL ROLL REWINDER) Anatomical Region Laterality Modality Ultrasound 06/19/2023 11:0 3 AM MILL ROLL REWINDER Impressions 06/19/2023 1:54 PM MILL ROLL REWINDER IMPRESSION ----- 1. Lanza intrauterine at 18w [...] long and closed. Narrative 06/19/2023 1:54 PM MILL ROLL REWINDER ?Comprehensive ----- Pat. Name: KARENA STEINERRINA ? Study Date: ??06/19/2023 11:03am Pat. NO: ??[id number] ?Referring ??: CHANEL TATE Site: ??[facility] ? Private Duty Nurse: Essence Gallegos RDMS : ??1990 ?Age: [...] 0 lb 8 ?oz EFW by ?Hadlock ([id number]) Head / Face / Neck Biometry: Record Changer Assembler ? 7.2 ? mm CM ?4.4 ? [...] view. RVOT view. LVOT view. 3-vessel view. 2-xojxiv-iqvploh view. Spine ?Sacral spine. The following structures [...] STEINER Study Date: 06/19/2023 11:03am Pat. NO: [id number] Referring MD: CHANEL TATE Site: [facility] Private Duty Nurse: Essence Gallegos RDMS : 1990 Age: [...] 0 lb 8 oz EFW by Hadlock ([id number]-EF-AR-FL) Head / Face / Neck Biometry: Record Changer Assembler 7.2 mm CM 4.4 mm Nuchal fold [...] 4-chamber view. RVOT view. LVOT view.3-vessel view. 5-ggsnct-yynotuu view. Spine Sacral spine. The following structures [...] SMEAR (09/23/1998 1:18 PM CDT) Unlabelled DNR [facility] Biopsy Sent DNR [facility] Source VAG,CERV,E NDOCERV [facility] LMP POST [facility] PARA 3 [facility] 2 [facility] Clinical History DNR [facility] Therapy DNR [facility] Last Pap Diagnosis WITHIN NORMAL LIMITS [facility] PAP Date [id number] [facility] Specimen # DNR [facility] Tissue DNR [facility] Tissue Date DNR [facility] Statement of Adequacy [facility] Comment: SATISFACTORY FOR INTERPRETATION POST MENOPAUSAL PATIENT. ??NO ENDOCERVICAL CELLS SEEN. General Categorization DNR [facility] Descriptive Diagnosis [facility] Comment: WITHIN NORMAL LIMITS ATROPHIC CELL PATTERN Recommendations DNR [facility] DNR 114,,,,,, [facility] DNR DNR [facility] DNR DNR [facility] DNR DNR [facility] . [facility] Comment: ?PAP SMEARS ARE SUBJECT TO BOTH FALSE NEGATIVE AND FALSE ? POSITIVE RESULTS EVIDENCED BY DATA PUBLISHED IN THE ? MEDICAL LITERATURE. ??YOUR PATIENT'S RESULT SHOULD BE ? INTERPRETED IN THIS CONTEXT, TOGETHER WITH THE PATIENT'S ? HISTORY AND CLINICAL FINDINGS. TESTING LOCATION ? [facility] ? [address] [facility]. [id number] ? PHONE NUMBERS FOR CYTOLOGY INQUIRES, INCLUDING SLIDE REQUESTS ? EXT. [id number] ?? EXT. [id number] 09/21/1998 Kimberley Fu MD LABORATORY Performing Organization Address City/State/ZIP [place] Phone Number [facility] from Last 3 Months or Most Recently Relevant to Health Maintenance Care Teams Supervisor Brake Repair Relationship Specialty Start Date End Date No Ref-Primary, Physician PCP - General 06/07/23
--- OUTSIDE RECORDS SUMMARY | 2023-08-24 12:31 | XMS_ITS | Encounter Summary ---
Author Name Unknown Organization [facility] Address [address] [place] [address]. [place] [address] Care Team Providers Care Appliance Service Representative Name Role Phone No Ref-Primary, Physician Primary Care Provider Reason for Visit * Reason Comments Ultrasound RL2-subopt Encounter Details Date Type Department Care Team (Late st Contact Info) Description 07/11/2023 8:30 AM CDT Office Visit [facility] Medicine [facility] [place] [address] [place] [address] Ingrid Washington MD [address] [place] [address] Codie Leroy MD [address] [place] [address] Maternal hypertension syndrome, second trimester [...] Sex Assigned at Female 06/03/2023 6:47 PM GLUER Gender Identity Female 06/03/2023 6:47 PM GLUER Sexual Orientation Straight 06/03/2023 6: 47 PM GLUER documented as of this encounter Progress Notes [...] Primary documented in this encounter Care Teams Appliance Service Representative Relationship Specialty Start Date End Date No Ref-Primary, Physician PCP - General 06/07/23 documented as of this encounter
--- OUTSIDE RECORDS SUMMARY | 2023-08-24 12:32 | XMS_ITS | Clinical Summary ---
Author Name Unknown Organization [facility] Address [address] [place] [address] Care Team Providers Care Timber Framer Name Role Phone Tessa Snell M.D. Primary Care Pro vider Source Comments Patient records contain information from all sites at [facility]. For routine questions regarding patient records, call [phone] during business hours, M-F 8:00 AM - 5:00 PM Central Time. Record requests for emergency care only can be directed to [phone] at any time.[facility] Allergies No known active allergies Medications Medication [...] Overview: Added automatically from request for surgery [id number] Cholecystitis Acute 08/27/2021 01/22/20 Examination Other N [...] often do you attend chur ch or evangelical services? 1 to 4 times per year 01/21/2022 Do you belong to any clubs o r organizations such as pentecostal groups, unions, fraternal or athletic groups, or [...] Answer Date Recorded PHQ-2 Score 6 07/18/2022 [facility] - [...] place to sleep or slept in a intermediate (including now)? No 01/21/2022 Depression Answer Date [...] Comments Blood Pressure 133/106 04/17/2023 9:00 PM PIT MANAGER Pulse 79 04/17/2023 9:15 PM PIT MANAGER Temperature 37 ??C (98.6 ??F) 04/17/2023 8:28 PM PIT MANAGER Respiratory Rate 17 04/17/2023 8:28 PM PIT MANAGER Oxygen Saturation 96% 04/17/2023 9:15 PM PIT MANAGER Inhaled Oxygen Concentration - - Weight 126 kg (278 lb 7.1 oz) 04/17/2023 8:30 PM PIT MANAGER Height 167.6 cm (5' 6) 06/28/2022 6:36 PM PIT MANAGER Body Mass Index 44.94 06/28/2022 6:36 PM PIT MANAGER Plan of Treatment Health Maintenance Due Date [...] Cologuard Discontinued Medical Devices Implanted Type Area Analysis Evaluator Device Identifier Shelf Expiration Date Model / Serial / Lot Clp Apr End Intnl Endo 5x11 - [id number] Implanted:Qty: 1 on 08/27/2021 by Gurvinder Goodrich M.D., Ph.D. at [facility] Hardware e.g. pins/screws /rods N/A: Abdomen Med[employer]onic [id number] / / [facility] [id number] Implanted:Qty: 1 on 08/27/2021 by Gurvinder Goodrich M.D., Ph.D. at [facility] Hardware e.g. pins/screws /rods N/A: Abdomen [employer] [id number] 01/24/2026 [id number] / / [id number] Clp [facility] - [id number] Implanted:Qty: 1 on 08/27/2021 by Gurvinder Goodrich M.D., Ph.D. at [facility] Hardware e.g. pins/screws /rods N/A: Abdomen [employer] [id number] 02/01/2026 [id number] / / [id number] Conversions - Default Historical Implant Device Implanted:08/29 (Quantity not on file) Urologic Other Arm Description:Device Status Te xt - UrologOth. control implant in the left bicep. Procedures Procedure Name Priority Date/Time Associated Diagnosis Comments LIPID PANEL, S Routine 06/28/2022 8:09 PM PIT MANAGER Screening Lipid PATHOLOGY BROMINATION EQUIPMENT OPERATOR CYTOLOGY Routine 09/12/2017 12:00 AM CDT Pap Smear Examination COLONOSCOPY Routine 01/12/2016 1:27 PM CDT from Last 3 Months or Most Recently Relevant to Health Maintenance Results * (ABNORMAL) Lipid Panel (06/28/2022 8:09 PM PIT MANAGER) Triglycerides 310(H) mg/dL 06/28/2022 8:39 PM PIT MANAGER CNFL Comment: ----REFERENCE VALUE---- Normal: <150 mg/dL Borderline High: 150-199 mg/dL High: 200-499 mg/dL Very High: > or =500 mg/dL Cholesterol, Total 183 mg/dL 2022 8:39 PM PIT MANAGER CNFL Comment: ----REFERENCE VALUE---- Desirable: < 200 mg/dL Borderline High: 200 - 239 mg/dL High: > or = 240 mg/dL Cholesterol, LDL, Calculated 87 mg/dL 06/28/2022 8:39 PM PIT MANAGER CNFL Comment: ----REFERENCE VALUE---- Desirable: <100 mg/dL Above Desirable: 100-129 mg/dL Borderline High: 130-159 mg/dL High: 160-189 mg/dL Very High: >=190 mg/dL ----ADDITIONAL INFORMATION---- LDL cholesterol calculated using the Iqbal/NIH equation. Cholesterol, HDL 45(L) >=50 mg/dL 06/28/19 8:39 PM PIT MANAGER CNFL Cholesterol, Non-HDL, Calculated 138 mg/dL 06/28/2022 8:39 PM PIT MANAGER CNFL Comment: ----REFERENCE VALUE---- Desirable: <130 mg/dL Above Desirable: 130-159 mg/dL Borderline High: 160-189 mg/dL High: 190-219 mg/dL Very High: > or =220 mg/dL Fasting (8 HR or more) Yes 06/28/2022 8:10 PM PIT MANAGER CNFL Blood (Blood, Venous) 06/28/2022 8:09 PM PIT MANAGER 06/28/2022 8:10 PM PIT MANAGER Tessa Melendez M.D. LAB BLOOD ADD-ON Performing Organization Address [facility]/State/[facility] Co de Phone Number [facility] [address] [place] [address], [facility] CNFL [facility] [address] * Pathology BROMINATION EQUIPMENT OPERATOR Cytology (09/12/2017 12:00 AM CDT) PATHOLOGY BROMINATION EQUIPMENT OPERATOR CYTOLOGY Patient Name: CORA STEINER MR#: [id number] Submitting Physician: TESSA SNELL MD ??[id number] Specimen #[id number] Performing Lab: ??[facility] ? [address] [place] [address] CLINICAL HISTORY: Last menstrual period: Status: Does [...] PAP C OPATH ORDERABLES Performing Organization Address City/[facility]/ZIP Co de Phone Number JIGAR VARGHESE [address] [place] [address] * Colonoscopy (01/12/2016 1:27 PM CDT) 01/12/2016 1:27 PM CDT Alana Rojo P.A.-C., M.S. GI PROC MARLENA ORDERABLES [facility] [address] [place] [address] from Last 3 Months or Most Recently Relevant to Health Maintenance Care Teams Timber Framer Relationship Specialty Start Date End Date Tessa Snell M.D. [id number] [place] [id number] PCP - General 10/13/16
--- OUTSIDE RECORDS SUMMARY | 2023-08-24 12:32 | XMS_ITS ---
Author Name Unknown Organization [facility] Address [address] [place] [address] Care Team Providers Care Neonatal Doctor Name Role Phone Unavailable Unavailable Unavailable Surgery Details Not on file Complications Check Surgery Details section. Procedure Estimated Blood Loss Check Surgery Details section. Procedure Findings Check Surgery Details section. Procedure Specimens Taken Check Surgery Details section.
--- OUTSIDE RECORDS SUMMARY | 2023-08-24 12:32 | XMS_ITS | Referral Summary ---
Author Name Unknown Organization [facility] Address [address] [place] [address] Care Team Providers Care Experimental Machinist Name Role Phone Bette Snell M.D. Primary Care Pro vider Source Comments Patient records contain information from all sites at [facility]. For routine questions regarding patient records, call [phone] during business hours, M-F 8:00 AM - 5:00 PM Central Time. Record requests for emergency care only can be directed to [phone] at any time.[facility] Allergies No known active allergies Medications Medication [...] Overview: Added automatically from request for surgery [id number] Cholecystitis Acute 08/27/2021 01/22/20 Examination Other N [...] often do you attend chur ch or samaritan services? 1 to 4 times per year 01/21/2022 Do you belong to any clubs o r organizations such as worship groups, unions, fraternal or athletic groups, or [...] Answer Date Recorded PHQ-2 Score 6 07/18/2022 [facility] - [...] place to sleep or slept in a fpc (including now)? No 01/21/2022 Depression Answer Date [...] Comments Blood Pressure 133/106 04/17/2023 9:00 PM PRESCRIPTION CLERK LENSES Pulse 79 04/17/2023 9:15 PM PRESCRIPTION CLERK LENSES Temperature 37 ??C (98.6 ??F) 04/17/2023 8:28 PM PRESCRIPTION CLERK LENSES Respiratory Rate 17 04/17/2023 8:28 PM PRESCRIPTION CLERK LENSES Oxygen Saturation 96% 04/17/2023 9:15 PM PRESCRIPTION CLERK LENSES Inhaled Oxygen Concentration - - Weight 126 kg (278 lb 7.1 oz) 04/17/2023 8:30 PM PRESCRIPTION CLERK LENSES Height 167.6 cm (5' 6) 06/28/2022 6:36 PM PRESCRIPTION CLERK LENSES Body Mass Index 44.94 06/28/2022 6:36 PM PRESCRIPTION CLERK LENSES Plan of Treatment Not on file Medical Devices Implanted Type Area Needle Board Repairer Device Identifier Shelf Expiration Date Model / Serial / Lot Clp Apr End Intnl Endo 5x11 - [id number] Implanted:Qty: 1 on 08/27/2021 by Gurvinder Goodrich M.D., Ph.D. at [facility] Hardware e.g. pins/screws /rods N/A: Abdomen Medtronic [id number] / / Maame Vincent Lg - [id number] Implanted:Qty: 1 on 08/27/2021 by Gurvinder Goodrich M.D., Ph.D. at [facility] Hardware e.g. pins/screws /rods N/A: Abdomen [employer] [id number] 01/24/2026 [id number] / / [id number] Maame Vincent Md - [id number] Implanted:Qty: 1 on 08/27/2021 by Gurvinder Goodrich M.D., Ph.D. at [facility] Hardware e.g. pins/screws /rods N/A: Abdomen [employer] [id number] 02/01/2026 [id number] / / [id number] Conversions - Default Historical Implant Device Implanted:08/29 (Quantity not on file) Urologic Other Arm Description:Device Status Te xt - UrologOth. control implant in the left bicep. Procedures Procedure Name Priority Date/Time Associated Diagnosis Comments LIPID PANEL, S Routine 06/28/2022 8:09 PM PRESCRIPTION CLERK LENSES Screening Lipid PATHOLOGY SHIP PILOT DISPATCHER CYTOLOGY Routine 09/12/2017 12:00 AM CDT Pap Smear Examination COLONOSCOPY Routine 01/12/2016 1:27 PM CDT from Last 3 Months or Most Recently Relevant to Health Maintenance Results * (ABNORMAL) Lipid Panel (06/28/2022 8:09 PM PRESCRIPTION CLERK LENSES) Triglycerides 310(H) mg/dL 06/28/2022 8:39 PM PRESCRIPTION CLERK LENSES CNFL Comment: ----REFERENCE VALUE---- Normal: <150 mg/dL Borderline High: 150-199 mg/dL High: 200-499 mg/dL Very High: > or =500 mg/dL Cholesterol, Total 183 mg/dL 2022 8:39 PM PRESCRIPTION CLERK LENSES CNFL Comment: ----REFERENCE VALUE---- Desirable: < 200 mg/dL Borderline High: 200 - 239 mg/dL High: > or = 240 mg/dL Cholesterol, LDL, Calculated 87 mg/dL 06/28/2022 8:39 PM PRESCRIPTION CLERK LENSES CNFL Comment: ----REFERENCE VALUE---- Desirable: <100 mg/dL Above Desirable: 100-129 mg/dL Borderline High: 130-159 mg/dL High: 160-189 mg/dL Very High: >=190 mg/dL ----ADDITIONAL INFORMATION---- LDL cholesterol calculated using the Iqbal/NIH equation. Cholesterol, HDL 45(L) >=50 mg/dL 06/28/19 8:39 PM PRESCRIPTION CLERK LENSES CNFL Cholesterol, Non-HDL, Calculated 138 mg/dL 06/28/2022 8:39 PM PRESCRIPTION CLERK LENSES CNFL Comment: ----REFERENCE VALUE---- Desirable: <130 mg/dL Above Desirable: 130-159 mg/dL Borderline High: 160-189 mg/dL High: 190-219 mg/dL Very High: > or =220 mg/dL Fasting (8 HR or more) Yes 06/28/2022 8:10 PM PRESCRIPTION CLERK LENSES CNFL Blood (Blood, Venous) 06/28/2022 8:09 PM PRESCRIPTION CLERK LENSES 06/28/2022 8:10 PM PRESCRIPTION CLERK LENSES Bette Melendez M.D. LAB BLOOD ADD-ON Performing Organization Address City/[facility]/ZIP Co de Phone Number [facility] [address] [place] [address], [facility] CNFL [facility] in [address] [address] * Pathology SHIP PILOT DISPATCHER Cytology (09/12/2017 12:00 AM CDT) PATHOLOGY SHIP PILOT DISPATCHER CYTOLOGY Patient Name: CORA STEINER MR#: [id number] Submitting Physician: BETTE SNELL MD ??[id number] Specimen #[id number] Performing Lab: ??[facility] ? [address] [place] [address] CLINICAL HISTORY: Last menstrual period: Status: Does [...] false-negative and false-positive results have been experienced. [facility] Thin Prep Vial (Cervix/Endocervi x) 09/12/2017 09/12/2017 Bette Melendez M.D. LAB PAP C OPATH ORDERABLES Performing Organization Address City/[facility]/ZIP Co de Phone Number [facility] [address] [facility] [place] [address], [facility] * Colonoscopy (01/12/2016 1:27 PM CDT) 01/12/2016 1:27 PM CDT Alana Rojo P.A.-C., MKarlaS. GI PROC EDURE ORDERABLES [facility] [address] [id number], [facility] from Last 3 Months or Most Recently Relevant to Health Maintenance Care Teams Experimental Machinist Relationship Specialty Start Date End Date Bette Snell M.D. [address] [phone] PCP - General 10/13/16
[2023-08-24 12:46] VITALS: BP 121/66; PULSE 82
[2023-08-24 12:47] VITALS: PULSE 82; PULSE 83; O2SAT 94; O2SAT 95
[2023-08-24 12:50] VITALS: RESP 18; TEMP 36.8
[2023-08-24 12:52] VITALS: PULSE 83; O2SAT 94
[2023-08-24 14:31] LABS: Fetal Fibronectin* Negative (Negative)
--- NOTE | 2023-08-24 14:43 | PC.OBNST ---
NST Note NST Note Start: 08/24/23 12:32 Freq: ONCE Status: Active Protocol: Document 08/24/23 14:35 FANY (Rec: 08/24/23 14:43 FANY [id number]) NST Note 3 Para (# of births) 2 EDC 11/17/23 Gestational Age In Weeks & Days 27 Weeks & 6 Days High Risk Factors High Blood Pressure - Preexisting,Advanced Maternal Age Patient Presented with Complaint(s) of Contractions/cramping Other Complaints Pt. reported menstral like cramping Reactive Yes Appropriate for Gestational Age Yes RN Evens RN Date 08/24/23 Reactive Yes Appropriate for Gestational Age Yes RN Carleen RN Date 08/24/23 OB NST charge Yes Complete NST Note via Write Note Yes The provider's electronic signature indicates the NST is reactive/appropriate for gestational age. *Note to provider: If an addendum is required, open the patient's chart and click on the note under the Nurse/Allied Health tab.
--- NOTE | 2023-08-24 19:31 | P.OBO_ITS ---
OB Outpatient HPI History of Present Illness History of Present Illness: 33 year old at 27 weeks, 6 days gestation presents to Center with chief complaints of pelvic pressure and cramping. She was evaluated for vaginal spotting a week ago, and was found to have a normal US. Spotting at that time was red. Last night, she had recurrence of spotting, but it was pink-brown mucus. She has had spotting in previously, in the setting of a flare of vaginal lichen planus. She doesn't currently have the vaginal irritation that usually accompanies this. In addition, she is known to have ulcerative colitis, and is having a flare. She does have bloody mucus rectal discharge. However, bleeding is not coming from a rectal source today. Bleeding: Yes Leaking fluid: Yes Discharge: No Meds Home Medications and Allergies Home Medications Medication Instructions Recorded Confirmed Type sertraline 100 mg tablet 150 mg PO Q24H 03/21/22 08/17/23 History docosahexaenoic acid 200 mg mg PO 04/28/23 07/28/23 History capsule ( DHA) sulfasalazine 500 mg tablet 1.5 g PO Q12H 04/28/23 08/17/23 History Allergies Allergy/AdvReac Type Severity Reaction Status Date / Time No Known Drug Allergies Allergy Verified 07/28/23 10:27 [facility] Medical History (Updated 08/24/23 @ 19:38 by Janie Chung MD) Pre-eclampsia affecting childbirth ?O14.94 - Unspecified pre-eclampsia, complicating childbirth (ICD-10) Polycystic ovary syndrome ?E28.2 - Polycystic ovarian syndrome (ICD-10) Panic attacks (06/16/11) ?F41.0 - Panic disorder [episodic paroxysmal anxiety] (ICD-10) Migraine (11/13/06) ?G43.909 - Migraine, unspecified, not intractable, without status migrainosus (ICD-10) Gestational hypertension ?O13.9 - Gestational [-induced] hypertension without significant proteinuria, unspecified trimester (ICD-10) Surgical History History of cholecystectomy ?Z90.49 - Acquired absence of other specified parts of digestive tract (ICD- 10) Status post repeat low transverse section ?Z98.891 - History of uterine scar from previous surgery (ICD-10) Family History Maternal Grandfather Coronary artery disease Depression Father Coronary artery disease Stroke Mother Depression Paternal Grandfather Ulcerative colitis Other Alcohol dependence Diabetes High blood pressure High cholesterol Social History Narrative: does not drink alcohol, does not exercise, nonsmoker quit in 2013, 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, 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, sales/customer service What is your current living situation?: I presently have a place to live Problems where you live: no known problems In the past 12 months, utilities in danger of being shut off: no In past 12 months, lack of transportation kept you from medical appts, meetings, work, or getting things needed for daily living: no In the past 12 mos, have been you worried that your food would run out before you had money to buy more?: never true In the past 12 mos, the food you bought just didn't last and you didn't have money to buy more?: never true Smoking Status: Former smoker Do you use any of these nicotine containing products: None How often do you have a drink containing alcohol: never AUDIT-C Alcohol total score: 0 Non-prescribed substance use: denies use How often does anyone, including family, friends and others, physically hurt you : never How often does anyone, including family, friends and others, insult or talk down to you: never How often does anyone, including family, friends and others, threaten you with harm: never How often does anyone, including family, friends and others, scream or curse at you: never Little interest or pleasure in doing things: not at all Feeling down, depressed, or hopeless: more than half the days History History 3 Elective abortions Para 2 Spontaneous abortions Hx # Term Pregnancies 2 Ectopic pregnancies Hx # Pregnancies Multiple births Number of Living Children 2 Past Pregnancies Del. Date GA/Weeks Outcome Route wt Inf Gender Labor Lgth Anesthesia Location Provider Compli 09/25/15 39 live - full term low transverse 8 lb Femal e gestational hypertension other 01/07/21 37 live - full term low transverse 6 lb 6 oz M fish preeclampsia Delivery Date: 09/25/15 Last Updated by: Alanna Stewart ~ PURCHASING OFFICER, PURCHASING OFFICER OB - H&P: Exam Physical Exam Vital signs: Temp Pulse Resp BP Pulse Ox 98.2 F 82 18 121/66 94 08/24/23 12:50 08/24/23 12:46 08/24/23 12:50 08/24/23 12:46 08/24/23 12:52 Narrative: Gen - NAD, good spirits HEENT - NC/AT Abd - soft, NT, gravid * Pelvic exam - External genitalia normal, vaginal introitus normal, vagina with white - yellow discharge, no blood. Vaginal epithelium exhibits subtle small red papules along vaginal sidewalls and at the junction of vaginal vault and cervix anteriorly. Speculum exam reveals 3 X 2 mm cervical polyp, not currently bleeding. Cervix is closed, long, high, posterior and firm. FFM is negative Labs Labs Laboratory Tests 08/24/23 Range/Units 13:34 Fibronectin Negative (Negative) Assessment and Plan Assessment and plan (1) Vaginal bleeding during , antepartum: Problem comment: Lichen planus vs cervical polyp Status: Acute Assessment and Plan: Overall, I am reassured regarding her exam findings. It does not appear that bleeding is from an intrauterine source. Return to clinic next week for scheduled clinic exam. Time Spent with Patient Time with Patient: less than 15 minutes Disposition: Sent Home from ED
== END 2023-08-24 13:48 | disposition home or self-care (01) ==
LOC: OB OUT 12:28 → OB 12:29
PROVIDERS: Visit Provider Obstetrics & Gynecology
DX: O10.912 Unspecified pre-existing hypertension complicating pregnancy, second trimester (principal); O47.02 False labor before 37 completed weeks of gestation, second trimester; Z3A.27 27 weeks gestation of pregnancy
CPT/HCPCS: 59025; 84112; G0463

== ENCOUNTER 2023-08-29 14:45 | Outpatient (CLI) | payer BC, OTHER, SELFPAY ==
--- NOTE | 2023-08-29 15:00 | US_ITS ---
Patient: PRICILA STEINER Facility:?[facility] RIS Patient ID:?[id number] Site Patient ID:?[id number]. Site :?[id number] Study:?US-OB Pelvis growth-08/29/2023 3:32:54 PM Ordering Physician:?Chanel Tate Final Report: OB ULTRASOUND FOLLOWUP LIMITED /BPP 08/29/2023 CLINICAL HISTORY: Chronic HTN. Followup. COMPARISON: 08/17/2023. FINDINGS: LMP: 02/10/2023. ARTUR by LMP: 11/17/2023. GA: 28 weeks, 4 days. CERVIX: Not visualized. POSITIONING: Vertex. AMNIOTIC FLUID: 33 cm. PLACENTA: TA, fundal, posterior. DOPPLER: Heart Rate: 144 bpm. BIOMETRY BPD: 7.2 cm, 28 weeks 6 days. 48% HC: 27.2 cm, 29 weeks 5 days. 53% AC: 24.3 cm, 28 weeks 4 days. 41% FL: 5.2 cm, 27 weeks 5 days. 14% FL/AC Ratio: 21.44% HC/AC Ratio: 1.12. EFW: 1221 grams, 2 lb 11 oz. Age by this US: 28 weeks 5 days. ARTUR by this US: 11/16/2023. Percentile by ARTUR: 30% IMPRESSION: Estimated weight is at the 30th percentile. --ADDENDUM-- ADDENDUM: Please note, amniotic fluid is 3.3 cm. CRL:sp/jj 08/31/2023 Iban Diaz M.D. Body/Diagnostic Radiologist [email or web address] D& Transcribed: 9:03 am DW/Dictated by: Iban Diaz MD @ 08/30/2023 8:21:00 AM Signed by:?Iban Diaz MD @08/30/2023 9:22:19 AM (Electronic Signature)
== END 2023-08-29 14:46 | disposition home or self-care (01) ==
LOC: US 14:45
PROVIDERS: Visit Provider Obstetrics & Gynecology
DX: O10.919 Unspecified pre-existing hypertension complicating pregnancy, unspecified trimester (principal); Z3A.28 28 weeks gestation of pregnancy
CPT/HCPCS: 76816

== ENCOUNTER 2023-09-04 08:11 | Outpatient (CLI) | payer BC, OTHER, SELFPAY ==
--- OUTSIDE RECORDS SUMMARY | 2023-09-06 11:48 | XMS_ITS | Encounter Summary ---
Author Name Unknown Organization [facility] Address [address] [place] [address] Care Team Providers Care Activities Assistant Name Role Phone No Ref-Primary, Physician Primary [...] Sex Assigned at Female 06/03/2023 6:47 PM RESIDENTIAL APPRAISER Gender Identity Female 06/03/2023 6:47 PM RESIDENTIAL APPRAISER Sexual Orientation Straight 06/03/2023 6: 47 PM RESIDENTIAL APPRAISER documented as of this encounter Plan of Treatment Not on file documented as of this encounter Visit Diagnoses Not on filedocumented in this encounter Care Teams Activities Assistant Relationship Specialty Start Date End Date No Ref-Primary, Physician PCP - General 06/07/23 documented as of this encounter
--- OUTSIDE RECORDS SUMMARY | 2023-09-06 11:48 | XMS_ITS | Clinical Summary ---
Author Name Unknown Organization [place] Address [address] [place] [address] Care Team Providers Care Black Leather Buffer Name Role Phone No Ref-Primary, Physician Primary [...] Description 07/11/2023 8:30 AM CDT Office Visit [facility] [place] [address] [place] [address] Ingrid Washington MD Jones, Cresta Wedel, MD Maternal hypertension syndrome, second trimester (Primary Dx) 07/11/2023 8:00 AM CDT - 07/11/2023 11:59 PM CDT Hospital Encounter [facility] [address] [place] [address] Ingrid Washington MD Jones, Cresta Wedel, MD Encounter for follow-up ultrasound of anatomy Discharge Disposition: Home or Self Care 07/11/2023 Travel 07/04/2023 Travel 06/19/2023 11:45 AM GAS APPLIANCE SERVICER HELPER Office Visit [facility] [place] [address] [place] [address] Ingrid Washington MD Encounter for follow-up ultrasound of anatomy (Primary Dx); related condition, antepartum; Chronic hypertension affecting ; Ulcerative colitis with complication, unspecified location (H) 06/19/2023 11:00 AM GAS APPLIANCE SERVICER HELPER - 06/19/2023 11:59 PM GAS APPLIANCE SERVICER HELPER Hospital Encounter [facility] [place] [address] [place] [address] Ingrid Washington MD related condition, antepartum Discharge Disposition: Home or Self Care 06/19/2023 Travel from Last 3 Months Immunizations Name Administration Dates Next Due DTAP (<7y) 08/24/1993 HepB 12/18/2000,07/14/2000,05/26/2000 Historical DTP/aP 09/12/1989,1988,07/12/18 89,1988 MMR 05/26/2000,06/13/1989 [facility] 7[facility] 04/29/2002 Social History Tobacco Use Types Packs/Day [...] Sex Assigned at Female 06/03/2023 6:47 PM GAS APPLIANCE SERVICER HELPER Gender Identity Female 06/03/2023 6:47 PM GAS APPLIANCE SERVICER HELPER Sexual Orientation Straight 06/03/2023 6: 47 PM GAS APPLIANCE SERVICER HELPER Last Filed Vital Signs Vital Sign Reading Time Taken Comments Blood Pressure 139/83 06/19/2023 12:21 PM GAS APPLIANCE SERVICER HELPER Pulse 85 06/19/2023 12:21 PM GAS APPLIANCE SERVICER HELPER Temperature 36.4 ??C (97.5 ??F) 10/21/2014 11:40 AM C DT Respiratory Rate 14 10/21/2014 11:40 AM CDT Oxygen Saturation 98% 06/19/2023 12:21 PM GAS APPLIANCE SERVICER HELPER Inhaled Oxygen Concentration - - Weight 128 [...] Procedure Name Priority Date/Time Associated Diagnosis Comments [facility] US COMPREHENSIVE SINGLE F/U Routine 07/11/2023 8:50 AM CDT Encounter for follow-up ultrasound of anatomy [facility] US COMPREHENSIVE SINGLE Routine 06/19/2023 11:57 AM GAS APPLIANCE SERVICER HELPER related condition, antepartum GLUCOSE BY METER Routine 10/21/2014 6:20 AM CDT HCL PAP SMEAR Routine 09/23/1998 1:18 PM CDT Gynecologic Examination from Last 3 Months or Most Recently Relevant to Health Maintenance Results * [facility] US Comprehensive Single F/U (07/11/2023 8:50 [...] ? Study Date: ??07/11/2023 7:58am Pat. NO: ??[id number] ?Referring ??MD: CHANEL TATE Site: ??[facility] ? Phototypesetter Operator: Jhoana Bradley [facility] : ??1990 ?Age: ?? 33 ----- INDICATION [...] lb 14 ? oz EFW by ?Hadlock ([id number]) Head / Face / Neck Biometry: Public Relations Intern ? 5.9 ? mm CM ?5.6 ? mm Nasal bone ? 7.0 ? mm ANATOMY ----- The following structures appear normal: Head / Neck ? Cranium. Head size. Head shape. Lateral ventricles. Midline falx. Cavum septi pellucidi. Cerebellum. Cisterna magna. Thalami. Face ? Lips. Profile. Nose. Maxilla. Mandible. Heart / Thorax ?4-chamber view. RVOT view. LVOT view. Ductal arch view. 3-vessel view. 6-kydlcu-fepxdae view. ? Diaphragm. Abdomen ? Cord insertion. [...] daily. Further ultrasound studies are anticipated in [place] and should include: 1. Growth every 4 [...] STEINER Study Date: 07/11/2023 7:58am Pat. NO: [id number] Referring MD: CHANEL TATE Site: [facility] Phototypesetter Operator: Jhoana Bradley RDMS : 1990 Age: [...] 0 lb 14 oz EFW by Hadlock ([id number]) Head / Face / Neck Biometry: Public Relations Intern 5.9 mm CM 5.6 mm Nasal bone 7.0 mm ANATOMY ----- The following structures appear normal: Head / Neck Cranium. Head size. Head shape.Lateral ventricles. Midline falx. Cavum septi pellucidi. Cerebellum.Cisterna magna. Thalami. Face Lips. Profile. Nose. Maxilla.Mandible. Heart / Thorax 4-chamber view. RVOT view. LVOT view.Ductal arch view. 3-vessel view. 1-nzcwss-mmyebwk view. Diaphragm. Abdomen Cord insertion. Stomach. Kidneys.Bladder. [...] daily. Further ultrasound studies are anticipated in [place] and shouldinclude: 1. Growth every 4 weeks [...] no evidence of previa. Ingrid Washington MD [facility] US ORDERABLE S * [facility] Comprehensive Single (06/19/2023 11:57 AM GAS APPLIANCE SERVICER HELPER) Anatomical Region Laterality Modality Ultrasound 06/19/2023 11:0 3 AM GAS APPLIANCE SERVICER HELPER Impressions 06/19/2023 1:54 PM GAS APPLIANCE SERVICER HELPER IMPRESSION ----- 1. Lanza intrauterine at 18w [...] long and closed. Narrative 06/19/2023 1:54 PM GAS APPLIANCE SERVICER HELPER ?Comprehensive ----- Mouna. Name: CORA STEINER ? Study Date: ??06/19/2023 11:03am Pat. NO: ??[id number] ?Referring ??MD: CHANEL TATE Site: ??[facility] ? Phototypesetter Operator: Essence Gallegos RDMS : ??1990 ?Age: [...] Biometry: BPD ?37.6 ?mm ? 17w 3d ?Rupal SANZ ?53.2 ?mm ? 17w 6d ?Nicolaides ?146.1 ?mm ?17w 5d ?Hadlock Cerebellum tr ?16.9 ? mm ?16w 6d ?Nicolaides AC ?121.4 ?mm ?17w 6d ?27% ?Hadlock Femur ?27.7 ? mm ?18w 3d ?Hadlock Humerus ?27.2 ?mm ? 18w 5d ?Sneha Weight Calculation: EFW ? 223 ? g ? 25% ?Hadlock EFW (lb,oz) ? 0 lb 8 ?oz EFW by ?Hadlock ([id number]-FL) Head / Face / Neck Biometry: Public Relations Intern ? 7.2 ? mm CM ?4.4 ? [...] view. RVOT view. LVOT view. 3-vessel view. 9-tdjczy-qxhkvzd view. Spine ?Sacral spine. The following structures [...] STEINER Study Date: 06/19/2023 11:03am Pat. NO: [id number] Referring MD: CHANEL TATE Site: [facility] Phototypesetter Operator: Essence Gallegos RDMS : 1990 Age: [...] 0 lb 8 oz EFW by Hadlock ([id number]) Head / Face / Neck Biometry: Public Relations Intern 7.2 mm CM 4.4 mm Nuchal fold [...] 4-chamber view. RVOT view. LVOT view.3-vessel view. 1-fjynrt-nntxtez view. Spine Sacral spine. The following structures [...] long and closed. Chanel Tate MD IMG [facility] US ORDERAB LES * (ABNORMAL) Glucose by meter (10/21/2014 6:20 AM CDT) Glucose 103(H) 70 - 99 mg/dL POINT OF CARE TEST, GLUCOSE 10/21/2014 6:20 AM CDT 10/21/2014 6:25 AM CDT Lianna Dimas DDS LAB - BEAKER POCT POINT OF CARE TEST, GLUCOSE * PAP SMEAR (09/23/1998 1:18 PM CDT) Unlabelled DNR [facility] Biopsy Sent R [facility] Source VAG,CERV,E NDOCERV [facility] LMP POST [facility] PARA 3 [facility] 2 [facility] Clinical History [facility] D[facility] Last Pap Diagnosis WITHIN NORMAL LIMITS [facility] PAP Date [id number] [facility] Specimen # DNR [facility] Tissue DNR [facility] Tissue Date DNR [facility] Statement of Adequacy [facility] Comment: SATISFACTORY FOR INTERPRETATION POST MENOPAUSAL PATIENT. ??NO ENDOCERVICAL CELLS SEEN. General Categorization R [facility] Descriptive Diagnosis [facility] Comment: WITHIN NORMAL LIMITS ATROPHIC CELL PATTERN Recommendations DNR [facility] DNR 114,,,,,, [facility] DNR DNR [facility] DNR DNR [facility] DNR DNR [facility] . [facility] Comment: ?PAP SMEARS ARE SUBJECT TO BOTH FALSE NEGATIVE AND FALSE ? POSITIVE RESULTS EVIDENCED BY DATA PUBLISHED IN THE ? MEDICAL LITERATURE. ??YOUR PATIENT'S RESULT SHOULD BE ? INTERPRETED IN THIS CONTEXT, TOGETHER WITH THE PATIENT'S ? HISTORY AND CLINICAL FINDINGS. TESTING LOCATION ? [facility] ? [address]. [id number] ? PHONE NUMBERS FOR CYTOLOGY INQUIRES, INCLUDING SLIDE REQUESTS ? EXT. [id number] ?? EXT. [id number] 09/21/1998 Kimberley Fu MD LABORATORY [facility] from Last 3 Months or Most Recently Relevant to Health Maintenance Care Teams Black Leather Buffer Relationship Specialty Start Date End Date No Ref-Primary, Physician PCP - General 06/07/23
--- OUTSIDE RECORDS SUMMARY | 2023-09-06 11:48 | XMS_ITS | Referral Summary ---
Author Name Unknown [facility] Address [address] [place] [address] Care Team Providers Care Welfare Director Name Role Phone No Ref-Primary, Physician Primary Care Provider Encounters Date Type Department Care Team Description 07/11/2023 Travel 07/11/2023 8:30 AM CDT Office Visit [facility] Medicine [facility] [address] [place] [address] Ingrid Washington MD Jones, Cresta Wedel, MD Maternal hypertension syndrome, second trimester (Primary Dx) 07/11/2023 8:00 AM CDT - 07/11/2023 11:59 PM CDT Hospital Encounter [facility] Medicine [facility] [address] [place] [address] Ingrid Washington MD Jones, Cresta Wedel, MD Encounter for follow-up ultrasound of anatomy Discharge Disposition: Home or Self Care 07/04/2023 Travel 06/19/2023 Travel 06/19/2023 11:45 AM DIETITIAN CONSULTANT Office Visit [facility] Medicine [facility] [address] [place] [address] Ingrid Washington MD Encounter for follow-up ultrasound of anatomy (Primary Dx); related condition, antepartum; Chronic hypertension affecting ; Ulcerative colitis with complication, unspecified location (H) 06/19/2023 11:00 AM DIETITIAN CONSULTANT - 06/19/2023 11:59 PM DIETITIAN CONSULTANT Hospital Encounter [facility] Maternal Medicine [facility] [address] [place] [address] Ingrid Washington MD related condition, antepartum Discharge Disposition: Home or Self Care from Last 3 Months Allergies No known [...] Sex Assigned at Female 06/03/2023 6:47 PM DIETITIAN CONSULTANT Gender Identity Female 06/03/2023 6:47 PM DIETITIAN CONSULTANT Sexual Orientation Straight 06/03/2023 6: 47 PM DIETITIAN CONSULTANT Last Filed Vital Signs Vital Sign Reading Time Taken Comments Blood Pressure 139/83 06/19/2023 12:21 PM DIETITIAN CONSULTANT Pulse 85 06/19/2023 12:21 PM DIETITIAN CONSULTANT Temperature 36.4 ??C (97.5 ??F) 10/21/2014 11:40 AM C DT Respiratory Rate 14 10/21/2014 11:40 AM CDT Oxygen Saturation 98% 06/19/2023 12:21 PM DIETITIAN CONSULTANT Inhaled Oxygen Concentration - - Weight 128 kg (282 lb 1.6 oz) 10/21/2014 6:07 AM CDT Height 167.6 cm (5' 5.98) 10/21/2014 6:07 AM CD T Body Mass Index 45.55 10/21/2014 6:07 AM CDT Plan of Treatment Not on file Procedures Procedure Name Priority Date/Time Associated Diagnosis Comments [facility] US COMPREHENSIVE SINGLE F/U Routine 07/11/2023 8:50 AM CDT Encounter for follow-up ultrasound of anatomy [facility] US COMPREHENSIVE SINGLE Routine 06/19/2023 11:57 AM DIETITIAN CONSULTANT related condition, antepartum GLUCOSE BY METER Routine 10/21/2014 6:20 AM CDT HCL PAP SMEAR Routine 09/23/1998 1:18 PM CDT Gynecologic Examination from Last 3 Months or Most Recently Relevant to Health Maintenance Results * [facility] US Comprehensive Single F/U (07/11/2023 8:50 [...] ? Study Date: ??07/11/2023 7:58am Pat. NO: ??[id number] ?Referring ??MD: CHANEL TATE Site: ??[facility] ? House Carpenter Helper: Jhoana Bradley RDMS : ??1990 ?Age: ?? [...] lb 14 ? oz EFW by ?Hadlock ([id number]-FL) Head / Face / Neck Biometry: Agricultural Extension Officer ? 5.9 ? mm CM ?5.6 ? mm Nasal bone ? 7.0 ? mm ANATOMY ----- The following structures appear normal: Head / Neck ? Cranium. Head size. Head shape. Lateral ventricles. Midline falx. Cavum septi pellucidi. Cerebellum. Cisterna magna. Thalami. Face ? Lips. Profile. Nose. Maxilla. Mandible. Heart / Thorax ?4-chamber view. RVOT view. LVOT view. Ductal arch view. 3-vessel view. 0-zrljqb-ggfbnjm view. ? Diaphragm. Abdomen ? Cord insertion. [...] daily. Further ultrasound studies are anticipated in [place] and should include: 1. Growth every 4 [...] STEINER Study Date: 07/11/2023 7:58am Pat. NO: [id number] Referring MD: CHANEL TATE Site: [facility] House Carpenter Helper: Jhoana Bradley RDMS : 1990 Age: 33 [...] 0 lb 14 oz EFW by Hadlock ([id number]-FL) Head / Face / Neck Biometry: Agricultural Extension Officer 5.9 mm CM 5.6 mm Nasal bone 7.0 mm ANATOMY ----- The following structures appear normal: Head / Neck Cranium. Head size. Head shape.Lateral ventricles. Midline falx. Cavum septi pellucidi. Cerebellum.Cisterna magna. Thalami. Face Lips. Profile. Nose. Maxilla.Mandible. Heart / Thorax 4-chamber view. RVOT view. LVOT view.Ductal arch view. 3-vessel view. 5-gpyayv-zsbceud view. Diaphragm. Abdomen Cord insertion. Stomach. Kidneys.Bladder. [...] daily. Further ultrasound studies are anticipated in [place] and shouldinclude: 1. Growth every 4 weeks [...] no evidence of previa. Ingrid Washington MD [facility] US ORDERABLE S * [facility] Comprehensive Single (06/19/2023 11:57 AM DIETITIAN CONSULTANT) Anatomical Region Laterality Modality Ultrasound 06/19/2023 11:0 3 AM DIETITIAN CONSULTANT Impressions 06/19/2023 1:54 PM DIETITIAN CONSULTANT IMPRESSION ----- 1. Lanza intrauterine at [...] long and closed. Narrative 06/19/2023 1:54 PM DIETITIAN CONSULTANT ?Comprehensive ----- Pat. Name: CORA STEINER ? Study Date: ??06/19/2023 11:03am Pat. NO: ??[id number] ?Referring ??MD: CHANEL TATE Site: ??[facility] ? House Carpenter Helper: Essence Gallegos RDMS : ??1990 ?Age: ?? [...] 0 lb 8 ?oz EFW by ?Hadlock ([id number]) Head / Face / Neck Biometry: Agricultural Extension Officer ? 7.2 ? mm CM ?4.4 ? [...] view. RVOT view. LVOT view. 3-vessel view. 6-cutpwv-fuhsvjp view. Spine ?Sacral spine. The following structures [...] STEINER Study Date: 06/19/2023 11:03am Pat. NO: [id number] Referring MD: CHANEL TATE Site: [facility] House Carpenter Helper: Essence Gallegos RDMS : 1990 Age: 33 [...] 0 lb 8 oz EFW by Hadlock ([id number]-FL) Head / Face / Neck Biometry: Agricultural Extension Officer 7.2 mm CM 4.4 mm Nuchal fold [...] 4-chamber view. RVOT view. LVOT view.3-vessel view. 3-lhmlni-jpxymlw view. Spine Sacral spine. The following structures [...] detected For the complete details of today's MF consultation, please see separatedocumentation in epic. IMPRESSION [...] long and closed. Chanel Tate MD IMG [facility] US ORDERAB LES * (ABNORMAL) Glucose by meter (10/21/2014 6:20 AM CDT) Glucose 103(H) 70 - 99 mg/dL POINT OF CARE TEST, GLUCOSE 10/21/2014 6:20 AM CDT 10/21/2014 6:25 AM CDT Lianna Dimas DDS LAB - BEAKER POCT POINT OF CARE TEST, GLUCOSE * PAP SMEAR (09/23/1998 1:18 PM CDT) Unlabelled DNR [facility] Biopsy Sent DNR [facility] Source VAG,CERV,E NDOCERV [facility] LMP POST [facility] PARA 3 [facility] 2 [facility] Clinical History DNR [facility] Therapy DNR [facility] Last Pap Diagnosis WITHIN NORMAL LIMITS [facility] PAP Date [id number] [facility] Specimen # DNR [facility] Tissue DNR [facility] Tissue Date DNR [facility] Statement of Adequacy [facility] Comment: SATISFACTORY FOR INTERPRETATION POST MENOPAUSAL PATIENT. ??NO ENDOCERVICAL CELLS SEEN. General Categorization DNR [facility] Descriptive Diagnosis [facility] Comment: WITHIN NORMAL LIMITS ATROPHIC CELL PATTERN Recommendations DNR [facility] DNR 114,,,,,, [facility] DNR DNR [facility] DNR DNR [facility] DNR DNR [facility] . [facility] Comment: ?PAP SMEARS ARE SUBJECT TO BOTH FALSE NEGATIVE AND FALSE ? POSITIVE RESULTS EVIDENCED BY DATA PUBLISHED IN THE ? MEDICAL LITERATURE. ??YOUR PATIENT'S RESULT SHOULD BE ? INTERPRETED IN THIS CONTEXT, TOGETHER WITH THE PATIENT'S ? HISTORY AND CLINICAL FINDINGS. TESTING LOCATION ? [facility] ? [address]. [id number] ? PHONE NUMBERS FOR CYTOLOGY INQUIRES, INCLUDING SLIDE REQUESTS ? EXT. [id number] ?? EXT. [id number] 09/21/1998 Kimberley Fu MD LABORATORY [facility] from Last 3 Months or Most Recently Relevant to Health Maintenance Care Teams Welfare Director Relationship Specialty Start Date End Date No Ref-Primary, Physician PCP - General 06/07/23
--- OUTSIDE RECORDS SUMMARY | 2023-09-06 11:49 | XMS_ITS | Encounter Summary ---
Author Name Unknown Organization [place] Address [address] [place] [address] Care Team Providers Care Water Inspector Name Role Phone No Ref-Primary, Physician Primary [...] Sex Assigned at Female 06/03/2023 6:47 PM MASTER [employer] Gender Identity Female 06/03/2023 6:47 PM MASTER [employer] Sexual Orientation Straight 06/03/2023 6: 47 PM MASTER [employer] documented as of this encounter Plan of Treatment Not on file documented as of this encounter Visit Diagnoses Not on filedocumented in this encounter Care Teams Water Inspector Relationship Specialty Start Date End Date No Ref-Primary, Physician PCP - General 06/07/23 documented as of this encounter
--- OUTSIDE RECORDS SUMMARY | 2023-09-06 11:49 | XMS_ITS | Encounter Summary ---
Author Name Unknown Organization [place] Address [address] [place] [address] Care Team Providers Care Hat Former Name Role Phone Unavailable Primary Care Provider Unavailabl e Reason for Referral * Diagnostic Imaging Ultrasound (Routine) - Pending Review Specialty Diagnoses / Procedures Referred By Contac t Referred To Contact Radiology. Diagnoses related condition, antepartum Procedures MFM US Comprehensive Single Chanel Tate MD [facility] [address] [place] [address] Referral ID Status Reason Start Date Expiration Date V isits Requested Visits Authorized [id number] Pending Review 05/29/2023 05/28/2024 1 1 FLOOR REFINISHER * Consultation (Routine: Next available opening) - Pending Review Specialty Diagnoses / Procedures Referred By Contac t Referred To Contact Diagnoses related condition, antepartum Chanel Tate MD [facility] [address] [place] [address] [facility]aternal [facility] [address] [place] [address] Referral ID Status Reason Start Date Expiration Date V isits Requested Visits Authorized [id number] Pending Review 05/29/2023 05/28/2024 1 1 Question Answer Preferred Location: [facility] [place] [facility] 11/20/2023 Ultrasound Comprehensive US (>than 18 weeks GA) US PROC NONE MFM Issue OTHER (enter details in Comments) - [place] meds & [facility] HARPRE[facility] VITALE Consultation (unrelated to Ultrasound findings): No Inflammatory Bowel Disease Clinic: Joint MFM and GI Consultation: No Chronic Kidney Disease: Joint MFM and Nephrology Consultation No Genetic Counseling Consultation: No fax [facility] Chanel Tate [phone] Comments There is no height or weight [...] plan with any benefit or coverage questions. FLOOR REFINISHER Encounter Details Date Type Department Care Team (Late st Contact Info) Description 05/29/[address] [facility] Maternal Medicine Center [place] [address] [place] [address] Chanel Tate MD [facility] [address] [place] [address] related condition, antepartum (Primary Dx) Social History [...] Sex Assigned at Female 06/03/2023 6:47 PM WOOD FLOOR REFINISHER Gender Identity Female 06/03/2023 6:47 PM WOOD FLOOR REFINISHER Sexual Orientation Straight 06/03/2023 6: 47 PM WOOD FLOOR REFINISHER documented as of this encounter Plan of Treatment Scheduled Referrals Name Type Priority Associated Diagnoses Orde r Schedule [facility]tr Referral - Referral Routine: Next available opening Related Condition, Antepartum Expected: 05/29/2023 (Approximate), Expires: 11/25/2023 documented as of this encounter Results * MFM US Comprehensive Single (06/19/2023 11:57 AM WOOD FLOOR REFINISHER) Anatomical Region Laterality Modality Ultrasound 06/19/2023 11:0 3 AM WOOD FLOOR REFINISHER Impressions 06/19/2023 1:54 PM WOOD FLOOR REFINISHER IMPRESSION ----- 1. Lanza intrauterine at 18w [...] long and closed. Narrative 06/19/2023 1:54 PM WOOD FLOOR REFINISHER ?Comprehensive ----- Pat. Name: CORA STEINER ? Study Date: ??06/19/2023 11:03am Pat. NO: ??[id number] ?Referring ??: CHANEL TATE Site: ??[facility] ? Publicity Consultant: Essence Gallegos RDMS : ??1990 ?Age: ?? [...] 0 lb 8 ?oz EFW by ?Hadlock ([id number]) Head / Face / Neck Biometry: Traditional Maori Health Practitioner ? 7.2 ? mm CM ?4.4 ? [...] view. RVOT view. LVOT view. 3-vessel view. 8-uuaxrn-bqvnczk view. Spine ?Sacral spine. The following structures [...] STEINER Study Date: 06/19/2023 11:03am Pat. NO: [id number] Referring MD: CHANEL TATE Site: [facility] Publicity Consultant: Essence Gallegos RDMS : 1990 Age: 33 [...] 0 lb 8 oz EFW by Hadlock ([id number]-FL) Head / Face / Neck Biometry: Traditional Maori Health Practitioner 7.2 mm CM 4.4 mm Nuchal fold [...] 4-chamber view. RVOT view. LVOT view.3-vessel view. 7-edfcbk-apizgye view. Spine Sacral spine. The following structures [...]
--- OUTSIDE RECORDS SUMMARY | 2023-09-06 11:49 | XMS_ITS | Encounter Summary ---
Author Name Unknown Organization [facility] Address [address] [place] [address] Care Team Providers Care Backup Engineer Name Role Phone No Ref-Primary, Physician Primary Care Provider Reason for Referral * Diagnostic Imaging Ultrasound (Routine) - Pending Review Specialty Diagnoses / Procedures Referred By Contac t Referred To Contact Radiology. Diagnoses Encounter for follow-up ultrasound of anatomy Procedures [facility] US Comprehensive Single F/U Ingrid Washington MD [address] [place] [address] Referral ID Status Reason Start Date Expiration Date V isits Requested Visits Authorized [id number] Pending Review 06/19/2023 06/18/2024 1 1 DRY ROUTE DRIVER Reason for Visit * Reason Comments Ultrasound L2-CHTN, AMA, Ulcera tive Colitis, BMI >40 Consult [facility] consult-CHTN, AM A, Ulcerative Colitis, BMI >40 * Consultation (Routine: Next available opening) - Pending Review Specialty Diagnoses / Procedures Referred By Contac t Referred To Contact Diagnoses related condition, antepartum Chanel Tate MD [facility] [address] [place] [address] Referral ID Status Reason Start Date Expiration Date V isits Requested Visits Authorized [id number] Pending Review 06/07/2023 06/06/2024 1 1 Encounter Details Date Type Department Care Team (Late st Contact Info) Description 06/19/2023 11:45 AM LAUNDRY ROUTE DRIVER Office Visit [facility] M[facility] Medicine Center [place] [address] [place] [address] Ingrid Washignton MD [address] [place] [address] [address] [place] [address] Encounter for follow-up ultrasound of [...] Sex Assigned at Female 06/03/2023 6:47 PM LAUNDRY ROUTE DRIVER Gender Identity Female 06/03/2023 6:47 PM LAUNDRY ROUTE DRIVER Sexual Orientation Straight 06/03/2023 6: 47 PM LAUNDRY ROUTE DRIVER documented as of this encounter Last Filed Vital Signs Vital Sign Reading Time Taken Comments Blood Pressure 139/83 06/19/2023 12:21 PM LAUNDRY ROUTE DRIVER Pulse 85 06/19/2023 12:21 PM LAUNDRY ROUTE DRIVER Temperature - - Respiratory Rate - - Oxygen Saturation 98% 06/19/2023 12:21 PM LAUNDRY ROUTE DRIVER Inhaled Oxygen Concentration - - Weight - - Height - - Body Mass Index - - documented in this encounter Progress Notes * Ingrid Washington MD - 06/19/2023 11:45 AM CST Please see Imaging tab under Chart Review for details of today's visit. Ingrid Washington DRY ROUTE DRIVER * Ingrid Washington MD - 06/19/2023 11:45 [...] as prior). She follows closely with her piccoloist Dr. Julio César Song. She plans to [...] Medication Sig Last Dose Taking? Auth Provider Bmx Rider End Date adalimumab (HUMIRA) 40 MG/0.8ML syr kit Inject 40 mg Subcutaneous every 14 days Reported, Patient Yes amoxicillin (AMOXIL) 500 MG capsule Take 1 capsule (500 mg) by mouth 3 times daily [place], Lianna A, DDS Fexofenadine HCl (RAMON PO) [...] medical record, and communicating with other health home care companion and/or care coordination. Ingrid Washington MD Maternal Medicine 06/19/2023 2:13 PM DRY ROUTE DRIVER documented in this encounter Nursing Notes * Rebeca Gillis RN - 06/19/2023 11:45 AM CST Patient presents to [facility] for L2 at 18w0d due to CHTN, AMA, Ulcerative Colitis, BMI >40. Positive movement. Denies LOF, vaginal bleeding or cramping/contractions. SBAR given to [facility] , see their note in Epic. DRY ROUTE DRIVER documented in this encounter Plan of Treatment [...] ? Study Date: ??07/11/2023 7:58am Pat. NO: ??[id number] ?Referring ??MD: CHANEL TATE Site: ??[facility] ? Baby Registry Sales Consultant: Jhoana Bradley RDMS : ??1990 ?Age: ?? [...] lb 14 ? oz EFW by ?Hadlock ([id number]-FL) Head / Face / Neck Biometry: Patient Service Representative ? 5.9 ? mm CM [...] LVOT view. Ductal arch view. 3-vessel view. 1-ndwqfm-knlgvvb view. ? Diaphragm. Abdomen ? Cord insertion. [...] daily. Further ultrasound studies are anticipated in [place] and should include: 1. Growth every 4 [...] STEINER Study Date: 07/11/2023 7:58am Pat. NO: [id number] Referring MD: CHANEL TATE Site: [facility] Baby Registry Sales Consultant: Jhoana Bradley RDMS : 1990 Age: 33 [...] 0 lb 14 oz EFW by Hadlock ([id number]-[id number]-FL) Head / Face / Neck Biometry: Patient Service Representative 5.9 mm CM 5.6 mm Nasal bone 7.0 mm ANATOMY ----- The following structures appear normal: Head / Neck Cranium. Head size. Head shape.Lateral ventricles. Midline falx. Cavum septi pellucidi. Cerebellum.Cisterna magna. Thalami. Face Lips. Profile. Nose. Maxilla.Mandible. Heart / Thorax 4-chamber view. RVOT view. LVOT view.Ductal arch view. 3-vessel view. 4-txuwum-kbveypp view. Diaphragm. Abdomen Cord insertion. Stomach. Kidneys.Bladder. [...] daily. Further ultrasound studies are anticipated in [place] and shouldinclude: 1. Growth every 4 weeks [...] no evidence of previa. Ingrid Washington MD [facility] US ORDERABLE S documented in this encounter Visit Diagnoses Diagnosis Encounter for follow-up ultrasound of anatomy- Primary related condition, antepartum Chronic hypertension affecting Ulcerative colitis with complication, unspecified location (H) Encounter for follow-up ultrasound of anatomy documented in this encounter Care Teams Backup Engineer Relationship Specialty Start Date End Date No Ref-Primary, Physician PCP - General 06/07/23 documented as of this encounter
--- OUTSIDE RECORDS SUMMARY | 2023-09-06 11:49 | XMS_ITS | Encounter Summary ---
Author Name Unknown Organization [facility] Address [address] [place] [address]. [place] [address] Care Team Providers Care Mail List Librarian Name Role Phone Unavailable Primary Care Provider [facility] Encounter Details Date Type Department Care Team ([facility] Contact Info) Description 05/29/2023 Medical Correspondence M [facility] Info [facility] [address] [place] [phone] Scan, Non-Provider Social History Tobacco Use Types Packs/Day Years Used Date Smoking Tobacco: Never Smokeless Tobacco: Never Alcohol Use Standard Drinks/Week Comments No 0 (1 standard drink = 0.6 oz pur e alcohol) Adolescent Education Answer Date Record ed Getting School Help Needed Not on file 05/29 Sex and Gender Information Value Date Recorded Sex Assigned at Female 06/03/2023 6:47 PM SUPERVISOR BOATBUILDERS WOOD Gender Identity Female 06/03/2023 6:47 PM SUPERVISOR BOATBUILDERS WOOD Sexual Orientation Straight 06/03/2023 6: 47 PM SUPERVISOR BOATBUILDERS WOOD documented as of this encounter Plan of Treatment Not on file documented as of this encounter Visit Diagnoses Not on filedocumented in this encounter
--- OUTSIDE RECORDS SUMMARY | 2023-09-06 11:49 | XMS_ITS | Encounter Summary ---
Author Name Unknown Organization [facility] Address [address] [place] [address] Care Team Providers Care Buggy Loader Name Role Phone No Ref-Primary, Physician Primary [...] Sex Assigned at Female 06/03/2023 6:47 PM CLINICAL REHABILITATION LIAISON Gender Identity Female 06/03/2023 6:47 PM CLINICAL REHABILITATION LIAISON Sexual Orientation Straight 06/03/2023 6: 47 PM CLINICAL REHABILITATION LIAISON documented as of this encounter Plan of Treatment Not on file documented as of this encounter Visit Diagnoses Not on filedocumented in this encounter Care Teams Buggy Loader Relationship Specialty Start Date End Date No Ref-Primary, Physician PCP - General 06/07/23 documented as of this encounter
--- OUTSIDE RECORDS SUMMARY | 2023-09-06 11:49 | XMS_ITS | Encounter Summary ---
Author Name Unknown Organization [facility] Address [address] [place] [address]. [place] [address] Care Team Providers Care Welding Process Engineer Name Role Phone No Ref-Primary, Physician Primary Care Provider Reason for Visit * Reason Comments Ultrasound L2-CHTN, AMA, BMI>40 , Ulcerative Colitis Encounter Details Date Type Department Care Team (Late st Contact Info) Description 06/07/2023 PRE VISIT [facility] Maternal Medicine Center [place] [address] [facility] [address] [place] [address] Heidi Ramey RN Ultrasound (L2-CHTN, [...] Sex Assigned at Female 06/03/2023 6:47 PM CONCRETE TESTER Gender Identity Female 06/03/2023 6:47 PM CONCRETE TESTER Sexual Orientation Straight 06/03/2023 6: 47 PM CONCRETE TESTER documented as of this encounter Plan of Treatment Not on file documented as of this encounter Visit Diagnoses Not on filedocumented in this encounter Care Teams Welding Process Engineer Relationship Specialty Start Date End Date No Ref-Primary, Physician PCP - General 06/07/23 documented as of this encounter
--- OUTSIDE RECORDS SUMMARY | 2023-09-06 11:49 | XMS_ITS | Encounter Summary ---
Author Name Unknown Organization [facility] Address [address] [place] [address] Care Team Providers Care Director Of Student Services Name Role Phone No Ref-Primary, Physician Primary Care Provider Reason for Referral * Consultation (Routine: Next available opening) - Pending Review Specialty Diagnoses / Procedures Referred By Anna t Referred To Contact Diagnoses related condition, antepartum Chanel Tate MD [facility] [address] [place] [address] Referral ID Status Reason Start Date Expiration Date V isits Requested Visits Authorized [id number] Pending Review 06/07/2023 06/06/2024 1 1 Question Answer OB Visit? No Post Visit No Cervical Dilator Placement No Cerclage Removal No MFM Consult Yes NICU Consult No Curing Supervisor No Psychological Consult No Genetic Consult No CTG/NST No BHC No Nephrology Consult No GI Consult No OMIC PATHOLOGIST Encounter Details Date Type Department Care Team (Late st Contact Info) Description 06/07/2023 Transcribe Orders [facility] Maternal Medicine Center [place] [address] [facility] [address] [place] [address] Chanel Tate MD [facility] [address] [place] [address] related condition, antepartum (Primary Dx) [...] Sex Assigned at Female 06/03/2023 6:47 PM ANATOMIC PATHOLOGIST Gender Identity Female 06/03/2023 6:47 PM ANATOMIC PATHOLOGIST Sexual Orientation Straight 06/03/2023 6: 47 PM ANATOMIC PATHOLOGIST documented as of this encounter Plan of Treatment Scheduled Referrals Name Type Priority Associated Diagnoses Orde r Schedule MFM Office Visit Referral Routine: Next available opening Related Condition, Antepartum Expected: 06/07/2023 (Approximate), Expires: 06/07/2024 documented as of this encounter Visit Diagnoses Diagnosis related condition, antepartum- Primary documented in this encounter Care Teams Director Of Student Services Relationship Specialty Start Date End Date No Ref-Primary, Physician PCP - General 06/07/23 documented as of this encounter
--- OUTSIDE RECORDS SUMMARY | 2023-09-06 11:49 | XMS_ITS | Encounter Summary ---
Author Name Unknown Organization [facility] Address [address] [place] [address]. [place] [address] Care Team Providers Care Sales Porter Name Role Phone Unavailable [facility] Encounter Details Date Type Department Care Team ([facility] Contact Info) Description 05/26/2023 Medical Correspondence [facility] [address] [place] [phone] Scan, Non-Provider Social History Tobacco Use Types Packs/Day Years Used Date Smoking Tobacco: Never Smokeless Tobacco: Never Alcohol Use Standard Drinks/Week Comments No 0 (1 standard drink = 0.6 oz pur e alcohol) Adolescent Education Answer Date Record ed Getting School Help Needed Not on file 05/29 Sex and Gender Information Value Date Recorded Sex Assigned at Female 06/03/2023 6:47 PM TIPPLE WORKER Gender Identity Female 06/03/2023 6:47 PM TIPPLE WORKER Sexual Orientation Straight 06/03/2023 6: 47 PM TIPPLE WORKER documented as of this encounter Plan of Treatment Not on file documented as of this encounter Visit Diagnoses Not on filedocumented in this encounter
--- OUTSIDE RECORDS SUMMARY | 2023-09-06 11:49 | XMS_ITS | Encounter Summary ---
Author Name Unknown Organization [facility] Address [address] [place] [address] Care Team Providers Care Water Service Dispatcher Name Role Phone No Ref-Primary, Physician Primary Care Provider Reason for Referral * Diagnostic Imaging Ultrasound (Routine) - Pending Review Specialty Diagnoses / Procedures Referred By Contac t Referred To Contact Radiology. Diagnoses Encounter for follow-up ultrasound of anatomy Procedures [facility] US Comprehensive Single F/U Ingrid Washington MD [address] [place] [address] Referral ID Status Reason Start Date Expiration Date V isits Requested Visits Authorized [id number] Pending Review 06/19/2023 06/18/2024 1 1 Reason for Visit * Diagnostic Imaging Ultrasound (Routine) - Pending Review Specialty Diagnoses / Procedures Referred By Contac t Referred To Contact Radiology. Diagnoses Encounter for follow-up ultrasound of anatomy Procedures [facility] US Comprehensive Single F/U Ingrid Washington MD [address] [facility] [address] [facility] [address] [place] [address] Referral ID Status Reason Start Date Expiration Date V isits Requested Visits Authorized Pending Review 06/19/2023 06/18/2024 1 1 Encounter Details Date Type Department Care Team (Latest Contact Info) Description 07/11/2023 8:00 AM CDT - 07/11/2023 11:59 PM CDT Hospital Encounter [facility] Maternal Medicine Center [place] [address] [facility] [address] [place] [address] Ingrid Washington MD [address] [place] [address] Codie Leroy MD [address] [place] [address] Encounter for follow-up ultrasound of [...] Sex Assigned at Female 06/03/2023 6:47 PM TAXIMETER REPAIRER Gender Identity Female 06/03/2023 6:47 PM TAXIMETER REPAIRER Sexual Orientation Straight 06/03/2023 6: 47 PM TAXIMETER REPAIRER documented as of this encounter Medications at [...] anatomy documented in this encounter Results * [facility] US Comprehensive Single F/U (07/11/2023 8:50 [...] ? Study Date: ??07/11/2023 7:58am Pat. NO: ??[id number] ?Referring ??MD: MARII SHARMA Site: ??[facility] ? Field Nurse Case Manager: Jhoana Bradley [facility] : [...] lb 14 ? oz EFW by ?Hadlock ([id number]-[id number]-FL) Head / Face / Neck Biometry: Apprise Counselor ? 5.9 ? mm CM ?5.6 ? mm Nasal bone ? 7.0 ? mm ANATOMY ----- The following structures appear normal: Head / Neck ? Cranium. Head size. Head shape. Lateral ventricles. Midline falx. Cavum septi pellucidi. Cerebellum. Cisterna magna. Thalami. Face ? Lips. Profile. Nose. Maxilla. Mandible. Heart / Thorax ?4-chamber view. RVOT view. LVOT view. Ductal arch view. 3-vessel view. 3-nxevga-ngdwjqt view. ? Diaphragm. Abdomen ? Cord insertion. [...] daily. Further ultrasound studies are anticipated in [place] and should include: 1. Growth every 4 [...] STEINER Study Date: 07/11/2023 7:58am Pat. NO: [id number] Referring MD: MARII SHARMA Site: [facility] Field Nurse Case Manager: Jhoana BradleyALEK : 1990 Age: 33 ----- [...] 0 lb 14 oz EFW by Hadlock ([id number]-DX-FL) Head / Face / Neck Biometry: Apprise Counselor 5.9 mm CM 5.6 mm Nasal bone 7.0 mm ANATOMY ----- The following structures appear normal: Head / Neck Cranium. Head size. Head shape.Lateral ventricles. Midline falx. Cavum septi pellucidi. Cerebellum.Cisterna magna. Thalami. Face Lips. Profile. Nose. Maxilla.Mandible. Heart / Thorax 4-chamber view. RVOT view. LVOT view.Ductal arch view. 3-vessel view. 3-uvkgzd-ltcjcyy view. Diaphragm. Abdomen Cord insertion. Stomach. Kidneys.Bladder. [...] daily. Further ultrasound studies are anticipated in [place] and shouldinclude: 1. Growth every 4 weeks starting at 28 weeks 2. Weekly BPP at 32 weeks Return to primary provider for continued care. If you have questions regarding today's evaluation or if [facility], please contact the Maternal- Medicine [...] no evidence of previa. Ingrid Washington MD [facility] US ORDERABLE S documented in this encounter Visit Diagnoses Diagnosis Encounter for follow-up ultrasound of anatomy documented in this encounter Care Teams Water Service Dispatcher Relationship Specialty Start Date End Date No Ref-Primary, Physician PCP - General 06/07/23 documented as of this encounter
--- OUTSIDE RECORDS SUMMARY | 2023-09-06 11:49 | XMS_ITS | Encounter Summary ---
Author Name Unknown Organization [facility] Address [address] [place] [address]. [place] [address] Care Team Providers Care Wellness Guide Name Role Phone No Ref-Primary, Physician Primary Care Provider Reason for Visit * Reason Comments Ultrasound RL2-subopt Encounter Details Date Type Department Care Team (Late st Contact Info) Description 07/11/2023 8:30 AM CDT Office Visit [facility] Maternal Medicine Center [place] [address] [facility] [address] [place] [address] Ingrid Washington MD [address] [place] [address] Codie Leroy MD [address] [place] [address] Maternal hypertension syndrome, second trimester [...] Sex Assigned at Female 06/03/2023 6:47 PM AVIONICS MANAGER Gender Identity Female 06/03/2023 6:47 PM AVIONICS MANAGER Sexual Orientation Straight 06/03/2023 6: 47 PM AVIONICS MANAGER documented as of this encounter Progress Notes [...] Primary documented in this encounter Care Teams Wellness Guide Relationship Specialty Start Date End Date No Ref-Primary, Physician PCP - General 06/07/23 documented as of this encounter
--- OUTSIDE RECORDS SUMMARY | 2023-09-06 11:49 | XMS_ITS | Encounter Summary ---
Author Name Unknown Organization [facility] Address [address] [place] [address] Care Team Providers Care Career Portals Teacher Name Role Phone No Ref-Primary, Physician Primary Care Provider Reason for Referral * Diagnostic Imaging Ultrasound (Routine) - Pending Review Specialty Diagnoses / Procedures Referred By Contac t Referred To Contact Radiology. Diagnoses related condition, antepartum Procedures [facility] US Comprehensive Single Chanel Tate MD [facility] [address] [place] [address] Referral ID Status Reason Start Date Expiration Date V isits Requested Visits Authorized [id number] Pending Review 05/29/2023 05/28/2024 1 1 MATIC LUMP MAKING MACHINE TENDER Reason for Visit * Diagnostic Imaging Ultrasound (Routine) - Pending Review Specialty Diagnoses / Procedures Referred By Contac t Referred To Contact Radiology. Diagnoses related condition, antepartum Procedures [facility] US Comprehensive Single Chanel Tate MD [facility] [address] [place] [address] Referral ID Status Reason Start Date Expiration Date V isits Requested Visits Authorized [id number] Pending Review 05/29/2023 05/28/2024 1 1 Encounter Details Date Type Department Care Team (Latest Contact Info) Description 06/19/2023 11:00 AM AUTOMATIC LUMP MAKING MACHINE TENDER - 06/19/2023 11:59 PM AUTOMATIC LUMP MAKING MACHINE TENDER Hospital Encounter [facility] M[facility] Medicine Center [place] [address] [facility] [address] [place] [phone] Ingrid Washington MD [address] [place], [place] [address] related condition, antepartum Discharge Disposition: Home or [...] Sex Assigned at Female 06/03/2023 6:47 PM AUTOMATIC LUMP MAKING MACHINE TENDER Gender Identity Female 06/03/2023 6:47 PM AUTOMATIC LUMP MAKING MACHINE TENDER Sexual Orientation Straight 06/03/2023 6: 47 PM AUTOMATIC LUMP MAKING MACHINE TENDER documented as of this encounter Medications at [...] Procedure Name Priority Date/Time Associated Diagnosis Comments [facility] SINGLE Routine 06/19/2023 11:57 AM AUTOMATIC LUMP MAKING MACHINE TENDER related condition, antepartum documented in this encounter Results * [facility] Single (06/19/2023 11:57 AM AUTOMATIC LUMP MAKING MACHINE TENDER) Anatomical Region Laterality Modality Ultrasound 06/19/2023 11:0 3 AM AUTOMATIC LUMP MAKING MACHINE TENDER Impressions 06/19/2023 1:54 PM AUTOMATIC LUMP MAKING MACHINE TENDER IMPRESSION ----- 1. Lanza intrauterine at 18w [...] long and closed. Narrative 06/19/2023 1:54 PM AUTOMATIC LUMP MAKING MACHINE TENDER ?Comprehensive ----- Pat. Name: CORA STEINER ? Study Date: ??06/19/2023 11:03am Pat. NO: ??[id number] ?Referring ??: CHANEL TATE Site: ??[facility] ? Cost Control Analyst: Essence Gallegos RDMS : ??1990 ?Age: [...] 0 lb 8 ?oz EFW by ?Hadlock ([id number]-[id number]-FL) Head / Face / Neck Biometry: Hunter ? 7.2 ? mm CM ?4.4 ? [...] view. RVOT view. LVOT view. 3-vessel view. 9-lanrnn-ozbgksd view. Spine ?Sacral spine. The following structures [...] STEINER Study Date: 06/19/2023 11:03am Pat. NO: [id number] Referring MD: CHANEL TATE Site: [facility] Cost Control Analyst: Essence Gallegos RDMS : 1990 Age: 33 ----- INDICATION ----- Chronic hypertension - on medication. Advanced maternal age. Ulcerative colitis. History of gestational hypertension & preeclampsia. BMI 45.9. Low risk NIPT. METHOD ----- Transabdominal ultrasound examination. View: Suboptimal view: limited bymaternal body habitus. Suboptimal view: limited by position. ----- Lanaz . Number of fetuses: 1 DATING ----- [...] 0 lb 8 oz EFW by Hadlock (CIO-UN-MV-FL) Head / Face / Neck Biometry: Hunter 7.2 mm CM 4.4 mm Nuchal fold [...] 4-chamber view. RVOT view. LVOT view.3-vessel view. 0-bjdxlf-lmmlogy view. Spine Sacral spine. The following structures [...] long and closed. Chanel Tate MD IMG [facility] US ORDERAB LES documented in this encounter Visit Diagnoses Diagnosis related condition, antepartum documented in this encounter Care Teams Career Portals Teacher Relationship Specialty Start Date End Date No Ref-Primary, Physician PCP - General 06/07/23 documented as of this encounter
== END 2023-09-04 08:12 | disposition home or self-care (01) ==
LOC: NFLDREF 09-06 11:47
PROVIDERS: Visit Provider Obstetrics & Gynecology
DX: O09.523 Supervision of elderly multigravida, third trimester (principal); Z3A.28 28 weeks gestation of pregnancy; R73.02 Impaired glucose tolerance (oral)
CPT/HCPCS: 82951; 82952; 86592

== ENCOUNTER 2023-09-26 10:46 | Outpatient (CLI) | payer BC, OTHER, SELFPAY ==
--- OUTSIDE RECORDS SUMMARY | 2023-09-26 10:52 | XMS_ITS | Encounter Summary ---
Author Organization [facility] Address [address] [place] [address] Care Team Providers Care Softball Player Name Role Phone No Ref-Primary, Physician Primary [...] Sex Assigned at Female 06/03/2023 6:47 PM HARNESS PULLER Gender Identity Female 06/03/2023 6:47 PM HARNESS PULLER Sexual Orientation Straight 06/03/2023 6: 47 PM HARNESS PULLER documented as of this encounter Plan of Treatment Not on file documented as of this encounter Visit Diagnoses Not on filedocumented in this encounter Care Teams Softball Player Relationship Specialty Start Date End Date No Ref-Primary, Physician PCP - General 06/07/23 documented as of this encounter
--- OUTSIDE RECORDS SUMMARY | 2023-09-26 10:52 | XMS_ITS | Encounter Summary ---
Author Organization [facility] Address [address] [place] [address] Care Team Providers Care Experimental Flight Test Mechanic Name Role Phone No Ref-Primary, Physician Primary [...] Sex Assigned at Female 06/03/2023 6:47 PM INFORMATION SYSTEMS MANAGER Gender Identity Female 06/03/2023 6:47 PM INFORMATION SYSTEMS MANAGER Sexual Orientation Straight 06/03/2023 6: 47 PM INFORMATION SYSTEMS MANAGER documented as of this encounter Plan of Treatment Not on file documented as of this encounter Visit Diagnoses Not on filedocumented in this encounter Care Teams Experimental Flight Test Mechanic Relationship Specialty Start Date End Date No Ref-Primary, Physician PCP - General 06/07/23 documented as of this encounter
--- OUTSIDE RECORDS SUMMARY | 2023-09-26 10:52 | XMS_ITS | Encounter Summary ---
Author Organization [place] Address [address] [place] [address]. [place] [address] Care Team Providers Care Formula Room Worker Name Role Phone No Ref-Primary, Physician Primary Care Provider Reason for Visit * Reason Comments Ultrasound RL2-subopt Encounter Details Date Type Department Care Team ([facility] st Contact Info) Description 07/11/2023 8:30 AM CDT Office Visit [facility] Medicine [facility] [place] [address] [facility] [address] [place] [address] Ingrid [place] MD [address] [place] [address] Codie Leroy MD [address] [place] [address] Maternal hypertension syndrome, second trimester [...] Sex Assigned at Female 06/03/2023 6:47 PM PEDIATRIC GENETICIST Gender Identity Female 06/03/2023 6:47 PM PEDIATRIC GENETICIST Sexual Orientation Straight 06/03/2023 6: 47 PM PEDIATRIC GENETICIST documented as of this encounter Progress Notes [...] Primary documented in this encounter Care Teams Formula Room Worker Relationship Specialty Start Date End Date No Ref-Primary, Physician PCP - General 06/07/23 documented as of this encounter
--- OUTSIDE RECORDS SUMMARY | 2023-09-26 10:52 | XMS_ITS | Encounter Summary ---
Author Organization Media Address [facility] [place] [address] Care Team Providers Care Director Online Marketing Name Role Phone No Ref-Primary, Physician Primary Care Provider Reason for Referral * Diagnostic Imaging Ultrasound (Routine) - Pending Review Specialty Diagnoses / Procedures Referred By Contac t Referred To Contact Radiology. Diagnoses Encounter for follow-up ultrasound of anatomy Procedures [facility] US Comprehensive Single F/U Ingrid [place] MD [address] [place] [address] Referral ID Status Reason Start Date Expiration Date V isits Requested Visits Authorized [id number] Pending Review 06/19/2023 06/18/2024 1 1 Y DRY OPERATOR Reason for Visit * Reason Comments Ultrasound L2-CHTN, AMA, Ulcera tive Colitis, BMI >40 Consult [facility] consult-CHTN, AM A, Ulcerative Colitis, BMI >40 * Consultation (Routine: Next available opening) - Pending Review Specialty Diagnoses / Procedures Referred By Contac t Referred To Contact Diagnoses related condition, antepartum Chanel Tate MD [facility] [address] [place] [address] Referral ID Status Reason Start Date Expiration Date V isits Requested Visits Authorized [id number] Pending Review 06/07/2023 06/06/2024 1 1 Encounter Details Date Type Department Care Team (Late st Contact Info) Description 06/19/2023 11:45 AM SPRAY DRY OPERATOR Office Visit [facility] [place] [address] [facility] [address] [place] [address] Ingrid [place] MD [address] [place] [address] [address] [place] [address] Encounter for follow-up ultrasound of [...] Sex Assigned at Female 06/03/2023 6:47 PM SPRAY DRY OPERATOR Gender Identity Female 06/03/2023 6:47 PM SPRAY DRY OPERATOR Sexual Orientation Straight 06/03/2023 6: 47 PM SPRAY DRY OPERATOR documented as of this encounter Last Filed Vital Signs Vital Sign Reading Time Taken Comments Blood Pressure 139/83 06/19/2023 12:21 PM SPRAY DRY OPERATOR Pulse 85 06/19/2023 12:21 PM SPRAY DRY OPERATOR Temperature - - Respiratory Rate - - Oxygen Saturation 98% 06/19/2023 12:21 PM SPRAY DRY OPERATOR Inhaled Oxygen Concentration - - Weight - - Height - - Body Mass Index - - documented in this encounter Progress Notes * Ingrid [place] MD - 06/19/2023 11:45 AM CST Please see Imaging tab under Chart Review for details of today's visit. Ingrid [place] Y DRY OPERATOR * Ingrid [place] MD - 06/19/2023 11:45 AM CST Images from the original note were not included. Maternal- Medicine Consultation Cora Steiner : 1990 REFERRAL: Cora M Wesley is a 33 year old sent by [...] as prior). She follows closely with her advertising account manager Dr. Julio César Song. She plans to [...] EXTRACTION(S) DENTAL; Surgeon: Lianna Dimas DDS; Location: [facility] OR Current Medications: Prior to Admission medications Medication Sig Last Dose Taking? Auth Provider Longterm End Date adalimumab (HUMIRA) 40 MG/0.8ML syr kit Inject 40 mg Subcutaneous every 14 days Reported, Patient Yes amoxicillin (AMOXIL) 500 MG capsule Take 1 capsule (500 mg) by mouth 3 times daily [place], Lianna A, DDS Fexofenadine HCl (RAMON PO) [...] medical record, and communicating with other health manager managed care and/or care coordination. Ingrid [place] MD Maternal Medicine 06/19/2023 2:13 PM Y DRY OPERATOR documented in this encounter Nursing Notes * Rebeca Gillis RN - 06/19/2023 11:45 AM CST Patient presents to [facility] for L2 at 18w0d due to CHTN, AMA, Ulcerative Colitis, BMI >40. Positive movement. Denies LOF, vaginal bleeding or cramping/contractions. SBAR given to [facility] , see their note in Epic. Y DRY OPERATOR documented in this encounter Plan of Treatment [...] ? Study Date: ??07/11/2023 7:58am Pat. NO: ??[id number] ?Referring ??: CHANEL TATE Site: ??[facility] ? Track Patrol: Jhoana Bradley RDMS : ??1990 ?Age: ?? [...] lb 14 ? oz EFW by ?Hadlock ([id number]-FL) Head / Face / Neck Biometry: Planner Intern ? 5.9 ? mm CM ?5.6 ? mm Nasal bone ? 7.0 ? mm ANATOMY ----- The following structures appear normal: Head / Neck ? Cranium. Head size. Head shape. Lateral ventricles. Midline falx. Cavum septi pellucidi. Cerebellum. Cisterna magna. Thalami. Face ? Lips. Profile. Nose. Maxilla. Mandible. Heart / Thorax ?4-chamber view. RVOT view. LVOT view. Ductal arch view. 3-vessel view. 7-jhslzj-jxfwsuq view. ? Diaphragm. Abdomen ? Cord insertion. [...] daily. Further ultrasound studies are anticipated in [place] and should include: 1. Growth every 4 [...] STEINER Study Date: 07/11/2023 7:58am Pat. NO: [id number] Referring MD: CHANEL TATE Site: [facility] Track Patrol: Jhoana Bradley RDMS : 1990 Age: 33 [...] 0 lb 14 oz EFW by Hadlock ([id number]) Head / Face / Neck Biometry: Planner Intern 5.9 mm CM 5.6 mm Nasal bone 7.0 mm ANATOMY ----- The following structures appear normal: Head / Neck Cranium. Head size. Head shape.Lateral ventricles. Midline falx. Cavum septi pellucidi. Cerebellum.Cisterna magna. Thalami. Face Lips. Profile. Nose. Maxilla.Mandible. Heart / Thorax 4-chamber view. RVOT view. LVOT view.Ductal arch view. 3-vessel view. 0-cqxkbk-uzyakpp view. Diaphragm. Abdomen Cord insertion. Stomach. Kidneys.Bladder. [...] daily. Further ultrasound studies are anticipated in [place] and shouldinclude: 1. Growth every 4 weeks [...] no evidence of previa. Ingrid [place] MD IMG [facility] US ORDERABLE S documented in this encounter Visit Diagnoses Diagnosis Encounter for follow-up ultrasound of anatomy- Primary related condition, antepartum Chronic hypertension affecting Ulcerative colitis with complication, unspecified location (H) Encounter for follow-up ultrasound of anatomy documented in this encounter Care Teams Director Online Marketing Relationship Specialty Start Date End Date No Ref-Primary, Physician PCP - General 2/7/24 documented as of this encounter
--- OUTSIDE RECORDS SUMMARY | 2023-09-26 10:52 | XMS_ITS | Encounter Summary ---
Author Organization [place] Address [address] [place] [address] Care Team Providers Care Color Strainer Name Role Phone No Ref-Primary, Physician Primary Care Provider Reason for Referral * Diagnostic Imaging Ultrasound (Routine) - Pending Review Specialty Diagnoses / Procedures Referred By Contac t Referred To Contact Radiology. Diagnoses Encounter for follow-up ultrasound of anatomy Procedures [facility] US Comprehensive Single F/U Ingrid [place] MD [address] [place] [address] Referral ID Status Reason Start Date Expiration Date V isits Requested Visits Authorized [id number] Pending Review 06/19/2023 06/18/2024 1 1 Reason for Visit * Diagnostic Imaging Ultrasound (Routine) - Pending Review Specialty Diagnoses / Procedures Referred By Contac t Referred To Contact Radiology. Diagnoses Encounter for follow-up ultrasound of anatomy Procedures [facility] US Comprehensive Single F/U Ingrid [place] MD [address] [address] [facility] [address] [place] [address] Referral ID Status Reason Start Date Expiration Date V isits Requested Visits Authorized Pending Review 06/19/2023 06/18/2024 1 1 Encounter Details Date Type Department Care Team (Latest Contact Info) Description 07/11/2023 8:00 AM CDT - 07/11/2023 11:59 PM CDT Hospital Encounter [facility] M[facility] Medicine [facility] [place] [address] [facility] [address] [facility] [address] [place] [address] Ingrid [place] MD [address] [place] [address] Codie Leroy MD [address] [place] [address] Encounter for follow-up ultrasound of [...] Sex Assigned at Female 06/03/2023 6:47 PM BUSINESS OBJECTS Gender Identity Female 06/03/2023 6:47 PM BUSINESS OBJECTS Sexual Orientation Straight 06/03/2023 6: 47 PM BUSINESS OBJECTS documented as of this encounter Medications at [...] anatomy documented in this encounter Results * [facility] US Comprehensive Single F/U (07/11/2023 8:50 [...] ? Study Date: ??07/11/2023 7:58am Pat. NO: ??[id number] ?Referring ??MD: MARII SHARMA Site: ??[facility] ? Credit Front Office Developer: Jhoana Bradley : ??1990 ?Age: ?? 33 ----- INDICATION [...] lb 14 ? oz EFW by ?Hadlock ([id number]-FL) Head / Face / Neck Biometry: Photo Technician ? 5.9 ? mm CM ?5.6 ? mm Nasal bone ? 7.0 ? mm ANATOMY ----- The following structures appear normal: Head / Neck ? Cranium. Head size. Head shape. Lateral ventricles. Midline falx. Cavum septi pellucidi. Cerebellum. Cisterna magna. Thalami. Face ? Lips. Profile. Nose. Maxilla. Mandible. Heart / Thorax ?4-chamber view. RVOT view. LVOT view. Ductal arch view. 3-vessel view. 5-tqjlzn-hcrqpzw view. ? Diaphragm. Abdomen ? Cord insertion. [...] daily. Further ultrasound studies are anticipated in [place] and should include: 1. Growth every 4 [...] STEINER Study Date: 07/11/2023 7:58am Pat. NO: [id number] Referring MD: MARII SHARMA Site: [facility] Credit Front Office Developer: Jhoana BradleyALEK : 1990 Age: 33 ----- [...] 0 lb 14 oz EFW by Hadlock ([id number]) Head / Face / Neck Biometry: Photo Technician 5.9 mm CM 5.6 mm Nasal bone 7.0 mm ANATOMY ----- The following structures appear normal: Head / Neck Cranium. Head size. Head shape.Lateral ventricles. Midline falx. Cavum septi pellucidi. Cerebellum.Cisterna magna. Thalami. Face Lips. Profile. Nose. Maxilla.Mandible. Heart / Thorax 4-chamber view. RVOT view. LVOT view.Ductal arch view. 3-vessel view. 0-bzxqyh-bizasur view. Diaphragm. Abdomen Cord insertion. Stomach. Kidneys.Bladder. [...] daily. Further ultrasound studies are anticipated in [place] and shouldinclude: 1. Growth every 4 weeks starting at 28 weeks 2. Weekly BPP at 32 weeks Return to primary provider for continued care. If you have questions regarding today's evaluation or if [facility] can [facility], please contact the Maternal- Medicine Center. [...] no evidence of previa. [facility]grid [place] [facility] documented in this encounter Visit Diagnoses Diagnosis Encounter for follow-up ultrasound of anatomy documented in this encounter Care Teams Color Strainer Relationship Specialty Start Date End Date No Ref-Primary, Physician PCP - General 06/07/23 documented as of this encounter
--- OUTSIDE RECORDS SUMMARY | 2023-09-26 10:52 | XMS_ITS | Encounter Summary ---
Author Organization [place] Address [address] [place] [id number] Care Team Providers Care Field Professional Name Role Phone No Ref-Primary, Physician Primary [...] Sex Assigned at Female 06/03/2023 6:47 PM GUM PULLER Gender Identity Female 06/03/2023 6:47 PM GUM PULLER Sexual Orientation Straight 06/03/2023 6: 47 PM GUM PULLER documented as of this encounter Plan of Treatment Not on file documented as of this encounter Visit Diagnoses Not on filedocumented in this encounter Care Teams Field Professional Relationship Specialty Start Date End Date No Ref-Primary, Physician PCP - General 06/07/23 documented as of this encounter
--- OUTSIDE RECORDS SUMMARY | 2023-09-26 10:52 | XMS_ITS | Clinical Summary ---
Author Organization [place] Address [address] [place] [address] Care Team Providers Care Flight Nurse Name Role Phone No Ref-Primary, Physician Primary [...] Description 07/11/2023 8:30 AM CDT Office Visit [facility] [place] [address] [facility] [address] [place] [address] Ingrid [place] MD [place], Cresta Wedel, MD Maternal hypertension syndrome, second trimester (Primary Dx) 07/11/2023 8:00 AM CDT - 07/11/2023 11:59 PM CDT Hospital Encounter [facility] [place] [address] [facility] [address] [place] [address] Ingrid [place] MD Jones, Codie Littlejohn MD Encounter for follow-up ultrasound of anatomy Discharge Disposition: Home or Self Care 07/11/2023 Travel 07/04/2023 Travel from Last 3 Months Immunizations Name [...] Sex Assigned at Female 06/03/2023 6:47 PM FINE SANDER Gender Identity Female 06/03/2023 6:47 PM FINE SANDER Sexual Orientation Straight 06/03/2023 6: 47 PM FINE SANDER Last Filed Vital Signs Vital Sign Reading Time Taken Comments Blood Pressure 139/83 06/19/2023 12:21 PM FINE SANDER Pulse 85 06/19/2023 12:21 PM FINE SANDER Temperature 36.4 ??C (97.5 ??F) 10/21/2014 11:40 AM C DT Respiratory Rate 14 10/21/2014 11:40 AM CDT Oxygen Saturation 98% 06/19/2023 12:21 PM FINE SANDER Inhaled Oxygen Concentration - - Weight 128 [...] Additional history exists HEPATITIS B IMMUNIZATION Completed , 12/18/2000, 12/18/2000, Additional history exists HPV IMMUNIZATION [...] Procedure Name Priority Date/Time Associated Diagnosis Comments [facility] US COMPREHENSIVE SINGLE F/U Routine 07/11/2023 8:50 AM CDT Encounter for follow-up ultrasound of anatomy GLUCOSE BY METER Routine 10/21/2014 6:20 AM CDT from Last 3 Months or Most Recently Relevant to Health Maintenance Results * [facility] US Comprehensive Single F/U (07/11/2023 8:50 [...] ? Study Date: ??07/11/2023 7:58am Pat. NO: ??[id number] ?Referring ??: MARII SHARMA Site: ??[facility] ? Cell Attendant: Jhoana Bradley RDMS : ??1990 ?Age: ?? [...] 0 lb 14 ? oz EFW by ?[facility] ([id number]) Head / Face / Neck Biometry: Bowling Ball Molder ? 5.9 ? mm CM ?5.6 ? mm Nasal bone ? 7.0 ? mm ANATOMY ----- The following structures appear normal: Head / Neck ? Cranium. Head size. Head shape. Lateral ventricles. Midline falx. Cavum septi pellucidi. Cerebellum. Cisterna magna. Thalami. Face ? Lips. Profile. Nose. Maxilla. Mandible. Heart / Thorax ?4-chamber view. RVOT view. LVOT view. Ductal arch view. 3-vessel view. 3-qxcnuj-hudyqef view. ? Diaphragm. Abdomen ? Cord insertion. [...] daily. Further ultrasound studies are anticipated in [place] and should include: 1. Growth every 4 [...] STEINER Study Date: 07/11/2023 7:58am Pat. NO: [id number] Referring MD: MARII SHARMA Site: [facility] Cell Attendant: Jhoana Bradley RDMS : 1990 Age: 33 [...] 0 lb 14 oz EFW by Rupal ([id number]) Head / Face / Neck Biometry: Bowling Ball Molder 5.9 mm CM 5.6 mm Nasal bone 7.0 mm ANATOMY ----- The following structures appear normal: Head / Neck Cranium. Head size. Head shape.Lateral ventricles. Midline falx. Cavum septi pellucidi. Cerebellum.Cisterna magna. Thalami. Face Lips. Profile. Nose. Maxilla.Mandible. Heart / Thorax 4-chamber view. RVOT view. LVOT view.Ductal arch view. 3-vessel view. 0-fczudv-iqbtkrd view. Diaphragm. Abdomen Cord insertion. Stomach. Kidneys.Bladder. [...] daily. Further ultrasound studies are anticipated in [place] and shouldinclude: 1. Growth every 4 weeks [...] evidence of previa. Ingrid [place] MD IMG [facility] US ORDERABLE S * (ABNORMAL) Glucose by meter (10/21/2014 6:20 AM CDT) Glucose 103(H) 70 - 99 mg/dL POINT OF CARE TEST, GLUCOSE 10/21/2014 6:20 AM CDT 10/21/2014 6:25 AM CDT Lianna Dimas DDS LAB - [facility]utizer[facility] POCT POINT OF CARE TEST, GLUCOSE from Last 3 Months or Most Recently Relevant to Health Maintenance Care Teams Flight Nurse Relationship Specialty Start Date End Date No Ref-Primary, Physician PCP - General 06/07/23
--- OUTSIDE RECORDS SUMMARY | 2023-09-26 10:52 | XMS_ITS | Referral Summary ---
Author Organization [place] Address [address] [place] [address] Care Team Providers Care Choir Accompanist Name Role Phone No Ref-Primary, Physician Primary Care Provider Encounters Date Type Department Care Team Description 07/11/2023 Travel 07/11/2023 8:30 AM CDT Office Visit [facility] Medicine [facility] [address] [facility] [address] [facility] [address] [place] [phone] Ingrid [place] MD [place], Codie Littlejohn MD Maternal hypertension syndrome, second trimester (Primary Dx) 07/11/2023 8:00 AM CDT - 07/11/2023 11:59 PM CDT Hospital Encounter [facility] Medicine [facility] [address] [facility] [address] [place] [phone] Ingrid [place] MD [place], Codie Littlejohn MD Encounter for follow-up ultrasound of anatomy Discharge Disposition: Home or Self Care 07/04/2023 Travel from Last 3 Months Allergies No known [...] Sex Assigned at Female 06/03/2023 6:47 PM RETAIL STORE ASSOCIATE Gender Identity Female 06/03/2023 6:47 PM RETAIL STORE ASSOCIATE Sexual Orientation Straight 06/03/2023 6: 47 PM RETAIL STORE ASSOCIATE Last Filed Vital Signs Vital Sign Reading Time Taken Comments Blood Pressure 139/83 06/19/2023 12:21 PM RETAIL STORE ASSOCIATE Pulse 85 06/19/2023 12:21 PM RETAIL STORE ASSOCIATE Temperature 36.4 ??C (97.5 ??F) 10/21/2014 11:40 AM C DT Respiratory Rate 14 10/21/2014 11:40 AM CDT Oxygen Saturation 98% 06/19/2023 12:21 PM RETAIL STORE ASSOCIATE Inhaled Oxygen Concentration - - Weight 128 [...] Relevant to Health Maintenance Results * [facility] US Comprehensive Single F/U (07/11/2023 8:50 AM [...] ? Study Date: ??07/11/2023 7:58am Pat. NO: ??[id number] ?Referring ??MD: MARII SHARMA Site: ??[facility] ? Air Brush Decorator: Jhoana Kirk : ??1990 ?Age: ?? 33 ----- INDICATION [...] lb 14 ? oz EFW by ?Hadlock ([id number]) Head / Face / Neck Biometry: Technical Testing Engineer ? 5.9 ? mm CM ?5.6 ? mm Nasal bone ? 7.0 ? mm ANATOMY ----- The following structures appear normal: Head / Neck ? Cranium. Head size. Head shape. Lateral ventricles. Midline falx. Cavum septi pellucidi. Cerebellum. Cisterna magna. Thalami. Face ? Lips. Profile. Nose. Maxilla. Mandible. Heart / Thorax ?4-chamber view. RVOT view. LVOT view. Ductal arch view. 3-vessel view. 0-tfitym-buswqsq view. ? Diaphragm. Abdomen ? Cord insertion. [...] daily. Further ultrasound studies are anticipated in [place] and should include: 1. Growth every 4 [...] STEINER Study Date: 07/11/2023 7:58am Pat. NO: [id number] Referring MD: MARII SHARMA Site: [facility] Air Brush Decorator: Jhoana Gurrolatristen RD : 1990 Age: 33 ----- INDICATION ----- [...] 0 lb 14 oz EFW by Hadlock ([id number]-FL) Head / Face / Neck Biometry: Technical Testing Engineer 5.9 mm CM 5.6 mm Nasal bone 7.0 mm ANATOMY ----- The following structures appear normal: Head / Neck Cranium. Head size. Head shape.Lateral ventricles. Midline falx. Cavum septi pellucidi. Cerebellum.Cisterna magna. Thalami. Face Lips. Profile. Nose. Maxilla.Mandible. Heart / Thorax 4-chamber view. RVOT view. LVOT view.Ductal arch view. 3-vessel view. 8-gaykqw-imecyjz view. Diaphragm. Abdomen Cord insertion. Stomach. Kidneys.Bladder. [...] daily. Further ultrasound studies are anticipated in [place] and shouldinclude: 1. Growth every 4 weeks [...] evidence of previa. Ingrid [place] MD IMG [facility] US ORDERABLE S * (ABNORMAL) Glucose by meter (10/21/2014 6:20 AM CDT) Glucose 103(H) 70 - 99 mg/dL POINT OF CARE TEST, GLUCOSE 10/21/2014 6:20 AM CDT 10/21/2014 6:25 AM CDT Lianna Dimas DDS LAB - BEAKER POCT POINT OF CARE TEST, GLUCOSE from Last 3 Months or Most Recently Relevant to Health Maintenance Care Teams Choir Accompanist Relationship Specialty Start Date End Date No Ref-Primary, Physician PCP - General 06/07/23
--- OUTSIDE RECORDS SUMMARY | 2023-09-26 10:52 | XMS_ITS | Encounter Summary ---
Author Organization [facility] Address [address] [place] [address] Care Team Providers Care Edge Glue Machine Tender Name Role Phone No Ref-Primary, Physician Primary Care Provider Reason for Referral * Diagnostic Imaging Ultrasound (Routine) - Pending Review Specialty Diagnoses / Procedures Referred By Contac t Referred To Contact Radiology. Diagnoses related condition, antepartum Procedures [facility] US Comprehensive Single Chanel Tate MD [facility] [address] [place] [address] Referral ID Status Reason Start Date Expiration Date V isits Requested Visits Authorized [id number] Pending Review 05/29/2023 05/28/2024 1 1 UI SOFTWARE ENGINEER Reason for Visit * Diagnostic Imaging Ultrasound (Routine) - Pending Review Specialty Diagnoses / Procedures Referred By Contac t Referred To Contact Radiology. Diagnoses related condition, antepartum Procedures [facility] US Comprehensive Single Chanel Tate MD [facility] [address] [place] [address] Referral ID Status Reason Start Date Expiration Date V isits Requested Visits Authorized [id number] Pending Review 05/29/2023 05/28/2024 1 1 Encounter Details Date Type Department Care Team (Latest Contact Info) Description 06/19/2023 11:00 AM WEB UI SOFTWARE ENGINEER - 06/19/2023 11:59 PM WEB UI SOFTWARE ENGINEER Hospital Encounter [facility] Maternal Medicine Center [place] [address] [facility] [address] [place] [address] Ingrid Washington MD [address] [facility] [address] [place], [place] [address] related condition, antepartum Discharge Disposition: Home or [...] Sex Assigned at Female 06/03/2023 6:47 PM WEB UI SOFTWARE ENGINEER Gender Identity Female 06/03/2023 6:47 PM WEB UI SOFTWARE ENGINEER Sexual Orientation Straight 06/03/2023 6: 47 PM WEB UI SOFTWARE ENGINEER documented as of this encounter Medications at [...] [facility]ALTH CENTER SINGLE Routine 06/19/2023 11:57 AM WEB UI SOFTWARE ENGINEER related condition, antepartum documented in this encounter Results * [facility] Single (06/19/2023 11:57 AM WEB UI SOFTWARE ENGINEER) Anatomical Region Laterality Modality Ultrasound 06/19/2023 11:0 3 AM WEB UI SOFTWARE ENGINEER Impressions 06/19/2023 1:54 PM WEB UI SOFTWARE ENGINEER IMPRESSION ----- 1. Lanza intrauterine at 18w [...] long and closed. Narrative 06/19/2023 1:54 PM WEB UI SOFTWARE ENGINEER ?Comprehensive ----- Pat. Name: CORA STEINER ? Study Date: ??06/19/2023 11:03am Pat. NO: ??[id number] ?Referring ??: CHANEL TATE Site: ??[facility] ? Passport Support Associate: Essence Gallegos RDMS : ??1990 ?Age: ?? [...] 0 lb 8 ?oz EFW by ?Hadlock ([id number]) Head / Face / Neck Biometry: Radial Saw Operator ? 7.2 ? mm CM ?4.4 ? [...] view. RVOT view. LVOT view. 3-vessel view. 9-gohejd-vjdfvos view. Spine ?Sacral spine. The following structures [...] STEINER Study Date: 06/19/2023 11:03am Pat. NO: [id number] Referring MD: CHANEL TATE Site: [facility] Passport Support Associate: Essence Gallegos RDMS : 1990 Age: 33 [...] 0 lb 8 oz EFW by Hadlock ([id number]) Head / Face / Neck Biometry: Radial Saw Operator 7.2 mm CM 4.4 mm Nuchal fold [...] 4-chamber view. RVOT view. LVOT view.3-vessel view. 4-iqxqqx-znttgyq view. Spine Sacral spine. The following structures [...] appears long and closed. Chan[facility] documented in this encounter Visit Diagnoses Diagnosis related condition, antepartum documented in this encounter Care Teams Edge Glue Machine Tender Relationship Specialty Start Date End Date No Ref-Primary, Physician PCP - General 06/07/23 documented as of this encounter
== END 2023-09-26 10:47 | disposition home or self-care (01) ==
PROVIDERS: Visit Provider Obstetrics & Gynecology
DX: O10.913 Unspecified pre-existing hypertension complicating pregnancy, third trimester (principal); Z3A.32 32 weeks gestation of pregnancy
CPT/HCPCS: 76816; 76819; 82565; 82570; 84156; 84450; 84460; 84520; 84550

== ENCOUNTER 2023-10-03 09:16 | Outpatient (CLI) | payer BC, OTHER, SELFPAY ==
--- NOTE | 2023-10-03 09:15 | CRLHL7_ITS ---
For Patients: As a result of the Century Cures Act, medical imaging exams and procedure reports are released immediately into your electronic medical record. You may view this report before your referring provider. If you have questions, please contact your health care provider. INDICATION: Pre-existing hypertension COMPARISON: 09/26/2023 TECHNIQUE: Real time briones scale imaging of the fetus was performed. Without non-stress testing. FINDINGS: Sonographic imaging demonstrates a single living intrauterine gestation. Fetus demonstrates a regular cardiac rate of 171 beats per minute. Fetus has a vertex position. The amniotic fluid volume appears normal and there is a single deepest pocket measurement of fundal posterior cm. The fetus was active and demonstrated normal breathing movements. There was normal flexion and extension of the trunk and extremities. IMPRESSION: Normal biophysical profile score of 8 out of 8. Dictated by Gruvinder Caballero MD @ 10/03/2023 12:44:30 PM (Electronically Signed)
--- OUTSIDE RECORDS SUMMARY | 2023-10-03 09:28 | XMS_ITS | Encounter Summary ---
Author Organization [facility] Address [address] [place] [address] Care Team Providers Care Caustics Loader Name Role Phone No Ref-Primary, Physician [...] Sex Assigned at Female 06/03/2023 6:47 PM HOOP FLARING MACHINE OPERATOR Gender Identity Female 06/03/2023 6:47 PM HOOP FLARING MACHINE OPERATOR Sexual Orientation Straight 06/03/2023 6: 47 PM HOOP FLARING MACHINE OPERATOR documented as of this encounter Plan of Treatment Not on file documented as of this encounter Visit Diagnoses Not on filedocumented in this encounter Care Teams Caustics Loader Relationship Specialty Start Date End Date No Ref-Primary, Physician PCP - General 06/07/23 documented as of this encounter
--- OUTSIDE RECORDS SUMMARY | 2023-10-03 09:28 | XMS_ITS | Encounter Summary ---
Author Organization [facility] Address [address] [place] [address] Care Team Providers Care Building Admin Name Role Phone No Ref-Primary, Physician Primary [...] Sex Assigned at Female 06/03/2023 6:47 PM SYSTEMS SOFTWARE DEVELOPER Gender Identity Female 06/03/2023 6:47 PM SYSTEMS SOFTWARE DEVELOPER Sexual Orientation Straight 06/03/2023 6: 47 PM SYSTEMS SOFTWARE DEVELOPER documented as of this encounter Plan of Treatment Not on file documented as of this encounter Visit Diagnoses Not on filedocumented in this encounter Care Teams Building Admin Relationship Specialty Start Date End Date No Ref-Primary, Physician PCP - General 06/07/23 documented as of this encounter
--- OUTSIDE RECORDS SUMMARY | 2023-10-03 09:28 | XMS_ITS | Referral Summary ---
Author Organization [facility] Address [address] [place] [address] Care Team Providers Care Lead Nurse Name Role Phone No Ref-Primary, Physician Primary Care Provider Encounters Date Type Department Care Team Description 07/11/2023 Travel 07/11/2023 8:30 AM CDT Office Visit [facility] Medicine [facility] [address] [place] [phone] Ingrid Washington MD Jones, Codie Littlejohn MD Maternal hypertension syndrome, second trimester (Primary Dx) 07/11/2023 8:00 AM CDT - 07/11/2023 11:59 PM CDT Hospital Encounter [facility] Medicine [facility] [address] [place] [phone] Ingrid Washington MD Jones, Codie Littlejohn MD [...] Sex Assigned at Female 06/03/2023 6:47 PM SENIOR APPLICATIONS DEVELOPER Gender Identity Female 06/03/2023 6:47 PM SENIOR APPLICATIONS DEVELOPER Sexual Orientation Straight 06/03/2023 6: 47 PM SENIOR APPLICATIONS DEVELOPER Last Filed Vital Signs Vital Sign Reading Time Taken Comments Blood Pressure 139/83 06/19/2023 12:21 PM SENIOR APPLICATIONS DEVELOPER Pulse 85 06/19/2023 12:21 PM SENIOR APPLICATIONS DEVELOPER Temperature 36.4 ??C (97.5 ??F) 10/21/2014 11:40 AM C DT Respiratory Rate 14 10/21/2014 11:40 AM CDT Oxygen Saturation 98% 06/19/2023 12:21 PM SENIOR APPLICATIONS DEVELOPER Inhaled Oxygen Concentration - - Weight 128 [...] Recently Relevant to Health Maintenance Results * [facility] US Comprehensive Single F/U (07/11/2023 8:50 [...] ? Study Date: ??07/11/2023 7:58am Pat. NO: ??[id number] ?Referring ??MD: MARII SHARMA Site: ??[facility] ? [place] Steward/Stewardess: Jhoana Kirk : ??1990 ?Age: ?? 33 [...] lb 14 ? oz EFW by ?Hadlock ([id number]) Head / Face / Neck Biometry: Human Projectile ? 5.9 ? mm CM ?5.6 ? mm Nasal bone ? 7.0 ? mm ANATOMY ----- The following structures appear normal: Head / Neck ? Cranium. Head size. Head shape. Lateral ventricles. Midline falx. Cavum septi pellucidi. Cerebellum. Cisterna magna. Thalami. Face ? Lips. Profile. Nose. Maxilla. Mandible. Heart / Thorax ?4-chamber view. RVOT view. LVOT view. Ductal arch view. 3-vessel view. 9-dhggha-fjhjfip view. ? Diaphragm. Abdomen ? Cord insertion. [...] daily. Further ultrasound studies are anticipated in [place] and should include: 1. Growth every 4 [...] STEINER Study Date: 07/11/2023 7:58am Pat. NO: [id number] Referring MD: MARII SHARMA Site: [facility] [place] Steward/Stewardess: Jhoana Gurrolatristen RD : 1990 Age: 33 [...] 0 lb 14 oz EFW by Hadlock ([id number]) Head / Face / Neck Biometry: Human Projectile 5.9 mm CM 5.6 mm Nasal bone 7.0 mm ANATOMY ----- The following structures appear normal: Head / Neck Cranium. Head size. Head shape.Lateral ventricles. Midline falx. Cavum septi pellucidi. Cerebellum.Cisterna magna. Thalami. Face Lips. Profile. Nose. Maxilla.Mandible. Heart / Thorax 4-chamber view. RVOT view. LVOT view.Ductal arch view. 3-vessel view. 1-bwhref-uppnctu view. Diaphragm. Abdomen Cord insertion. Stomach. Kidneys.Bladder. [...] daily. Further ultrasound studies are anticipated in [place] and shouldinclude: 1. Growth every 4 weeks [...] evidence of previa. Ingrid Washington MD IMG [facility] US ORDERABLE S * (ABNORMAL) Glucose by meter (10/21/2014 6:20 AM CDT) Glucose 103(H) 70 - 99 mg/dL POINT OF CARE TEST, GLUCOSE 10/21/2014 6:20 AM CDT 10/21/2014 6:25 AM CDT Lianna Dimas DDS LAB - [facility] POCT POINT OF CARE TEST, GLUCOSE from Last 3 Months or Most Recently Relevant to Health Maintenance Care Teams Lead Nurse Relationship Specialty Start Date End Date No Ref-Primary, Physician PCP - General 06/07/23
--- OUTSIDE RECORDS SUMMARY | 2023-10-03 09:28 | XMS_ITS | Continuity of Care Document ---
Author Organization [facility] Address [address] [address] [place] [address] Phone Care Team Providers Care Senior Systems Developer Name Role Phone Sharon VITALE, Carlos Unavailable [...] Level Iv-surg Path Gross/micro 19 Offic/outpt E&m [facility] Routine Serum Collection C-reactive Prot Hep B Core Antibody Hepatitis B Surface Antibody Ag-immunoassay; Hep B Surface 9 Hepatic Function Panel Vitamin D; [address]; Hg/pltlt Ct Auto/compl 19 Advance Directives Directive Yes / No Effective Date File Name No Information Encounters Encounter Description Practice Location Reason(s) For Visit Diagnoses Date Provider Providers Copied on Encounter [facility], [address] [address], [place], [place], [id number], [place] tel:[phone] [facility] No Information 1 Sharon Gonzalez. [address], [place], [place], [id number] , [place]. tel: [phone] [facility], [address] [address], [place], [place], [address], [place] tel:[phone] [facility] No Information 9 Sharon Gonzalez. [address], [place], [place], [id number] , [place]. tel: [phone] [facility], [address] [address], [place], [place], [address], [place] tel:[phone] [facility] No Information 9 David Heredia. [address], [place], [place], [address] , [place]. tel: [phone] [facility], [address] [address], [place], [place], [address], [place] tel:[phone] [facility] Ulcerative pancolitisColorecta l polyp detected on colonoscopyPolyp of colonInflammatory polyps of colon without complicationsUlcera tive (chronic) pancolitis without complications 9 David Heredia. [address], [place], [place], [address] , [place]. tel: [phone] Referring Provider: Referral Self, USE FOR SELF REFERRALS. [facility], [address] [address], [place], [id number], [place] tel:[phone] [facility] Gastric erosion determined by endoscopyOther diseases of stomach and duodenumDuodenitis without bleedingGastric ulcer, unsp as acute or chronic, w/o hemor or perf Sep-0 9 David Heredia. [address] [facility] [address], [place], [place], [address] , [place]. [phone] Referring Provider: Referral Self, USE FOR SELF REFERRALS. Offic/outpt E&m [facility], [address] [address], [place], [id number], [place] tel:[phone] [facility] GI Symptoms or Concerns (chief complaint) Ulcerative colitis with rectal bleeding, unspecified locationNauseaVagin al discharge 9 David Heredia. [address], [facility] [address], [place], [place], [address] , [place]. [phone] Referring Provider: Kaylen Terrence Romero, [address], [place], [address]. tel:[phone] Family History Family Member Type Diagnosis Age [...] Other Registry Fluzone Quad 6mo or older [id number] administered Note: [facility] bi-direct ional interface ; Source: Other Registry influenza, high dose seasona l, preservative-free administered Note: [facility] bi-direct ional interface ; Source: Other Registry tetanus toxoid, reduced diphtheria toxoid, and acellular pertussis vaccine, adsorbed administered Note: [facility] b i-directional interface ; Source: Other Registry [...] Registry Payers Payer name Insurance type Covered green party ID Authoriza tion(s) No Information Social [...] ulcerative colitis. Records from the [facility] where she had previously been seen are [...] to read about it3. We will review [facility] records Related to Ulcerative colitis with rectal bleeding, unspecified location We will arrange an upper endosco py Related to Nausea IBD Folder Related to Ulcer ative colitis with rectal bleeding, unspecified location IBD and Nutrition Related to Ulc erative colitis with rectal bleeding, unspecified location Entyvio (vedolizumab) Related to Ulcerative colitis with rectal bleeding, unspecified location Please retrieve [facility] records (GI and Rheum) Related to Ulcerative colitis with rectal bleeding, unspecified location Assessments Type Assessment Date No Information Patient Care Teams Name Effective Dates (start - stop) Status Members No Information
--- OUTSIDE RECORDS SUMMARY | 2023-10-03 09:28 | XMS_ITS | Encounter Summary ---
Author Organization [facility] Address [address] [place] [address]. [place] [address] Care Team Providers Care Sales Consulting Director Name Role Phone No Ref-Primary, Physician Primary Care Provider Reason for Visit * Reason Comments Ultrasound RL2-subopt Encounter Details Date Type Department Care Team ([facility] st Contact Info) Description 07/11/2023 8:30 AM CDT Office Visit [facility] Maternal Medicine Center [place] [address] [place] [address] Ingrid Washington MD [address] [place] [address] Codie Leroy MD [address] [place] [address] Maternal hypertension syndrome, second trimester [...] Sex Assigned at Female 06/03/2023 6:47 PM MAPLE PRODUCTS SUPERVISOR Gender Identity Female 06/03/2023 6:47 PM MAPLE PRODUCTS SUPERVISOR Sexual Orientation Straight 06/03/2023 6: 47 PM MAPLE PRODUCTS SUPERVISOR documented as of this encounter Progress Notes [...] Primary documented in this encounter Care Teams Sales Consulting Director Relationship Specialty Start Date End Date No Ref-Primary, Physician PCP - General 06/07/23 documented as of this encounter
--- OUTSIDE RECORDS SUMMARY | 2023-10-03 09:28 | XMS_ITS | Clinical Summary ---
Author Organization [facility] Address [address] [place] [address] Care Team Providers Care Cleat Blanker Name Role Phone No Ref-Primary, Physician Primary [...] Description 07/11/2023 8:30 AM CDT Office Visit [facility] Maternal Medicine Center [place] [address] [place] [address] Ingrid Washington MD Jones, Cresta Wedel, MD Maternal hypertension syndrome, second trimester (Primary Dx) 07/11/2023 8:00 AM CDT - 07/11/2023 11:59 PM CDT Hospital Encounter [facility] M[facility] [place] [address] [place] [address] Ingrid Washington MD Jones, Codie [...] Sex Assigned at Female 06/03/2023 6:47 PM ACCOUNTS PAYABLE COORDINATOR Gender Identity Female 06/03/2023 6:47 PM ACCOUNTS PAYABLE COORDINATOR Sexual Orientation Straight 06/03/2023 6: 47 PM ACCOUNTS PAYABLE COORDINATOR Last Filed Vital Signs Vital Sign Reading Time Taken Comments Blood Pressure 139/83 06/19/2023 12:21 PM ACCOUNTS PAYABLE COORDINATOR Pulse 85 06/19/2023 12:21 PM ACCOUNTS PAYABLE COORDINATOR Temperature 36.4 ??C (97.5 ??F) 10/21/2014 11:40 AM C DT Respiratory Rate 14 10/21/2014 11:40 AM CDT Oxygen Saturation 98% 06/19/2023 12:21 PM ACCOUNTS PAYABLE COORDINATOR Inhaled Oxygen Concentration - - Weight 128 [...] Procedure Name Priority Date/Time Associated Diagnosis Comments [facility] US COMPREHENSIVE SINGLE F/U Routine 07/11/2023 8:50 AM CDT Encounter for follow-up ultrasound of anatomy GLUCOSE BY METER Routine 10/21/2014 6:20 AM CDT from Last 3 Months or Most Recently Relevant to Health Maintenance Results * [facility] US Comprehensive Single F/U (07/11/2023 8:50 [...] ? Study Date: ??07/11/2023 7:58am Pat. NO: ??[id number] ?Referring ??: MARII SHARMA Site: ??[facility] ? Credit Officer: Jhoana Bradley RDMS : ??1990 ?Age: ?? [...] 0 lb 14 ? oz EFW by ?[facility] ([id number]) Head / Face / Neck Biometry: Supervisor Brake Repair ? 5.9 ? mm CM ?5.6 ? mm Nasal bone ? 7.0 ? mm ANATOMY ----- The following structures appear normal: Head / Neck ? Cranium. Head size. Head shape. Lateral ventricles. Midline falx. Cavum septi pellucidi. Cerebellum. Cisterna magna. Thalami. Face ? Lips. Profile. Nose. Maxilla. Mandible. Heart / Thorax ?4-chamber view. RVOT view. LVOT view. Ductal arch view. 3-vessel view. 3-lrdlem-vqouciw view. ? Diaphragm. Abdomen ? Cord insertion. [...] daily. Further ultrasound studies are anticipated in [place] and should include: 1. Growth every 4 [...] STEINER Study Date: 07/11/2023 7:58am Pat. NO: [id number] Referring MD: MARII SHARMA Site: [facility] Credit Officer: Jhoana Bradley RDMS : 1990 Age: 33 [...] 0 lb 14 oz EFW by Rupal ([id number]) Head / Face / Neck Biometry: Supervisor Brake Repair 5.9 mm CM 5.6 mm Nasal bone 7.0 mm ANATOMY ----- The following structures appear normal: Head / Neck Cranium. Head size. Head shape.Lateral ventricles. Midline falx. Cavum septi pellucidi. Cerebellum.Cisterna magna. Thalami. Face Lips. Profile. Nose. Maxilla.Mandible. Heart / Thorax 4-chamber view. RVOT view. LVOT view.Ductal arch view. 3-vessel view. 9-rymcby-uvcdwja view. Diaphragm. Abdomen Cord insertion. Stomach. Kidneys.Bladder. [...] daily. Further ultrasound studies are anticipated in [place] and shouldinclude: 1. Growth every 4 weeks [...] AM CDT Lianna Dimas DDS LAB - [facility] POCT POINT OF CARE TEST, GLUCOSE from Last 3 Months or Most Recently Relevant to Health Maintenance Care Teams Cleat Blanker Relationship Specialty Start Date End Date No Ref-Primary, Physician PCP - General 06/07/23
--- OUTSIDE RECORDS SUMMARY | 2023-10-03 09:28 | XMS_ITS | Encounter Summary ---
Author Organization [facility] Address [address] [place] [address] Care Team Providers Care Job Interviewer Name Role Phone No Ref-Primary, Physician Primary Care Provider Reason for Referral * Diagnostic Imaging Ultrasound (Routine) - Pending Review Specialty Diagnoses / Procedures Referred By Contac t Referred To Contact Radiology. Diagnoses Encounter for follow-up ultrasound of anatomy Procedures [facility] US Comprehensive Single F/U Ingrid Washington MD [address] [place] [address] Referral ID Status Reason Start Date Expiration Date V isits Requested Visits Authorized [id number] Pending Review 06/19/2023 06/18/2024 1 1 Reason for Visit * Diagnostic Imaging Ultrasound (Routine) - Pending Review Specialty Diagnoses / Procedures Referred By Contac t Referred To Contact Radiology. Diagnoses Encounter for follow-up ultrasound of anatomy Procedures [facility] US Comprehensive Single F/U Ingrid Washington MD [address] [facility] [facility] [address] [place] [address] Referral ID Status Reason Start Date Expiration Date V isits Requested Visits Authorized Pending Review 06/19/2023 06/18/2024 1 1 Encounter Details Date Type Department Care Team (Latest Contact Info) Description 07/11/2023 8:00 AM CDT - 07/11/2023 11:59 PM CDT Hospital Encounter [facility] Maternal Medicine Center [place] [address] [place] [address] Ingrid Washington MD [address] [place] [address] Codie Leroy MD [address] [place] [address] Encounter for follow-up ultrasound of [...] Assigned at Female 06/03/2023 6:47 PM SENIOR TECHNICAL EDITOR Gender Identity Female 06/03/2023 6:47 PM SENIOR TECHNICAL EDITOR Sexual Orientation Straight 06/03/2023 6: 47 PM SENIOR TECHNICAL EDITOR documented as of this encounter Medications at [...] anatomy documented in this encounter Results * [facility] US Comprehensive Single F/U (07/11/2023 8:50 [...] ? Study Date: ??07/11/2023 7:58am Pat. NO: ??[id number] ?Referring ??MD: MARII SHARMA Site: ??[facility] ? Cashier: Jhoana Bradley : ??1990 ?Age: ?? 33 [...] lb 14 ? oz EFW by ?Hadlock ([id number]-FL) Head / Face / Neck Biometry: Md Urologist ? 5.9 ? mm CM ?5.6 ? mm Nasal bone ? 7.0 ? mm ANATOMY ----- The following structures appear normal: Head / Neck ? Cranium. Head size. Head shape. Lateral ventricles. Midline falx. Cavum septi pellucidi. Cerebellum. Cisterna magna. Thalami. Face ? Lips. Profile. Nose. Maxilla. Mandible. Heart / Thorax ?4-chamber view. RVOT view. LVOT view. Ductal arch view. 3-vessel view. 2-xigztt-cgwhppx view. ? Diaphragm. Abdomen ? Cord insertion. [...] daily. Further ultrasound studies are anticipated in [place] and should include: 1. Growth every 4 [...] STEINER Study Date: 07/11/2023 7:58am Pat. NO: [id number] Referring MD: MARII SHARMA Site: [facility] Cashier: Jhoana BradleyALEK : 1990 Age: 33 ----- [...] 0 lb 14 oz EFW by Hadlock ([id number]-FL) Head / Face / Neck Biometry: Md Urologist 5.9 mm CM 5.6 mm Nasal bone 7.0 mm ANATOMY ----- The following structures appear normal: Head / Neck Cranium. Head size. Head shape.Lateral ventricles. Midline falx. Cavum septi pellucidi. Cerebellum.Cisterna magna. Thalami. Face Lips. Profile. Nose. Maxilla.Mandible. Heart / Thorax 4-chamber view. RVOT view. LVOT view.Ductal arch view. 3-vessel view. 9-ivqjrz-udubpxy view. Diaphragm. Abdomen Cord insertion. Stomach. Kidneys.Bladder. [...] daily. Further ultrasound studies are anticipated in [place] and shouldinclude: 1. Growth every 4 weeks starting at 28 weeks 2. Weekly BPP at 32 weeks Return to primary provider for continued care. If you have questions regarding today's evaluation or if [facility] can [facility], please contact the Maternal- [...] no evidence of previa. Ingrid Washington MD [facility] US ORDERABLE S documented in this encounter Visit Diagnoses Diagnosis Encounter for follow-up ultrasound of anatomy documented in this encounter Care Teams Job Interviewer Relationship Specialty Start Date End Date No Ref-Primary, Physician PCP - General 06/07/23 documented as of this encounter
== END 2023-10-03 09:17 | disposition home or self-care (01) ==
PROVIDERS: Visit Provider Advanced Practice Midwife
DX: O10.919 Unspecified pre-existing hypertension complicating pregnancy, unspecified trimester (principal); O09.529 Supervision of elderly multigravida, unspecified trimester
CPT/HCPCS: 76819

== ENCOUNTER 2023-10-10 10:18 | Outpatient (CLI) | payer BC, OTHER, SELFPAY ==
--- OUTSIDE RECORDS SUMMARY | 2023-10-10 10:22 | XMS_ITS | Clinical Summary ---
Author Organization [place] Address [address] [place] [address] Care Team Providers Care Staff Mine Warfare Officer Name Role Phone No Ref-Primary, Physician [...] Description 07/11/2023 8:30 AM CDT Office Visit [facility] [place] [address] [address] [place] [address] Ingrid Washington MD Jones, Cresta Wedel, MD Maternal hypertension syndrome, second trimester (Primary Dx) 07/11/2023 8:00 AM CDT - 07/11/2023 11:59 PM CDT Hospital Encounter [facility] [place] [address] [facility] [address] [place] [address] Ingrid Washington MD Jones, Codie Littlejohn MD Encounter for follow-up ultrasound of anatomy Discharge Disposition: Home or Self Care 07/11/2023 Travel from Last 3 Months Immunizations Name [...] Sex Assigned at Female 06/03/2023 6:47 PM SPECIALIZED DEVELOPER Gender Identity Female 06/03/2023 6:47 PM SPECIALIZED DEVELOPER Sexual Orientation Straight 06/03/2023 6: 47 PM SPECIALIZED DEVELOPER Last Filed Vital Signs Vital Sign Reading Time Taken Comments Blood Pressure 139/83 06/19/2023 12:21 PM SPECIALIZED DEVELOPER Pulse 85 06/19/2023 12:21 PM SPECIALIZED DEVELOPER Temperature 36.4 ??C (97.5 ??F) 10/21/2014 11:40 AM C DT Respiratory Rate 14 10/21/2014 11:40 AM CDT Oxygen Saturation 98% 06/19/2023 12:21 PM SPECIALIZED DEVELOPER Inhaled Oxygen Concentration - - Weight [...] per calendar year) 2023 OBGCT (OB) 07/31/2023 GROUP B STREP SCREENING 10/23/2023 DTAP/TDAP/TD IMMUNIZATION (8 - Td or Tdap) [...] Procedure Name Priority Date/Time Associated Diagnosis Comments [facility] US COMPREHENSIVE SINGLE F/U Routine 07/11/2023 8:50 AM CDT Encounter for follow-up ultrasound of anatomy GLUCOSE BY METER Routine 10/21/2014 6:20 AM CDT from Last 3 Months or Most Recently Relevant to Health Maintenance Results * [facility] US Comprehensive Single F/U (07/11/2023 8:50 AM [...] ? Study Date: ??07/11/2023 7:58am Pat. NO: ??[id number] ?Referring ??: MARII SHARMA Site: ??[facility] [place] Finder: Jhoana Bradley RDMS : ??1990 ?Age: ?? [...] 0 lb 14 ? oz EFW by ?[facility] ([id number]) Head / Face / Neck Biometry: Research Associate Quality Control Qc ? 5.9 ? mm CM ?5.6 ? mm Nasal bone ? 7.0 ? mm ANATOMY ----- The following structures appear normal: Head / Neck ? Cranium. Head size. Head shape. Lateral ventricles. Midline falx. Cavum septi pellucidi. Cerebellum. Cisterna magna. Thalami. Face ? Lips. Profile. Nose. Maxilla. Mandible. Heart / Thorax ?4-chamber view. RVOT view. LVOT view. Ductal arch view. 3-vessel view. 0-rcjotm-xjiwrta view. ? Diaphragm. Abdomen ? Cord insertion. [...] daily. Further ultrasound studies are anticipated in [place] and should include: 1. Growth every 4 [...] STEINER Study Date: 07/11/2023 7:58am Pat. NO: [id number] Referring MD: MARII SHARMA Site: [facility] [place] Finder: Jhoana Bradley RDMS : 1990 Age: 33 [...] 0 lb 14 oz EFW by Rupal ([id number]) Head / Face / Neck Biometry: Research Associate Quality Control Qc 5.9 mm CM 5.6 mm Nasal bone 7.0 mm ANATOMY ----- The following structures appear normal: Head / Neck Cranium. Head size. Head shape.Lateral ventricles. Midline falx. Cavum septi pellucidi. Cerebellum.Cisterna magna. Thalami. Face Lips. Profile. Nose. Maxilla.Mandible. Heart / Thorax 4-chamber view. RVOT view. LVOT view.Ductal arch view. 3-vessel view. 2-omtqnu-nkncppj view. Diaphragm. Abdomen Cord insertion. Stomach. Kidneys.Bladder. [...] daily. Further ultrasound studies are anticipated in [place] and shouldinclude: 1. Growth every 4 weeks [...] Recently Relevant to Health Maintenance Care Teams Staff Mine Warfare Officer Relationship Specialty Start Date End Date No Ref-Primary, Physician PCP - General 06/07/23
--- OUTSIDE RECORDS SUMMARY | 2023-10-10 10:22 | XMS_ITS | Encounter Summary ---
Author Organization [place] Address [address] [place] [address] Care Team Providers Care Bindery Production Manager Name Role Phone No Ref-Primary, Physician Primary [...] Sex Assigned at Female 06/03/2023 6:47 PM OXYACETYLENE CUTTER Gender Identity Female 06/03/2023 6:47 PM OXYACETYLENE CUTTER Sexual Orientation Straight 06/03/2023 6: 47 PM OXYACETYLENE CUTTER documented as of this encounter Plan of Treatment Not on file documented as of this encounter Visit Diagnoses Not on filedocumented in this encounter Care Teams Bindery Production Manager Relationship Specialty Start Date End Date No Ref-Primary, Physician PCP - General 06/07/23 documented as of this encounter
--- OUTSIDE RECORDS SUMMARY | 2023-10-10 10:22 | XMS_ITS | Referral Summary ---
Author Organization [place] Address [address] [place] [address] Care Team Providers Care Tools Programmer Name Role Phone No Ref-Primary, Physician Primary Care Provider Encounters Date Type Department Care Team Description 07/11/2023 Travel 07/11/2023 8:30 AM CDT Office Visit [facility] [address] [facility] [address] [place] [phone] Ingrid Washington MD Jones, Codie Littlejohn MD Maternal hypertension syndrome, second trimester (Primary Dx) 07/11/2023 8:00 AM CDT - 07/11/2023 11:59 PM CDT Hospital Encounter [facility] Medicine [facility] [address] [facility] [address] [place] [phone] Ingrid Washington MD Jones, Codie Littlejohn MD Encounter for follow-up ultrasound of anatomy Discharge Disposition: Home or Self Care from [...] Sex Assigned at Female 06/03/2023 6:47 PM COMMODITY INDUSTRY ANALYST Gender Identity Female 06/03/2023 6:47 PM COMMODITY INDUSTRY ANALYST Sexual Orientation Straight 06/03/2023 6: 47 PM COMMODITY INDUSTRY ANALYST Last Filed Vital Signs Vital Sign Reading Time Taken Comments Blood Pressure 139/83 06/19/2023 12:21 PM COMMODITY INDUSTRY ANALYST Pulse 85 06/19/2023 12:21 PM COMMODITY INDUSTRY ANALYST Temperature 36.4 ??C (97.5 ??F) 10/21/2014 11:40 AM C DT Respiratory Rate 14 10/21/2014 11:40 AM CDT Oxygen Saturation 98% 06/19/2023 12:21 PM COMMODITY INDUSTRY ANALYST Inhaled Oxygen Concentration - - Weight 128 kg (282 lb 1.6 oz) 10/21/2014 6:07 AM CDT Height 167.6 cm (5' 5.98) 10/21/2014 6:07 AM CD T Body Mass Index 45.55 10/21/2014 6:07 AM CDT Plan of Treatment Not on file Procedures Procedure Name Priority Date/Time Associated Diagnosis Comments [facility] COMPREHENSIVE SINGLE F/U Routine 07/11/2023 8:50 AM CDT Encounter for follow-up ultrasound of anatomy GLUCOSE BY METER Routine 10/21/2014 6:20 AM CDT from Last 3 Months or Most Recently Relevant to Health Maintenance Results * [facility] US Comprehensive Single F/U (07/11/2023 8:50 [...] CDT ?Comp Follow Up ----- Pat. Name: JATIN, CORA ? Study Date: ??07/11/2023 7:58am Pat. NO: ??[id number] ?Referring ??MD: MARII SHARMA Site: ??[facility] ? Cardiac Tech: Jhoana Bradley [facility] : ??1990 ?Age: ?? 33 ----- [...] lb 14 ? oz EFW by ?Hadlock ([id number]) Head / Face / Neck Biometry: Field Service Engineer ? 5.9 ? mm CM ?5.6 ? mm Nasal bone ? 7.0 ? mm ANATOMY ----- The following structures appear normal: Head / Neck ? Cranium. Head size. Head shape. Lateral ventricles. Midline falx. Cavum septi pellucidi. Cerebellum. Cisterna magna. Thalami. Face ? Lips. Profile. Nose. Maxilla. Mandible. Heart / Thorax ?4-chamber view. RVOT view. LVOT view. Ductal arch view. 3-vessel view. 2-gfrxtm-xtyzjgz view. ? Diaphragm. Abdomen ? Cord insertion. [...] daily. Further ultrasound studies are anticipated in [place] and should include: 1. Growth every 4 [...] STEINER Study Date: 07/11/2023 7:58am Pat. NO: [id number] Referring MD: MARII SHARMA Site: [facility] Cardiac Tech: Jhoana Bradley RDMS : 1990 Age: 33 [...] 0 lb 14 oz EFW by Hadlock ([id number]) Head / Face / Neck Biometry: Field Service Engineer 5.9 mm CM 5.6 mm Nasal bone 7.0 mm ANATOMY ----- The following structures appear normal: Head / Neck Cranium. Head size. Head shape.Lateral ventricles. Midline falx. Cavum septi pellucidi. Cerebellum.Cisterna magna. Thalami. Face Lips. Profile. Nose. Maxilla.Mandible. Heart / Thorax 4-chamber view. RVOT view. LVOT view.Ductal arch view. 3-vessel view. 3-mmzsrh-kgamcom view. Diaphragm. Abdomen Cord insertion. Stomach. Kidneys.Bladder. [...] daily. Further ultrasound studies are anticipated in [place] and shouldinclude: 1. Growth every 4 weeks [...] no evidence of previa. Ingrid Washington MD IM [facility] US ORDERABLE S * (ABNORMAL) Glucose by meter (10/21/2014 6:20 AM CDT) Glucose 103(H) 70 - 99 mg/dL POINT OF CARE TEST, GLUCOSE 10/21/2014 6:20 AM CDT 10/21/2014 6:25 AM CDT Lianna Dimas DDS LAB - [facility] POCT POINT OF CARE TEST, GLUCOSE from Last 3 Months or Most Recently Relevant to Health Maintenance Care Teams Tools Programmer Relationship Specialty Start Date End Date No Ref-Primary, Physician PCP - General 06/07/23
--- OUTSIDE RECORDS SUMMARY | 2023-10-10 10:22 | XMS_ITS | Encounter Summary ---
Author Organization [place] Address [address] [place] [address] Care Team Providers Care Director Of Rehabilitation And Wellness Name Role Phone No Ref-Primary, Physician Primary [...] Sex Assigned at Female 06/03/2023 6:47 PM COMPLAINT OPERATOR Gender Identity Female 06/03/2023 6:47 PM COMPLAINT OPERATOR Sexual Orientation Straight 06/03/2023 6: 47 PM COMPLAINT OPERATOR documented as of this encounter Plan of Treatment Not on file documented as of this encounter Visit Diagnoses Not on filedocumented in this encounter Care Teams Director Of Rehabilitation And Wellness Relationship Specialty Start Date End Date No Ref-Primary, Physician PCP - General 06/07/23 documented as of this encounter
--- OUTSIDE RECORDS SUMMARY | 2023-10-10 10:22 | XMS_ITS | Encounter Summary ---
Author Organization [place] Address [address] [place] [address] Care Team Providers Care Director Of Learning Name Role Phone No Ref-Primary, Physician Primary Care Provider Reason for Referral * Diagnostic Imaging Ultrasound (Routine) - Pending Review Specialty Diagnoses / Procedures Referred By Contac t Referred To Contact Radiology. Diagnoses Encounter for follow-up ultrasound of anatomy Procedures [facility] US Comprehensive Single F/U Ingrid Washington MD [address] [place] [address] Referral ID Status Reason Start Date Expiration Date V isits Requested Visits Authorized [id number] Pending Review 06/19/2023 06/18/2024 1 1 Reason for Visit * Diagnostic Imaging Ultrasound (Routine) - Pending Review Specialty Diagnoses / Procedures Referred By Contac t Referred To Contact Radiology. Diagnoses Encounter for follow-up ultrasound of anatomy Procedures [facility] US Comprehensive Single F/U Ingrid Washington MD [address] [facility] [address] [facility] [address] [place] [address] Referral ID Status Reason Start Date Expiration Date V isits Requested Visits Authorized Pending Review 06/19/2023 06/18/2024 1 1 Encounter Details Date Type Department Care Team (Latest Contact Info) Description 07/11/2023 8:00 AM CDT - 07/11/2023 11:59 PM CDT Hospital Encounter [facility] [place] [address] [facility] [address] [place] [address] Ingrid Washington MD [address] [place] [address] Codie Leroy MD [address] [place] [address] Encounter for follow-up ultrasound of [...] Sex Assigned at Female 06/03/2023 6:47 PM BLOCK SORTER Gender Identity Female 06/03/2023 6:47 PM BLOCK SORTER Sexual Orientation Straight 06/03/2023 6: 47 PM BLOCK SORTER documented as of this encounter Medications at [...] anatomy documented in this encounter Results * [facility] US Comprehensive Single F/U (07/11/2023 8:50 [...] ? Study Date: ??07/11/2023 7:58am Pat. NO: ??[id number] ?Referring ??MD: MARII SHARMA Site: ??[facility] ? Booking Clerk: Jhoana Bradley : ??1990 ?Age: ?? 33 [...] lb 14 ? oz EFW by ?Hadlock ([id number]) Head / Face / Neck Biometry: Headwaiter/Headwaitress ? 5.9 ? mm CM ?5.6 ? mm Nasal bone ? 7.0 ? mm ANATOMY ----- The following structures appear normal: Head / Neck ? Cranium. Head size. Head shape. Lateral ventricles. Midline falx. Cavum septi pellucidi. Cerebellum. Cisterna magna. Thalami. Face ? Lips. Profile. Nose. Maxilla. Mandible. Heart / Thorax ?4-chamber view. RVOT view. LVOT view. Ductal arch view. 3-vessel view. 5-uisfbm-kazplcx view. ? Diaphragm. Abdomen ? Cord insertion. [...] daily. Further ultrasound studies are anticipated in [place] and should include: 1. Growth every 4 [...] STEINER Study Date: 07/11/2023 7:58am Pat. NO: [id number] Referring MD: MARII SHARMA Site: [facility] Booking Clerk: Jhoana BradleyALEK : 1990 Age: 33 ----- INDICATION ----- Chronic hypertension - on medication. Advanced maternal age. Ulcerative colitis. History of gestational hypertension & preeclampsia. BMI 45.9. Low risk NIPT. Suboptimal anatomy on previous u/s. METHOD ----- Transabdominal ultrasound examination. View: Suboptimal view: limited bymaternal body habitus ----- Lanza . Number of fetuses: 1 DATING ----- DateDetailsGest. age ARTRU LMP w + 4 d 11/17/2023 Prior [...] 0 lb 14 oz EFW by Hadlock ([id number]) Head / Face / Neck Biometry: Headwaiter/Headwaitress 5.9 mm CM 5.6 mm Nasal bone 7.0 mm ANATOMY ----- The following structures appear normal: Head / Neck Cranium. Head size. Head shape.Lateral ventricles. Midline falx. Cavum septi pellucidi. Cerebellum.Cisterna magna. Thalami. Face Lips. Profile. Nose. Maxilla.Mandible. Heart / Thorax 4-chamber view. RVOT view. LVOT view.Ductal arch view. 3-vessel view. 8-zeufck-nxytnuj view. Diaphragm. Abdomen Cord insertion. Stomach. Kidneys.Bladder. [...] daily. Further ultrasound studies are anticipated in [place] and shouldinclude: 1. Growth every 4 weeks starting at 28 weeks 2. Weekly BPP at 32 weeks Return to primary provider for continued care. If you have questions regarding today's evaluation or if we can be offunm cancer centerher service, please contact the Maternal- Medicine [...] no evidence of previa. [facility]grid [facility] documented in this encounter Visit Diagnoses Diagnosis Encounter for follow-up ultrasound of anatomy documented in this encounter Care Teams Director Of Learning Relationship Specialty Start Date End Date No Ref-Primary, Physician PCP - General 06/07/23 documented as of this encounter
--- OUTSIDE RECORDS SUMMARY | 2023-10-10 10:22 | XMS_ITS | Encounter Summary ---
Author Organization [place] Address [address] [place] [address]. [place] [address] Care Team Providers Care Cook Taco Name Role Phone No Ref-Primary, Physician Primary Care Provider Reason for Visit * Reason Comments Ultrasound [id number] Encounter Details Date Type Department Care Team ([facility] st Contact Info) Description 07/11/2023 8:30 AM CDT Office Visit [facility] [place] [address] [facility] [address] [place] [address] Ingrid Washington MD [address] [place] [address] Codie Leroy MD [address] [place] [address] Maternal hypertension syndrome, second trimester [...] Sex Assigned at Female 06/03/2023 6:47 PM BOOKMOBILE LIBRARIAN Gender Identity Female 06/03/2023 6:47 PM BOOKMOBILE LIBRARIAN Sexual Orientation Straight 06/03/2023 6: 47 PM BOOKMOBILE LIBRARIAN documented as of this encounter Progress Notes * Codie Leroy MD - 07/11/2023 8:30 AM CDT Please see full imaging report from ViewPoint program under imaging tab. Codie Leroy MD Maternal Medicine documented in this encounter Nursing Notes * Rebeca Gillsi, RN - 07/11/2023 8:30 AM CDT Patient [...] Primary documented in this encounter Care Teams Cook Taco Relationship Specialty Start Date End Date No Ref-Primary, Physician PCP - General 06/07/23 documented as of this encounter
== END 2023-10-10 10:19 | disposition home or self-care (01) ==
PROVIDERS: Visit Provider Obstetrics & Gynecology
DX: Z34.93 Encounter for supervision of normal pregnancy, unspecified, third trimester (principal); Z3A.34 34 weeks gestation of pregnancy
CPT/HCPCS: 76819; 82565; 82570; 84156; 84450; 84460; 84520; 84550

== ENCOUNTER 2023-10-18 09:13 | Outpatient (CLI) | payer BC, OTHER, SELFPAY ==
[2023-10-19 15:07] LABS: Strep B DNA Probe POSITIVE (Negative)
[2023-10-19 15:55] LABS: Strep B Susceptibility Needed? No
== END 2023-10-18 09:14 | disposition home or self-care (01) ==
PROVIDERS: Visit Provider Obstetrics & Gynecology
DX: Z34.93 Encounter for supervision of normal pregnancy, unspecified, third trimester (principal); Z3A.35 35 weeks gestation of pregnancy
CPT/HCPCS: 76819; 82565; 82570; 84156; 84450; 84460; 84520; 87081; 87653

== ENCOUNTER 2023-10-23 10:18 | Outpatient (CLI) | payer BC, OTHER, SELFPAY | END 2023-10-23 10:19 | disposition home or self-care (01) | LOC: NFLDREF 10-25 15:25 | PROVIDERS: Visit Provider Obstetrics & Gynecology | DX: O10.913 Unspecified pre-existing hypertension complicating pregnancy, third trimester (principal); Z3A.36 36 weeks gestation of pregnancy | CPT/HCPCS: 76816; 76819; 82565; 84450; 84460; 84520 ==

== ENCOUNTER 2023-11-01 09:10 | Outpatient (CLI) | payer BC, OTHER, SELFPAY ==
--- NOTE | 2023-11-01 09:15 | CRLHL7_ITS ---
For Patients: As a result of the Century Cures Act, medical imaging exams and procedure reports are released immediately into your electronic medical record. You may view this report before your referring provider. If you have questions, please contact your health care provider. INDICATION: AMA, pre-existing hypertension. COMPARISON: OB ultrasound 10/23/2023. TECHNIQUE: Ultrasound OB pelvis biophysical profile. Real time briones scale imaging of the fetus was performed without non-stress testing. FINDINGS: Sonographic imaging demonstrates a single living intrauterine gestation. The fetus demonstrates a regular cardiac rate of 145 beats per minute. The fetus has a cephalic orientation. The placenta lies posteriorly. Single deepest pocket measures 4.3 cm (2/2). The fetus was active (2/2). There was normal flexion and extension of the trunk and extremities (2/2). The fetus demonstrated normal breathing movements (2/2). IMPRESSION: Normal biophysical profile score 8 out of 8. Dictated by Jackie Ramirez MD @ 11/02/2023 2:26:57 AM (Electronically Signed)
== END 2023-11-01 09:11 | disposition home or self-care (01) ==
LOC: US 09:11
PROVIDERS: Visit Provider Advanced Practice Midwife
DX: O09.529 Supervision of elderly multigravida, unspecified trimester (principal); O10.919 Unspecified pre-existing hypertension complicating pregnancy, unspecified trimester
CPT/HCPCS: 76819; 82565; 84450; 84460; 84520

== ENCOUNTER 2023-11-02 15:02 | Inpatient (IN) | payer BC, OTHER, SELFPAY ==
[2023-11-02] VITALS (27 sets, daily range): BP systolic 90–134; BP diastolic 32–91; PULSE 68–91; RESP 16–20; TEMP 36.3–37.3; O2SAT 93–100; BMI 51.0
--- OUTSIDE RECORDS SUMMARY | 2023-11-02 13:26 | XMS_ITS | Clinical Summary ---
Author Organization [place] Address [address] [place] [address] Care Team Providers Care Quiller Operator Name Role Phone No Ref-Primary, Physician [...] Sex Assigned at Female 06/03/2023 6:47 PM NURSE REVIEWER Gender Identity Female 06/03/2023 6:47 PM NURSE REVIEWER Sexual Orientation Straight 06/03/2023 6: 47 PM NURSE REVIEWER Last Filed Vital Signs Vital Sign Reading Time Taken Comments Blood Pressure 139/83 06/19/2023 12:21 PM NURSE REVIEWER Pulse 85 06/19/2023 12:21 PM NURSE REVIEWER Temperature 36.4 ??C (97.5 ??F) 10/21/2014 11:40 AM C DT Respiratory Rate 14 10/21/2014 11:40 AM CDT Oxygen Saturation 98% 06/19/2023 12:21 PM NURSE REVIEWER Inhaled Oxygen Concentration - - Weight 128 [...] (OB) 07/31/2023 GROUP B STREP SCREENING 10/23/2023 INFLUENZA VACCINE (#1) 2023 , 06/28/2022, 06/07/2021, Additional history exists DTAP/TDAP/TD IMMUNIZATION (8 - Td or Tdap) 11/05/2030 11/05/2020, 08/14/2015, 10/04/2011, Additional history exists HEPATITIS B IMMUNIZATION Completed 001, 12/18/2000, 12/18/2000, Additional history exists HPV IMMUNIZATION Completed 03/04/2011, 07/2010, 11/03/2010, Additional history exists Pneumococcal Vaccine: Pediatrics (0 to 5 Years) and At-Risk Patients (6 to 64 Years) Completed 06/28/2022, 12/02/2012 IPV IMMUNIZATION Aged Out No longer e [...] Procedure Name Priority Date/Time Associated Diagnosis Comments GLUCOSE BY METER Routine 10/21/2014 6:20 AM CDT from Last 3 Months or Most Recently Relevant to Health Maintenance Results * (ABNORMAL) Glucose by meter (10/21/2014 6:20 AM CDT) Glucose 103(H) 70 - 99 mg/dL POINT OF CARE TEST, GLUCOSE 10/21/2014 6:20 AM CDT 10/21/2014 6:25 AM CDT Lianna Dimas DDS LAB - [facility] POCT POINT OF CARE TEST, GLUCOSE from Last 3 Months or Most Recently Relevant to Health Maintenance Care Teams Quiller Operator Relationship Specialty Start Date End Date No Ref-Primary, Physician PCP - General 06/07/23
--- OUTSIDE RECORDS SUMMARY | 2023-11-02 13:26 | XMS_ITS | Referral Summary ---
Author Organization [place] Address [address] [place] [address] Care Team Providers Care Watch Supervisor Name Role Phone No Ref-Primary, Physician [...] Sex Assigned at Female 06/03/2023 6:47 PM REVERSE UNIT OPERATOR Gender Identity Female 06/03/2023 6:47 PM REVERSE UNIT OPERATOR Sexual Orientation Straight 06/03/2023 6: 47 PM REVERSE UNIT OPERATOR Last Filed Vital Signs Vital Sign Reading Time Taken Comments Blood Pressure 139/83 06/19/2023 12:21 PM REVERSE UNIT OPERATOR Pulse 85 06/19/2023 12:21 PM REVERSE UNIT OPERATOR Temperature 36.4 ??C (97.5 ??F) 10/21/2014 11:40 AM C DT Respiratory Rate 14 10/21/2014 11:40 AM CDT Oxygen Saturation 98% 06/19/2023 12:21 PM REVERSE UNIT OPERATOR Inhaled Oxygen Concentration - - Weight 128 [...] Recently Relevant to Health Maintenance Care Teams Watch Supervisor Relationship Specialty Start Date End Date No Ref-Primary, Physician PCP - General 06/07/23
--- OUTSIDE RECORDS SUMMARY | 2023-11-02 13:27 | XMS_ITS | Continuity of Care Document ---
Author Organization [facility] Address [address] [address] [place] [address] Phone Care Team Providers Care Senior Investigator Name Role Phone Sharon VITALE, Carlos Unavailable [...] Iv-surg Path Gross/micro 19 Offic/outpt E&m [facility] Routine Serum Collection C-reactive Prot Hep B Core Antibody Hepatitis B Surface Antibody Ag-immunoassay; Hep B Surface 9 Hepatic Function Panel Vitamin D; [address]; Hg/pltlt Ct Auto/compl 19 Advance Directives Directive Yes / No Effective Date File Name No Information Encounters Encounter Description Practice Location Reason(s) For Visit Diagnoses Date Provider Providers Copied on Encounter [facility], [address] [address], [place], [place], [id number], [place] tel:[phone] [facility] No Information [address] [facility] [facility] [address], [place], [place], [id number] , [place]. tel: [phone] [facility], [address] [address], [place], [place], [address], [place] tel:[phone] [facility] No Information 9 Sharon Gonzalez. [address] [facility] [address], [place], [place], [id number] , [place]. tel: [phone] [facility], [address] [address], [place], [place], [address], [place] tel:[phone] [facility] No Information [address] [facility] [address] [facility] [address], [place], [place], [id number] , [place]. tel: [phone] [facility], [address] [address], [place], [place], [address], [place] tel:[phone] [facility] Ulcerative pancolitisColorecta l polyp detected on colonoscopyPolyp of colonInflammatory polyps of colon without complicationsUlcera tive (chronic) pancolitis without complications [address] [facility] [address] [address], [place], [place], [id number] , [place]. tel: [phone] Referring Provider: Referral Self, USE FOR SELF REFERRALS. [facility], [address] [address], [place], [id number], [place] tel:[phone] [facility] Gastric erosion determined by endoscopyOther diseases of stomach and duodenumDuodenitis without bleedingGastric ulcer, unsp as acute or chronic, w/o hemor or perf Sep-0 [address] [facility] [address], [facility] [address], [place], [place], [address] , [place]. [phone] Referring Provider: Referral Self, USE FOR SELF REFERRALS. Offic/outpt E&m [facility], [address] [address], [place], [id number], [place] tel:[phone] [facility] GI Symptoms or Concerns (chief complaint) Ulcerative colitis with rectal bleeding, unspecified locationNauseaVagin al discharge [address] [facility] [address] [address], [facility] [address], [place], [place], [address] , [place]. [phone] Referring Provider: Kaylen Terrence Romero, [address], [place], [address]. tel:[phone] Family History Family Member Type Diagnosis Age [...] Other Registry Fluzone Quad 6mo or older [id number] administered Note: [facility] bi-direct ional interface ; [...] care for ulcerative colitis. Records from the [facility] where she had previously been seen are [...] to read about it3. We will review [facility] records Related to Ulcerative colitis with rectal bleeding, unspecified location We will arrange an upper endosco py Related to Nausea IBD Folder Related to Ulcer ative colitis with rectal bleeding, unspecified location IBD and Nutrition Related to Ulc erative colitis with rectal bleeding, unspecified location Entyvio (vedolizumab) Related to Ulcerative colitis with rectal bleeding, unspecified location Please retrieve [facility] records (GI and Rheum) Related to Ulcerative colitis with rectal bleeding, unspecified location Assessments Type Assessment Date No Information Patient Care Teams Name Effective Dates (start - stop) Status Members No Information
[2023-11-02 14:17] LABS: Hemoglobin* 11.4 gm/dL (12.0-16.0)
[2023-11-02] MEDS: LACTATED RINGERS 1000 ML 1,000 ML 1200 ML IV (14:17)
--- NOTE | 2023-11-02 14:40 | P.LDBA_ITS ---
Subjective History of Present Illness Date Seen: 11/02/23 Narrative: Patient is being admitted to Labor and Delivery for repeat with bilateral salpingectomy in the setting of vaginal bleeding at 37 6/7 weeks. She is a 33 year old -0-0-2 woman at 36 6/7 weeks gestation. She began having bright red vaginal bleeding late this morning, followed by cramping and uterine tenderness. She was originally scheduled for repeat with bilateral salpingectomy tomorrow. She has chronic hypertension, currently managed on nifedipine 30 mg XL b.i.d. and labetalol 100 mg b.i.d.. Blood pressures have been normal within recent history. She also has a history of 2 previous . Her full history and physical was dictated by Dr. Tate. Please see this for details. Specific Issues/Plans Spouse: Jesus. Children: Delvis Bonds. Baby: Boy, Gael 1. Two previous deliveries * Repeat with bilateral salpingectomy, likely early term * Scheduled for 11/03/23 at [address] Chung * Private insurance 2. Chronic HTN, History of preE in prior pregnancies * Baseline labs on 04/02: normal except urine P/C = 0.30 * 24 hour urine protein 275 mg on 04/02 * Nifedipine 30mg XL daily started on 03/31, increased to BID 04/28/23 * RN BP teaching done * Start 81mg ASA at 12-16 weeks * Level 2 US/MFM consult: Posterior placenta without previa, 3 vessel cord, AC 27%, EFW 25%, unable to visualize several structures but normal visualized anatomy. Follow up US for completion of level 2 anatomy was normal as detailed below. * Growth ultrasounds every 4 weeks starting at 28 weeks * BPP weekly beginning 32 weeks - 28 weeks: 1221g, 30%ile. SDP 3.3cm (erroneously states 33cm in radiology report) * Weekly HELLP labs 3. Red vaginal bleeding 08/17/2023 * Evaluated for possible abruption * BMTZ #1: 08/17/23, #2 08/18/23 * Recurrence 08/24/23: 3 X 2 mm cervical polyp, possible vaginal lichen planus on exam * Recurrence 09/05: No blood in vaginal vault, persistent polyp noted, reactive NST 4. AMA * [id number] on 04/28 = 10 4/7 weeks: normal, XY 5. Obesity (BMI >40) * Anesthesia consult: previous on 09/02/20, weight 293 lbs at that time * Level 2 as below * No HgbA1C at NOB * 1hr GTT: 144 > passed 3 hour GTT (elevated value at 1 hr) 6. Bipolar disorder, OCD, Anxiety/depression * Stable on sertraline 150 mg * Stopped lamotrigine at diagnosis of * Followed by psychiatrist 7. Ulcerative colitis * Established with GI provider, prescribed sulfasalazine * at 20 weeks: added 40mg prednisone and increased the dose of Sulfasalazine to 4000 mg (2000mg twice daily) along with 2000mcg of a folic acid supplement * By 34 weeks, just on sulfasalazine 8. Vaginal and vulvar planus * Flare at 23 weeks, presenting with vaginal spotting. Vaginal hydrocortisone suppositories BID X 2 weeks, then QOD. Stopped by early 3rd trimester. * continues on clobetasol for vulva, prn 9. Asymptomatic hematuria in early * Reassess if any future UAs in * [ ] repeat UA to ensure resolution 10. Failed 1 hour gct, 144 3 hour gct: 1 of 4 values elevated 11. GBS positive. Ultrasounds: 07/11/23: 21 4/7 weeks. Level 2. Posterior/fundal placenta, three-vessel cord, fluid, EFW 26%, AC 51%, normal completed anatomy. 09/26/23: Vertex, SDP: 5.0, BPP 8/8, EFW: 38th percentile, abdominal circumference: 40 %. O + (Positive) : No rhogam needed Flu: 03/31/23 Covid: Tdap: 09/05 32wk mental health: JOSÉ ANTONIO: 0, PHQ9: 1. 34wk Hgb: 36wk GBS: positive OB - Problem Based A/P Additional Plan (1) Chronic hypertension affecting : Status: Acute Plan: Will continue current regimen of nifedipine XL 30 mg BID and labetalol 100 mg BID and titrate to BP. HELLP labs now. (2) History of section: Problem details: X 2 Status: Acute Plan: Confirms desire for sterilization now. Repeat with bilateral salpingectomy now. (3) Morbid obesity with body mass index (BMI) of 40.0 or higher: Status: Acute Plan: Will use Lovenox BID for prophylaxis of VTE . (4) Vaginal bleeding during , antepartum: Problem details: Lichen planus vs cervical polyp Status: Acute Plan: She does have hx of lichen planus and cervical polyp, but does not have symptoms of lichen planus at this time. The uterine cramping, tenderness, and conincident bleeding suggest partial placental abruption. Currently with category 2 tracing: Baseline 135 / accerations to 150s / intermittent brief variable decelerations / moderate variability. Will continue monitoring until . Placenta to pathology. Type and screen now. Hemoglobin within normal ranges at this time. Delivery/Labor/Induction Plan Plan: Section OB Result Labs GBS Status: positive OB Exam Physical Exam Vital signs: Pulse BP Pulse Ox 86 122/70 96 11/02/23 13:40 11/02/23 13:40 11/02/23 13:45 Narrative: General: Pleasant, no acute distress Heart: Regular rate and rhythm, no murmur or gallop Lungs: Clear to auscultation bilaterally Abdomen: Soft, nontender, gravid Lower extremities: 2+edema, no erythema Cervical exam per RN: Prior red blood noted on examining glove. Cervix long and closed.
[2023-11-02 15:02] LABS: Basophils Absolute Auto 0.01 K/uL (0.00-0.30); Basophils Percent Auto 0.1 % (0.0-3.0); Eosinophils Absolute Auto 0.13 K/uL (0.00-0.50); Eosinophils Percent Auto 1.5 % (0.0-7.0); Hematocrit 34.2 % (33.0-51.0); Immature Granulocytes Pct Auto 1.2 %; Lymphocytes Percent Auto 15.3 % (20-44); Mean Corpuscular HGB Conc 33 gm/dL (32-36); Mean Corpuscular Hemoglobin 31 pg (26-34); Mean Corpuscular Volume 94 fL (80-100); Monocytes Percent Auto 8.3 % (0.0-11.0); Neutrophils Percent Auto 73.6 % (42.0-72.0); Platelet Count* 251 K/uL (140-440); RDW Coefficient of Variation % 13.7 % (11.5-15.5); Red Blood Count 3.64 m/uL (4.00-5.20); White Blood Count* 8.47 K/uL (4.50-11.00)
[2023-11-02 15:08] LABS: Slide Review Reflex No
[2023-11-02] MEDS: CEFAZOLIN 1 GM inj 3 GM IVP (15:12)
--- NOTE | 2023-11-02 15:24 | SUR.OPER ---
Traxis paniculus drape applied preprep
[2023-11-02] MEDS: LACTATED RINGERS 1000 ML 1,000 ML 125 ML IV (15:30)
[2023-11-02] MEDS: KETOROLAC 30 MG/ML inj IVP (16:17)
--- NOTE | 2023-11-02 17:01 | P.OBPRC_ITS ---
Procedure Date of procedure: 11/02/23 Will [facility] bill your pro fee for this procedure?: Yes Procedure Description: PREOPERATIVE DIAGNOSIS: 37 weeks, 6 days gestation Vaginal bleeding 2 previous deliveries Undesired fertility POSTOPERATIVE DIAGNOSIS: 37 weeks, 6 days gestation Vaginal bleeding, presumed partial placental abruption 2 previous deliveries Undesired fertility PROCEDURE: Primary low-transverse section with bilateral salpingectomy SURGEON: Janie Chung MD ANESTHESIA: Spinal IV FLUIDS: 1700 mL crystalloid QBL: 391 mL FINDINGS: 1. Male infant, cephalic OA presentation, Apgars of 7 and 7, weight 6 lb and 6 oz, or 2880 g. Color was pale, and subsequent hemoglobin showed hemoglobin was 6.2. 2. Clear amniotic fluid. Normal appearance to uterus, bilateral tubes and ovaries. Placenta with no obvious retroplacental clot. 3. Omental adhesions to anterior abdominal wall. COMPLICATIONS: None PROCEDURE IN DETAIL: Patient was taken to the operating room with IV running. She received cefazolin in preoperative prophylaxis. Her pannus was taped up with TRAXI device. Spinal anesthesia was administered. Rincon catheter was inserted. She was prepped and draped in the usual sterile fashion. Anesthesia was tested and found to be adequate. A low-transverse skin incision was made with a scalpel and carried through to the underlying layer of fascia with the scalpel. The subcutaneous fat was dissected off the underlying fascia with Bovie. The fascia was nicked in the midline with a scalpel, and this incision was extended laterally with scissors. The fascia was dissected sharply off the underlying rectus for short distance both inferiorly and superiorly. The rectus muscles were in the midline. Peritoneum was identified and entered bluntly. Omental adhesions were identified and divided with Bovie. The rectus muscles were further in the midline inferiorly, using both sharp dissection and electrocautery. Ronaldo O retractor was inserted and tightened down, providing excellent visualization of the lower uterine segment. The bladder reflection was found to be well below the planned site for hysterotomy. Low-transverse uterine incision was made with a scalpel. Incision was widened bluntly. The 's head was grasped through the hysterotomy and delivered with the help of fundal pressure. The remainder of the body delivered without incident. Cord was clamped and cut after 30 seconds. was handed off to attending passenger locomotive engineer, Dr. Nanci. The placenta was delivered with gentle traction on the cord. The uterus was exteriorized and cleaned of all clots and debris with the dry lap pad. The hysterotomy was reapproximated with 0 Vicryl in a running, locked fashion. A few additional [id number] sutures were required to obtain hemostasis. The adnexa were examined and noted to be normal in appearance. Attention was turned to the right fallopian tube, which was grasped with Creswell clamps in the underlying mesosalpinx and elevated. The mesosalpinx was divided with the LigaSure exact device, moving laterally to medially, and was ultimately amputated at the right uterine cornua. Hemostasis was noted. Attention was then turned to the left fallopian tube, which was similarly grasped with Jaleel clamp, elevated, and the tube was amputated at the left uterine cornua. Dissection was carried laterally through the mesosalpinx and the blood supply was divided laterally, freeing the tube. Both tubes were sent to pathology for further analysis. Hemostasis was assured on the left side as well. The omentum was re-examined, and cautery was used on oozing vessels. Dampened sponge was used to clean the cul-de-sac. The uterus was returned to the abdomen. The Ronaldo O retractor was removed. The hysterotomy was reexamined and found to be hemostatic. The peritoneum was reapproximated with 2 0 Vicryl in a running fashion. The rectus muscles were examined and Bovie used on bleeding vessels. The fascia was reapproximated with 0 looped PDS in a running fashion. Subcutaneous fat was irrigated and Bovie used on oozing vessels. The subcutaneous fat was reapproximated with 2 0 plain gut suture in an interrupted fashion. The skin was closed with a subcuticular stitch of 4-0 Monocryl. Silver dressing was applied above this. Patient tolerated procedure well was taken to recovery area in stable condition. Pathology: specimen obtained, sent to pathology (Placenta and bilateral fallopian tubes) Surgery Debrief Performed: Yes Surgery Debrief Comment: I verbally confirmed my request to send placenta and fallopian tubes to pathology
--- NOTE | 2023-11-02 17:18 | W.ANESCHARGE ---
Anesthesia Charges Start Date/Time Anesthesia Start Date: 11/02/23 Anesthesia Start Time: 15:02 Stop Date/Time Anesthesia Stop Date: 11/02/23 Anesthesia Stop Time: 17:06 Summary Emergency: QUOTE CLERK
--- NOTE | 2023-11-02 17:19 | P.NB_ITS ---
Nerve Block Nerve Block Time Seen by Provider: 18:55 Date Seen: 11/02/23 Type of block requested by surgeon for post-operative analgesia: TAP Side: bilateral Time out performed: Yes Verification of patient name: Yes Verification of date of : Yes Site marking: not applicable Name of person performing procedure: Raheem Continuous monitoring Was continuous monitoring of O2 sat, B/P, monitoring and evaluation advisor, recorded every 15 minutes?: Yes Procedure Checklist: sterile prep and needles Ultrasound guided. Images saved: Yes Medications given in 5ml increments after negative aspiration: Marcaine %: 0.25 mL: 30 Needle gauge: 20 and Exparel mL: 10 Patient tolerated procedure well: Yes Block Charges Block Charge (with Pro Fee): TAP Bilateral Use of Ultrasound Machine for Block: Yes- US Guidance/pain block
[2023-11-02] MEDS: ACETAMINOPHEN 500 MG TABLET 1000 MG PO (20:18)
[2023-11-02] MEDS: NIFEdipine 30 MG TAB.ER.24 PO (20:18)
[2023-11-02] MEDS: LABETALOL HCL 100 MG TABLET PO (20:19)
[2023-11-02] MEDS: sulfaSALAzine 500 MG TABLET 1500 MG PO (20:57)
[2023-11-02] MEDS: OXYCODONE 5 MG TABLET PO (23:32)
[2023-11-03] VITALS (13 sets, daily range): BP systolic 95–118; BP diastolic 58–78; PULSE 68–74; RESP 16–18; TEMP 36.6–37; O2SAT 96–98
[2023-11-03] MEDS: hydrOXYzine pamoate 25 MG CAPSULE 50 MG PO (00:55)
[2023-11-03] MEDS: ACETAMINOPHEN 500 MG TABLET 1000 MG PO ×3 (02:19→21:36)
[2023-11-03] MEDS: OXYCODONE 5 MG TABLET PO ×4 (05:05→21:35)
[2023-11-03 06:37] LABS: Hemoglobin* 10.1 gm/dL (12.0-16.0)
[2023-11-03] MEDS: sulfaSALAzine 500 MG TABLET 1500 MG PO ×2 (09:07→18:34)
[2023-11-03] MEDS: NIFEdipine 30 MG TAB.ER.24 PO ×2 (09:08→18:34)
[2023-11-03] MEDS: DOCUSATE SODIUM 100 MG CAPSULE PO (09:08)
[2023-11-03] MEDS: LABETALOL HCL 100 MG TABLET PO ×2 (09:08→21:36)
[2023-11-03] MEDS: SIMETHICONE 80 MG TAB.CHEW PO ×2 (13:01→21:50)
--- NOTE | 2023-11-03 14:42 | P.OBPN_ITS ---
OB - PN:Subj Subjective Date Seen: 11/03/23 Narrative: Cora is a 33 y.o. who was admitted to L & D for repeat C/S.? She had an uncomplicated repeat with bilateral tubal ligation.? ? The patient feels well.? The pain is well controlled with current medications.? She has no new complaints.? She is pumping for her in the NICU and reports things are going well.? the patient has done well.? Vitals have been stable.? She has remained afebrile.? Has a good appetite, is tolerating a general diet.? She is voiding without difficulty.? She is passing gas and has not had a bowel movement.? She is ambulating and denies any dizziness.? Has Small amount of rubra lochia.?This morning she was considering discharge today to go be with her , this afternoon she feels that she would benefit from an additional overnight stay. Recovery has been slow for her and she did not get out of bed until this morning. OB - PN: Obj Exam Physical Exam: Vital signs: Temp Pulse Resp BP Pulse Ox O2 Del Method 98.6 F 74 18 118/72 98 Room Air 11/03/23 12:50 11/03/23 12:50 11/03/23 14:41 11/03/23 12:50 11/03/23 12:50 11/03/23 12:50 Narrative: GENERAL APPEARANCE:? normal affect, alert, no distress MOOD:? appropriate CHEST:? clear to auscultation HEART:? regular rate and rhythm ABDOMEN:? soft, non-tender the uterine fundus is At Umbilicus, Midline and is appropriate for the stage of recovery. EXTREMITIES:? normal and trace edema Incision: silver nitrate dressing clean dry and intact Urinary Catheter Management: Urethral: Cath placed during this visit: yes Urethral indwelling: No Reason for continuing: surgical procedure Insertion date: 11/02/23 OB - PN: Obj Data Labs Labs: Laboratory Results - last 24 hr 11/02/23 11/02/23 11/03/23 14:00 14:46 06:23 WBC 8.47 RBC 3.64 L Hgb 11.4 L 10.1 L Hct 34.2 MCV 94 MCH 31 MCHC 33 RDW Coeff of Kendall 13.7 Plt Count 251 Neut % (Auto) 73.6 H Lymph % (Auto) 15.3 L [place] % (Auto) 8.3 Eos % (Auto) 1.5 Baso % (Auto) 0.1 Neut # (Auto) 6.20 Lymph # (Auto) 1.30 [place] # (Auto) 0.70 Eos # (Auto) 0.13 Baso # (Auto) 0.01 Abs Immat Gran (auto) 0.10 Imm/Tot Granulo (auto) 1.2 Lab Acknowledgement Test Added Blood Type O Positive Antibody Screen NEGATIVE OB - PN: A/P Delivery Assessment and Plan (1) Chronic hypertension affecting : Status: Acute (2) History of section: Problem details: X 2 Status: Acute (3) Morbid obesity with body mass index (BMI) of 40.0 or higher: Status: Acute (4) Vaginal bleeding during , antepartum: Problem details: Lichen planus vs cervical polyp Status: Acute (5) Status post delivery: Status: Acute (6) care and examination immediately after delivery: Status: Acute (7) Lactating mother: Status: Acute Plan day: 1 Plan: routine care Comments: Assessment/Plan?G 3 P 3 status post uncomplicated repeat .? ?? 1.? Continue route PP cares? 2.? Pumping for infant in NICU 3.? Anticipate discharge home tomorrow or the following day per pt preference? 4.? Acute anemia.? Iron supplement ordered 5. Chronic hypertension with stable blood pressure ?
[2023-11-03] MEDS: ENOXAPARIN 40 MG/0.4 ML INJ SUBCUT (21:36)
[2023-11-04] MEDS: ACETAMINOPHEN 500 MG TABLET 1000 MG PO ×2 (03:50→10:00)
[2023-11-04 03:51] VITALS: BP 104/72; TEMP 36.7
[2023-11-04] MEDS: OXYCODONE 5 MG TABLET PO ×2 (05:52→10:01)
[2023-11-04] MEDS: NIFEdipine 30 MG TAB.ER.24 PO (05:52)
[2023-11-04 08:48] VITALS: PULSE 84; RESP 16; TEMP 36.9; O2SAT 99
[2023-11-04] MEDS: sulfaSALAzine 500 MG TABLET 1500 MG PO (08:55)
[2023-11-04] MEDS: DOCUSATE SODIUM 100 MG CAPSULE PO (08:56)
[2023-11-04] MEDS: LABETALOL HCL 100 MG TABLET PO (08:56)
--- NOTE | 2023-11-04 09:06 | P.DS_ITS ---
DS: Providers Provider Date Seen: 11/04/23 Date of admission: 11/02/23 15:02 Primary care physician: Bette Pereyra MD Admitting Clinician: Janie Chung MD Attending Physician on discharge: Janie Chung MD Date of Discharge: 11/04/23 Exam Narrative: Exam Narrative: General: Pleasant, no acute distress Heart: Regular rate and rhythm, no murmur or gallop Lungs: Clear to auscultation bilaterally Abdomen: Dressing with 1 small spot near the middle right aspect, otherwise clean, dry, and intact. Normoactive bowel sounds. Soft, nontender, fundus well below umbilicus Lower extremities: Trace bilateral edema, no erythema Const: Vital Signs, click to edit/add: Vital Signs - 24 hr 11/03/23 09:41 11/03/23 10:41 11/03/23 11:41 Temperature Pulse Rate [Right Pulse Oximeter] Respiratory Rate 18 18 18 Blood Pressure [Le ft Arm] Pulse Oximetry Oxygen Delivery Me thod 11/03/23 12:41 11/03/23 12:50 11/03/23 13:41 Temperature 98.6 F Pulse Rate [Right Pulse Oximeter] 74 Respiratory Rate 18 18 18 Blood Pressure [Le ft Arm] 118/72 Pulse Oximetry 98 Oxygen Delivery Me thod Room Air 11/03/23 14:41 11/03/23 17:25 11/03/23 23:00 Temperature 98.4 F 98.6 F Pulse Rate [Right Pulse Oximeter] 74 74 Respiratory Rate 18 18 16 Blood Pressure [Le ft Arm] 109/69 109/78 Pulse Oximetry Oxygen Delivery Me thod 11/04/23 03:51 11/04/23 08:48 Temperature 98.1 F 98.4 F Pulse Rate [Right Pulse Oximeter] 84 Respiratory Rate 16 Blood Pressure [Le ft Arm] 104/72 Pulse Oximetry 99 Oxygen Delivery Me thod Room Air OB - DS: Summary Hospital Course Hospital Course: Cora is a 33 yo -0-0-2 woman who presented on 11/02/2023 at 37 6/7 weeks gestation with bright red vaginal bleeding. She had a history of 2 previous scar, and desired repeat with bilateral salpingectomy. She has chronic hypertension, managed on nifedipine 30 mg XL b.i.d. and labetalol 100 mg b.i.d. at time of presentation. She had an uncomplicated repeat with bilateral salpingectomy on day of admission. Intraoperative findings were notable for some omental adhesions to the anterior abdominal wall. The placenta was grossly normal and amniotic fluid clear. She delivered a viable male . However, her son required transfer for blood transfusion with a hemoglobin 6.3. Her postoperative course has been smooth. Her hemoglobin on postoperative day 1 was 10.1 and she was started on ferrous sulfate. She has been entirely normotensive; her systolic blood pressures have been low enough that I have discontinued labetalol. Today, on postoperative day 2, she continues to pump for her son. She reports that he is doing well and is off oxygen, but will not be discharged today. She does have some pain with pumping and pain with ambulation. She has pain with full bladder, but is urinating well. She is tolerating a regular diet and passing flatus. Specific Issues/Plans Spouse: Jesus. Children: Delvis Bonds. Baby: Boy, Gael 1. Two previous deliveries * Repeat with bilateral salpingectomy, likely early term * Scheduled for 11/03/23 at [address] Chung * Private insurance 2. Chronic HTN, History of preE in prior pregnancies * Baseline labs on 04/02: normal except urine P/C = 0.30 * 24 hour urine protein 275 mg on 04/02 * Nifedipine 30mg XL daily started on 03/31, increased to BID 04/28/23 * RN BP teaching done * Start 81mg ASA at 12-16 weeks * Level 2 US/MFM consult: Posterior placenta without previa, 3 vessel cord, AC 27%, EFW 25%, unable to visualize several structures but normal visualized anatomy. Follow up US for completion of level 2 anatomy was normal as detailed below. * Growth ultrasounds every 4 weeks starting at 28 weeks * BPP weekly beginning 32 weeks- 28 weeks: 1221g, 30%ile. SDP 3.3cm (erroneously states 33cm in radiology report) * Weekly HELLP labs 3. Red vaginal bleeding 08/17/2023 * Evaluated for possible abruption * BMTZ #1: 08/17/23, #2 08/18/23 * Recurrence 08/24/23: 3 X 2 mm cervical polyp, possible vaginal lichen planus on exam * Recurrence 09/05: No blood in vaginal vault, persistent polyp noted, reactive NST 4. AMA * [id number] on 04/28 = 10 4/7 weeks: normal, XY 5. Obesity (BMI >40) * Anesthesia consult: previous on 09/02/20, weight 293 lbs at that time * Level 2 as below * No HgbA1C at NOB * 1hr GTT: 144 > passed 3 hour GTT (elevated value at 1 hr) 6. Bipolar disorder, OCD, Anxiety/depression * Stable on sertraline 150 mg * Stopped lamotrigine at diagnosis of * Followed by psychiatrist 7. Ulcerative colitis * Established with GI provider, prescribed sulfasalazine * at 20 weeks: added 40mg prednisone and increased the dose of Sulfasalazine to 4000 mg (2000mg twice daily) along with 2000mcg of a folic acid supplement * By 34 weeks, just on sulfasalazine 8. Vaginal and vulvar planus * Flare at 23 weeks, presenting with vaginal spotting. Vaginal hydrocortisone suppositories BID X 2 weeks, then QOD. Stopped by early 3rd trimester. * continues on clobetasol for vulva, prn 9. Asymptomatic hematuria in early * Reassess if any future UAs in * [ ] repeat UA to ensure resolution 10. Failed 1 hour gct, 144 3 hour gct: 1 of 4 values elevated 11. GBS positive. Ultrasounds: 07/11/23: 21 4/7 weeks. Level 2. Posterior/fundal placenta, three-vessel cord, fluid, EFW 26%, AC 51%, normal completed anatomy. 09/26/23: Vertex, SDP: 5.0, BPP 8/8, EFW: 38th percentile, abdominal circumference: 40 %. O + (Positive) : No rhogam needed Flu: 03/31/23 Covid: Tdap: 09/05 32wk mental health: JOSÉ ANTONIO: 0, PHQ9: 1. 34wk Hgb: 36wk GBS: positive Peripartum Data Procedures: Procedures Operation Date: 11/02/23 15:00 Actual Procedure Side Surgeon p Section, bilateral salpingectomy Janie Chung MD Operation Date: 11/03/23 07:15 <No data on this case meets the specified criteria> Infant Gender: Male Time Spent with Patient Time attestation: Total time spent providing and/or coordinating discharge services: Discharge Plan Discharge Disposition: Home, Self-Care Date of Admission: 11/02/23 15:02 Attending Provider on Discharge: Janie Chung Primary Care Provider: Bette Pereyra Condition: Stable Anticipated Discharge Date/Time: 11/04/23 09:14 Discharge Medications: New ferrous sulfate 325 mg (65 mg iron) Tablet 650 mg PO Q48H Qty: 60 0RF oxycodone 5 mg Tablet 5 - 10 mg PO Q4H PRN (Reason: Pain) Qty: 25 0RF nifedipine 30 mg Tablet Extended Release 24hr 30 mg PO Q12H Qty: 0 0RF sertraline 100 mg Tablet 150 mg PO Q24H Qty: 0 0RF sulfasalazine 500 mg Tablet 1,500 mg PO Q12H Qty: 0 0RF acetaminophen 500 mg Tablet 1,000 mg PO Q6H PRN (Reason: Pain) Qty: 0 0RF docusate sodium 100 mg Capsule 100 mg PO DAILY Qty: 0 0RF Lanolin (HPA) 100 % Cream 1 applic topical Q1H PRNQty: 0 0RF Continued DHA 200 mg capsule 200 mg PO DAILY sulfasalazine 500 mg tablet 1.5 g PO Q12H Rx Instructions: give with food (meal/snack) clobetasol 0.05 % ointment 1 applic topical QDAY Qty: 15 1RF Rx Instructions: Apply sparingly to the affected area of vulva nightly x2 weeks, then every other night x 2 weeks, then as needed moving forward sertraline 100 mg tablet 150 mg PO Q24H albuterol sulfate 90 mcg/actuation HFA aerosol inhaler 2 puff inhalation Q4-6H PRN (Reason: shortness of breath or wheezing) 30 Days Qty: 8.5 3RF omeprazole 20 mg capsule,delayed release(DR/EC) 20 mg PO QDAY 70 Days Qty: 70 0RF nifedipine 30 mg tablet extended release 30 mg PO Q12H Qty: 60 2RF Discontinued labetalol 100 mg tablet 100 mg PO BID Qty: 60 3RF ondansetron HCl 4 mg tablet 4 mg PO Q8H PRN (Reason: nausea and vomiting) Qty: 20 0RF Discharge Orders: Discharge Order (Routine); Ordered 07/06/24 Ordered By: Janie Chung Consulting provider completed their portion of the discharge: Yes Patient Education: OB High Blood Pressure DC, OB /Breast Feeding Activity Level: Activity as Tolerated Discharge Diet: Regular Follow Up Appointments: Bette Pereyra MD [Primary Care Provider] - Janie Chung MD [Staff Physician] - Forms: MyHealth Info Instructions Discharge Comments: follow up in one and 6 weeks
[2023-11-04 23:02] LABS: Rapid Plasma Reagin (RPR) Non Reactive (Non Reactive)
== END 2023-11-04 12:00 | disposition home or self-care (01) | DRG 540 ==
LOC: OB OUT 15:03 → OB 15:03
PROVIDERS: Admitting Provider Obstetrics & Gynecology; Visit Provider Obstetrics & Gynecology
PROC: 10D00Z1 Extraction of Products of Conception, Low, Open Approach (ICD-10-PCS; CPT 59514; principal; 2023-11-02 14:45)
DX: O34.211 Maternal care for low transverse scar from previous cesarean delivery (principal); O45.93 Premature separation of placenta, unspecified, third trimester; O16.4 Unspecified maternal hypertension, complicating childbirth; O99.824 Streptococcus B carrier state complicating childbirth; O90.81 Anemia of the puerperium; D62 Acute posthemorrhagic anemia; E66.01 Morbid (severe) obesity due to excess calories; O99.344 Other mental disorders complicating childbirth; F31.89 Other bipolar disorder; F41.9 Anxiety disorder, unspecified; F42.9 Obsessive-compulsive disorder, unspecified; O99.892 Other specified diseases and conditions complicating childbirth; K66.0 Peritoneal adhesions (postprocedural) (postinfection); O99.62 Diseases of the digestive system complicating childbirth; K51.90 Ulcerative colitis, unspecified, without complications; Z30.2 Encounter for sterilization; G89.18 Other acute postprocedural pain; Z37.0 Single live birth; Z3A.37 37 weeks gestation of pregnancy
CPT/HCPCS: 01961; 36415; 64488; 76942; 85018; 85025; 85460; 86592; 86850; 86900; 86901; 88184; 88302; 88307; 99140; A9270; C9290; J0665; J0690; J1100; J1650; J1885; J2274; J2371; J2405; J2590; J7120